=== PATIENT | female | born 1945 | race Caucasian/White ===

== ENCOUNTER 2017-07-18 20:09 | Emergency (ER) | payer MEDICARE, OTHER ==
[2017-07-18] MEDS ORDERED: fentaNYL PF VIAL 100 MCG/2 ML VIAL IV (21:00)
[2017-07-18 21:04] LABS: BASO # 0.2 x10^3/uL (0.0-0.2); BASO % 1 % (0-3); EOS # 0.1 x10^3/uL (0.0-0.7); EOS % 1 % (0-3); HEMATOCRIT 32.9 % (36.0-47.0); HEMOGLOBIN 11.7 g/dL (12.0-15.5); LYMPH # 2.2 x10^3/uL (1.0-4.8); LYMPH % 9 % (24-48); MEAN CORPUSCULAR HEMOGLOBIN 33 pg (25-35); MEAN CORPUSCULAR HGB CONC 36 g/dL (31-37); MEAN CORPUSCULAR VOLUME 94 fL (79-100); MONO # 1.6 x10^3/uL (0.0-1.1); MONO % 6 % (0-9); NEUT # 20.9 x10^3uL (1.8-7.7); NEUT % 84 % (31-73); PLATELET COUNT 205 x10^3/uL (140-400); RED CELL DISTRIBUTION WIDTH 12.8 % (11.5-14.5)
[2017-07-18 21:05] LABS: ADD MAN DIFF? YES
[2017-07-18] MEDS: ONDANSETRON PF 4 MG/2 ML VIAL. IV (21:05)
[2017-07-18 21:14] LABS: PARTIAL THROMBOPLASTIN TIME 23 SEC (24-38); PROTHROMBIN TIME PATIENT 12.4 SEC (11.7-14.0)
[2017-07-18 21:24] LABS: ANION GAP 10 (6-14); BLOOD UREA NITROGEN 26 mg/dL (7-20); CALCIUM 8.3 mg/dL (8.5-10.1); CARBON DIOXIDE 29 mmol/L (21-32); CHLORIDE 98 mmol/L (98-107); CREATININE 1.9 mg/dL (0.6-1.0); GLUCOSE 173 mg/dL (70-99); POTASSIUM 3.1 mmol/L (3.5-5.1); SODIUM 137 mmol/L (136-145)
[2017-07-18] MEDS: IV NORMAL SALINE 500ML BAG 500 ML IV ×2 (21:30→22:35)
[2017-07-18 21:33] LABS: LACTIC ACID 2.1 mmol/L (0.4-2.0); TROPONINI < 0.017 ng/mL (0.000-0.055)
[2017-07-18 21:33] LABS: ALBUMIN 2.7 g/dL (3.4-5.0); ALK PHOS 44 U/L (46-116); ALT (SGPT) 35 U/L (14-59); AST (SGOT) 32 U/L (15-37); CREATINE KINASE 324 U/L (26-192); DIRECT BILIRUBIN 0.1 mg/dL (0.0-0.2); LIPASE 283 U/L (73-393); TOTAL BILIRUBIN 0.1 mg/dL (0.2-1.0)
[2017-07-18 21:37] LABS: % BANDS 1 % (0-9); % LYMPHS 7 % (24-48); % MONOS 5 % (0-10); % SEGS 87 % (35-66)
[2017-07-18 21:38] LABS: PLT ESTIMATE ADEQUATE (ADEQUATE)
[2017-07-18 21:58] LABS: BILIRUBIN,URINE SMALL (NEG); CLARITY,URINE CLEAR; COLOR,URINE YELLOW; GLUCOSE,URINE NEGATIVE (NEG); NITRITE,URINE NEGATIVE (NEG); PROTEIN,URINE >=300 mg/dL (NEG-TRACE)
[2017-07-18 22:04] LABS: AMORPHOUS SEDIMENT,UR PRESENT /HPF; BACTERIA,URINE 0 /HPF (0-FEW); HYALINE CASTS, URINE MANY /HPF; SQUAMOUS EPITHELIAL CELL,UR FEW /LPF
== END 2017-07-18 23:25 | disposition short-term general hospital (02) ==
LOC: ER 23:25
DX: S42.352A Displaced comminuted fracture of shaft of humerus, left arm, initial encounter for closed fracture (principal); S42.402A Unspecified fracture of lower end of left humerus, initial encounter for closed fracture; S22.32XA Fracture of one rib, left side, initial encounter for closed fracture; Z86.73 Personal history of transient ischemic attack (TIA), and cerebral infarction without residual deficits; Z95.1 Presence of aortocoronary bypass graft; Z79.02 Long term (current) use of antithrombotics/antiplatelets; Z79.82 Long term (current) use of aspirin; Z88.5 Allergy status to narcotic agent; W17.89XA Other fall from one level to another, initial encounter; Y93.89 Activity, other specified; Y99.8 Other external cause status; Y92.89 Other specified places as the place of occurrence of the external cause
CPT/HCPCS: 36415; 70450; 71045; 72125; 73030; 73080; 73110; 73521; 80048; 80076; 81001; 82550; 83605; 83690; 84484; 85007; 85025; 85610; 85730; 96361; 96374; 99285-25; J2405; J7040; P9612

== ENCOUNTER → 2017-09-06 | Outpatient (CLI) | payer MEDICARE | END | disposition home or self-care (01) | LOC: PMGWOUND 10:09 | DX: T81.31XA Disruption of external operation (surgical) wound, not elsewhere classified, initial encounter (principal); E03.9 Hypothyroidism, unspecified; E78.5 Hyperlipidemia, unspecified; I10 Essential (primary) hypertension; Z86.73 Personal history of transient ischemic attack (TIA), and cerebral infarction without residual deficits; Z95.1 Presence of aortocoronary bypass graft; Z90.710 Acquired absence of both cervix and uterus; Z87.891 Personal history of nicotine dependence; Y83.8 Other surgical procedures as the cause of abnormal reaction of the patient, or of later complication, without mention of misadventure at the time of the procedure; Y82.8 Other medical devices associated with adverse incidents; Y92.89 Other specified places as the place of occurrence of the external cause | CPT/HCPCS: 99215 ==

== ENCOUNTER → 2017-09-22 | Outpatient (CLI) | payer MEDICARE | END | disposition home or self-care (01) | LOC: PMGWOUND 12:35 | DX: T81.31XD Disruption of external operation (surgical) wound, not elsewhere classified, subsequent encounter (principal); E03.9 Hypothyroidism, unspecified; E78.5 Hyperlipidemia, unspecified; I10 Essential (primary) hypertension; Z86.73 Personal history of transient ischemic attack (TIA), and cerebral infarction without residual deficits; Z95.1 Presence of aortocoronary bypass graft; Z90.710 Acquired absence of both cervix and uterus; Z87.891 Personal history of nicotine dependence; Y83.8 Other surgical procedures as the cause of abnormal reaction of the patient, or of later complication, without mention of misadventure at the time of the procedure | CPT/HCPCS: 97597 ==

== ENCOUNTER → 2017-10-06 | Outpatient (CLI) | payer MEDICARE | END | disposition home or self-care (01) | LOC: PMGWOUND 12:45 | DX: T81.31XD Disruption of external operation (surgical) wound, not elsewhere classified, subsequent encounter (principal); E03.9 Hypothyroidism, unspecified; E78.5 Hyperlipidemia, unspecified; I10 Essential (primary) hypertension; Z86.73 Personal history of transient ischemic attack (TIA), and cerebral infarction without residual deficits; Z95.1 Presence of aortocoronary bypass graft; Z90.710 Acquired absence of both cervix and uterus; Z87.891 Personal history of nicotine dependence; Y83.8 Other surgical procedures as the cause of abnormal reaction of the patient, or of later complication, without mention of misadventure at the time of the procedure | CPT/HCPCS: 97597 ==

== ENCOUNTER → 2017-10-20 | Outpatient (CLI) | payer MEDICARE | END | disposition home or self-care (01) | LOC: PMGWOUND 12:15 | DX: T81.31XD Disruption of external operation (surgical) wound, not elsewhere classified, subsequent encounter (principal); E03.9 Hypothyroidism, unspecified; E78.5 Hyperlipidemia, unspecified; I10 Essential (primary) hypertension; Z86.73 Personal history of transient ischemic attack (TIA), and cerebral infarction without residual deficits; Z95.1 Presence of aortocoronary bypass graft; Z90.710 Acquired absence of both cervix and uterus; Z87.891 Personal history of nicotine dependence; Y83.8 Other surgical procedures as the cause of abnormal reaction of the patient, or of later complication, without mention of misadventure at the time of the procedure | CPT/HCPCS: 99214 ==

== ENCOUNTER 2017-11-24 20:32 | Inpatient (IN) | payer MEDICARE ==
[2017-11-24 20:56] LABS: ADD MAN DIFF? NO
[2017-11-24 20:59] LABS: BASO % 0 % (0-3); EOS % 0 % (0-3); HEMATOCRIT 28.9 % (36.0-47.0); HEMOGLOBIN 10.1 g/dL (12.0-15.5); LYMPH # 0.9 x10^3/uL (1.0-4.8); LYMPH % 14 % (24-48); MEAN CORPUSCULAR HEMOGLOBIN 32 pg (25-35); MEAN CORPUSCULAR HGB CONC 35 g/dL (31-37); MEAN CORPUSCULAR VOLUME 91 fL (79-100); MONO # 0.4 x10^3/uL (0.0-1.1); MONO % 7 % (0-9); NEUT # 5.1 x10^3uL (1.8-7.7); NEUT % 79 % (31-73); PLATELET COUNT 329 x10^3/uL (140-400); RED BLOOD COUNT 3.17 x10^6/uL (3.50-5.40); RED CELL DISTRIBUTION WIDTH 14.6 % (11.5-14.5); WHITE BLOOD COUNT 6.4 x10^3/uL (4.0-11.0)
[2017-11-24 21:09] LABS: PARTIAL THROMBOPLASTIN TIME 26 SEC (24-38); PROTHROMBIN TIME PATIENT 13.1 SEC (11.7-14.0)
[2017-11-24 21:10] LABS: ANION GAP 10 (6-14); BLOOD UREA NITROGEN 44 mg/dL (7-20); CALCIUM 8.3 mg/dL (8.5-10.1); CARBON DIOXIDE 23 mmol/L (21-32); CHLORIDE 95 mmol/L (98-107); CREATININE 2.1 mg/dL (0.6-1.0); GFR 23.1; GLUCOSE 138 mg/dL (70-99); POTASSIUM 3.9 mmol/L (3.5-5.1); SODIUM 128 mmol/L (136-145)
[2017-11-24 21:24] LABS: MAGNESIUM 1.3 mg/dL (1.8-2.4); NT-PRO BNP 17519 pg/mL (0-124)
[2017-11-24] MEDS ORDERED: IV NORMAL SALINE 500ML BAG 500 ML IV (21:30)
[2017-11-24] MEDS ORDERED: ONDANSETRON PF 4 MG/2 ML VIAL. IV (22:15)
[2017-11-24] MEDS ORDERED: ACETAMINOPHEN 325 MG TABLET. PO (22:15)
[2017-11-25 01:27] LABS: TROPONINI 0.034 ng/mL (0.000-0.055)
[2017-11-25 05:41] LABS: ADD MAN DIFF? NO
[2017-11-25 05:45] LABS: BASO % 1 % (0-3); EOS % 0 % (0-3); HEMATOCRIT 26.4 % (36.0-47.0); LYMPH # 0.9 x10^3/uL (1.0-4.8); LYMPH % 14 % (24-48); MEAN CORPUSCULAR HEMOGLOBIN 31 pg (25-35); MEAN CORPUSCULAR HGB CONC 34 g/dL (31-37); MEAN CORPUSCULAR VOLUME 91 fL (79-100); MONO # 0.4 x10^3/uL (0.0-1.1); MONO % 7 % (0-9); NEUT # 4.8 x10^3uL (1.8-7.7); NEUT % 78 % (31-73); PLATELET COUNT 303 x10^3/uL (140-400); RED CELL DISTRIBUTION WIDTH 14.6 % (11.5-14.5); WHITE BLOOD COUNT 6.1 x10^3/uL (4.0-11.0)
[2017-11-25 06:08] LABS: ANION GAP 9 (6-14); BLOOD UREA NITROGEN 48 mg/dL (7-20); CALCIUM 8.3 mg/dL (8.5-10.1); CARBON DIOXIDE 24 mmol/L (21-32); CHLORIDE 95 mmol/L (98-107); CREATININE 2.4 mg/dL (0.6-1.0); GFR 19.8; GLUCOSE 108 mg/dL (70-99); POTASSIUM 4.2 mmol/L (3.5-5.1); SODIUM 128 mmol/L (136-145)
[2017-11-25 06:21] LABS: TROPONINI 0.037 ng/mL (0.000-0.055)
[2017-11-25 08:41] LABS: MAGNESIUM 1.4 mg/dL (1.8-2.4)
[2017-11-25] MEDS: MAGNESIUM SULFATE 4GM 100 ML IV (11:10)
[2017-11-25 11:48] LABS: THYROID STIM HORMONE (TSH) 1.024 uIU/mL (0.358-3.74)
[2017-11-25 12:25] LABS: VITAMIN-B12 1396 pg/mL (247-911)
[2017-11-25] MEDS: METOPROLOL TART IMMED RELEASE 25 MG TABLET. PO ×2 (12:55→20:42)
[2017-11-25] MEDS: APIXABAN 2.5 MG TABLET. PO ×2 (12:55→20:42)
[2017-11-25] MEDS: LEVOTHYROXINE 175 MCG TABLET PO (12:55)
[2017-11-25] MEDS: POTASSIUM CHLORIDE 20 MEQ TABLET.ER. PO ×2 (12:56→16:20)
[2017-11-25] MEDS: AMIODARONE HCL 200 MG TABLET. PO (12:56)
[2017-11-25] MEDS: levETIRAcetam 500 MG TABLET PO ×2 (12:56→20:42)
[2017-11-25] MEDS: ASPIRIN CHEWABLE 81 MG TABLET. PO (12:56)
[2017-11-25] MEDS: PANTOPRAZOLE 40 MG TABLET.DR. PO (12:56)
[2017-11-25] MEDS: amLODIPine BESYLATE 10 MG TABLET PO (13:02)
[2017-11-25] MEDS: SERTRALINE 50 MG TABLET. PO (16:19)
[2017-11-25] MEDS: DOXAZOSIN MESYLATE 4 MG TABLET. PO (20:42)
[2017-11-25] MEDS: ATORVASTATIN CALCIUM 40 MG TABLET. PO (20:42)
[2017-11-26 05:41] LABS: HEMATOCRIT 23.7 % (36.0-47.0); HEMOGLOBIN 8.2 g/dL (12.0-15.5); MEAN CORPUSCULAR HEMOGLOBIN 31 pg (25-35); MEAN CORPUSCULAR HGB CONC 35 g/dL (31-37); MEAN CORPUSCULAR VOLUME 90 fL (79-100); PLATELET COUNT 292 x10^3/uL (140-400); RED BLOOD COUNT 2.63 x10^6/uL (3.50-5.40); RED CELL DISTRIBUTION WIDTH 14.6 % (11.5-14.5); WHITE BLOOD COUNT 4.8 x10^3/uL (4.0-11.0)
[2017-11-26 05:59] LABS: ALBUMIN 1.4 g/dL (3.4-5.0); ALBUMIN/GLOBULIN RATIO 0.4 (1.0-1.7); ALK PHOS 63 U/L (46-116); ALT (SGPT) 37 U/L (14-59); ANION GAP 10 (6-14); AST (SGOT) 35 U/L (15-37); BLOOD UREA NITROGEN 53 mg/dL (7-20); BUN/CREATININE RATIO 24 (6-20); CALCIUM 7.4 mg/dL (8.5-10.1); CARBON DIOXIDE 23 mmol/L (21-32); CHLORIDE 94 mmol/L (98-107); CREATININE 2.2 mg/dL (0.6-1.0); GFR 21.9; GLUCOSE 94 mg/dL (70-99); POTASSIUM 3.2 mmol/L (3.5-5.1); SODIUM 127 mmol/L (136-145); TOTAL BILIRUBIN 0.2 mg/dL (0.2-1.0); TOTAL PROTEIN 4.9 g/dL (6.4-8.2)
[2017-11-26] MEDS: PANTOPRAZOLE 40 MG TABLET.DR. PO (07:48)
[2017-11-26] MEDS: LEVOTHYROXINE 175 MCG TABLET PO (07:48)
[2017-11-26] MEDS: ASPIRIN CHEWABLE 81 MG TABLET. PO (07:48)
[2017-11-26] MEDS: POTASSIUM CHLORIDE 20 MEQ TABLET.ER. PO ×4 (07:48→17:17)
[2017-11-26] MEDS: ANTI-COAG MONITOR BY PHARMACY. MC (08:50)
[2017-11-26] MEDS: METOPROLOL TART IMMED RELEASE 25 MG TABLET. PO ×2 (09:12→21:56)
[2017-11-26] MEDS: MULTIVITAMIN with MINERAL TABLET. PO (09:12)
[2017-11-26] MEDS: SERTRALINE 50 MG TABLET. PO (09:12)
[2017-11-26] MEDS: amLODIPine BESYLATE 10 MG TABLET PO (09:12)
[2017-11-26] MEDS: AMIODARONE HCL 200 MG TABLET. PO (09:13)
[2017-11-26] MEDS: APIXABAN 2.5 MG TABLET. PO ×2 (09:13→21:51)
[2017-11-26] MEDS: levETIRAcetam 500 MG TABLET PO ×2 (09:13→21:51)
[2017-11-26 11:52] LABS: BILIRUBIN,URINE NEGATIVE (NEG); CLARITY,URINE CLEAR; COLOR,URINE YELLOW; GLUCOSE,URINE NEGATIVE (NEG); NITRITE,URINE NEGATIVE (NEG); PROTEIN,URINE >=300 mg/dL (NEG-TRACE); UROBILINOGEN,URINE 0.2 mg/dL (0.2 mg/dL)
[2017-11-26 12:23] LABS: BACTERIA,URINE 0 /HPF (0-FEW); HYALINE CASTS, URINE FEW /HPF; SQUAMOUS EPITHELIAL CELL,UR MOD /LPF; WAXY CASTS,URINE OCCASIONAL /HPF; WBC,URINE 0 /HPF (0-4); YEAST,URINE PRESENT /HPF
[2017-11-26] MEDS: SPIRONOLACTONE 25 MG TABLET PO (12:54)
[2017-11-26] MEDS: OMEGA-3 FATTY ACIDS/FISH OIL 1,000 MG CAPSULE. PO (12:54)
[2017-11-26] MEDS: CHOLECALCIFEROL (VITAMIN D3) 1,000 UNIT TABLET PO (12:55)
[2017-11-26] MEDS: FLUDROCORTISONE 0.1 MG TABLET PO (12:55)
[2017-11-26] MEDS: ATORVASTATIN CALCIUM 40 MG TABLET. PO (21:51)
[2017-11-26] MEDS: DOXAZOSIN MESYLATE 4 MG TABLET. PO (21:53)
[2017-11-27 04:38] LABS: HEMATOCRIT 26.3 % (36.0-47.0); HEMOGLOBIN 9.2 g/dL (12.0-15.5); MEAN CORPUSCULAR HEMOGLOBIN 32 pg (25-35); MEAN CORPUSCULAR HGB CONC 35 g/dL (31-37); MEAN CORPUSCULAR VOLUME 91 fL (79-100); PLATELET COUNT 295 x10^3/uL (140-400); RED BLOOD COUNT 2.91 x10^6/uL (3.50-5.40); RED CELL DISTRIBUTION WIDTH 14.5 % (11.5-14.5); WHITE BLOOD COUNT 4.8 x10^3/uL (4.0-11.0)
[2017-11-27 05:16] LABS: ALBUMIN 1.5 g/dL (3.4-5.0); ALBUMIN/GLOBULIN RATIO 0.5 (1.0-1.7); ALK PHOS 69 U/L (46-116); ALT (SGPT) 42 U/L (14-59); ANION GAP 9 (6-14); AST (SGOT) 42 U/L (15-37); BLOOD UREA NITROGEN 46 mg/dL (7-20); BUN/CREATININE RATIO 24 (6-20); CALCIUM 7.1 mg/dL (8.5-10.1); CARBON DIOXIDE 23 mmol/L (21-32); CHLORIDE 97 mmol/L (98-107); CREATININE 1.9 mg/dL (0.6-1.0); GFR 25.9; GLUCOSE 90 mg/dL (70-99); POTASSIUM 3.9 mmol/L (3.5-5.1); SODIUM 129 mmol/L (136-145); TOTAL BILIRUBIN 0.2 mg/dL (0.2-1.0); TOTAL PROTEIN 4.6 g/dL (6.4-8.2)
[2017-11-27 06:42] LABS: SEDIMENTATION RATE 45 (0-25)
[2017-11-27] MEDS: LEVOTHYROXINE 175 MCG TABLET PO (06:44)
[2017-11-27] MEDS: ASPIRIN CHEWABLE 81 MG TABLET. PO (08:00)
[2017-11-27] MEDS: OMEGA-3 FATTY ACIDS/FISH OIL 1,000 MG CAPSULE. PO (08:25)
[2017-11-27] MEDS: FLUDROCORTISONE 0.1 MG TABLET PO (08:25)
[2017-11-27] MEDS: CHOLECALCIFEROL (VITAMIN D3) 1,000 UNIT TABLET PO (08:25)
[2017-11-27] MEDS: levETIRAcetam 500 MG TABLET PO ×2 (08:25→20:45)
[2017-11-27] MEDS: METOPROLOL TART IMMED RELEASE 25 MG TABLET. PO ×2 (08:26→20:46)
[2017-11-27] MEDS: AMIODARONE HCL 200 MG TABLET. PO (08:26)
[2017-11-27] MEDS: PANTOPRAZOLE 40 MG TABLET.DR. PO (08:27)
[2017-11-27] MEDS: MULTIVITAMIN with MINERAL TABLET. PO (08:27)
[2017-11-27] MEDS: APIXABAN 2.5 MG TABLET. PO ×2 (08:27→20:46)
[2017-11-27] MEDS: SPIRONOLACTONE 25 MG TABLET PO (08:27)
[2017-11-27] MEDS: POTASSIUM CHLORIDE 20 MEQ TABLET.ER. PO ×3 (08:27→17:12)
[2017-11-27] MEDS: amLODIPine BESYLATE 10 MG TABLET PO (08:28)
[2017-11-27] MEDS: SERTRALINE 50 MG TABLET. PO (08:28)
[2017-11-27] MEDS: ANTI-COAG MONITOR BY PHARMACY. MC (11:29)
[2017-11-27] MEDS: ATORVASTATIN CALCIUM 40 MG TABLET. PO (20:45)
[2017-11-27] MEDS: DOXAZOSIN MESYLATE 4 MG TABLET. PO (20:47)
[2017-11-28] MEDS: LEVOTHYROXINE 175 MCG TABLET PO (06:09)
[2017-11-28 08:14] LABS: HEMATOCRIT 28.3 % (36.0-47.0); HEMOGLOBIN 9.8 g/dL (12.0-15.5); MEAN CORPUSCULAR HEMOGLOBIN 31 pg (25-35); MEAN CORPUSCULAR HGB CONC 35 g/dL (31-37); MEAN CORPUSCULAR VOLUME 91 fL (79-100); PLATELET COUNT 308 x10^3/uL (140-400); RED BLOOD COUNT 3.12 x10^6/uL (3.50-5.40); WHITE BLOOD COUNT 5.2 x10^3/uL (4.0-11.0)
[2017-11-28] MEDS: SPIRONOLACTONE 25 MG TABLET PO (08:33)
[2017-11-28] MEDS: OMEGA-3 FATTY ACIDS/FISH OIL 1,000 MG CAPSULE. PO (08:33)
[2017-11-28] MEDS: CHOLECALCIFEROL (VITAMIN D3) 1,000 UNIT TABLET PO (08:33)
[2017-11-28] MEDS: SERTRALINE 50 MG TABLET. PO (08:34)
[2017-11-28] MEDS: amLODIPine BESYLATE 10 MG TABLET PO (08:34)
[2017-11-28] MEDS: APIXABAN 2.5 MG TABLET. PO (08:34)
[2017-11-28] MEDS: PANTOPRAZOLE 40 MG TABLET.DR. PO (08:34)
[2017-11-28] MEDS: MULTIVITAMIN with MINERAL TABLET. PO (08:34)
[2017-11-28] MEDS: FLUDROCORTISONE 0.1 MG TABLET PO (08:34)
[2017-11-28] MEDS: AMIODARONE HCL 200 MG TABLET. PO (08:34)
[2017-11-28 08:35] LABS: ANION GAP 7 (6-14); BLOOD UREA NITROGEN 30 mg/dL (7-20); CALCIUM 7.7 mg/dL (8.5-10.1); CARBON DIOXIDE 25 mmol/L (21-32); CHLORIDE 98 mmol/L (98-107); CREATININE 1.6 mg/dL (0.6-1.0); GFR 31.6; GLUCOSE 91 mg/dL (70-99); POTASSIUM 3.2 mmol/L (3.5-5.1); SODIUM 130 mmol/L (136-145)
[2017-11-28] MEDS: POTASSIUM CHLORIDE 20 MEQ TABLET.ER. PO ×3 (08:35→12:15)
[2017-11-28] MEDS: METOPROLOL TART IMMED RELEASE 25 MG TABLET. PO (08:35)
[2017-11-28] MEDS: levETIRAcetam 500 MG TABLET PO (08:35)
[2017-11-28] MEDS: ASPIRIN CHEWABLE 81 MG TABLET. PO (08:35)
[2017-11-28 11:24] LABS: URINE OSMOLALITY 387 mOsmol/kg (.)
== END 2017-11-28 14:25 | disposition home health service (06) | DRG 682 ==
LOC: ER 20:32 → 2 NORTH 22:30
PROC: 4B02XSZ Measurement of Cardiac Pacemaker, External Approach (ICD-10-PCS; principal; 2017-11-24)
DX: N17.9 Acute kidney failure, unspecified (principal); E43 Unspecified severe protein-calorie malnutrition; E87.1 Hypo-osmolality and hyponatremia; I50.32 Chronic diastolic (congestive) heart failure; I13.0 Hypertensive heart and chronic kidney disease with heart failure and stage 1 through stage 4 chronic kidney disease, or unspecified chronic kidney disease; I69.354 Hemiplegia and hemiparesis following cerebral infarction affecting left non-dominant side; R56.9 Unspecified convulsions; I25.10 Atherosclerotic heart disease of native coronary artery without angina pectoris; D64.9 Anemia, unspecified; F17.210 Nicotine dependence, cigarettes, uncomplicated; E78.5 Hyperlipidemia, unspecified; F41.9 Anxiety disorder, unspecified; G93.89 Other specified disorders of brain; E03.9 Hypothyroidism, unspecified; F32.9 Major depressive disorder, single episode, unspecified; N26.1 Atrophy of kidney (terminal); N28.1 Cyst of kidney, acquired; I48.0 Paroxysmal atrial fibrillation; I49.5 Sick sinus syndrome; E83.42 Hypomagnesemia; E83.51 Hypocalcemia; I65.22 Occlusion and stenosis of left carotid artery; I95.1 Orthostatic hypotension; K21.9 Gastro-esophageal reflux disease without esophagitis; M85.80 Other specified disorders of bone density and structure, unspecified site; N18.4 Chronic kidney disease, stage 4 (severe); Z95.1 Presence of aortocoronary bypass graft; Z95.0 Presence of cardiac pacemaker; Z82.49 Family history of ischemic heart disease and other diseases of the circulatory system; Z79.899 Other long term (current) drug therapy; I69.320 Aphasia following cerebral infarction; Z87.01 Personal history of pneumonia (recurrent); Z68.21 Body mass index [BMI] 21.0-21.9, adult
CPT/HCPCS: 36415; 70450; 71045; 76770; 80048; 80053; 81001; 82306; 82310; 82533; 82607; 83735; 83880; 83930; 83935; 84443; 84484; 85025; 85027; 85610; 85651; 85730; 92610-GN; 93005; 95816; 97110-GP; 97163-GP; 97530-GP; 99285; 99285-25; J3475

== ENCOUNTER → 2017-12-15 | Outpatient (CLI) | payer MEDICARE ==
[2017-11-28 11:50] VITALS: BP 117/45
[~2017-12-15] MED LIST: AMIO200T4 PO; AMLO10TA2 PO; APIX2.5T PO; ASPI-630 PO; ATORVASTATIN CA80 MG PO; CHOL10003 PO; DOXA8TAB2 PO; DOXY100C2 PO; FLUD0.1T PO; LEVE500T56 PO; LEVO175T5 PO; LOSA25TA4 PO; METO25TA4 PO; MULT1TAB52 PO; OMEG1CAP38 PO; OMEP40CA5 PO; PARO20TA3 PO; PHEN100C PO; POTA20TA4 PO; POTA20TA82 PO; SERT50TA8 PO; SPIR50TA4 PO
== END | disposition home or self-care (01) ==
LOC: PMGWOUND 12:10
PROVIDERS: ATTEND Emergency Medicine Undersea and Hyperbaric Medicine
DX: T81.31XD Disruption of external operation (surgical) wound, not elsewhere classified, subsequent encounter (principal); F41.9 Anxiety disorder, unspecified; I25.10 Atherosclerotic heart disease of native coronary artery without angina pectoris; K21.9 Gastro-esophageal reflux disease without esophagitis; E11.22 Type 2 diabetes mellitus with diabetic chronic kidney disease; I13.0 Hypertensive heart and chronic kidney disease with heart failure and stage 1 through stage 4 chronic kidney disease, or unspecified chronic kidney disease; N18.4 Chronic kidney disease, stage 4 (severe); I50.32 Chronic diastolic (congestive) heart failure; E03.9 Hypothyroidism, unspecified; F32.9 Major depressive disorder, single episode, unspecified; I48.0 Paroxysmal atrial fibrillation; E78.5 Hyperlipidemia, unspecified; F17.210 Nicotine dependence, cigarettes, uncomplicated; Z95.1 Presence of aortocoronary bypass graft; Z79.899 Other long term (current) drug therapy; Z79.4 Long term (current) use of insulin; Z99.2 Dependence on renal dialysis; Y83.8 Other surgical procedures as the cause of abnormal reaction of the patient, or of later complication, without mention of misadventure at the time of the procedure
CPT/HCPCS: 99213

== ENCOUNTER 2018-07-16 09:56 | Inpatient (IN) | payer MEDICARE ==
[~2018-07-16] VITALS: Ht 152.4 cm; Wt 36.9 kg
[~2018-07-16 09:56] MED LIST changes: +ACET500T68 PO; -AMLO10TA2 PO; +AMLO10TA8 PO; +CLOP75TA PO; +FURO20TA3 PO; +LEVE500T6 PO; -LOSA25TA4 PO; +LOSA25TA54 PO; +METO-239 PO; +SERT50TA PO
[2018-07-16] MEDS ORDERED: IPRATRPIUM/ALBUTEROL 0.5/2.5MG 3 ML NEBU. NEB ONE (10:15)
--- NOTE | 2018-07-16 10:17 | PHYS DOC ---
Past Medical History Past Medical History: COPD, CVA, Heart Disease, Hypertension, Renal Failure Additional Past Medical Histor: Left carotid artery completely occluded Past Surgical History: Coronary Bypass Surgery, Hysterectomy, Pacemaker Additional Past Surgical Histo: PARATHYROID GLAND REMOVED, Stent in kidney, shoulder surgery, carotids Alcohol Use: None Drug Use: None Adult General Chief Complaint Chief Complaint: SHORTNESS OF BREATH HPI HPI Patient is a 72 year old female who presents with shortness of breath. History is limited from the patient due to her prior stroke. History was obtained mostly from her . Patient was admitted to the hospital approximately 2 weeks ago due to shortness of breath and found to be in congestive heart failure. She was receiving dialysis treatments due to acute renal failure. Her last dialysis was a week ago, and she was told that she no longer needed dialysis. Since that time she has been having increasing shortness of breath. They put her home oxygen machine on 5 L which did not significantly improve her shortness of breath. denies any fever. Denies any cough.[] Review of Systems Review of Systems Constitutional: Denies fever or chills [] Eyes: Denies change in visual acuity, redness, or eye pain [] HENT: Denies nasal congestion or sore throat [] Respiratory: See history of present illness[] Cardiovascular: No chest pain or palpitations[] GI: Denies abdominal pain, nausea, vomiting, bloody stools or diarrhea [] : Denies dysuria or hematuria [] Musculoskeletal: Denies back pain or joint pain [] Integument: Denies rash or skin lesions [] Neurologic: Denies headache, focal weakness or sensory changes [] Endocrine: Denies polyuria or polydipsia [] All other systems were reviewed and found to be within normal limits, except as documented in this note. Current Medications Current Medications Current Medications Medications (Trade) Dose Ordered Sig/Dez Start Time Stop Time Status Last Admin Dose Admin Albuterol/ Ipratropium (Duoneb) 3 ml 1X ONCE 07/16/18 10:15 07/16/18 10:16 DC 07/16/18 10:15 3 ML Furosemide (Lasix) 40 mg 1X ONCE 07/16/18 10:30 07/16/18 10:31 DC 07/16/18 11:02 40 MG Allergies Allergies Allergies Coded Allergies Type Severity Reaction Last Updated Verified codeine Allergy Intermediate 11/24/17 Yes Physical Exam Physical Exam Constitutional: Well developed, well nourished, no acute distress, non-toxic appearance. [] HENT: Normocephalic, atraumatic, bilateral external ears normal, oropharynx moist, no oral exudates, nose normal. [] Eyes: PERRLA, EOMI, conjunctiva normal, no discharge. [] Neck: Normal range of motion, no tenderness, supple, no stridor. [] Cardiovascular:Heart rate regular rhythm, no murmur [] Lungs & Thorax: Bilateral breath sounds clear to auscultation [] Abdomen: Bowel sounds normal, soft, no tenderness, no masses, no pulsatile masses. [] Skin: Warm, dry, no erythema, no rash. [] Back: No tenderness, no CVA tenderness. [] Extremities: No tenderness, no cyanosis, no clubbing, ROM intact, no edema. [] Neurologic: Alert and oriented, patient is able to move all 4 extremities but appears grossly week in all 4 extremities. [] Psychologic: Unable to assess. [] Current Patient Data Vital Signs Vital Signs Date Time Temp Pulse Resp B/P (MAP) Pulse Ox O2 Delivery O2 Flow Rate FiO2 07/16/18 10:17 98 Nasal Cannula 5.0 07/16/18 10:02 97.8 76 24 200/80 (120) 97.8 Lab Values Laboratory Tests Test 07/16/18 10:05 07/16/18 10:30 White Blood Count 7.1 x10^3/uL (4.0-11.0) Red Blood Count 3.16 x10^6/uL (3.50-5.40) L Hemoglobin 9.4 g/dL (12.0-15.5) L Hematocrit 28.4 % (36.0-47.0) L Mean Corpuscular Volume 90 fL (79-100) Mean Corpuscular Hemoglobin 30 pg (25-35) Mean Corpuscular Hemoglobin Concent 33 g/dL (31-37) Red Cell Distribution Width 18.8 % (11.5-14.5) H Platelet Count 173 x10^3/uL (140-400) Neutrophils (%) (Auto) 87 % (31-73) H Lymphocytes (%) (Auto) 6 % (24-48) L Monocytes (%) (Auto) 7 % (0-9) Eosinophils (%) (Auto) 0 % (0-3) Basophils (%) (Auto) 1 % (0-3) Neutrophils # (Auto) 6.2 x10^3uL (1.8-7.7) Lymphocytes # (Auto) 0.4 x10^3/uL (1.0-4.8) L Monocytes # (Auto) 0.5 x10^3/uL (0.0-1.1) Eosinophils # (Auto) 0.0 x10^3/uL (0.0-0.7) Basophils # (Auto) 0.0 x10^3/uL (0.0-0.2) Platelet Estimate Pending Sodium Level 143 mmol/L (136-145) Potassium Level 3.4 mmol/L (3.5-5.1) L Chloride Level 101 mmol/L (98-107) Carbon Dioxide Level 27 mmol/L (21-32) Anion Gap 15 (6-14) H Blood Urea Nitrogen 24 mg/dL (7-20) H Creatinine 2.9 mg/dL (0.6-1.0) H Estimated GFR (Cockcroft-Gault) 15.9 BUN/Creatinine Ratio 8 (6-20) Glucose Level 109 mg/dL (70-99) H Calcium Level 9.1 mg/dL (8.5-10.1) Total Bilirubin 0.9 mg/dL (0.2-1.0) Aspartate Amino Transferase (AST) 42 U/L (15-37) H Alanine Aminotransferase (ALT) 48 U/L (14-59) Alkaline Phosphatase 73 U/L (46-116) Troponin I Quantitative < 0.017 ng/mL (0.000-0.055) EW-Qdb-U-Type Natriuretic Peptide > 56055 pg/mL (0-124) H Total Protein 7.2 g/dL (6.4-8.2) Albumin 3.1 g/dL (3.4-5.0) L Albumin/Globulin Ratio 0.8 (1.0-1.7) L O2 Saturation 91 % (92-99) L Arterial Blood pH 7.48 (7.35-7.45) H Arterial Blood pCO2 at Patient Temp 34 mmHg (35-46) L Arterial Blood pO2 at Patient Temp 63 mmHg (65-108) L Arterial Blood HCO3 25 mmol/L (21-28) Arterial Blood Base Excess 1 mmol/L (-3-3) Oxyhemoglobin 89.9 % Methemoglobin 0.4 % (0.0-1.9) Carbon Monoxide, Quantitative 0.3 % (0.0-1.9) FiO2 5 lpm nc Laboratory Tests 07/16/18 10:05 Laboratory Tests 07/16/18 10:05 EKG EKG EKG shows a sinus rhythm at 75 bpm, normal axis, QTC of 445 ms, no ST elevations. Interpreted by me at 1010[] Radiology/Procedures Radiology/Procedures AP chest. HISTORY: Short of air AP view was taken of the chest. The heart is enlarged. Left pacemaker is unchanged. There are bilateral pleural effusions. There is a dialysis catheter on the right extending to the right atrium. There is pulmonary vascular congestion. There is pulmonary edema consistent with heart failure. IMPRESSION: 1. Congestive heart failure with pulmonary edema.[] Course & Med Decision Making Course & Med Decision Making Pertinent Labs and Imaging studies reviewed. (See chart for details) ED course: Patient arrived, was placed in bed, tolerated exam well. She was maintained on supplemental oxygen via nasal cannula which maintained her oxygen saturation. She was given IV Lasix in accordance with her usual daily dose. After the return of laboratory and imaging findings, consultation was made with hospitalist service for admission. Findings were also discussed with the patient and family who voiced understanding. All questions were answered. Patient was admitted in improved condition. Medical decision making: Patient appears to be in congestive heart failure. First set of cardiac enzymes are negative. Patient is being admitted for further evaluation and treatment.[] Dragon Disclaimer Dragon Disclaimer This electronic medical record was generated, in whole or in part, using a voice recognition dictation system. Departure Departure Impression: Primary Impression: Congestive heart failure Additional Impression: Chronic renal failure Disposition: ADMITTED INPATIENT Admitting Physician: Jeff Lua Condition: IMPROVED Referrals: HUI DOZIER MD (PCP) Problem Qualifiers Primary Impression: Congestive heart failure Heart failure type: unspecified VERONICA FERRARI DO Jul 16, 2018 10:17
[2018-07-16 10:27] LABS: BASO % 1 % (0-3); EOS % 0 % (0-3); HEMATOCRIT 28.4 % (36.0-47.0); HEMOGLOBIN 9.4 g/dL (12.0-15.5); LYMPH # 0.4 x10^3/uL (1.0-4.8); LYMPH % 6 % (24-48); MEAN CORPUSCULAR HEMOGLOBIN 30 pg (25-35); MEAN CORPUSCULAR HGB CONC 33 g/dL (31-37); MEAN CORPUSCULAR VOLUME 90 fL (79-100); MONO # 0.5 x10^3/uL (0.0-1.1); MONO % 7 % (0-9); NEUT # 6.2 x10^3uL (1.8-7.7); NEUT % 87 % (31-73); PLATELET COUNT 173 x10^3/uL (140-400); RED BLOOD COUNT 3.16 x10^6/uL (3.50-5.40); RED CELL DISTRIBUTION WIDTH 18.8 % (11.5-14.5); WHITE BLOOD COUNT 7.1 x10^3/uL (4.0-11.0)
[2018-07-16] MEDS ORDERED: FUROSEMIDE 40 MG/4 ML VIAL. IVP ONE (10:30)
[2018-07-16 10:33] LABS: BASE EXCESS COOX 1 mmol/L (-3-3); HCO3 COOX 25 mmol/L (21-28); METHEMOGLOBIN 0.4 % (0.0-1.9); OXYHEMOGLOBIN 89.9 %; PCO2 COOX 34 mmHg (35-46); PO2 COOX 63 mmHg (65-108); SAT O2 COOX 91 % (92-99)
[2018-07-16 10:34] LABS: CALCIUM 9.1 mg/dL (8.5-10.1); CREATININE 2.9 mg/dL (0.6-1.0); GFR 15.9; POTASSIUM 3.4 mmol/L (3.5-5.1)
--- NOTE | 2018-07-16 10:37 | RAD ---
AP chest. HISTORY: Short of air AP view was taken of the chest. The heart is enlarged. Left pacemaker is unchanged. There are bilateral pleural effusions. There is a dialysis catheter on the right extending to the right atrium. There is pulmonary vascular congestion. There is pulmonary edema consistent with heart failure. IMPRESSION: 1. Congestive heart failure with pulmonary edema. Electronically signed by: Lenard Dawson MD (07/16/2018 10:34 AM) [facility]
[2018-07-16 10:39] LABS: ALBUMIN 3.1 g/dL (3.4-5.0); ALBUMIN/GLOBULIN RATIO 0.8 (1.0-1.7); TOTAL BILIRUBIN 0.9 mg/dL (0.2-1.0); TOTAL PROTEIN 7.2 g/dL (6.4-8.2)
[2018-07-16] MEDS ORDERED: ONDANSETRON PF 4 MG/2 ML VIAL. IV PRN (11:30)
[2018-07-16] MEDS ORDERED: ACETAMINOPHEN 325 MG TABLET. PO PRN (11:30)
[2018-07-16] MEDS ORDERED: NITROGLYCERIN SUBLINGUAL 0.4 MG BOTTLE OF 25. SL PRN (11:30)
--- NOTE | 2018-07-16 11:59 | PDOC2 ---
CARDIOLOGY CONSULT NOTE CHEIF COMPLAINT: Worsening exertional shortness of breath HPI: Pleasant 72-year-old woman who was recently discharged from the hospital after a prolonged course with multiple cardiac comorbidities as noted below presenting to the hospital with worsening exertional dyspnea over the course of last one week. She was previously on dialysis but this was discontinued by her dialysis center due to a normalizing creatinine. Since she has not had dialysis over the last one week she is progressively gotten worse with exertional dyspnea and elevated blood pressures to the 190s systolic. Her gives most of the history reports that while she was on dialysis she was tolerating it well with excellent blood pressure control and no significant exertional dyspnea. Since admission to the hospital she's been noted to be hypertensive but otherwise resting in bed. No other complaints to note. PMHX: 1. Coronary artery disease with a history of three-vessel bypass (PICKARD to LAD, SVG to RCA and SVG to OM1) with PCI earlier this year to the ostium of the saphenous vein graft to the obtuse marginal due to a non-ST elevation myocardial infarction 2. End-stage renal disease 3. Paroxysmal atrial fibrillation 4. Hypertension 5. Dyslipidemia 6. Diastolic dysfunction and moderate mitral regurgitation based on echocardiogram in June 2018 7. CVA 8. SSS s/p [facility] dual chamber pacer 9. PAF - on amiodarone and not on anticoagulation due to DAPT currently on board and prior bleeding issues/anemia. SOCHX: She lives with her . No alcohol, tobacco or illicit drug use. FAMHX: Noncontributory CURRENT MEDS: Home meds include amiodarone, aspirin, metoprolol, atorvastatin and amlodipine. ALLERGIES: Allergies Coded Allergies Type Severity Reaction Last Updated Verified codeine Allergy Intermediate 11/24/17 Yes ROS: Negative for 10 out of 14 systems reviewed unless otherwise mentioned above in history of present illness PHYSICAL EXAM: Vital Signs: Vital Signs Date Time Temp Pulse Resp B/P (MAP) Pulse Ox O2 Delivery O2 Flow Rate FiO2 07/16/18 11:02 78 186/85 (118) 88 Nasal Cannula 5.0 07/16/18 10:32 16 07/16/18 10:02 97.8 97.8 Physical Exam: On exam she is a frail and thin woman in mild distress from tachypnea lying in bed Neck veins are elevated. Heart sounds are distant but regular Decreased breath sounds at the bilateral lung bases. No significant edema. Soft abdomen. DIAGNOSTIC TESTING: Echocardiogram as noted above. Cardiac catheterization as noted above. BNP greater than 35,000 Hemoglobin stable. Creatinine elevated but at baseline compared to her previous admission. ASSESSMENT: 1. Acute on chronic diastolic heart failure secondary to volume overload due to lack of hemodialysis. 2. Other comorbidities as listed above. PLAN: 1. Aggressive BP control. 2. Reinstated home medications including aspirin and Plavix. Restart metoprolol and statin therapy. Continue amlodipine. 3. Use IV hydralazine as needed for blood pressure control in the interim while her dialysis is reinstated. No further CV testing needed. Discussed with patient, and nursing staff and Dr. Roth. KESHIA ANDREWS MD Jul 16, 2018 11:59
[2018-07-16 12:00] VITALS: BP 201/84
[2018-07-16] MEDS: IPRATRPIUM/ALBUTEROL 0.5/2.5MG 3 ML NEBU. NEB SCH ×3 (12:08→19:59)
[2018-07-16] MEDS: hydrALAZINE 20 MG/ML VIAL. IVP PRN ×2 (12:21→12:57)
[2018-07-16 12:35] LABS: % BANDS 1 % (0-9); % LYMPHS 6 % (24-48); % MONOS 1 % (0-10); % SEGS 92 % (35-66); PLT ESTIMATE ADEQUATE (ADEQUATE)
--- NOTE | 2018-07-16 12:58 | NUR ---
Spoke to Dr. Masters about patients BP after first dose of IV hydralazine. Dr. Masters ordered to give another 10mg of IV hydralazine.
--- NOTE | 2018-07-16 13:13 | PDOC2 ---
CONSULT Date of Consult Date of Consult DATE: 07/16/18 TIME: 13:02 Reason for Consult Reason for Consult: Fluid Overload Identification/Chief Complaint Chief Complaint Short of breath Source Source: Chart review, Patient History of Present Illness Reason for Visit: Patient is a 72 year old CF who presents with shortness of breath. History was obtained mostly from her . Patient was admitted to the hospital approximately 2 weeks ago due to shortness of breath and found to be in congestive heart failure. She was receiving dialysis treatments due to acute renal failure. She was getting HD as OP at [facility] . Her Creatinine was much better and she was advised to hold off HD and her last dialysis was a week ago, Since that time she has been having increasing shortness of breath. denies any fever. Denies any cough. Denies any urinary complaints. Past Medical History Cardiovascular: AFIB, CAD, CHF, HTN, DE, Syncope, Hyperlipidemia, Other Pulmonary: Pneumonia CENTRAL NERVOUS SYSTEM: CVA, Seizure, TIA GI: GERD, Gastritis Heme/Onc: Anemia NOS Hepatobiliary: No pertinent hx Psych: Depression Rheumatologic: No pertinent hx Infectious disease: No pertinent hx Renal/: Chronic renal insuff, Urinary Incontinence, Other Endocrine: Hypothyroidism, Hyperparathyroidism, Osteopenia Past Surgical History Past Surgical History: Pacemaker, CABG Family History Family History: Hypertension Social History ALCOHOL: none Drugs: None Lives: with Family Current Problem List Problem List Problems Medical Problems: (1) Congestive heart failure Status: Acute Current Medications Current Medications Current Medications Albuterol/ Ipratropium (Duoneb) 3 ml 1X ONCE NEB Last administered on at 10:15; Start 07/16/18 at 10:15; Stop 07/16/18 at 10:16; Status DC Furosemide (Lasix) 40 mg 1X ONCE IVP Last administered on 07/16/18at 11:02; Start 07/16/18 at 10:30; Stop 07/16/18 at 10:31; Status DC Ondansetron HCl (Zofran) 4 mg PRN Q8HRS PRN IV NAUSEA/VOMITING; Start 07/16/18 at 11:30; Stop 07/17/18 at 11:29 Acetaminophen (Tylenol) 650 mg PRN Q4HRS PRN PO FEVER; Start 07/16/18 at 11:30 ; Stop 07/17/18 at 11:29 Nitroglycerin (Nitrostat) 0.4 mg PRN Q5MIN PRN SL CHEST PAIN; Start 07/16/18 at 11:30; Stop 07/17/18 at 11:29 Albuterol/ Ipratropium (Duoneb) 3 ml RTQID NEB Last administered on 07/16/18at 12:08; Start 07/16/18 at 12:00; Stop 07/17/18 at 11:59 Hydralazine HCl (Apresoline Inj) 10 mg PRN Q4HRS PRN IVP ELEVATED BP, SEE COMMENTS Last administered on 07/16/18at 12:57; Start 07/16/18 at 12:00 Active Scripts Active Metoprolol Succinate ( Xl ) (Metoprolol Succinate) 25 Mg Tab.er.24h 25 Mg PO DAILY 30 Days Clopidogrel (Clopidogrel Bisulfate) 75 Mg Tablet 75 Mg PO [id number] 30 Days Reported Acetaminophen 500 Mg Tablet 1 Tab PO PRN Q6HRS PRN Zoloft (Sertraline Hcl) 50 Mg Tablet 1 Tab PO HS Levetiracetam 500 Mg Tablet 1 Tab PO HS Levetiracetam 500 Mg Tablet 250 Mg PO DAILY Omeprazole 40 Mg Capsule.dr 1 Cap PO BID Levothyroxine Sodium 175 Mcg Tablet 1 Tab PO DAILY Fludrocortisone Acetate 0.1 Mg Tablet 1 Tab PO DAILY12 Vitamin D3 (Cholecalciferol (Vitamin D3)) 1,000 Unit Tablet 1 Tab PO QFR Atorvastatin Calcium 80 Mg Tablet 1 Tab PO HS Aspirin 81 Mg Tab.chew 1 Tab PO DAILY Amlodipine Besylate 10 Mg Tablet 10 Mg PO HS Amiodarone Hcl 200 Mg Tablet 1 Tab PO DAILY Allergies Allergies: Coded Allergies: codeine (Verified Allergy, Intermediate, 11/24/17) ROS Review of System As per HPI Physical Exam Physical Exam General: mild distress HEENT: Mucous membr. moist/pink, O2 by NC neck Supple Lungs: Other (bibasilar crackles) Heart: Regular rate, Normal S1, Normal S2, Other (2/6 systolic murmur ) Abdomen: Soft Extremities: Trace bilat LE edema Neuro: expressive aphasia ) - No Klein Skin No Rash Vital Signs Vital Signs Date Time Temp Pulse Resp B/P (MAP) Pulse Ox O2 Delivery O2 Flow Rate FiO2 07/16/18 12:57 78 187/81 07/16/18 12:00 97.6 24 95 Nasal Cannula 97.6 07/16/18 11:02 5.0 Assessment & Plan New Onset ESRD - Initiated on HD in Jun 2018 Has been going for HD at the OP unit Noted to have improved renal function and possible recovery Was advised to hold off HD and plan to get 24 Ur for Crcl Last Hd was on Tuesday , Will do HD with UF today, 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 presently maintaining SR HTN: BP high , cardiology managing Renal doppler 11/23- The left kidney appears smaller in size could be mild atrophic changes. No evidence of right renal artery stenosis. SSS s/p PPM; ([facility]). normal device per interrogation Discussed with Pt, and RN Labs Labs Laboratory Tests Test 07/16/18 10:05 07/16/18 10:30 07/16/18 12:20 White Blood Count 7.1 x10^3/uL (4.0-11.0) Red Blood Count 3.16 x10^6/uL (3.50-5.40) Hemoglobin 9.4 g/dL (12.0-15.5) Hematocrit 28.4 % (36.0-47.0) Mean Corpuscular Volume 90 fL (79-100) Mean Corpuscular Hemoglobin 30 pg (25-35) Mean Corpuscular Hemoglobin Concent 33 g/dL (31-37) Red Cell Distribution Width 18.8 % (11.5-14.5) Platelet Count 173 x10^3/uL (140-400) Neutrophils (%) (Auto) 87 % (31-73) Lymphocytes (%) (Auto) 6 % (24-48) Monocytes (%) (Auto) 7 % (0-9) Eosinophils (%) (Auto) 0 % (0-3) Basophils (%) (Auto) 1 % (0-3) Neutrophils # (Auto) 6.2 x10^3uL (1.8-7.7) Lymphocytes # (Auto) 0.4 x10^3/uL (1.0-4.8) Monocytes # (Auto) 0.5 x10^3/uL (0.0-1.1) Eosinophils # (Auto) 0.0 x10^3/uL (0.0-0.7) Basophils # (Auto) 0.0 x10^3/uL (0.0-0.2) Segmented Neutrophils % 92 % (35-66) Band Neutrophils % 1 % (0-9) Lymphocytes % 6 % (24-48) Monocytes % 1 % (0-10) Platelet Estimate Adequate (ADEQUATE) Sodium Level 143 mmol/L (136-145) Potassium Level 3.4 mmol/L (3.5-5.1) Chloride Level 101 mmol/L (98-107) Carbon Dioxide Level 27 mmol/L (21-32) Anion Gap 15 (6-14) Blood Urea Nitrogen 24 mg/dL (7-20) Creatinine 2.9 mg/dL (0.6-1.0) Estimated GFR (Cockcroft-Gault) 15.9 BUN/Creatinine Ratio 8 (6-20) Glucose Level 109 mg/dL (70-99) Calcium Level 9.1 mg/dL (8.5-10.1) Total Bilirubin 0.9 mg/dL (0.2-1.0) Aspartate Amino Transf (AST/SGOT) 42 U/L (15-37) Alanine Aminotransferase (ALT/SGPT) 48 U/L (14-59) Alkaline Phosphatase 73 U/L (46-116) Troponin I Quantitative < 0.017 ng/mL (0.000-0.055) 0.020 ng/mL (0.000-0.055) QV-Qfs-L-Type Natriuretic Peptide > 23506 pg/mL (0-124) Total Protein 7.2 g/dL (6.4-8.2) Albumin 3.1 g/dL (3.4-5.0) Albumin/Globulin Ratio 0.8 (1.0-1.7) O2 Saturation 91 % (92-99) Arterial Blood pH 7.48 (7.35-7.45) Arterial Blood pCO2 at Patient Temp 34 mmHg (35-46) Arterial Blood pO2 at Patient Temp 63 mmHg (65-108) Arterial Blood HCO3 25 mmol/L (21-28) Arterial Blood Base Excess 1 mmol/L (-3-3) Oxyhemoglobin 89.9 % Methemoglobin 0.4 % (0.0-1.9) Carbon Monoxide, Quantitative 0.3 % (0.0-1.9) FiO2 5 lpm nc Laboratory Tests Test 07/16/18 10:05 07/16/18 10:30 07/16/18 12:20 White Blood Count 7.1 x10^3/uL (4.0-11.0) Red Blood Count 3.16 x10^6/uL (3.50-5.40) Hemoglobin 9.4 g/dL (12.0-15.5) Hematocrit 28.4 % (36.0-47.0) Mean Corpuscular Volume 90 fL (79-100) Mean Corpuscular Hemoglobin 30 pg (25-35) Mean Corpuscular Hemoglobin Concent 33 g/dL (31-37) Red Cell Distribution Width 18.8 % (11.5-14.5) Platelet Count 173 x10^3/uL (140-400) Neutrophils (%) (Auto) 87 % (31-73) Lymphocytes (%) (Auto) 6 % (24-48) Monocytes (%) (Auto) 7 % (0-9) Eosinophils (%) (Auto) 0 % (0-3) Basophils (%) (Auto) 1 % (0-3) Neutrophils # (Auto) 6.2 x10^3uL (1.8-7.7) Lymphocytes # (Auto) 0.4 x10^3/uL (1.0-4.8) Monocytes # (Auto) 0.5 x10^3/uL (0.0-1.1) Eosinophils # (Auto) 0.0 x10^3/uL (0.0-0.7) Basophils # (Auto) 0.0 x10^3/uL (0.0-0.2) Segmented Neutrophils % 92 % (35-66) Band Neutrophils % 1 % (0-9) Lymphocytes % 6 % (24-48) Monocytes % 1 % (0-10) Platelet Estimate Adequate (ADEQUATE) Sodium Level 143 mmol/L (136-145) Potassium Level 3.4 mmol/L (3.5-5.1) Chloride Level 101 mmol/L (98-107) Carbon Dioxide Level 27 mmol/L (21-32) Anion Gap 15 (6-14) Blood Urea Nitrogen 24 mg/dL (7-20) Creatinine 2.9 mg/dL (0.6-1.0) Estimated GFR (Cockcroft-Gault) 15.9 BUN/Creatinine Ratio 8 (6-20) Glucose Level 109 mg/dL (70-99) Calcium Level 9.1 mg/dL (8.5-10.1) Total Bilirubin 0.9 mg/dL (0.2-1.0) Aspartate Amino Transf (AST/SGOT) 42 U/L (15-37) Alanine Aminotransferase (ALT/SGPT) 48 U/L (14-59) Alkaline Phosphatase 73 U/L (46-116) Troponin I Quantitative < 0.017 ng/mL (0.000-0.055) 0.020 ng/mL (0.000-0.055) QL-Fyf-Y-Type Natriuretic Peptide > 23624 pg/mL (0-124) Total Protein 7.2 g/dL (6.4-8.2) Albumin 3.1 g/dL (3.4-5.0) Albumin/Globulin Ratio 0.8 (1.0-1.7) O2 Saturation 91 % (92-99) Arterial Blood pH 7.48 (7.35-7.45) Arterial Blood pCO2 at Patient Temp 34 mmHg (35-46) Arterial Blood pO2 at Patient Temp 63 mmHg (65-108) Arterial Blood HCO3 25 mmol/L (21-28) Arterial Blood Base Excess 1 mmol/L (-3-3) Oxyhemoglobin 89.9 % Methemoglobin 0.4 % (0.0-1.9) Carbon Monoxide, Quantitative 0.3 % (0.0-1.9) FiO2 5 lpm nc Review All relevant outside records, renal labs, imaging studies, telemetry/EKG's were reviewed. JAZLYN CUNHA MD Jul 16, 2018 13:13
--- NOTE | 2018-07-16 13:17 | HP ---
ADMIT DATE: 07/16/2018 CHIEF COMPLAINT: Shortness of breath. HISTORY OF PRESENT ILLNESS: The patient is a pleasant elderly female, well known to my service. We have recently had put her on dialysis. She still has a catheter, but she states they have clipped that. Her BUN and creatinine are 24 and 2.9 when she came to the ER today. She is very short of breath. We did a chest x-ray, is highly abnormal with a large right pleural effusion and vascular congestion. She rates her symptoms at 10/10. She has associated weakness, worse with moving, better with sitting still. Home meds did not seem to help. I discussed the case with ER physician. We are going to admit the patient and consult Nephrology, Cardiology and Pulmonary. The patient is critically ill. PAST MEDICAL HISTORY: COPD, stroke. Coronary artery disease, bypass surgery, renal failure, left carotid endarterectomy, coronary bypass, hysterectomy, pacemaker, parathyroid disease, renal stents, shoulder surgery. Carotids surgery. ALLERGIES: CODEINE. FAMILY HISTORY: Coronary artery disease. SOCIAL HISTORY: She does not drink, smoke or take drugs. She is . MEDICATIONS: Reviewed. She is on 14 including Plavix, amiodarone, atorvastatin, metoprolol, amlodipine, aspirin, Tylenol, Keppra, Zoloft, omeprazole, Synthroid, vitamin D and fludrocortisone. REVIEW OF SYSTEMS: GENERAL: No history of weight change, weakness or fevers. SKIN: No bruising, hair changes or rashes. EYES: No blurred, double or loss of vision. NOSE AND THROAT: No history of nosebleeds, hoarseness or sore throat. HEART: No history of palpitations, chest pain or shortness of breath on exertion. LUNGS: She complains of shortness of breath. GASTROINTESTINAL: Denies changes in appetite, nausea, vomiting, diarrhea or constipation. GENITOURINARY: No history of frequency, urgency, hesitancy or nocturia. NEUROLOGIC: Denies history of numbness, tingling, tremor or weakness. PSYCHIATRIC: No history of panic, anxiety or depression. ENDOCRINE: No history of heat or cold intolerance, polyuria or polydipsia. EXTREMITIES: Denies muscle weakness, joint pain, pain on walking or stiffness. PHYSICAL EXAMINATION: VITAL SIGNS: Temperature afebrile, pulse 70, respirations 18, blood pressure 200/80, O2 sat 95% on 5 liters. GENERAL: She is awake, alert, very weak, appears critically ill. Her is present. He is good support for her. HEART: Tachycardic S1, S2. LUNGS: Coarse with crackles, decreased on the right. ABDOMEN: Soft. Decreased bowel sounds. EXTREMITIES: Trace edema. SKIN: No rash. ENDOCRINE: No thyromegaly. LYMPHATICS: No cervical nodes. HEMATOPOIETIC: No bruising. LABORATORY DATA: White count 7, hemoglobin 9.4, platelets 173. Electrolytes: Sodium 143, potassium 3.4, chloride 101, bicarbonate 27, BUN 24, creatinine 2.9, glucose 109. Chest x-ray reviewed by me with and the ER physician shows a large right pleural effusion, permanent pacemaker, dialysis catheter was in place, the left arm has hardware from previous fractures. She has got vascular congestion. Overall, it is a highly abnormal chest x-ray. Her BNP level is greater than 35,000. ASSESSMENT AND PLAN: Large right pleural effusion, heart failure, azotemia, anemia. The patient has been admitted. We will consult Nephrology, Cardiology and Pulmonary. Frequent labs. Deep venous thrombosis prophylaxis, home meds, cardiac monitoring. We will try some IV Lasix to see if she will respond to it. P.r.n. nitro. O2 per nasal cannula. PROGNOSIS: Guarded. SAMUEL QUINTANILLA DO DR: CHRISTINE/gatito JOB#: [id number] / [id number]
[2018-07-16 14:55] VITALS: BP 168/89
[2018-07-16] MEDS ORDERED: METO25TA4 PO (15:01)
[2018-07-16] MEDS ORDERED: FURO20TA3 PO (15:01)
[2018-07-16] MEDS ORDERED: POTA20TA82 PO (15:01)
[2018-07-16] MEDS ORDERED: IV NORMAL SALINE 1000ML BAG 1,000 ML IV PRN ×2 (16:30)
--- NOTE | 2018-07-16 18:22 | EKG ---
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
[2018-07-16 19:55] VITALS: BP 142/64
[2018-07-16] MEDS ORDERED: DIALYSIS PATIENT. MC PRN ×2 (20:00)
[2018-07-16] MEDS ORDERED: amLODIPine BESYLATE 10 MG TABLET PO SCH (21:00)
[2018-07-16] MEDS: levETIRAcetam 500 MG TABLET PO SCH (21:15)
[2018-07-16] MEDS: ATORVASTATIN CALCIUM 40 MG TABLET. PO SCH (21:15)
[2018-07-16] MEDS: SERTRALINE 50 MG TABLET. PO SCH (21:15)
[2018-07-16] MEDS: LORazepam 0.5 MG TABLET PO PRN (21:23)
[2018-07-16 23:15] VITALS: BP 146/67
--- NOTE | 2018-07-17 00:08 | EKG ---
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
[2018-07-17 00:36] LABS: BASO % 0 % (0-3); EOS % 0 % (0-3); HEMATOCRIT 27.3 % (36.0-47.0); LYMPH # 0.2 x10^3/uL (1.0-4.8); LYMPH % 2 % (24-48); MEAN CORPUSCULAR HEMOGLOBIN 30 pg (25-35); MEAN CORPUSCULAR HGB CONC 33 g/dL (31-37); MEAN CORPUSCULAR VOLUME 90 fL (79-100); MONO # 0.8 x10^3/uL (0.0-1.1); MONO % 8 % (0-9); NEUT # 9.3 x10^3uL (1.8-7.7); NEUT % 90 % (31-73); PLATELET COUNT 164 x10^3/uL (140-400); RED BLOOD COUNT 3.05 x10^6/uL (3.50-5.40); RED CELL DISTRIBUTION WIDTH 19.1 % (11.5-14.5); WHITE BLOOD COUNT 10.4 x10^3/uL (4.0-11.0)
[2018-07-17 01:03] LABS: CALCIUM 8.8 mg/dL (8.5-10.1); CREATININE 1.9 mg/dL (0.6-1.0); GFR 25.9
[2018-07-17 01:10] LABS: CHOLESTEROL/HDL RATIO 1.8
[2018-07-17 03:35] VITALS: BP 145/64
[2018-07-17] MEDS: LEVOTHYROXINE 175 MCG TABLET PO SCH (05:49)
[2018-07-17 07:00] VITALS: BP 162/72
--- NOTE | 2018-07-17 07:05 | EKG ---
[facility] [address] [place] [address] Test Date: 2018-07-16 Test Time: 10:09:54 Pat Name: LURDES LEMOS Department: Room: 262 1 Gender: F Grey Roll Man: : 1945 Requested By: VERONICA FERRARI Order Number: [id number] Reading MD: Braden Masters MD Measurements Intervals [place] Rate: 75 P: -107 SD: 144 QRS: 41 QRSD: 100 T: -156 QT: 396 QTc: 445 Interpretive Statements SINUS RHYTHM LVH REPOL ABNORMALITIES Electronically Signed On 07-25-2018 22:19:40 CDT by Braden Masters MD
[2018-07-17] MEDS ORDERED: IV NORMAL SALINE 1000ML BAG 1,000 ML IV PRN ×2 (08:05)
[2018-07-17] MEDS ORDERED: DIALYSIS PATIENT. MC PRN ×2 (08:15)
[2018-07-17] MEDS ORDERED: 0.9 % SODIUM CHLORIDE 10 ML DISP.SYRIN. IV PRN ×2 (08:15)
[2018-07-17] MEDS: IPRATRPIUM/ALBUTEROL 0.5/2.5MG 3 ML NEBU. NEB SCH ×5 (08:17→22:30)
[2018-07-17] MEDS: AMIODARONE HCL 200 MG TABLET. PO SCH (09:11)
[2018-07-17] MEDS: ASPIRIN CHEWABLE 81 MG TABLET. PO SCH (09:11)
[2018-07-17] MEDS: POTASSIUM CHLORIDE 20 MEQ TABLET.ER. PO SCH ×2 (09:11→17:49)
[2018-07-17] MEDS: CLOPIDOGREL BISULFATE 75 MG TABLET PO SCH (09:12)
[2018-07-17] MEDS: levETIRAcetam 500 MG TABLET PO SCH ×2 (09:13→22:01)
[2018-07-17] MEDS: FUROSEMIDE 20 MG TABLET PO SCH ×2 (09:13→15:45)
[2018-07-17] MEDS: METOPROLOL SUCC 24HR ER 25 MG TAB.ER.24H. PO SCH (09:14)
[2018-07-17] MEDS ORDERED: ACETAMINOPHEN 500 MG TABLET PO PRN (09:15)
[2018-07-17] MEDS ORDERED: cloNIDine HCL 0.1 MG TABLET PO PRN (09:15)
[2018-07-17] MEDS: ONDANSETRON PF 4 MG/2 ML VIAL. IV PRN ×2 (09:19→15:43)
--- NOTE | 2018-07-17 10:39 | PDOC ---
PROGRESS NOTES Chief Complaint Chief Complaint Hypoxic respiratory failure-O2 dependent 1. Coronary artery disease with a history of three-vessel bypass (PICKARD to LAD, SVG to RCA and SVG to OM1) with PCI earlier this year to the ostium of the saphenous vein graft to the obtuse marginal due to a non-ST elevation myocardial infarction 2. End-stage renal disease 3. Paroxysmal atrial fibrillation 4. Hypertension 5. Dyslipidemia 6. Diastolic dysfunction and moderate mitral regurgitation based on echocardiogram in June 2018 7. CVA 8. SSS s/p st[place] dual chamber pacer 9. PAF - on amiodarone and not on anticoagulation due to DAPT currently on board and prior bleeding issues/anemia. History of Present Illness History of Present Illness She has had 6 admissions for this year alone She is not ready for hospice when I introduced the concept Still very weak and SOA short phrases with me today Lives at home with who is well in terms of health Plan for dialysis today, has indwelling right dialysis catheter Did get dialyzed yesterday She gets dialysis when necessary but is not scheduled as outpatient yet Creatinine 1.9 from 2.9 Potassium 3.0 on KCl supplements 20 twice a day Plan: dialysis per renal Appreciate cardiopulmonary and renal Add PT OT Full code Continue other supportive meds Very poor by mouth intake Consult automatic spinning lathe setter Minimal subcutaneous tissues tissue-, vey frail OVer all prog poor, not ready for hospice Full code Vitals Vitals Vital Signs Date Time Temp Pulse Resp B/P (MAP) Pulse Ox O2 Delivery O2 Flow Rate FiO2 07/17/18 09:14 86 162/72 07/17/18 08:17 96 Nasal Cannula 5.0 07/17/18 07:00 97.6 20 97.6 Physical Exam General: Alert, Oriented X3, Cooperative, moderate distress Heart: Regular rate, No murmurs, Other (sinus tachycardia 80s to 90s) Lungs: Wheezing, Other (diminished at the basis) Abdomen: Normal bowel sounds, Soft Extremities: No clubbing, No cyanosis, No tenderness/swelling, Other (minimal subcutaneous tissue) Skin: No rashes, No breakdown Labs LABS Laboratory Tests Test 07/16/18 12:20 07/16/18 18:10 07/17/18 00:03 07/17/18 03:00 Troponin I Quantitative 0.020 ng/mL (0.000-0.055) 0.026 ng/mL (0.000-0.055) 0.087 ng/mL (0.000-0.055) White Blood Count 10.4 x10^3/uL (4.0-11.0) Red Blood Count 3.05 x10^6/uL (3.50-5.40) Hemoglobin 9.0 g/dL (12.0-15.5) Hematocrit 27.3 % (36.0-47.0) Mean Corpuscular Volume 90 fL (79-100) Mean Corpuscular Hemoglobin 30 pg (25-35) Mean Corpuscular Hemoglobin Concent 33 g/dL (31-37) Red Cell Distribution Width 19.1 % (11.5-14.5) Platelet Count 164 x10^3/uL (140-400) Neutrophils (%) (Auto) 90 % (31-73) Lymphocytes (%) (Auto) 2 % (24-48) Monocytes (%) (Auto) 8 % (0-9) Eosinophils (%) (Auto) 0 % (0-3) Basophils (%) (Auto) 0 % (0-3) Neutrophils # (Auto) 9.3 x10^3uL (1.8-7.7) Lymphocytes # (Auto) 0.2 x10^3/uL (1.0-4.8) Monocytes # (Auto) 0.8 x10^3/uL (0.0-1.1) Eosinophils # (Auto) 0.0 x10^3/uL (0.0-0.7) Basophils # (Auto) 0.0 x10^3/uL (0.0-0.2) Sodium Level 140 mmol/L (136-145) Potassium Level 3.0 mmol/L (3.5-5.1) Chloride Level 99 mmol/L (98-107) Carbon Dioxide Level 29 mmol/L (21-32) Anion Gap 12 (6-14) Blood Urea Nitrogen 12 mg/dL (7-20) Creatinine 1.9 mg/dL (0.6-1.0) Estimated GFR (Cockcroft-Gault) 25.9 Glucose Level 118 mg/dL (70-99) Calcium Level 8.8 mg/dL (8.5-10.1) Triglycerides Level 82 mg/dL (0-150) Cholesterol Level 149 mg/dL (0-200) LDL Cholesterol, Calculated 51 mg/dL (0-100) VLDL Cholesterol, Calculated 16 mg/dL (0-40) Non-HDL Cholesterol Calculated 67 mg/dL (0-129) HDL Cholesterol 82 mg/dL (40-60) Cholesterol/HDL Ratio 1.8 Review of Systems Review of Systems Weak, SOA, cough, no chest pain, no abdominal symptoms, shaky on ambulation Assessment and Plan Assessmemt and Plan Problems Medical Problems: (1) Congestive heart failure Status: Acute Comment Review of Relevant I have reviewed the following items jose (where applicable) has been applied. Labs Laboratory Tests Test 07/16/18 10:05 07/16/18 10:30 07/16/18 12:20 07/16/18 18:10 White Blood Count 7.1 x10^3/uL (4.0-11.0) Red Blood Count 3.16 x10^6/uL (3.50-5.40) Hemoglobin 9.4 g/dL (12.0-15.5) Hematocrit 28.4 % (36.0-47.0) Mean Corpuscular Volume 90 fL (79-100) Mean Corpuscular Hemoglobin 30 pg (25-35) Mean Corpuscular Hemoglobin Concent 33 g/dL (31-37) Red Cell Distribution Width 18.8 % (11.5-14.5) Platelet Count 173 x10^3/uL (140-400) Neutrophils (%) (Auto) 87 % (31-73) Lymphocytes (%) (Auto) 6 % (24-48) Monocytes (%) (Auto) 7 % (0-9) Eosinophils (%) (Auto) 0 % (0-3) Basophils (%) (Auto) 1 % (0-3) Neutrophils # (Auto) 6.2 x10^3uL (1.8-7.7) Lymphocytes # (Auto) 0.4 x10^3/uL (1.0-4.8) Monocytes # (Auto) 0.5 x10^3/uL (0.0-1.1) Eosinophils # (Auto) 0.0 x10^3/uL (0.0-0.7) Basophils # (Auto) 0.0 x10^3/uL (0.0-0.2) Segmented Neutrophils % 92 % (35-66) Band Neutrophils % 1 % (0-9) Lymphocytes % 6 % (24-48) Monocytes % 1 % (0-10) Platelet Estimate Adequate (ADEQUATE) Sodium Level 143 mmol/L (136-145) Potassium Level 3.4 mmol/L (3.5-5.1) Chloride Level 101 mmol/L (98-107) Carbon Dioxide Level 27 mmol/L (21-32) Anion Gap 15 (6-14) Blood Urea Nitrogen 24 mg/dL (7-20) Creatinine 2.9 mg/dL (0.6-1.0) Estimated GFR (Cockcroft-Gault) 15.9 BUN/Creatinine Ratio 8 (6-20) Glucose Level 109 mg/dL (70-99) Calcium Level 9.1 mg/dL (8.5-10.1) Total Bilirubin 0.9 mg/dL (0.2-1.0) Aspartate Amino Transf (AST/SGOT) 42 U/L (15-37) Alanine Aminotransferase (ALT/SGPT) 48 U/L (14-59) Alkaline Phosphatase 73 U/L (46-116) Troponin I Quantitative < 0.017 ng/mL (0.000-0.055) 0.020 ng/mL (0.000-0.055) 0.026 ng/mL (0.000-0.055) SM-Kms-P-Type Natriuretic Peptide > 95436 pg/mL (0-124) Total Protein 7.2 g/dL (6.4-8.2) Albumin 3.1 g/dL (3.4-5.0) Albumin/Globulin Ratio 0.8 (1.0-1.7) O2 Saturation 91 % (92-99) Arterial Blood pH 7.48 (7.35-7.45) Arterial Blood pCO2 at Patient Temp 34 mmHg (35-46) Arterial Blood pO2 at Patient Temp 63 mmHg (65-108) Arterial Blood HCO3 25 mmol/L (21-28) Arterial Blood Base Excess 1 mmol/L (-3-3) Oxyhemoglobin 89.9 % Methemoglobin 0.4 % (0.0-1.9) Carbon Monoxide, Quantitative 0.3 % (0.0-1.9) FiO2 5 lpm nc Test 07/17/18 00:03 07/17/18 03:00 Troponin I Quantitative 0.087 ng/mL (0.000-0.055) White Blood Count 10.4 x10^3/uL (4.0-11.0) Red Blood Count 3.05 x10^6/uL (3.50-5.40) Hemoglobin 9.0 g/dL (12.0-15.5) Hematocrit 27.3 % (36.0-47.0) Mean Corpuscular Volume 90 fL (79-100) Mean Corpuscular Hemoglobin 30 pg (25-35) Mean Corpuscular Hemoglobin Concent 33 g/dL (31-37) Red Cell Distribution Width 19.1 % (11.5-14.5) Platelet Count 164 x10^3/uL (140-400) Neutrophils (%) (Auto) 90 % (31-73) Lymphocytes (%) (Auto) 2 % (24-48) Monocytes (%) (Auto) 8 % (0-9) Eosinophils (%) (Auto) 0 % (0-3) Basophils (%) (Auto) 0 % (0-3) Neutrophils # (Auto) 9.3 x10^3uL (1.8-7.7) Lymphocytes # (Auto) 0.2 x10^3/uL (1.0-4.8) Monocytes # (Auto) 0.8 x10^3/uL (0.0-1.1) Eosinophils # (Auto) 0.0 x10^3/uL (0.0-0.7) Basophils # (Auto) 0.0 x10^3/uL (0.0-0.2) Sodium Level 140 mmol/L (136-145) Potassium Level 3.0 mmol/L (3.5-5.1) Chloride Level 99 mmol/L (98-107) Carbon Dioxide Level 29 mmol/L (21-32) Anion Gap 12 (6-14) Blood Urea Nitrogen 12 mg/dL (7-20) Creatinine 1.9 mg/dL (0.6-1.0) Estimated GFR (Cockcroft-Gault) 25.9 Glucose Level 118 mg/dL (70-99) Calcium Level 8.8 mg/dL (8.5-10.1) Triglycerides Level 82 mg/dL (0-150) Cholesterol Level 149 mg/dL (0-200) LDL Cholesterol, Calculated 51 mg/dL (0-100) VLDL Cholesterol, Calculated 16 mg/dL (0-40) Non-HDL Cholesterol Calculated 67 mg/dL (0-129) HDL Cholesterol 82 mg/dL (40-60) Cholesterol/HDL Ratio 1.8 Laboratory Tests Test 07/16/18 12:20 07/16/18 18:10 07/17/18 00:03 07/17/18 03:00 Troponin I Quantitative 0.020 ng/mL (0.000-0.055) 0.026 ng/mL (0.000-0.055) 0.087 ng/mL (0.000-0.055) White Blood Count 10.4 x10^3/uL (4.0-11.0) Red Blood Count 3.05 x10^6/uL (3.50-5.40) Hemoglobin 9.0 g/dL (12.0-15.5) Hematocrit 27.3 % (36.0-47.0) Mean Corpuscular Volume 90 fL (79-100) Mean Corpuscular Hemoglobin 30 pg (25-35) Mean Corpuscular Hemoglobin Concent 33 g/dL (31-37) Red Cell Distribution Width 19.1 % (11.5-14.5) Platelet Count 164 x10^3/uL (140-400) Neutrophils (%) (Auto) 90 % (31-73) Lymphocytes (%) (Auto) 2 % (24-48) Monocytes (%) (Auto) 8 % (0-9) Eosinophils (%) (Auto) 0 % (0-3) Basophils (%) (Auto) 0 % (0-3) Neutrophils # (Auto) 9.3 x10^3uL (1.8-7.7) Lymphocytes # (Auto) 0.2 x10^3/uL (1.0-4.8) Monocytes # (Auto) 0.8 x10^3/uL (0.0-1.1) Eosinophils # (Auto) 0.0 x10^3/uL (0.0-0.7) Basophils # (Auto) 0.0 x10^3/uL (0.0-0.2) Sodium Level 140 mmol/L (136-145) Potassium Level 3.0 mmol/L (3.5-5.1) Chloride Level 99 mmol/L (98-107) Carbon Dioxide Level 29 mmol/L (21-32) Anion Gap 12 (6-14) Blood Urea Nitrogen 12 mg/dL (7-20) Creatinine 1.9 mg/dL (0.6-1.0) Estimated GFR (Cockcroft-Gault) 25.9 Glucose Level 118 mg/dL (70-99) Calcium Level 8.8 mg/dL (8.5-10.1) Triglycerides Level 82 mg/dL (0-150) Cholesterol Level 149 mg/dL (0-200) LDL Cholesterol, Calculated 51 mg/dL (0-100) VLDL Cholesterol, Calculated 16 mg/dL (0-40) Non-HDL Cholesterol Calculated 67 mg/dL (0-129) HDL Cholesterol 82 mg/dL (40-60) Cholesterol/HDL Ratio 1.8 Medications Current Medications Albuterol/ Ipratropium (Duoneb) 3 ml 1X ONCE NEB Last administered on at 10:15; Start 07/16/18 at 10:15; Stop 07/16/18 at 10:16; Status DC Furosemide (Lasix) 40 mg 1X ONCE IVP Last administered on 07/16/18at 11:02; Start 07/16/18 at 10:30; Stop 07/16/18 at 10:31; Status DC Ondansetron HCl (Zofran) 4 mg PRN Q8HRS PRN IV NAUSEA/VOMITING; Start 07/16/18 at 11:30; Stop 07/17/18 at 09:12; Status DC Acetaminophen (Tylenol) 650 mg PRN Q4HRS PRN PO FEVER; Start 07/16/18 at 11:30 ; Stop 07/17/18 at 11:29 Nitroglycerin (Nitrostat) 0.4 mg PRN Q5MIN PRN SL CHEST PAIN; Start 07/16/18 at 11:30; Stop 07/17/18 at 11:29 Albuterol/ Ipratropium (Duoneb) 3 ml RTQID NEB Last administered on 07/17/18at 08:17; Start 07/16/18 at 12:00; Stop 07/17/18 at 11:59 Hydralazine HCl (Apresoline Inj) 10 mg PRN Q4HRS PRN IVP ELEVATED BP, SEE COMMENTS Last administered on 07/16/18 12:57; Start 07/16/18 at 12:00 Amiodarone HCl (Cordarone) 200 mg DAILY PO Last administered on 07/17/18 09:11 ; Start 07/17/18 at 09:00 Amlodipine Besylate (Norvasc) 5 mg HS PO Last administered on 07/16/18 21:16; Start 07/16/18 at 21:00 Aspirin (Children'S Aspirin) 81 mg DAILY PO Last administered on 07/17/18 09: 11; Start 07/17/18 at 09:00 Vitamin D (Vitamin D3) 1,000 unit QFR PO ; Start 07/21/18 at 16:00 Clopidogrel Bisulfate (Plavix) 75 mg DAILYWBKFT PO Last administered on 09:12; Start 07/17/18 at 08:00 Fludrocortisone Acetate (Florinef) 0.1 mg DAILYWLUN PO ; Start 07/17/18 at 12:00 Furosemide (Lasix) 20 mg BID92 PO Last administered on 07/17/18 09:13; Start 07/17/18 at 09:00 Levetiracetam (Keppra) 500 mg HS PO Last administered on 07/16/18 21:15; Start 07/16/18 at 21:00 Levetiracetam (Keppra) 250 mg DAILY PO Last administered on 07/17/18 09:13; Start 07/17/18 at 09:00 Levothyroxine Sodium (Synthroid) 175 mcg DAILY06 PO Last administered on 05:49; Start 07/17/18 at 06:00 Metoprolol Succinate (Toprol Xl) 25 mg DAILY PO Last administered on 07/17/18 09:14; Start 07/17/18 at 09:00 Sertraline HCl (Zoloft) 50 mg HS PO Last administered on 07/16/18 21:15; Start 07/16/18 at 21:00 Acetaminophen (Tylenol) 500 mg PRN Q6HRS PRN PO MILD PAIN; Start 07/16/18 at 17 :00 Atorvastatin Calcium (Lipitor) 80 mg QHS PO Last administered on 3/10/19at 21: 15; Start 07/16/18 at 21:00 Potassium Chloride (Klor-Con) 20 meq BIDWMEALS PO Last administered on at 09:11; Start 07/17/18 at 08:00 Sodium Chloride 1,000 ml @ 1,000 mls/hr Q1H PRN IV hypotension; Start 07/16/18 at 16:30; Stop 07/16/18 at 23:59; Status DC Sodium Chloride 1,000 ml @ 400 mls/hr Q2H30M PRN IV PATENCY; Start 07/16/18 at 16:30; Stop 07/16/18 at 23:59; Status DC Info (PHARMACY MONITORING -- do not chart) 1 each PRN DAILY PRN MC SEE COMMENTS ; Start 07/16/18 at 20:00; Status UNV Info (PHARMACY MONITORING -- do not chart) 1 each PRN DAILY PRN MC SEE COMMENTS ; Start 07/16/18 at 20:00 Lorazepam (Ativan) 0.5 mg PRN Q12HR PRN PO ANXIETY / AGITATION Last administered on 07/16/18at 21:23; Start 07/16/18 at 20:15 Sodium Chloride 1,000 ml @ 1,000 mls/hr Q1H PRN IV hypotension; Start 07/17/18 at 08:05; Stop 07/17/18 at 14:04 Sodium Chloride (Normal Saline Flush) 10 ml 1X PRN PRN IV AP catheter pack; Start 07/17/18 at 08:15; Stop 07/18/18 at 08:14 Sodium Chloride (Normal Saline Flush) 10 ml 1X PRN PRN IV PRODUCT CONTROL AND LOGISTICS ANALYST catheter pack; Start 07/17/18 at 08:15; Stop 07/18/18 at 08:14 Sodium Chloride 1,000 ml @ 400 mls/hr Q2H30M PRN IV PATENCY; Start 07/17/18 at 08:05; Stop 07/17/18 at 20:04 Info (PHARMACY MONITORING -- do not chart) 1 each PRN DAILY PRN MC SEE COMMENTS ; Start 07/17/18 at 08:15; Status UNV Info (PHARMACY MONITORING -- do not chart) 1 each PRN DAILY PRN MC SEE COMMENTS ; Start 07/17/18 at 08:15; Status UNV Ondansetron HCl (Zofran) 4 mg PRN Q6HRS PRN IV NAUSEA/VOMITING Last administered on 07/17/18at 09:19; Start 07/17/18 at 09:15 Clonidine HCl (Catapres) 0.1 mg PRN Q1HR PRN PO HYPERTENSION, SEE COMMENTS; Start 07/17/18 at 09:15 Acetaminophen (Tylenol) 500 mg PRN Q6HRS PRN PO MILD PAIN / TEMP; Start at 09:15; Status UNV Active Scripts Active Metoprolol Succinate ( Xl ) (Metoprolol Succinate) 25 Mg Tab.er.24h 25 Mg PO DAILY 30 Days Clopidogrel (Clopidogrel Bisulfate) 75 Mg Tablet 75 Mg PO DAILYWBKFT 30 Days Reported Furosemide 20 Mg Tablet 20 Mg PO BID92 Potassium Chloride 20 Meq Tablet.er 20 Meq PO BID Acetaminophen 500 Mg Tablet 1 Tab PO PRN Q6HRS PRN Zoloft (Sertraline Hcl) 50 Mg Tablet 1 Tab PO HS Levetiracetam 500 Mg Tablet 1 Tab PO HS Levetiracetam 500 Mg Tablet 250 Mg PO DAILY Levothyroxine Sodium 175 Mcg Tablet 1 Tab PO DAILY Fludrocortisone Acetate 0.1 Mg Tablet 1 Tab PO DAILY12 Vitamin D3 (Cholecalciferol (Vitamin D3)) 1,000 Unit Tablet 1 Tab PO QFR Atorvastatin Calcium 80 Mg Tablet 1 Tab PO HS Aspirin 81 Mg Tab.chew 1 Tab PO DAILY Amlodipine Besylate 10 Mg Tablet 5 Mg PO HS Amiodarone Hcl 200 Mg Tablet 1 Tab PO DAILY Vitals/I & O Vital Sign - Last 24 Hours 07/16/18 07/16/18 07/16/18 07/16/18 11:02 11:45 12:00 12:21 Temp 97.6 97.6 Pulse 78 78 Resp 24 B/P (MAP) 186/85 (118) 201/84 (123) 201/84 Pulse Ox 88 95 O2 Delivery Nasal Cannula Nasal Cannula Nasal Cannula O2 Flow Rate 5.0 5.0 07/16/18 07/16/18 07/16/18 07/16/18 12:45 12:57 14:55 19:55 Temp 97.8 97.6 97.8 97.6 Pulse 78 86 86 Resp 22 20 B/P (MAP) 187/81 168/89 (115) 142/64 (90) Pulse Ox 98 96 93 O2 Delivery Nasal Cannula Nasal Cannula Nasal Cannula O2 Flow Rate 5.0 3.0 07/16/18 07/16/18 07/16/18 07/16/18 20:00 20:30 21:16 23:15 Temp 97.7 97.7 Pulse 86 91 Resp 22 B/P (MAP) 142/64 146/67 (93) Pulse Ox 93 86 O2 Delivery Nasal Cannula Nasal Cannula Nasal Cannula O2 Flow Rate 2.0 3.0 1.0 07/16/18 07/17/18 07/17/18 07/17/18 23:20 03:35 07:00 08:17 Temp 97.7 97.6 97.7 97.6 Pulse 90 86 Resp 22 22 20 B/P (MAP) 145/64 (91) 162/72 (102) Pulse Ox 93 91 94 96 O2 Delivery Nasal Cannula Nasal Cannula Nasal Cannula Nasal Cannula O2 Flow Rate 3.0 3.0 3.0 5.0 07/17/18 07/17/18 09:11 09:14 Pulse 86 86 B/P (MAP) 162/72 162/72 Intake and Output 07/16/18 07/16/18 07/17/18 14:59 22:59 06:59 Intake Total 360 ml 100 ml Output Total 450 ml 50 ml Balance -90 ml 50 ml AV BASSETT MD Jul 17, 2018 10:39
--- NOTE | 2018-07-17 12:35 | PDOC ---
Renal-Progress Notes Subjective Notes Notes DOING BETTER History of Present Illness Hx of present illness LAST HD WAS ONE WEEK AGO AND IT WAS STOPPED IT WAS THOUGHT THAT SHE WAS RECOVERING BUT NOW IN WITH CHF AND PULMONARY EDEMA AND POSSIBLE PLEURAL EFFUSION Vitals Vitals Vital Signs Date Time Temp Pulse Resp B/P (MAP) Pulse Ox O2 Delivery O2 Flow Rate FiO2 07/17/18 10:57 Room Air 07/17/18 09:14 86 162/72 07/17/18 08:17 96 5.0 07/17/18 07:00 97.6 20 97.6 Weight Weight [ ] I.O. Intake and Output Intake and Output 07/17/18 07:00 Intake Total 460 ml Output Total 500 ml Balance -40 ml Intake Oral 460 ml Output Urine Total 500 ml Labs Labs Laboratory Tests Test 07/16/18 18:10 07/17/18 00:03 07/17/18 03:00 Troponin I Quantitative 0.026 ng/mL (0.000-0.055) 0.087 ng/mL (0.000-0.055) White Blood Count 10.4 x10^3/uL (4.0-11.0) Red Blood Count 3.05 x10^6/uL (3.50-5.40) Hemoglobin 9.0 g/dL (12.0-15.5) Hematocrit 27.3 % (36.0-47.0) Mean Corpuscular Volume 90 fL (79-100) Mean Corpuscular Hemoglobin 30 pg (25-35) Mean Corpuscular Hemoglobin Concent 33 g/dL (31-37) Red Cell Distribution Width 19.1 % (11.5-14.5) Platelet Count 164 x10^3/uL (140-400) Neutrophils (%) (Auto) 90 % (31-73) Lymphocytes (%) (Auto) 2 % (24-48) Monocytes (%) (Auto) 8 % (0-9) Eosinophils (%) (Auto) 0 % (0-3) Basophils (%) (Auto) 0 % (0-3) Neutrophils # (Auto) 9.3 x10^3uL (1.8-7.7) Lymphocytes # (Auto) 0.2 x10^3/uL (1.0-4.8) Monocytes # (Auto) 0.8 x10^3/uL (0.0-1.1) Eosinophils # (Auto) 0.0 x10^3/uL (0.0-0.7) Basophils # (Auto) 0.0 x10^3/uL (0.0-0.2) Sodium Level 140 mmol/L (136-145) Potassium Level 3.0 mmol/L (3.5-5.1) Chloride Level 99 mmol/L (98-107) Carbon Dioxide Level 29 mmol/L (21-32) Anion Gap 12 (6-14) Blood Urea Nitrogen 12 mg/dL (7-20) Creatinine 1.9 mg/dL (0.6-1.0) Estimated GFR (Cockcroft-Gault) 25.9 Glucose Level 118 mg/dL (70-99) Calcium Level 8.8 mg/dL (8.5-10.1) Triglycerides Level 82 mg/dL (0-150) Cholesterol Level 149 mg/dL (0-200) LDL Cholesterol, Calculated 51 mg/dL (0-100) VLDL Cholesterol, Calculated 16 mg/dL (0-40) Non-HDL Cholesterol Calculated 67 mg/dL (0-129) HDL Cholesterol 82 mg/dL (40-60) Cholesterol/HDL Ratio 1.8 Review of Systems Constitutional: yes: weakness, alert, oriented Ears/Nose/Throat: Yes: no symptom reported Pulmonary: Yes dyspnea Cardiovascular: Yes no symptom reported Gastrointestional: Yes: no symptom reported Genitourinary: Yes: no symptom reported Skin: Yes no symptom reported Psychiatric/Neurological: Yes: no symptom reported Endocrine: Yes: no symptom reported Physical Exam General Appearance: no apparent distress Skin: warm Respiratory: decreased breath sounds Heart: S1S2, RRR Abdomen: soft, bowel sounds present Genitourinary: bladder flat Extremities: pulses present, no edema Neurology: alert, oriented Assessment Assessment IMP ESRD ANEMIA PLEURAL EFFUSION CHF-PROB ACUTE ON CHRONIC DIASTOLIC AND SYSTOLIC HX OF ATROPHIED LEFT KIDNEY HX OF RIGHT ANNAMARIA AND S/P STENTING PLAN APPEARS TO HAVE NO CLEARANCE SINCE SHE STOPPED HER HD LAST TUESDAY HD AGAIN TODAY UF TO DW WILL USE HIGH K DIALYSATE HAVE NOTIFIED CHRONIC UNIT THAT PT WILL BE RETURNING FOR REGULAR HD RESUME NISHI CANADA MD Jul 17, 2018 12:35
--- NOTE | 2018-07-17 13:14 | PDOC ---
CARDIO Progress Notes Date and Time Date of Service 07/17/18 Time of Evaluation 1210 Subjective Subjective: No Chest Pain, Other (breathing improved ) Vitals Vitals Vital Signs Date Time Temp Pulse Resp B/P (MAP) Pulse Ox O2 Delivery O2 Flow Rate FiO2 07/17/18 10:57 Room Air 07/17/18 09:14 86 162/72 07/17/18 08:17 96 5.0 07/17/18 07:00 97.6 20 97.6 Weight Weight [ ] Input and Output Intake and Output Intake and Output 07/17/18 07:00 Intake Total 460 ml Output Total 500 ml Balance -40 ml Intake Oral 460 ml Output Urine Total 500 ml Laboratory Labs Laboratory Tests Test 07/16/18 18:10 07/17/18 00:03 07/17/18 03:00 Troponin I Quantitative 0.026 ng/mL (0.000-0.055) 0.087 ng/mL (0.000-0.055) White Blood Count 10.4 x10^3/uL (4.0-11.0) Red Blood Count 3.05 x10^6/uL (3.50-5.40) Hemoglobin 9.0 g/dL (12.0-15.5) Hematocrit 27.3 % (36.0-47.0) Mean Corpuscular Volume 90 fL (79-100) Mean Corpuscular Hemoglobin 30 pg (25-35) Mean Corpuscular Hemoglobin Concent 33 g/dL (31-37) Red Cell Distribution Width 19.1 % (11.5-14.5) Platelet Count 164 x10^3/uL (140-400) Neutrophils (%) (Auto) 90 % (31-73) Lymphocytes (%) (Auto) 2 % (24-48) Monocytes (%) (Auto) 8 % (0-9) Eosinophils (%) (Auto) 0 % (0-3) Basophils (%) (Auto) 0 % (0-3) Neutrophils # (Auto) 9.3 x10^3uL (1.8-7.7) Lymphocytes # (Auto) 0.2 x10^3/uL (1.0-4.8) Monocytes # (Auto) 0.8 x10^3/uL (0.0-1.1) Eosinophils # (Auto) 0.0 x10^3/uL (0.0-0.7) Basophils # (Auto) 0.0 x10^3/uL (0.0-0.2) Sodium Level 140 mmol/L (136-145) Potassium Level 3.0 mmol/L (3.5-5.1) Chloride Level 99 mmol/L (98-107) Carbon Dioxide Level 29 mmol/L (21-32) Anion Gap 12 (6-14) Blood Urea Nitrogen 12 mg/dL (7-20) Creatinine 1.9 mg/dL (0.6-1.0) Estimated GFR (Cockcroft-Gault) 25.9 Glucose Level 118 mg/dL (70-99) Calcium Level 8.8 mg/dL (8.5-10.1) Triglycerides Level 82 mg/dL (0-150) Cholesterol Level 149 mg/dL (0-200) LDL Cholesterol, Calculated 51 mg/dL (0-100) VLDL Cholesterol, Calculated 16 mg/dL (0-40) Non-HDL Cholesterol Calculated 67 mg/dL (0-129) HDL Cholesterol 82 mg/dL (40-60) Cholesterol/HDL Ratio 1.8 Review of Systems Constitutional: yes: weakness, alert, oriented Ears/Nose/Throat: Yes: no symptom reported Pulmonary: Yes dyspnea Cardiovascular: Yes no symptom reported Gastrointestional: Yes: no symptom reported Genitourinary: Yes: no symptom reported Skin: Yes no symptom reported Psychiatric/Neurological: Yes: no symptom reported Endocrine: Yes: no symptom reported Physical Exam HEENT: Neck Supple W Full Motion Chest: Symmetric LUNGS: Clear to Auscultation Heart: S1S2, RRR Abdomen: Soft N/T Extremities: No Calf Tenderness Neurology: alert, oriented, follow commands Assessment Assessment 1. Acute respiratory failure secondary to a/c diastolic HF. better compensated 2. Acute on chronic diastolic HF; LVEF 50-55% 3. CKD, now ESRD on HD 5. CAD with remote history of CABG. Cardiac cath earlier this year with revealed severe 3VD with 2/3 grafts patent. S/p PCI/TANO to the SVG to OM1. 6. PAFIB; on Amiodarone not on anticoagulation due to prior bleeding issues/ anemia. 7. Hypertension; mildly elevated 8. Hyperlipidemia 9. SSS s/p PPM; ([facility]) device interrogation last month with normal function 9. Hypokalemia; replaced Recommendations Increase Norvasc for better BP control Check Mg- replace as warranted Secondary prevention including DAPT with ASA and Plavix Fluid off-loading via HD as per renal Supportive care MEHRDAD JOHNSON APRN Jul 17, 2018 13:14
--- NOTE | 2018-07-17 13:53 | NUR ---
SS following for discharge planning. SS reviewed pt chart. Pt is from home with spouse and is currently requiring oxygen. Pt has dialysis chair at [facility] in [place], [address] [place] [address], , Tuesday, Tuesday, and Tuesday at 1445. Pt is previously on services with [facility], ; fax [phone]. SS will continue to follow for discharge planning.
--- NOTE | 2018-07-17 13:53 | CONS ---
DATE OF CONSULTATION: ATTENDING PHYSICIAN: Dr. Lua. REASON FOR CONSULTATION: Dyspnea. HISTORY OF PRESENT ILLNESS: The patient is a 72-year-old female who has a long history of tobacco use. She also has history of end-stage renal disease, on hemodialysis. She has been having shortness of breath for about 3-4 weeks with recent worsening. The patient has been on dialysis. However, approximately 2 weeks ago, she was making urine, and her renal functions are better. As a result, she was advised to hold off on hemodialysis. As a result, the patient became progressively dyspneic. She has no cough, no fever, no chills. No chest pain, no headaches, no nausea, vomiting, no diarrhea. Her imaging studies were done, and she had a chest x-ray done on admission and was consistent with congestive heart failure. She is currently undergoing dialysis. PAST MEDICAL HISTORY: Significant for AFib, CAD, CHF, hypertension, NH, syncope, hyperlipidemia. Seizure, TIA, GERD, gastritis. PAST SURGICAL HISTORY: Pacemaker and CABG. FAMILY HISTORY: Hypertension. SOCIAL HISTORY: Smoker since last 50 years. She is down to 2-3 cigarettes a day. REVIEW OF SYSTEMS: Twelve-point systems obtained. Pertinent positives discussed in my history of present illness, otherwise noncontributory. All systems that were negative were reviewed as well. ALLERGIES: CODEINE. CURRENT MEDICATIONS: Reviewed as listed in the MRAD. PHYSICAL EXAMINATION: VITAL SIGNS: Stable. Blood pressure 162/72, afebrile, pulse ox 96% on 5 liters. The patient states she is on home oxygen at 2 liters. HEENT: Sclerae nonicteric. NECK: Supple. LUNGS: With faint bilateral expiratory wheezes. CARDIOVASCULAR: Regular rate. ABDOMEN: Soft, nontender. EXTREMITIES: With no pitting edema. LABORATORY DATA: Reviewed. White cell count 10.4, hemoglobin 9.0, platelets of 164. BUN 12, creatinine 1.9. ABGs with a pH of 7.48, pCO2 of 34 and a pO2 of 63 on 5 liters. IMPRESSION: 1. Acute on chronic hypoxic respiratory failure secondary to multifactorial etiologies and include a combination of congestive heart failure and acute exacerbation of chronic obstructive pulmonary disease. 2. Bronchospasm, likely related to combination of chronic obstructive pulmonary disease exacerbation and congestive heart failure. 3. Abnormal chest x-ray consistent with congestive heart failure. 4. 50 years of tobaccoism, on home oxygen at 2 liters, continues to smoke 3 cigarettes a day. 5. History of atrial fibrillation. 6. Chronic kidney disease, on hemodialysis. RECOMMENDATIONS: 1. Continue with hemodialysis with ultrafiltration. 2. Monitor chest x-rays after a few dialysis sessions. 3. Optimize pulmonary status with adding IV steroids and DuoNebs. Add Pulmicort as well. 4. If bronchospasm does not improve, then consider holding off metoprolol. 5. Wean oxygen slowly. 6. Follow up chest x-ray in few days. 7. Discussed with the patient and her . BARBER HASTINGS MD DR: DESTINEE/gatito JOB#: [id number] / [id number]
[2018-07-17 15:00] VITALS: BP 148/72
[2018-07-17] MEDS: FLUDROCORTISONE 0.1 MG TABLET PO SCH (15:43)
[2018-07-17] MEDS: methylPREDNISolone SOD SUCC PF 125 MG/2 ML VIAL. IV SCH ×2 (15:44→22:02)
[2018-07-17] MEDS ORDERED: amLODIPine BESYLATE 5 MG TABLET PO ONE (16:30)
[2018-07-17] MEDS: FUROSEMIDE 40 MG/4 ML VIAL. IVP SCH (18:21)
[2018-07-17 19:52] VITALS: BP 152/70
[2018-07-17] MEDS: BUDESONIDE 0.5 MG/2 ML NEBU. NEB SCH (20:13)
[2018-07-17] MEDS ORDERED: DARBEPOETIN ALFA 60 MCG/0.3 ML DISP.SYRIN. SQ SCH (21:00)
[2018-07-17] MEDS: ATORVASTATIN CALCIUM 40 MG TABLET. PO SCH (21:00)
[2018-07-17] MEDS: LORazepam 0.5 MG TABLET PO PRN (22:01)
[2018-07-17] MEDS: SERTRALINE 50 MG TABLET. PO SCH (22:01)
[2018-07-17 22:47] VITALS: BP 152/68
[2018-07-17 23:05] LABS: BASE EXCESS ABG 2 mmol/L (-3-3); HCO3 ABG 26 mmol/L (21-28); PCO2 ABG 36 mmHg (35-46); PO2 ABG 75 mmHg (65-108); SAT O2 ABG 93 % (92-99)
[2018-07-17 23:46] LABS: FIO2 ABG 100
[2018-07-18] VITALS (7 sets, daily range): BP systolic 92–156; BP diastolic 54–68
[2018-07-18] MEDS: IPRATRPIUM/ALBUTEROL 0.5/2.5MG 3 ML NEBU. NEB SCH ×6 (02:49→23:40)
[2018-07-18] MEDS: LEVOTHYROXINE 175 MCG TABLET PO SCH ×2 (07:14→08:55)
[2018-07-18] MEDS: methylPREDNISolone SOD SUCC PF 125 MG/2 ML VIAL. IV SCH ×3 (07:15→21:18)
[2018-07-18] MEDS: BUDESONIDE 0.5 MG/2 ML NEBU. NEB SCH ×2 (07:50→19:44)
[2018-07-18 08:20] LABS: BASO % 0 % (0-3); EOS % 0 % (0-3); HEMATOCRIT 25.9 % (36.0-47.0); HEMOGLOBIN 8.5 g/dL (12.0-15.5); LYMPH # 0.1 x10^3/uL (1.0-4.8); LYMPH % 2 % (24-48); MEAN CORPUSCULAR HEMOGLOBIN 30 pg (25-35); MEAN CORPUSCULAR HGB CONC 33 g/dL (31-37); MEAN CORPUSCULAR VOLUME 91 fL (79-100); MONO # 0.5 x10^3/uL (0.0-1.1); MONO % 5 % (0-9); NEUT # 9.2 x10^3uL (1.8-7.7); NEUT % 93 % (31-73); PLATELET COUNT 140 x10^3/uL (140-400); RED BLOOD COUNT 2.86 x10^6/uL (3.50-5.40); RED CELL DISTRIBUTION WIDTH 18.5 % (11.5-14.5); WHITE BLOOD COUNT 9.9 x10^3/uL (4.0-11.0)
[2018-07-18 08:36] LABS: ALBUMIN 2.7 g/dL (3.4-5.0); ALBUMIN/GLOBULIN RATIO 0.7 (1.0-1.7); CREATININE 2.1 mg/dL (0.6-1.0); GFR 23.1; POTASSIUM 4.6 mmol/L (3.5-5.1); TOTAL BILIRUBIN 0.6 mg/dL (0.2-1.0); TOTAL PROTEIN 6.6 g/dL (6.4-8.2)
[2018-07-18] MEDS: ASPIRIN CHEWABLE 81 MG TABLET. PO SCH (08:52)
[2018-07-18] MEDS: POTASSIUM CHLORIDE 20 MEQ TABLET.ER. PO SCH ×2 (08:53→18:06)
[2018-07-18] MEDS: CLOPIDOGREL BISULFATE 75 MG TABLET PO SCH (08:53)
[2018-07-18] MEDS: AMIODARONE HCL 200 MG TABLET. PO SCH (08:53)
[2018-07-18] MEDS: amLODIPine BESYLATE 5 MG TABLET PO SCH ×2 (08:54→21:18)
[2018-07-18] MEDS: METOPROLOL SUCC 24HR ER 25 MG TAB.ER.24H. PO SCH (08:55)
[2018-07-18] MEDS: levETIRAcetam 500 MG TABLET PO SCH ×2 (08:55→21:19)
[2018-07-18] MEDS: FUROSEMIDE 40 MG/4 ML VIAL. IVP SCH (08:56)
--- NOTE | 2018-07-18 10:12 | PDOC ---
PULMONARY PROGRESS NOTES Subjective became hypoxic since yesterday, now on 100%FIO2 Vitals Vital Signs Date Time Temp Pulse Resp B/P (MAP) Pulse Ox O2 Delivery O2 Flow Rate FiO2 07/18/18 08:55 84 156/68 07/18/18 07:51 96 NonRebreather Mask 15.0 07/18/18 07:00 97.8 22 97.8 General: Alert, No acute distress, Lethargic HEENT: Other Lungs: Other (diminished at the basis) Cardiovascular: S1, S2 Abdomen: Soft, Non-tender Extremities: No Edema Labs Laboratory Tests Test 07/16/18 10:30 07/16/18 12:20 07/16/18 18:10 07/17/18 00:03 O2 Saturation 91 % (92-99) Arterial Blood pH 7.48 (7.35-7.45) Arterial Blood pCO2 at Patient Temp 34 mmHg (35-46) Arterial Blood pO2 at Patient Temp 63 mmHg (65-108) Arterial Blood HCO3 25 mmol/L (21-28) Arterial Blood Base Excess 1 mmol/L (-3-3) Oxyhemoglobin 89.9 % Methemoglobin 0.4 % (0.0-1.9) Carbon Monoxide, Quantitative 0.3 % (0.0-1.9) FiO2 5 lpm nc Troponin I Quantitative 0.020 ng/mL (0.000-0.055) 0.026 ng/mL (0.000-0.055) 0.087 ng/mL (0.000-0.055) Test 07/17/18 03:00 07/17/18 23:02 07/18/18 08:10 White Blood Count 10.4 x10^3/uL (4.0-11.0) 9.9 x10^3/uL (4.0-11.0) Red Blood Count 3.05 x10^6/uL (3.50-5.40) 2.86 x10^6/uL (3.50-5.40) Hemoglobin 9.0 g/dL (12.0-15.5) 8.5 g/dL (12.0-15.5) Hematocrit 27.3 % (36.0-47.0) 25.9 % (36.0-47.0) Mean Corpuscular Volume 90 fL (79-100) 91 fL (79-100) Mean Corpuscular Hemoglobin 30 pg (25-35) 30 pg (25-35) Mean Corpuscular Hemoglobin Concent 33 g/dL (31-37) 33 g/dL (31-37) Red Cell Distribution Width 19.1 % (11.5-14.5) 18.5 % (11.5-14.5) Platelet Count 164 x10^3/uL (140-400) 140 x10^3/uL (140-400) Neutrophils (%) (Auto) 90 % (31-73) 93 % (31-73) Lymphocytes (%) (Auto) 2 % (24-48) 2 % (24-48) Monocytes (%) (Auto) 8 % (0-9) 5 % (0-9) Eosinophils (%) (Auto) 0 % (0-3) 0 % (0-3) Basophils (%) (Auto) 0 % (0-3) 0 % (0-3) Neutrophils # (Auto) 9.3 x10^3uL (1.8-7.7) 9.2 x10^3uL (1.8-7.7) Lymphocytes # (Auto) 0.2 x10^3/uL (1.0-4.8) 0.1 x10^3/uL (1.0-4.8) Monocytes # (Auto) 0.8 x10^3/uL (0.0-1.1) 0.5 x10^3/uL (0.0-1.1) Eosinophils # (Auto) 0.0 x10^3/uL (0.0-0.7) 0.0 x10^3/uL (0.0-0.7) Basophils # (Auto) 0.0 x10^3/uL (0.0-0.2) 0.0 x10^3/uL (0.0-0.2) Sodium Level 140 mmol/L (136-145) 139 mmol/L (136-145) Potassium Level 3.0 mmol/L (3.5-5.1) 4.6 mmol/L (3.5-5.1) Chloride Level 99 mmol/L (98-107) 101 mmol/L (98-107) Carbon Dioxide Level 29 mmol/L (21-32) 28 mmol/L (21-32) Anion Gap 12 (6-14) 10 (6-14) Blood Urea Nitrogen 12 mg/dL (7-20) 19 mg/dL (7-20) Creatinine 1.9 mg/dL (0.6-1.0) 2.1 mg/dL (0.6-1.0) Estimated GFR (Cockcroft-Gault) 25.9 23.1 Glucose Level 118 mg/dL (70-99) 132 mg/dL (70-99) Calcium Level 8.8 mg/dL (8.5-10.1) 9.0 mg/dL (8.5-10.1) Magnesium Level 1.8 mg/dL (1.8-2.4) Triglycerides Level 82 mg/dL (0-150) Cholesterol Level 149 mg/dL (0-200) LDL Cholesterol, Calculated 51 mg/dL (0-100) VLDL Cholesterol, Calculated 16 mg/dL (0-40) Non-HDL Cholesterol Calculated 67 mg/dL (0-129) HDL Cholesterol 82 mg/dL (40-60) Cholesterol/HDL Ratio 1.8 O2 Saturation 93 % (92-99) Arterial Blood pH 7.46 (7.35-7.45) Arterial Blood pCO2 at Patient Temp 36 mmHg (35-46) Arterial Blood pO2 at Patient Temp 75 mmHg (65-108) Arterial Blood HCO3 26 mmol/L (21-28) Arterial Blood Base Excess 2 mmol/L (-3-3) FiO2 100 BUN/Creatinine Ratio 9 (6-20) Total Bilirubin 0.6 mg/dL (0.2-1.0) Aspartate Amino Transf (AST/SGOT) 153 U/L (15-37) Alanine Aminotransferase (ALT/SGPT) 112 U/L (14-59) Alkaline Phosphatase 61 U/L (46-116) Total Protein 6.6 g/dL (6.4-8.2) Albumin 2.7 g/dL (3.4-5.0) Albumin/Globulin Ratio 0.7 (1.0-1.7) Laboratory Tests Test 07/17/18 23:02 07/18/18 08:10 O2 Saturation 93 % (92-99) Arterial Blood pH 7.46 (7.35-7.45) Arterial Blood pCO2 at Patient Temp 36 mmHg (35-46) Arterial Blood pO2 at Patient Temp 75 mmHg (65-108) Arterial Blood HCO3 26 mmol/L (21-28) Arterial Blood Base Excess 2 mmol/L (-3-3) FiO2 100 White Blood Count 9.9 x10^3/uL (4.0-11.0) Red Blood Count 2.86 x10^6/uL (3.50-5.40) Hemoglobin 8.5 g/dL (12.0-15.5) Hematocrit 25.9 % (36.0-47.0) Mean Corpuscular Volume 91 fL (79-100) Mean Corpuscular Hemoglobin 30 pg (25-35) Mean Corpuscular Hemoglobin Concent 33 g/dL (31-37) Red Cell Distribution Width 18.5 % (11.5-14.5) Platelet Count 140 x10^3/uL (140-400) Neutrophils (%) (Auto) 93 % (31-73) Lymphocytes (%) (Auto) 2 % (24-48) Monocytes (%) (Auto) 5 % (0-9) Eosinophils (%) (Auto) 0 % (0-3) Basophils (%) (Auto) 0 % (0-3) Neutrophils # (Auto) 9.2 x10^3uL (1.8-7.7) Lymphocytes # (Auto) 0.1 x10^3/uL (1.0-4.8) Monocytes # (Auto) 0.5 x10^3/uL (0.0-1.1) Eosinophils # (Auto) 0.0 x10^3/uL (0.0-0.7) Basophils # (Auto) 0.0 x10^3/uL (0.0-0.2) Sodium Level 139 mmol/L (136-145) Potassium Level 4.6 mmol/L (3.5-5.1) Chloride Level 101 mmol/L (98-107) Carbon Dioxide Level 28 mmol/L (21-32) Anion Gap 10 (6-14) Blood Urea Nitrogen 19 mg/dL (7-20) Creatinine 2.1 mg/dL (0.6-1.0) Estimated GFR (Cockcroft-Gault) 23.1 BUN/Creatinine Ratio 9 (6-20) Glucose Level 132 mg/dL (70-99) Calcium Level 9.0 mg/dL (8.5-10.1) Total Bilirubin 0.6 mg/dL (0.2-1.0) Aspartate Amino Transf (AST/SGOT) 153 U/L (15-37) Alanine Aminotransferase (ALT/SGPT) 112 U/L (14-59) Alkaline Phosphatase 61 U/L (46-116) Total Protein 6.6 g/dL (6.4-8.2) Albumin 2.7 g/dL (3.4-5.0) Albumin/Globulin Ratio 0.7 (1.0-1.7) Medications Active Scripts Medications Dose Route/Sig Max Daily Dose Days Date Category Furosemide 20 Mg Tablet 20 Mg PO [id number] 07/16/18 Reported Potassium Chloride 20 Meq Tablet.er 20 Meq PO BID 07/16/18 Reported Metoprolol Succinate ( Xl ) (Metoprolol Succinate) 25 Mg Tab.er.24h 25 Mg PO DAILY 30 06/28/18 Rx Clopidogrel (Clopidogrel Bisulfate) 75 Mg Tablet 75 Mg PO [id number] 30 06/28/18 Rx Acetaminophen 500 Mg Tablet 1 Tab PO PRN Q6HRS PRN 06/19/18 Reported Zoloft (Sertraline Hcl) 50 Mg Tablet 1 Tab PO HS 06/19/18 Reported Levetiracetam 500 Mg Tablet 1 Tab PO HS 06/19/18 Reported Levetiracetam 500 Mg Tablet 250 Mg PO DAILY 06/19/18 Reported Levothyroxine Sodium 175 Mcg Tablet 1 Tab PO DAILY 11/25/17 Reported Fludrocortisone Acetate 0.1 Mg Tablet 1 Tab PO DAILY12 11/25/17 Reported Vitamin D3 (Cholecalciferol (Vitamin D3)) 1,000 Unit Tablet 1 Tab PO QFR 11/25/17 Reported Atorvastatin Calcium 80 Mg Tablet 1 Tab PO HS 11/25/17 Reported Aspirin 81 Mg Tab.chew 1 Tab PO DAILY 11/24/17 Reported Amlodipine Besylate 10 Mg Tablet 5 Mg PO HS 11/24/17 Reported Amiodarone Hcl 200 Mg Tablet 1 Tab PO DAILY 11/24/[address] CHEST 07/18 REVIEWED BY ME Diffuse interstitial edema/ moderate effusions Impression . 1. Acute on chronic hypoxic respiratory failure secondary to multifactorial etiologies and include a combination of congestive heart failure and acute exacerbation of chronic obstructive pulmonary disease. CHF now worse contributing to worsening hypoxia. 2. Bronchospasm, likely related to combination of chronic obstructive pulmonary disease exacerbation and congestive heart failure. improved 3. Abnormal chest x-ray / ct chest consistent with congestive heart failure. 4. 50 years of tobaccoism, on home oxygen at 2 liters, continues to smoke 3 cigarettes a day. 5. History of atrial fibrillation. 6. Chronic kidney disease, on hemodialysis. 7. Moderate effusions, Rt> left, would need tap 8. Left heart cath 06/27 with elevated left sided pressures Plan . D/W / RN and DR Frances 1. hemodialysis with ultrafiltration today. 2. CT guided right thoracentesis today. agrees 3. IV steroids and DuoNebs. Pulmicort as well. 4. f/u cxr post tap and HD 5. Wean oxygen slowly. 6. PRN BIPAP BARBER HASTINGS MD Jul 18, 2018 10:12
--- NOTE | 2018-07-18 10:40 | PDOC ---
PROGRESS NOTES Chief Complaint Chief Complaint Hypoxic respiratory failure-O2 dependent 1. Coronary artery disease with a history of three-vessel bypass (PICKARD to LAD, SVG to RCA and SVG to OM1) with PCI earlier this year to the ostium of the saphenous vein graft to the obtuse marginal due to a non-ST elevation myocardial infarction 2. End-stage renal disease 3. Paroxysmal atrial fibrillation 4. Hypertension 5. Dyslipidemia 6. Diastolic dysfunction and moderate mitral regurgitation based on echocardiogram in June 2018 7. CVA 8. SSS s/p st. flor dual chamber pacer 9. PAF - on amiodarone and not on anticoagulation due to DAPT currently on board and prior bleeding issues/anemia. History of Present Illness History of Present Illness On venturoi mask today SOA LTAC candidate but will just take her home with [facility] She has been sick since 1995. is familiar with rehabilitation places and he adamantly just wants to take her home I did bring up hospice knows about hospice - based on his demeanor they're not ready for it and they will know when to call hospice when they think she is going that direction Overall prognosis poor, very frail, poor by mouth intake, multiple co morbids Plan for chest tube today, SOA, nonrebreather, and hypoxia/in distress with signif pleural eff Plan: chest tibe today,. Pulmonary Not ready for hospice [facility] on discharge Cancel LTAC screening-family will not go for it Discussed with multiple specialists Vitals Vitals Vital Signs Date Time Temp Pulse Resp B/P (MAP) Pulse Ox O2 Delivery O2 Flow Rate FiO2 07/18/18 08:55 84 156/68 07/18/18 08:00 Venturi Mask 15.0 07/18/18 07:51 96 07/18/18 07:00 97.8 22 97.8 Physical Exam General: Alert, Oriented X3, Cooperative, moderate distress Heart: Regular rate, No murmurs, Other (sinus tachycardia 80s to 90s) Lungs: Other (diminished at the basis) Abdomen: Normal bowel sounds, Soft Extremities: No clubbing, No cyanosis, No tenderness/swelling, Other (minimal subcutaneous tissue) Skin: No rashes, No breakdown Labs LABS Laboratory Tests Test 07/17/18 23:02 07/18/18 08:10 O2 Saturation 93 % (92-99) Arterial Blood pH 7.46 (7.35-7.45) Arterial Blood pCO2 at Patient Temp 36 mmHg (35-46) Arterial Blood pO2 at Patient Temp 75 mmHg (65-108) Arterial Blood HCO3 26 mmol/L (21-28) Arterial Blood Base Excess 2 mmol/L (-3-3) FiO2 100 White Blood Count 9.9 x10^3/uL (4.0-11.0) Red Blood Count 2.86 x10^6/uL (3.50-5.40) Hemoglobin 8.5 g/dL (12.0-15.5) Hematocrit 25.9 % (36.0-47.0) Mean Corpuscular Volume 91 fL (79-100) Mean Corpuscular Hemoglobin 30 pg (25-35) Mean Corpuscular Hemoglobin Concent 33 g/dL (31-37) Red Cell Distribution Width 18.5 % (11.5-14.5) Platelet Count 140 x10^3/uL (140-400) Neutrophils (%) (Auto) 93 % (31-73) Lymphocytes (%) (Auto) 2 % (24-48) Monocytes (%) (Auto) 5 % (0-9) Eosinophils (%) (Auto) 0 % (0-3) Basophils (%) (Auto) 0 % (0-3) Neutrophils # (Auto) 9.2 x10^3uL (1.8-7.7) Lymphocytes # (Auto) 0.1 x10^3/uL (1.0-4.8) Monocytes # (Auto) 0.5 x10^3/uL (0.0-1.1) Eosinophils # (Auto) 0.0 x10^3/uL (0.0-0.7) Basophils # (Auto) 0.0 x10^3/uL (0.0-0.2) Sodium Level 139 mmol/L (136-145) Potassium Level 4.6 mmol/L (3.5-5.1) Chloride Level 101 mmol/L (98-107) Carbon Dioxide Level 28 mmol/L (21-32) Anion Gap 10 (6-14) Blood Urea Nitrogen 19 mg/dL (7-20) Creatinine 2.1 mg/dL (0.6-1.0) Estimated GFR (Cockcroft-Gault) 23.1 BUN/Creatinine Ratio 9 (6-20) Glucose Level 132 mg/dL (70-99) Calcium Level 9.0 mg/dL (8.5-10.1) Total Bilirubin 0.6 mg/dL (0.2-1.0) Aspartate Amino Transf (AST/SGOT) 153 U/L (15-37) Alanine Aminotransferase (ALT/SGPT) 112 U/L (14-59) Alkaline Phosphatase 61 U/L (46-116) Total Protein 6.6 g/dL (6.4-8.2) Albumin 2.7 g/dL (3.4-5.0) Albumin/Globulin Ratio 0.7 (1.0-1.7) Review of Systems Review of Systems SOA, in respiratory distress, cannot participate in review of systems Assessment and Plan Assessmemt and Plan Problems Medical Problems: (1) Congestive heart failure Status: Acute Comment Review of Relevant I have reviewed the following items jose (where applicable) has been applied. Labs Laboratory Tests Test 07/16/18 12:20 07/16/18 18:10 07/17/18 00:03 07/17/18 03:00 Troponin I Quantitative 0.020 ng/mL (0.000-0.055) 0.026 ng/mL (0.000-0.055) 0.087 ng/mL (0.000-0.055) White Blood Count 10.4 x10^3/uL (4.0-11.0) Red Blood Count 3.05 x10^6/uL (3.50-5.40) Hemoglobin 9.0 g/dL (12.0-15.5) Hematocrit 27.3 % (36.0-47.0) Mean Corpuscular Volume 90 fL (79-100) Mean Corpuscular Hemoglobin 30 pg (25-35) Mean Corpuscular Hemoglobin Concent 33 g/dL (31-37) Red Cell Distribution Width 19.1 % (11.5-14.5) Platelet Count 164 x10^3/uL (140-400) Neutrophils (%) (Auto) 90 % (31-73) Lymphocytes (%) (Auto) 2 % (24-48) Monocytes (%) (Auto) 8 % (0-9) Eosinophils (%) (Auto) 0 % (0-3) Basophils (%) (Auto) 0 % (0-3) Neutrophils # (Auto) 9.3 x10^3uL (1.8-7.7) Lymphocytes # (Auto) 0.2 x10^3/uL (1.0-4.8) Monocytes # (Auto) 0.8 x10^3/uL (0.0-1.1) Eosinophils # (Auto) 0.0 x10^3/uL (0.0-0.7) Basophils # (Auto) 0.0 x10^3/uL (0.0-0.2) Sodium Level 140 mmol/L (136-145) Potassium Level 3.0 mmol/L (3.5-5.1) Chloride Level 99 mmol/L (98-107) Carbon Dioxide Level 29 mmol/L (21-32) Anion Gap 12 (6-14) Blood Urea Nitrogen 12 mg/dL (7-20) Creatinine 1.9 mg/dL (0.6-1.0) Estimated GFR (Cockcroft-Gault) 25.9 Glucose Level 118 mg/dL (70-99) Calcium Level 8.8 mg/dL (8.5-10.1) Magnesium Level 1.8 mg/dL (1.8-2.4) Triglycerides Level 82 mg/dL (0-150) Cholesterol Level 149 mg/dL (0-200) LDL Cholesterol, Calculated 51 mg/dL (0-100) VLDL Cholesterol, Calculated 16 mg/dL (0-40) Non-HDL Cholesterol Calculated 67 mg/dL (0-129) HDL Cholesterol 82 mg/dL (40-60) Cholesterol/HDL Ratio 1.8 Test 07/17/18 23:02 07/18/18 08:10 O2 Saturation 93 % (92-99) Arterial Blood pH 7.46 (7.35-7.45) Arterial Blood pCO2 at Patient Temp 36 mmHg (35-46) Arterial Blood pO2 at Patient Temp 75 mmHg (65-108) Arterial Blood HCO3 26 mmol/L (21-28) Arterial Blood Base Excess 2 mmol/L (-3-3) FiO2 100 White Blood Count 9.9 x10^3/uL (4.0-11.0) Red Blood Count 2.86 x10^6/uL (3.50-5.40) Hemoglobin 8.5 g/dL (12.0-15.5) Hematocrit 25.9 % (36.0-47.0) Mean Corpuscular Volume 91 fL (79-100) Mean Corpuscular Hemoglobin 30 pg (25-35) Mean Corpuscular Hemoglobin Concent 33 g/dL (31-37) Red Cell Distribution Width 18.5 % (11.5-14.5) Platelet Count 140 x10^3/uL (140-400) Neutrophils (%) (Auto) 93 % (31-73) Lymphocytes (%) (Auto) 2 % (24-48) Monocytes (%) (Auto) 5 % (0-9) Eosinophils (%) (Auto) 0 % (0-3) Basophils (%) (Auto) 0 % (0-3) Neutrophils # (Auto) 9.2 x10^3uL (1.8-7.7) Lymphocytes # (Auto) 0.1 x10^3/uL (1.0-4.8) Monocytes # (Auto) 0.5 x10^3/uL (0.0-1.1) Eosinophils # (Auto) 0.0 x10^3/uL (0.0-0.7) Basophils # (Auto) 0.0 x10^3/uL (0.0-0.2) Sodium Level 139 mmol/L (136-145) Potassium Level 4.6 mmol/L (3.5-5.1) Chloride Level 101 mmol/L (98-107) Carbon Dioxide Level 28 mmol/L (21-32) Anion Gap 10 (6-14) Blood Urea Nitrogen 19 mg/dL (7-20) Creatinine 2.1 mg/dL (0.6-1.0) Estimated GFR (Cockcroft-Gault) 23.1 BUN/Creatinine Ratio 9 (6-20) Glucose Level 132 mg/dL (70-99) Calcium Level 9.0 mg/dL (8.5-10.1) Total Bilirubin 0.6 mg/dL (0.2-1.0) Aspartate Amino Transf (AST/SGOT) 153 U/L (15-37) Alanine Aminotransferase (ALT/SGPT) 112 U/L (14-59) Alkaline Phosphatase 61 U/L (46-116) Total Protein 6.6 g/dL (6.4-8.2) Albumin 2.7 g/dL (3.4-5.0) Albumin/Globulin Ratio 0.7 (1.0-1.7) Laboratory Tests Test 07/17/18 23:02 07/18/18 08:10 O2 Saturation 93 % (92-99) Arterial Blood pH 7.46 (7.35-7.45) Arterial Blood pCO2 at Patient Temp 36 mmHg (35-46) Arterial Blood pO2 at Patient Temp 75 mmHg (65-108) Arterial Blood HCO3 26 mmol/L (21-28) Arterial Blood Base Excess 2 mmol/L (-3-3) FiO2 100 White Blood Count 9.9 x10^3/uL (4.0-11.0) Red Blood Count 2.86 x10^6/uL (3.50-5.40) Hemoglobin 8.5 g/dL (12.0-15.5) Hematocrit 25.9 % (36.0-47.0) Mean Corpuscular Volume 91 fL (79-100) Mean Corpuscular Hemoglobin 30 pg (25-35) Mean Corpuscular Hemoglobin Concent 33 g/dL (31-37) Red Cell Distribution Width 18.5 % (11.5-14.5) Platelet Count 140 x10^3/uL (140-400) Neutrophils (%) (Auto) 93 % (31-73) Lymphocytes (%) (Auto) 2 % (24-48) Monocytes (%) (Auto) 5 % (0-9) Eosinophils (%) (Auto) 0 % (0-3) Basophils (%) (Auto) 0 % (0-3) Neutrophils # (Auto) 9.2 x10^3uL (1.8-7.7) Lymphocytes # (Auto) 0.1 x10^3/uL (1.0-4.8) Monocytes # (Auto) 0.5 x10^3/uL (0.0-1.1) Eosinophils # (Auto) 0.0 x10^3/uL (0.0-0.7) Basophils # (Auto) 0.0 x10^3/uL (0.0-0.2) Sodium Level 139 mmol/L (136-145) Potassium Level 4.6 mmol/L (3.5-5.1) Chloride Level 101 mmol/L (98-107) Carbon Dioxide Level 28 mmol/L (21-32) Anion Gap 10 (6-14) Blood Urea Nitrogen 19 mg/dL (7-20) Creatinine 2.1 mg/dL (0.6-1.0) Estimated GFR (Cockcroft-Gault) 23.1 BUN/Creatinine Ratio 9 (6-20) Glucose Level 132 mg/dL (70-99) Calcium Level 9.0 mg/dL (8.5-10.1) Total Bilirubin 0.6 mg/dL (0.2-1.0) Aspartate Amino Transf (AST/SGOT) 153 U/L (15-37) Alanine Aminotransferase (ALT/SGPT) 112 U/L (14-59) Alkaline Phosphatase 61 U/L (46-116) Total Protein 6.6 g/dL (6.4-8.2) Albumin 2.7 g/dL (3.4-5.0) Albumin/Globulin Ratio 0.7 (1.0-1.7) Medications Current Medications Albuterol/ Ipratropium (Duoneb) 3 ml 1X ONCE NEB Last administered on at 10:15; Start 07/16/18 at 10:15; Stop 07/16/18 at 10:16; Status DC Furosemide (Lasix) 40 mg 1X ONCE IVP Last administered on 07/16/18at 11:02; Start 07/16/18 at 10:30; Stop 07/16/18 at 10:31; Status DC Ondansetron HCl (Zofran) 4 mg PRN Q8HRS PRN IV NAUSEA/VOMITING; Start 07/16/18 at 11:30; Stop 07/17/18 at 09:12; Status DC Acetaminophen (Tylenol) 650 mg PRN Q4HRS PRN PO FEVER; Start 07/16/18 at 11:30 ; Stop 07/17/18 at 11:29; Status DC Nitroglycerin (Nitrostat) 0.4 mg PRN Q5MIN PRN SL CHEST PAIN; Start 07/16/18 at 11:30; Stop 07/17/18 at 11:29; Status DC Albuterol/ Ipratropium (Duoneb) 3 ml RTQID NEB Last administered on 07/17/18at 08:17; Start 07/16/18 at 12:00; Stop 07/17/18 at 11:59; Status DC Hydralazine HCl (Apresoline Inj) 10 mg PRN Q4HRS PRN IVP ELEVATED BP, SEE COMMENTS Last administered on 07/16/18 12:57; Start 07/16/18 at 12:00 Amiodarone HCl (Cordarone) 200 mg DAILY PO Last administered on 07/18/18 08:53 ; Start 07/17/18 at 09:00 Amlodipine Besylate (Norvasc) 5 mg HS PO Last administered on 07/16/18 21:16; Start 07/16/18 at 21:00; Stop 07/17/18 at 16:07; Status DC Aspirin (Children'S Aspirin) 81 mg DAILY PO Last administered on 07/18/18 08: 52; Start 07/17/18 at 09:00 Vitamin D (Vitamin D3) 1,000 unit QFR PO ; Start 07/21/18 at 16:00 Clopidogrel Bisulfate (Plavix) 75 mg DAILYWBKFT PO Last administered on 08:53; Start 07/17/18 at 08:00 Fludrocortisone Acetate (Florinef) 0.1 mg DAILYWLUN PO Last administered on 15:43; Start 07/17/18 at 12:00 Furosemide (Lasix) 20 mg BID92 PO Last administered on 07/17/18 15:45; Start 07/17/18 at 09:00; Stop 07/17/18 at 18:16; Status DC Levetiracetam (Keppra) 500 mg HS PO Last administered on 07/17/18 22:01; Start 07/16/18 at 21:00 Levetiracetam (Keppra) 250 mg DAILY PO Last administered on 07/18/18 08:55; Start 07/17/18 at 09:00 Levothyroxine Sodium (Synthroid) 175 mcg DAILY06 PO Last administered on 08:55; Start 07/17/18 at 06:00 Metoprolol Succinate (Toprol Xl) 25 mg DAILY PO Last administered on 07/18/18 08:55; Start 07/17/18 at 09:00 Sertraline HCl (Zoloft) 50 mg HS PO Last administered on 3/11/19at 22:01; Start 07/16/18 at 21:00 Acetaminophen (Tylenol) 500 mg PRN Q6HRS PRN PO MILD PAIN; Start 07/16/18 at 17 :00 Atorvastatin Calcium (Lipitor) 80 mg QHS PO Last administered on 07/16/18at 21: 15; Start 07/16/18 at 21:00 Potassium Chloride (Klor-Con) 20 meq BIDWMEALS PO Last administered on at 08:53; Start 07/17/18 at 08:00 Sodium Chloride 1,000 ml @ 1,000 mls/hr Q1H PRN IV hypotension; Start 07/16/18 at 16:30; Stop 07/16/18 at 23:59; Status DC Sodium Chloride 1,000 ml @ 400 mls/hr Q2H30M PRN IV PATENCY; Start 07/16/18 at 16:30; Stop 07/16/18 at 23:59; Status DC Info (PHARMACY MONITORING -- do not chart) 1 each PRN DAILY PRN MC SEE COMMENTS ; Start 07/16/18 at 20:00; Status UNV Info (PHARMACY MONITORING -- do not chart) 1 each PRN DAILY PRN MC SEE COMMENTS ; Start 07/16/18 at 20:00 Lorazepam (Ativan) 0.5 mg PRN Q12HR PRN PO ANXIETY / AGITATION Last administered on 07/17/18at 22:01; Start 07/16/18 at 20:15 Sodium Chloride 1,000 ml @ 1,000 mls/hr Q1H PRN IV hypotension; Start 07/17/18 at 08:05; Stop 07/17/18 at 14:04; Status DC Sodium Chloride (Normal Saline Flush) 10 ml 1X PRN PRN IV AP catheter pack; Start 07/17/18 at 08:15; Stop 07/18/18 at 08:14; Status DC Sodium Chloride (Normal Saline Flush) 10 ml 1X PRN PRN IV [employer]RO[employer]ELOPER catheter pack; Start 07/17/18 at 08:15; Stop 07/18/18 at 08:14; Status DC Sodium Chloride 1,000 ml @ 400 mls/hr Q2H30M PRN IV PATENCY; Start 07/17/18 at 08:05; Stop 07/17/18 at 20:04; Status DC Info (PHARMACY MONITORING -- do not chart) 1 each PRN DAILY PRN MC SEE COMMENTS ; Start 07/17/18 at 08:15; Status UNV Info (PHARMACY MONITORING -- do not chart) 1 each PRN DAILY PRN MC SEE COMMENTS ; Start 07/17/18 at 08:15; Status UNV Ondansetron HCl (Zofran) 4 mg PRN Q6HRS PRN IV NAUSEA/VOMITING Last administered on 07/17/18at 15:43; Start 07/17/18 at 09:15 Clonidine HCl (Catapres) 0.1 mg PRN Q1HR PRN PO HYPERTENSION, SEE COMMENTS; Start 07/17/18 at 09:15 Acetaminophen (Tylenol) 500 mg PRN Q6HRS PRN PO MILD PAIN / TEMP; Start at 09:15; Status UNV Darbepoetin Olaf (Aranesp) 60 mcg WEEKLYHS SQ Last administered on 07/17/18at 22 :02; Start 07/17/18 at 21:00 Albuterol/ Ipratropium (Duoneb) 3 ml Q4HRS NEB Last administered on 07/18/18 07:50; Start 07/17/18 at 13:30 Budesonide (Pulmicort) 0.5 mg RTBID NEB Last administered on 07/18/18 07:50; Start 07/17/18 at 13:30 Methylprednisolone Sodium Succinate (SOLU-Medrol 125MG VIAL) 60 mg Q8HRS IV Last administered on 07/18/18 07:15; Start 07/17/18 at 13:30 Amlodipine Besylate (Norvasc) 5 mg BID PO Last administered on 07/18/18 08:54 ; Start 07/18/18 at 09:00 Amlodipine Besylate (Norvasc) 5 mg 1X ONCE PO Last administered on 07/17/18 17:49; Start 07/17/18 at 16:30; Stop 07/17/18 at 16:31; Status DC Furosemide (Lasix) 40 mg DAILY IVP Last administered on 07/18/18 08:56; Start 07/17/18 at 18:15 Active Scripts Active Metoprolol Succinate ( Xl ) (Metoprolol Succinate) 25 Mg Tab.er.24h 25 Mg PO DAILY 30 Days Clopidogrel (Clopidogrel Bisulfate) 75 Mg Tablet 75 Mg PO DAILYWBKFT 30 Days Reported Furosemide 20 Mg Tablet 20 Mg PO BID92 Potassium Chloride 20 Meq Tablet.er 20 Meq PO BID Acetaminophen 500 Mg Tablet 1 Tab PO PRN Q6HRS PRN Zoloft (Sertraline Hcl) 50 Mg Tablet 1 Tab PO HS Levetiracetam 500 Mg Tablet 1 Tab PO HS Levetiracetam 500 Mg Tablet 250 Mg PO DAILY Levothyroxine Sodium 175 Mcg Tablet 1 Tab PO DAILY Fludrocortisone Acetate 0.1 Mg Tablet 1 Tab PO DAILY12 Vitamin D3 (Cholecalciferol (Vitamin D3)) 1,000 Unit Tablet 1 Tab PO QFR Atorvastatin Calcium 80 Mg Tablet 1 Tab PO HS Aspirin 81 Mg Tab.chew 1 Tab PO DAILY Amlodipine Besylate 10 Mg Tablet 5 Mg PO HS Amiodarone Hcl 200 Mg Tablet 1 Tab PO DAILY Vitals/I & O Vital Sign - Last 24 Hours 07/17/18 07/17/18 07/17/18 07/17/18 10:57 15:00 15:53 17:49 Temp 97.9 97.9 Pulse 94 94 Resp 22 B/P (MAP) 148/72 (97) 148/72 Pulse Ox 83 93 O2 Delivery Room Air Nasal Cannula Nasal Cannula O2 Flow Rate 6.0 07/17/18 07/17/18 07/17/18 07/17/18 19:52 20:00 20:14 20:15 Temp 97.8 97.8 Pulse 90 Resp 24 B/P (MAP) 152/70 (97) Pulse Ox 88 91 91 O2 Delivery Venturi Mask Venturi Mask Venturi Mask Venturi Mask O2 Flow Rate 15.0 15.0 15.0 15.0 07/17/18 07/17/18 07/18/18 07/18/18 22:30 22:47 02:49 03:38 Temp 97.6 97.7 97.6 97.7 Pulse 96 82 Resp 24 20 B/P (MAP) 152/68 (96) 140/67 (91) Pulse Ox 81 92 96 100 O2 Delivery Venturi Mask NonRebreather Mask NonRebreather Mask NonRebreather Mask O2 Flow Rate 15.0 15.0 07/18/18 07/18/18 07/18/18 07/18/18 07:00 07:51 08:00 08:53 Temp 97.8 97.8 Pulse 84 84 Resp 22 B/P (MAP) 156/68 (97) 156/68 Pulse Ox 94 96 O2 Delivery Venturi Mask NonRebreather Mask Venturi Mask O2 Flow Rate 15.0 15.0 07/18/18 07/18/18 08:54 08:55 Pulse 84 84 B/P (MAP) 156/68 156/68 Intake and Output 07/17/18 07/17/18 07/18/18 15:00 23:00 07:00 Intake Total 360 ml 360 ml Output Total 225 ml 50 ml Balance 135 ml 310 ml Nutrition Consultation Dietary Evaluation: Recommendations by RD: Increase Calorie Intake Comments: Will liberalize diet to regular to promote PO intake; honor food preferences and provide snacks as requested Expected Outcomes/Goals: PO intake to meet >75% est needs Interpretation of weight loss: >10% in 6 months Malnutrition Findings: Food and Nutrition Intake (Sev: <50% est energy req 5days Weight Status: Underweight AV BASSETT MD Jul 18, 2018 10:40
--- NOTE | 2018-07-18 10:42 | RAD ---
CT of the chest without contrast, 07/18/2018: HISTORY: Worsening hypoxia Noncontrast scans were obtained. There is extensive calcific plaquing of the thoracic aorta and its branches. Extensive coronary artery calcifications are present. The heart is generally enlarged. A left-sided transvenous pacing device and a right jugular dialysis type catheter are in place. There is a large right pleural effusion with nearly complete atelectasis of the right lower lobe. There is a moderate size left pleural effusion with mild left basilar atelectasis. The remaining portions of both lungs demonstrate moderate patchy pulmonary infiltrates. These demonstrate a combination of groundglass and interlobular septal thickening producing a "crazy paving" appearance. A well-defined low-density lesion in the left lobe of the liver is compatible with a cyst. There are moderate scattered degenerative changes in the spine. There has been a previous median sternotomy. Surgical screws are present at the left shoulder. IMPRESSION: 1. Large right pleural effusion with underlying right lower lobe atelectasis. 2. Moderate sized left pleural effusion with mild left basilar atelectasis. 3. Moderate patchy groundglass and interstitial pulmonary opacities with diagnostic considerations including pulmonary edema, ARDS, pneumonia or rarely, alveolar proteinosis. 4. Extensive calcific plaquing of the aorta and coronary arteries. PQRS Compliance Statement: One or more of the following individualized dose reduction techniques were utilized for this examination: 1. Automated exposure control 2. Adjustment of the mA and/or kV according to patient size 3. Use of iterative reconstruction technique Electronically signed by: Adrien Arreola MD (07/18/2018 10:39 AM) [facility]
[2018-07-18] MEDS ORDERED: IV NORMAL SALINE 1000ML BAG 1,000 ML IV PRN ×2 (10:46)
[2018-07-18 10:48] LABS: PROTHROMBIN TIME PATIENT 13.5 SEC (11.7-14.0)
--- NOTE | 2018-07-18 10:59 | PDOC ---
Renal-Progress Notes Subjective Notes Notes SOB History of Present Illness Hx of present illness NOW NEEDING SUPPLEMENTAL O2 VIA FM Vitals Vitals Vital Signs Date Time Temp Pulse Resp B/P (MAP) Pulse Ox O2 Delivery O2 Flow Rate FiO2 07/18/18 08:55 84 156/68 07/18/18 08:00 Venturi Mask 15.0 07/18/18 07:51 96 07/18/18 07:00 97.8 22 97.8 Weight Weight [ ] I.O. Intake and Output Intake and Output 07/18/18 06:59 Intake Total 720 ml Output Total 275 ml Balance 445 ml Intake Oral 720 ml Output Urine Total 275 ml Labs Labs Laboratory Tests Test 07/17/18 23:02 07/18/18 08:10 O2 Saturation 93 % (92-99) Arterial Blood pH 7.46 (7.35-7.45) Arterial Blood pCO2 at Patient Temp 36 mmHg (35-46) Arterial Blood pO2 at Patient Temp 75 mmHg (65-108) Arterial Blood HCO3 26 mmol/L (21-28) Arterial Blood Base Excess 2 mmol/L (-3-3) FiO2 100 White Blood Count 9.9 x10^3/uL (4.0-11.0) Red Blood Count 2.86 x10^6/uL (3.50-5.40) Hemoglobin 8.5 g/dL (12.0-15.5) Hematocrit 25.9 % (36.0-47.0) Mean Corpuscular Volume 91 fL (79-100) Mean Corpuscular Hemoglobin 30 pg (25-35) Mean Corpuscular Hemoglobin Concent 33 g/dL (31-37) Red Cell Distribution Width 18.5 % (11.5-14.5) Platelet Count 140 x10^3/uL (140-400) Neutrophils (%) (Auto) 93 % (31-73) Lymphocytes (%) (Auto) 2 % (24-48) Monocytes (%) (Auto) 5 % (0-9) Eosinophils (%) (Auto) 0 % (0-3) Basophils (%) (Auto) 0 % (0-3) Neutrophils # (Auto) 9.2 x10^3uL (1.8-7.7) Lymphocytes # (Auto) 0.1 x10^3/uL (1.0-4.8) Monocytes # (Auto) 0.5 x10^3/uL (0.0-1.1) Eosinophils # (Auto) 0.0 x10^3/uL (0.0-0.7) Basophils # (Auto) 0.0 x10^3/uL (0.0-0.2) Prothrombin Time 13.5 SEC (11.7-14.0) Prothromb Time International Ratio 1.1 (0.8-1.1) Activated Partial Thromboplast Time 36 SEC (24-38) Sodium Level 139 mmol/L (136-145) Potassium Level 4.6 mmol/L (3.5-5.1) Chloride Level 101 mmol/L (98-107) Carbon Dioxide Level 28 mmol/L (21-32) Anion Gap 10 (6-14) Blood Urea Nitrogen 19 mg/dL (7-20) Creatinine 2.1 mg/dL (0.6-1.0) Estimated GFR (Cockcroft-Gault) 23.1 BUN/Creatinine Ratio 9 (6-20) Glucose Level 132 mg/dL (70-99) Calcium Level 9.0 mg/dL (8.5-10.1) Total Bilirubin 0.6 mg/dL (0.2-1.0) Aspartate Amino Transf (AST/SGOT) 153 U/L (15-37) Alanine Aminotransferase (ALT/SGPT) 112 U/L (14-59) Alkaline Phosphatase 61 U/L (46-116) Total Protein 6.6 g/dL (6.4-8.2) Albumin 2.7 g/dL (3.4-5.0) Albumin/Globulin Ratio 0.7 (1.0-1.7) Review of Systems Constitutional: yes: weakness, alert, oriented Ears/Nose/Throat: Yes: no symptom reported Pulmonary: Yes dyspnea Cardiovascular: Yes no symptom reported Gastrointestional: Yes: no symptom reported Genitourinary: Yes: no symptom reported Skin: Yes no symptom reported Psychiatric/Neurological: Yes: no symptom reported Endocrine: Yes: no symptom reported Physical Exam General Appearance: no apparent distress Skin: warm Respiratory: decreased breath sounds Heart: S1S2, RRR Abdomen: soft, bowel sounds present Genitourinary: bladder flat Extremities: pulses present, no edema Neurology: alert, oriented, follow commands Assessment Assessment IMP ACUTE HYPOXIC RESP FAILURE ESRD-MWF ANEMIA PLEURAL EFFUSION CHF-PROB ACUTE ON CHRONIC DIASTOLIC AND SYSTOLIC HX OF ATROPHIED LEFT KIDNEY HX OF RIGHT ANNAMARIA AND S/P STENTING PLAN HD AGAIN TODAY UF ABOUT 3-4 LITERS TOLERATED WILL HAVE LOWER DW HAVE NOTIFIED CHRONIC UNIT THAT PT WILL BE RETURNING FOR REGULAR HD CONT JOSE R D/W DR HASTINGS UPDATED NISHI BENITEZ MD Jul 18, 2018 10:59
[2018-07-18] MEDS ORDERED: DIALYSIS PATIENT. MC PRN ×2 (11:00)
[2018-07-18] MEDS ORDERED: ALBUMIN HUMAN 25% 200 ML IV PRN (11:00)
[2018-07-18] MEDS ORDERED: 0.9 % SODIUM CHLORIDE 10 ML DISP.SYRIN. IV PRN ×2 (11:00)
[2018-07-18] MEDS: FLUDROCORTISONE 0.1 MG TABLET PO SCH (12:05)
--- NOTE | 2018-07-18 16:29 | RAD ---
AP chest, 07/18/2018: HISTORY: Postthoracentesis evaluation Comparison is made to a study from 07/16/2010. The left-sided transvenous pacemaker remains in place with 2 leads extending in the right heart. A right jugular dialysis type catheter remains in place extending into the superior aspect the right atrium. The heart is mildly enlarged. There is improved aeration of the right lung status post thoracentesis. No significant volume of residual right-sided pleural fluid is evident in the AP projection. Left basilar opacities have also improved. There are moderate residual diffuse pulmonary infiltrates with poor definition of the underlying pulmonary vascularity, most likely representing pulmonary edema. There is no evidence of pneumothorax. IMPRESSION: 1. Interval drainage of the majority of the right pleural fluid with improved aeration of the right lung. 2. Improving left basilar infiltrates and pleural fluid. 3. Moderate residual 5 lobe infiltrates compatible with pulmonary edema. Electronically signed by: Adrien Arreola MD (07/18/2018 4:25 PM) [facility]
--- NOTE | 2018-07-18 17:31 | PDOC ---
CARDIO Progress Notes Date and Time Date of Service 07/18/18 Time of Evaluation 1310 Subjective Subjective: No Chest Pain, Other (SOA improved following thoracentesis) Vitals Vitals Vital Signs Date Time Temp Pulse Resp B/P (MAP) Pulse Ox O2 Delivery O2 Flow Rate FiO2 07/18/18 17:18 94 Nasal Cannula 5.0 07/18/18 13:29 78 22 92/54 (67) 07/18/18 11:23 98.6 98.6 Weight Weight [ ] Input and Output Intake and Output Intake and Output 07/18/18 07:00 Intake Total 720 ml Output Total 275 ml Balance 445 ml Intake Oral 720 ml Output Urine Total 275 ml Laboratory Labs Laboratory Tests Test 07/17/18 23:02 07/18/18 08:10 O2 Saturation 93 % (92-99) Arterial Blood pH 7.46 (7.35-7.45) Arterial Blood pCO2 at Patient Temp 36 mmHg (35-46) Arterial Blood pO2 at Patient Temp 75 mmHg (65-108) Arterial Blood HCO3 26 mmol/L (21-28) Arterial Blood Base Excess 2 mmol/L (-3-3) FiO2 100 White Blood Count 9.9 x10^3/uL (4.0-11.0) Red Blood Count 2.86 x10^6/uL (3.50-5.40) Hemoglobin 8.5 g/dL (12.0-15.5) Hematocrit 25.9 % (36.0-47.0) Mean Corpuscular Volume 91 fL (79-100) Mean Corpuscular Hemoglobin 30 pg (25-35) Mean Corpuscular Hemoglobin Concent 33 g/dL (31-37) Red Cell Distribution Width 18.5 % (11.5-14.5) Platelet Count 140 x10^3/uL (140-400) Neutrophils (%) (Auto) 93 % (31-73) Lymphocytes (%) (Auto) 2 % (24-48) Monocytes (%) (Auto) 5 % (0-9) Eosinophils (%) (Auto) 0 % (0-3) Basophils (%) (Auto) 0 % (0-3) Neutrophils # (Auto) 9.2 x10^3uL (1.8-7.7) Lymphocytes # (Auto) 0.1 x10^3/uL (1.0-4.8) Monocytes # (Auto) 0.5 x10^3/uL (0.0-1.1) Eosinophils # (Auto) 0.0 x10^3/uL (0.0-0.7) Basophils # (Auto) 0.0 x10^3/uL (0.0-0.2) Prothrombin Time 13.5 SEC (11.7-14.0) Prothromb Time International Ratio 1.1 (0.8-1.1) Activated Partial Thromboplast Time 36 SEC (24-38) Sodium Level 139 mmol/L (136-145) Potassium Level 4.6 mmol/L (3.5-5.1) Chloride Level 101 mmol/L (98-107) Carbon Dioxide Level 28 mmol/L (21-32) Anion Gap 10 (6-14) Blood Urea Nitrogen 19 mg/dL (7-20) Creatinine 2.1 mg/dL (0.6-1.0) Estimated GFR (Cockcroft-Gault) 23.1 BUN/Creatinine Ratio 9 (6-20) Glucose Level 132 mg/dL (70-99) Calcium Level 9.0 mg/dL (8.5-10.1) Total Bilirubin 0.6 mg/dL (0.2-1.0) Aspartate Amino Transf (AST/SGOT) 153 U/L (15-37) Alanine Aminotransferase (ALT/SGPT) 112 U/L (14-59) Alkaline Phosphatase 61 U/L (46-116) Total Protein 6.6 g/dL (6.4-8.2) Albumin 2.7 g/dL (3.4-5.0) Albumin/Globulin Ratio 0.7 (1.0-1.7) Hepatitis B Surface Antigen Nonreactive (Nonreactive) Review of Systems Constitutional: yes: weakness, alert, oriented Ears/Nose/Throat: Yes: no symptom reported Pulmonary: Yes dyspnea Cardiovascular: Yes no symptom reported Gastrointestional: Yes: no symptom reported Genitourinary: Yes: no symptom reported Skin: Yes no symptom reported Psychiatric/Neurological: Yes: no symptom reported Endocrine: Yes: no symptom reported Physical Exam HEENT: Neck Supple W Full Motion Chest: Symmetric LUNGS: Other (bibasilar crackles) Heart: S1S2, RRR Abdomen: Soft N/T Extremities: No Calf Tenderness Neurology: alert, oriented, follow commands Assessment Assessment 1. Acute respiratory failure secondary to a/c diastolic HF. CT with large left pleural effusion. S/p thoracentesis. Repeat CXR with ongoing pulm edema. 2. Acute on chronic diastolic HF; LVEF 50-55% 3. CKD, now ESRD on HD 5. CAD with remote history of CABG. Cardiac cath earlier this year with revealed severe 3VD with 2/3 grafts patent. S/p PCI/TANO to the SVG to OM1. 6. PAFIB; on Amiodarone not on anticoagulation due to prior bleeding issues/ anemia. 7. Hypertension; better controlled 8. Hyperlipidemia 9. SSS s/p PPM; ([facility]) device interrogation last month with normal function 9. Hypokalemia; replaced Recommendations Fluid off-loading via HD as per renal Secondary prevention including DAPT with ASA and Plavix Supportive care MEHRDAD JOHNSON APRN Jul 18, 2018 17:31
[2018-07-18] MEDS: LORazepam 0.5 MG TABLET PO PRN (21:18)
[2018-07-18] MEDS: ATORVASTATIN CALCIUM 40 MG TABLET. PO SCH (21:18)
[2018-07-18] MEDS: SERTRALINE 50 MG TABLET. PO SCH (21:19)
[2018-07-19 03:45] VITALS: BP 138/65
[2018-07-19] MEDS: IPRATRPIUM/ALBUTEROL 0.5/2.5MG 3 ML NEBU. NEB SCH ×5 (03:54→22:17)
[2018-07-19 03:58] LABS: HEMATOCRIT 25.3 % (36.0-47.0); HEMOGLOBIN 8.2 g/dL (12.0-15.5); RED BLOOD COUNT 2.8 x10^6/uL (3.50-5.40); RED CELL DISTRIBUTION WIDTH 18.3 % (11.5-14.5); WHITE BLOOD COUNT 12.4 x10^3/uL (4.0-11.0)
[2018-07-19 04:23] LABS: CALCIUM 9.6 mg/dL (8.5-10.1); GFR 24.4; POTASSIUM 4.9 mmol/L (3.5-5.1)
[2018-07-19] MEDS: methylPREDNISolone SOD SUCC PF 125 MG/2 ML VIAL. IV SCH ×2 (05:58→14:41)
[2018-07-19 07:00] VITALS: BP 139/63
[2018-07-19] MEDS ORDERED: IV NORMAL SALINE 1000ML BAG 1,000 ML IV PRN ×2 (07:42)
[2018-07-19] MEDS ORDERED: 0.9 % SODIUM CHLORIDE 10 ML DISP.SYRIN. IV PRN ×2 (07:45)
[2018-07-19] MEDS ORDERED: DIALYSIS PATIENT. MC PRN ×2 (07:45)
[2018-07-19] MEDS: CLOPIDOGREL BISULFATE 75 MG TABLET PO SCH (08:00)
[2018-07-19] MEDS: POTASSIUM CHLORIDE 20 MEQ TABLET.ER. PO SCH ×2 (08:00→17:00)
[2018-07-19] MEDS: BUDESONIDE 0.5 MG/2 ML NEBU. NEB SCH ×2 (08:05→19:21)
[2018-07-19] MEDS: FUROSEMIDE 40 MG/4 ML VIAL. IVP SCH (08:38)
[2018-07-19] MEDS: ASPIRIN CHEWABLE 81 MG TABLET. PO SCH (08:39)
[2018-07-19] MEDS: AMIODARONE HCL 200 MG TABLET. PO SCH (08:39)
[2018-07-19] MEDS: amLODIPine BESYLATE 5 MG TABLET PO SCH ×2 (08:39→21:25)
[2018-07-19] MEDS: METOPROLOL SUCC 24HR ER 25 MG TAB.ER.24H. PO SCH (08:39)
--- NOTE | 2018-07-19 08:51 | RAD ---
Ultrasound Guided Thoracentesis, right side Indication: 72-year-old with right pleural effusion Sedation: Local anesthesia only Sterility: The procedure was performed in its entirety using appropriate elements of sterile technique. Technique and Findings: Following informed consent, the patient was prepped and draped in the usual sterile fashion. Ultrasound interrogation of the area of interest was performed revealing the presence of a pleural fluid collection. 1% Lidocaine was used to achieve local anesthesia over the area of interest. A small dermatotomy was made and a 5F [id number] catheter was advanced under ultrasound guidance into the pleural space [id number] cc's of thin yellow fluid was removed. The catheter was then removed and hemostasis was achieved with manual compression. Impression: US thoracentesis as described.
--- NOTE | 2018-07-19 11:30 | PDOC ---
Renal-Progress Notes Subjective Notes Notes BREATHING BETTER History of Present Illness Hx of present illness BETTER Vitals Vitals Vital Signs Date Time Temp Pulse Resp B/P (MAP) Pulse Ox O2 Delivery O2 Flow Rate FiO2 07/19/18 08:05 95 Nasal Cannula 5.0 07/19/18 07:00 97.5 71 24 139/63 (88) 97.5 Weight Weight [ ] I.O. Intake and Output Intake and Output 07/19/18 07:00 Intake Total 650 ml Output Total 975 ml Balance -325 ml Intake Oral 650 ml Output Urine Total 75 ml Drainage Total 900 ml # Bowel Movements 1 Labs Labs Laboratory Tests Test 07/18/18 13:15 07/19/18 03:05 Body Fluid Total Protein 1.7 g/dL (.) Body Fluid Lactate Dehydrogenase 122 IU/L (.) White Blood Count 12.4 x10^3/uL (4.0-11.0) Red Blood Count 2.80 x10^6/uL (3.50-5.40) Hemoglobin 8.2 g/dL (12.0-15.5) Hematocrit 25.3 % (36.0-47.0) Mean Corpuscular Volume 90 fL (79-100) Mean Corpuscular Hemoglobin 29 pg (25-35) Mean Corpuscular Hemoglobin Concent 32 g/dL (31-37) Red Cell Distribution Width 18.3 % (11.5-14.5) Platelet Count 140 x10^3/uL (140-400) Sodium Level 138 mmol/L (136-145) Potassium Level 4.9 mmol/L (3.5-5.1) Chloride Level 99 mmol/L (98-107) Carbon Dioxide Level 28 mmol/L (21-32) Anion Gap 11 (6-14) Blood Urea Nitrogen 22 mg/dL (7-20) Creatinine 2.0 mg/dL (0.6-1.0) Estimated GFR (Cockcroft-Gault) 24.4 Glucose Level 110 mg/dL (70-99) Calcium Level 9.6 mg/dL (8.5-10.1) Review of Systems Constitutional: yes: weakness, alert, oriented Ears/Nose/Throat: Yes: no symptom reported Pulmonary: Yes dyspnea Cardiovascular: Yes no symptom reported Gastrointestional: Yes: no symptom reported Genitourinary: Yes: no symptom reported Skin: Yes no symptom reported Psychiatric/Neurological: Yes: no symptom reported Endocrine: Yes: no symptom reported Physical Exam General Appearance: no apparent distress Skin: warm Respiratory: decreased breath sounds Heart: S1S2, RRR Abdomen: soft, bowel sounds present Genitourinary: bladder flat Extremities: pulses present, no edema Neurology: alert, oriented, follow commands Assessment Assessment IMP ACUTE HYPOXIC RESP FAILURE-MUCH IMPROVED ESRD-MWF ANEMIA PLEURAL EFFUSION CHF-PROB ACUTE ON CHRONIC DIASTOLIC AND SYSTOLIC HX OF ATROPHIED LEFT KIDNEY HX OF RIGHT ANNAMARIA AND S/P STENTING PLAN HD AGAIN TODAY UF ABOUT 1.5-2.0 LITERS TOLERATED WILL HAVE LOWER DW HAVE NOTIFIED CHRONIC UNIT THAT PT WILL BE RETURNING FOR REGULAR HD CONT JOSE R D/W DR HASTINGS UPDATED AGAIN TODAY NISHI BENITEZ MD Jul 19, 2018 11:30
--- NOTE | 2018-07-19 12:25 | PDOC ---
PROGRESS NOTES Chief Complaint Chief Complaint impression Hypoxic respiratory failure-O2 dependent 1. Coronary artery disease with a history of three-vessel bypass (PICKARD to LAD, SVG to RCA and SVG to OM1) with PCI earlier this year to the ostium of the saphenous vein graft to the obtuse marginal due to a non-ST elevation myocardial infarction 2. End-stage renal disease 3. Paroxysmal atrial fibrillation 4. Hypertension 5. Dyslipidemia 6. Diastolic dysfunction and moderate mitral regurgitation based on echocardiogram in June 2018 7. CVA 8. SSS s/p [facility] dual chamber pacer 9. PAF - on amiodarone and not on anticoagulation due to DAPT currently on board and prior bleeding issues/anemia. 10 Moderate effusions, Rt> left, LIKELY TRANSUDATE History of Present Illness History of Present Illness o2 support SOA not better LTAC candidate but will just take her home with [facility] discussed hospice wants DNR STATUS Overall prognosis poor, very frail, PERSISTENT poor by mouth intake, multiple co morbids chest tube today, SOA, nonrebreather, and hypoxia/in distress with signif pleural eff Plan: chest tibe today,. Pulmonary [facility] on discharge Discussed with RN Vitals Vitals Vital Signs Date Time Temp Pulse Resp B/P (MAP) Pulse Ox O2 Delivery O2 Flow Rate FiO2 07/19/18 08:05 95 Nasal Cannula 5.0 07/19/18 07:00 97.5 71 24 139/63 (88) 97.5 Physical Exam General: Alert, Oriented X3, Cooperative, moderate distress Heart: Regular rate, No murmurs, Other (sinus tachycardia 80s to 90s) Lungs: Other (diminished at the basis) Abdomen: Normal bowel sounds, Soft Extremities: No clubbing, No cyanosis, No tenderness/swelling, Other (minimal subcutaneous tissue) Skin: No rashes, No breakdown Labs LABS Laboratory Tests Test 07/18/18 13:15 07/19/18 03:05 Body Fluid Total Protein 1.7 g/dL (.) Body Fluid Lactate Dehydrogenase 122 IU/L (.) White Blood Count 12.4 x10^3/uL (4.0-11.0) Red Blood Count 2.80 x10^6/uL (3.50-5.40) Hemoglobin 8.2 g/dL (12.0-15.5) Hematocrit 25.3 % (36.0-47.0) Mean Corpuscular Volume 90 fL (79-100) Mean Corpuscular Hemoglobin 29 pg (25-35) Mean Corpuscular Hemoglobin Concent 32 g/dL (31-37) Red Cell Distribution Width 18.3 % (11.5-14.5) Platelet Count 140 x10^3/uL (140-400) Sodium Level 138 mmol/L (136-145) Potassium Level 4.9 mmol/L (3.5-5.1) Chloride Level 99 mmol/L (98-107) Carbon Dioxide Level 28 mmol/L (21-32) Anion Gap 11 (6-14) Blood Urea Nitrogen 22 mg/dL (7-20) Creatinine 2.0 mg/dL (0.6-1.0) Estimated GFR (Cockcroft-Gault) 24.4 Glucose Level 110 mg/dL (70-99) Calcium Level 9.6 mg/dL (8.5-10.1) Assessment and Plan Assessmemt and Plan Problems Medical Problems: (1) Congestive heart failure Status: Acute Comment Review of Relevant I have reviewed the following items jose (where applicable) has been applied. Labs Laboratory Tests Test 07/17/18 23:02 07/18/18 08:10 07/18/18 13:15 07/19/18 03:05 O2 Saturation 93 % (92-99) Arterial Blood pH 7.46 (7.35-7.45) Arterial Blood pCO2 at Patient Temp 36 mmHg (35-46) Arterial Blood pO2 at Patient Temp 75 mmHg (65-108) Arterial Blood HCO3 26 mmol/L (21-28) Arterial Blood Base Excess 2 mmol/L (-3-3) FiO2 100 White Blood Count 9.9 x10^3/uL (4.0-11.0) 12.4 x10^3/uL (4.0-11.0) Red Blood Count 2.86 x10^6/uL (3.50-5.40) 2.80 x10^6/uL (3.50-5.40) Hemoglobin 8.5 g/dL (12.0-15.5) 8.2 g/dL (12.0-15.5) Hematocrit 25.9 % (36.0-47.0) 25.3 % (36.0-47.0) Mean Corpuscular Volume 91 fL (79-100) 90 fL (79-100) Mean Corpuscular Hemoglobin 30 pg (25-35) 29 pg (25-35) Mean Corpuscular Hemoglobin Concent 33 g/dL (31-37) 32 g/dL (31-37) Red Cell Distribution Width 18.5 % (11.5-14.5) 18.3 % (11.5-14.5) Platelet Count 140 x10^3/uL (140-400) 140 x10^3/uL (140-400) Neutrophils (%) (Auto) 93 % (31-73) Lymphocytes (%) (Auto) 2 % (24-48) Monocytes (%) (Auto) 5 % (0-9) Eosinophils (%) (Auto) 0 % (0-3) Basophils (%) (Auto) 0 % (0-3) Neutrophils # (Auto) 9.2 x10^3uL (1.8-7.7) Lymphocytes # (Auto) 0.1 x10^3/uL (1.0-4.8) Monocytes # (Auto) 0.5 x10^3/uL (0.0-1.1) Eosinophils # (Auto) 0.0 x10^3/uL (0.0-0.7) Basophils # (Auto) 0.0 x10^3/uL (0.0-0.2) Prothrombin Time 13.5 SEC (11.7-14.0) Prothromb Time International Ratio 1.1 (0.8-1.1) Activated Partial Thromboplast Time 36 SEC (24-38) Sodium Level 139 mmol/L (136-145) 138 mmol/L (136-145) Potassium Level 4.6 mmol/L (3.5-5.1) 4.9 mmol/L (3.5-5.1) Chloride Level 101 mmol/L (98-107) 99 mmol/L (98-107) Carbon Dioxide Level 28 mmol/L (21-32) 28 mmol/L (21-32) Anion Gap 10 (6-14) 11 (6-14) Blood Urea Nitrogen 19 mg/dL (7-20) 22 mg/dL (7-20) Creatinine 2.1 mg/dL (0.6-1.0) 2.0 mg/dL (0.6-1.0) Estimated GFR (Cockcroft-Gault) 23.1 24.4 BUN/Creatinine Ratio 9 (6-20) Glucose Level 132 mg/dL (70-99) 110 mg/dL (70-99) Calcium Level 9.0 mg/dL (8.5-10.1) 9.6 mg/dL (8.5-10.1) Total Bilirubin 0.6 mg/dL (0.2-1.0) Aspartate Amino Transf (AST/SGOT) 153 U/L (15-37) Alanine Aminotransferase (ALT/SGPT) 112 U/L (14-59) Alkaline Phosphatase 61 U/L (46-116) Total Protein 6.6 g/dL (6.4-8.2) Albumin 2.7 g/dL (3.4-5.0) Albumin/Globulin Ratio 0.7 (1.0-1.7) Hepatitis B Surface Antigen Nonreactive (Nonreactive) Body Fluid Total Protein 1.7 g/dL (.) Body Fluid Lactate Dehydrogenase 122 IU/L (.) Laboratory Tests Test 07/18/18 13:15 07/19/18 03:05 Body Fluid Total Protein 1.7 g/dL (.) Body Fluid Lactate Dehydrogenase 122 IU/L (.) White Blood Count 12.4 x10^3/uL (4.0-11.0) Red Blood Count 2.80 x10^6/uL (3.50-5.40) Hemoglobin 8.2 g/dL (12.0-15.5) Hematocrit 25.3 % (36.0-47.0) Mean Corpuscular Volume 90 fL (79-100) Mean Corpuscular Hemoglobin 29 pg (25-35) Mean Corpuscular Hemoglobin Concent 32 g/dL (31-37) Red Cell Distribution Width 18.3 % (11.5-14.5) Platelet Count 140 x10^3/uL (140-400) Sodium Level 138 mmol/L (136-145) Potassium Level 4.9 mmol/L (3.5-5.1) Chloride Level 99 mmol/L (98-107) Carbon Dioxide Level 28 mmol/L (21-32) Anion Gap 11 (6-14) Blood Urea Nitrogen 22 mg/dL (7-20) Creatinine 2.0 mg/dL (0.6-1.0) Estimated GFR (Cockcroft-Gault) 24.4 Glucose Level 110 mg/dL (70-99) Calcium Level 9.6 mg/dL (8.5-10.1) Medications Current Medications Albuterol/ Ipratropium (Duoneb) 3 ml 1X ONCE NEB Last administered on at 10:15; Start 07/16/18 at 10:15; Stop 07/16/18 at 10:16; Status DC Furosemide (Lasix) 40 mg 1X ONCE IVP Last administered on 07/16/18at 11:02; Start 07/16/18 at 10:30; Stop 07/16/18 at 10:31; Status DC Ondansetron HCl (Zofran) 4 mg PRN Q8HRS PRN IV NAUSEA/VOMITING; Start 07/16/18 at 11:30; Stop 07/17/18 at 09:12; Status DC Acetaminophen (Tylenol) 650 mg PRN Q4HRS PRN PO FEVER; Start 07/16/18 at 11:30 ; Stop 07/17/18 at 11:29; Status DC Nitroglycerin (Nitrostat) 0.4 mg PRN Q5MIN PRN SL CHEST PAIN; Start 07/16/18 at 11:30; Stop 07/17/18 at 11:29; Status DC Albuterol/ Ipratropium (Duoneb) 3 ml RTQID NEB Last administered on 07/17/18at 08:17; Start 07/16/18 at 12:00; Stop 07/17/18 at 11:59; Status DC Hydralazine HCl (Apresoline Inj) 10 mg PRN Q4HRS PRN IVP ELEVATED BP, SEE COMMENTS Last administered on 07/16/18at 12:57; Start 07/16/18 at 12:00 Amiodarone HCl (Cordarone) 200 mg DAILY PO Last administered on 07/18/18at 08:53 ; Start 07/17/18 at 09:00 Amlodipine Besylate (Norvasc) 5 mg HS PO Last administered on 07/16/18at 21:16; Start 07/16/18 at 21:00; Stop 07/17/18 at 16:07; Status DC Aspirin (Children'S Aspirin) 81 mg DAILY PO Last administered on 07/18/18 08: 52; Start 07/17/18 at 09:00 Vitamin D (Vitamin D3) 1,000 unit QFR PO ; Start 07/21/18 at 16:00 Clopidogrel Bisulfate (Plavix) 75 mg DAILYWBKFT PO Last administered on 08:53; Start 07/17/18 at 08:00 Fludrocortisone Acetate (Florinef) 0.1 mg DAILYWLUN PO Last administered on 12:05; Start 07/17/18 at 12:00 Furosemide (Lasix) 20 mg BID92 PO Last administered on 07/17/18 15:45; Start 07/17/18 at 09:00; Stop 07/17/18 at 18:16; Status DC Levetiracetam (Keppra) 500 mg HS PO Last administered on 07/18/18 21:19; Start 07/16/18 at 21:00 Levetiracetam (Keppra) 250 mg DAILY PO Last administered on 07/18/18 08:55; Start 07/17/18 at 09:00 Levothyroxine Sodium (Synthroid) 175 mcg DAILY06 PO Last administered on 08:55; Start 07/17/18 at 06:00 Metoprolol Succinate (Toprol Xl) 25 mg DAILY PO Last administered on 07/18/18 08:55; Start 07/17/18 at 09:00 Sertraline HCl (Zoloft) 50 mg HS PO Last administered on 07/18/18 21:19; Start 07/16/18 at 21:00 Acetaminophen (Tylenol) 500 mg PRN Q6HRS PRN PO MILD PAIN; Start 07/16/18 at 17 :00 Atorvastatin Calcium (Lipitor) 80 mg QHS PO Last administered on 07/18/18 21: 18; Start 07/16/18 at 21:00 Potassium Chloride (Klor-Con) 20 meq BIDWMEALS PO Last administered on 18:06; Start 07/17/18 at 08:00 Sodium Chloride 1,000 ml @ 1,000 mls/hr Q1H PRN IV hypotension; Start 07/16/18 at 16:30; Stop 07/16/18 at 23:59; Status DC Sodium Chloride 1,000 ml @ 400 mls/hr Q2H30M PRN IV PATENCY; Start 07/16/18 at 16:30; Stop 07/16/18 at 23:59; Status DC Info (PHARMACY MONITORING -- do not chart) 1 each PRN DAILY PRN MC SEE COMMENTS ; Start 07/16/18 at 20:00; Status UNV Info (PHARMACY MONITORING -- do not chart) 1 each PRN DAILY PRN MC SEE COMMENTS ; Start 07/16/18 at 20:00; Status Cancel Lorazepam (Ativan) 0.5 mg PRN Q12HR PRN PO ANXIETY / AGITATION Last administered on 07/18/18at 21:18; Start 07/16/18 at 20:15 Sodium Chloride 1,000 ml @ 1,000 mls/hr Q1H PRN IV hypotension; Start 07/17/18 at 08:05; Stop 07/17/18 at 14:04; Status DC Sodium Chloride (Normal Saline Flush) 10 ml 1X PRN PRN IV AP catheter pack; Start 07/17/18 at 08:15; Stop 07/18/18 at 08:14; Status DC Sodium Chloride (Normal Saline Flush) 10 ml 1X PRN PRN IV MEDICAL REIMBURSEMENT SPECIALIST catheter pack; Start 07/17/18 at 08:15; Stop 07/18/18 at 08:14; Status DC Sodium Chloride 1,000 ml @ 400 mls/hr Q2H30M PRN IV PATENCY; Start 07/17/18 at 08:05; Stop 07/17/18 at 20:04; Status DC Info (PHARMACY MONITORING -- do not chart) 1 each PRN DAILY PRN MC SEE COMMENTS ; Start 07/17/18 at 08:15; Status UNV Info (PHARMACY MONITORING -- do not chart) 1 each PRN DAILY PRN MC SEE COMMENTS ; Start 07/17/18 at 08:15; Status UNV Ondansetron HCl (Zofran) 4 mg PRN Q6HRS PRN IV NAUSEA/VOMITING Last administered on 07/17/18at 15:43; Start 07/17/18 at 09:15 Clonidine HCl (Catapres) 0.1 mg PRN Q1HR PRN PO HYPERTENSION, SEE COMMENTS; Start 07/17/18 at 09:15 Acetaminophen (Tylenol) 500 mg PRN Q6HRS PRN PO MILD PAIN / TEMP; Start at 09:15; Status UNV Darbepoetin Olaf (Aranesp) 60 mcg WEEKLYHS SQ Last administered on 07/17/18at 22 :02; Start 07/17/18 at 21:00 Albuterol/ Ipratropium (Duoneb) 3 ml Q4HRS NEB Last administered on 07/19/18at 08:05; Start 07/17/18 at 13:30 Budesonide (Pulmicort) 0.5 mg RTBID NEB Last administered on 07/19/18at 08:05; Start 07/17/18 at 13:30 Methylprednisolone Sodium Succinate (SOLU-Medrol 125MG VIAL) 60 mg Q8HRS IV Last administered on 07/19/18at 05:58; Start 07/17/18 at 13:30 Amlodipine Besylate (Norvasc) 5 mg BID PO Last administered on 07/18/18at 21:18 ; Start 07/18/18 at 09:00 Amlodipine Besylate (Norvasc) 5 mg 1X ONCE PO Last administered on 07/17/18at 17:49; Start 07/17/18 at 16:30; Stop 07/17/18 at 16:31; Status DC Furosemide (Lasix) 40 mg DAILY IVP Last administered on 07/18/18at 08:56; Start 07/17/18 at 18:15 Sodium Chloride 1,000 ml @ 1,000 mls/hr Q1H PRN IV hypotension; Start 07/18/18 at 10:46; Stop 07/18/18 at 16:45; Status DC Albumin Human 200 ml @ 200 mls/hr 1X PRN PRN IV Hypotension; Start 07/18/18 at 11:00; Stop 07/18/18 at 16:59; Status DC Sodium Chloride (Normal Saline Flush) 10 ml 1X PRN PRN IV AP catheter pack; Start 07/18/18 at 11:00; Stop 07/19/18 at 10:59; Status Cancel Sodium Chloride (Normal Saline Flush) 10 ml 1X PRN PRN IV MEDICAL REIMBURSEMENT SPECIALIST catheter pack; Start 07/18/18 at 11:00; Stop 07/19/18 at 10:59; Status Cancel Sodium Chloride 1,000 ml @ 400 mls/hr Q2H30M PRN IV PATENCY; Start 07/18/18 at 10:46; Stop 07/18/18 at 22:45; Status DC Info (PHARMACY MONITORING -- do not chart) 1 each PRN DAILY PRN MC SEE COMMENTS ; Start 07/18/18 at 11:00; Status UNV Info (PHARMACY MONITORING -- do not chart) 1 each PRN DAILY PRN MC SEE COMMENTS ; Start 07/18/18 at 11:00; Status UNV Sodium Chloride 1,000 ml @ 1,000 mls/hr Q1H PRN IV hypotension; Start 07/19/18 at 07:42; Stop 07/19/18 at 13:41 Sodium Chloride (Normal Saline Flush) 10 ml 1X PRN PRN IV AP catheter pack; Start 07/19/18 at 07:45; Stop 07/20/18 at 07:44 Sodium Chloride (Normal Saline Flush) 10 ml 1X PRN PRN IV MEDICAL REIMBURSEMENT SPECIALIST catheter pack; Start 07/19/18 at 07:45; Stop 07/20/18 at 07:44 Sodium Chloride 1,000 ml @ 400 mls/hr Q2H30M PRN IV PATENCY; Start 07/19/18 at 07:42; Stop 07/19/18 at 19:41 Info (PHARMACY MONITORING -- do not chart) 1 each PRN DAILY PRN MC SEE COMMENTS ; Start 07/19/18 at 07:45; Status UNV Info (PHARMACY MONITORING -- do not chart) 1 each PRN DAILY PRN MC SEE COMMENTS ; Start 07/19/18 at 07:45 Active Scripts Active Metoprolol Succinate ( Xl ) (Metoprolol Succinate) 25 Mg Tab.er.24h 25 Mg PO DAILY 30 Days Clopidogrel (Clopidogrel Bisulfate) 75 Mg Tablet 75 Mg PO DAILYWBKFT 30 Days Reported Furosemide 20 Mg Tablet 20 Mg PO BID92 Potassium Chloride 20 Meq Tablet.er 20 Meq PO BID Acetaminophen 500 Mg Tablet 1 Tab PO PRN Q6HRS PRN Zoloft (Sertraline Hcl) 50 Mg Tablet 1 Tab PO HS Levetiracetam 500 Mg Tablet 1 Tab PO HS Levetiracetam 500 Mg Tablet 250 Mg PO DAILY Levothyroxine Sodium 175 Mcg Tablet 1 Tab PO DAILY Fludrocortisone Acetate 0.1 Mg Tablet 1 Tab PO DAILY12 Vitamin D3 (Cholecalciferol (Vitamin D3)) 1,000 Unit Tablet 1 Tab PO QFR Atorvastatin Calcium 80 Mg Tablet 1 Tab PO HS Aspirin 81 Mg Tab.chew 1 Tab PO DAILY Amlodipine Besylate 10 Mg Tablet 5 Mg PO HS Amiodarone Hcl 200 Mg Tablet 1 Tab PO DAILY Vitals/I & O Vital Sign - Last 24 Hours 07/18/18 07/18/18 07/18/18 07/18/18 13:16 13:29 17:18 19:05 Temp 97.5 97.5 Pulse 81 78 77 Resp 26 22 22 B/P (MAP) 130/61 (84) 92/54 (67) 119/58 (78) Pulse Ox 91 98 94 94 O2 Delivery NonRebreather Mask NonRebreather Mask Nasal Cannula Nasal Cannula O2 Flow Rate 10.0 5.0 5.0 07/18/18 07/18/18 07/18/18 07/18/18 19:44 20:00 21:18 23:20 Temp 98.3 98.3 Pulse 77 73 Resp 24 B/P (MAP) 119/58 129/58 (81) Pulse Ox 97 94 O2 Delivery Nasal Cannula Nasal Cannula Nasal Cannula O2 Flow Rate 5.0 5.0 5.0 07/18/18 07/19/18 07/19/18 07/19/18 23:40 03:45 03:54 07:00 Temp 97.4 97.5 97.4 97.5 Pulse 73 71 Resp 22 24 B/P (MAP) 138/65 (89) 139/63 (88) Pulse Ox 96 96 97 O2 Delivery Nasal Cannula Nasal Cannula Nasal Cannula Nasal Cannula O2 Flow Rate 5.0 5.0 5.0 5.0 07/19/18 07/19/18 08:00 08:05 Pulse Ox 95 O2 Delivery Nasal Cannula Nasal Cannula O2 Flow Rate 5.0 5.0 Intake and Output 07/18/18 07/18/18 07/19/18 14:59 22:59 06:59 Intake Total 75 ml 75 ml 500 ml Output Total 975 ml Balance -900 ml 75 ml 500 ml Nutrition Consultation Dietary Evaluation: Recommendations by RD: Increase Calorie Intake Comments: Will liberalize diet to regular to promote PO intake; honor food preferences and provide snacks as requested Expected Outcomes/Goals: PO intake to meet >75% est needs Interpretation of weight loss: >10% in 6 months Malnutrition Findings: Food and Nutrition Intake (Sev: <50% est energy req 5days Weight Status: Underweight CAROLE BECK MD Jul 19, 2018 12:25
[2018-07-19] MEDS: levETIRAcetam 500 MG TABLET PO SCH ×2 (12:29→21:25)
[2018-07-19] MEDS: FLUDROCORTISONE 0.1 MG TABLET PO SCH (12:30)
--- NOTE | 2018-07-19 12:35 | NUR ---
0900 JEAN-PAUL ADMINISTERED LATE R/T PT. GOING TO DIALYSIS THIS AM
[2018-07-19 14:46] VITALS: BP 138/65
--- NOTE | 2018-07-19 14:47 | PDOC2 ---
PALLIATIVE CARE Palliative Care Note Palliative Care Consult requested by Dr. Oviedo to address goals of care. Hypoxic respiratory failure-O2 dependent 1. Coronary artery disease with a history of three-vessel bypass (PICKARD to LAD, SVG to RCA and SVG to OM1) with PCI earlier this year to the ostium of the saphenous vein graft to the obtuse marginal due to a non-ST elevation myocardial infarction 2. End-stage renal disease 3. Paroxysmal atrial fibrillation 4. Hypertension 5. Dyslipidemia 6. Diastolic dysfunction and moderate mitral regurgitation based on echocardiogram in June 2018 7. CVA 8. SSS s/p st[place] dual chamber pacer 9. PAF - on amiodarone and not on anticoagulation due to DAPT currently on board and prior bleeding issues/anemia. Patient alert. Sitting up in bed. Adamant about participating in conversation. Reviewed above diagnosis Discussed Code Status; Patient wishes to be DNR/DNI . understands without this attempt she likely would . Outside the Hospital DNR/DNI to be signed. Both patient and her are not ready for hospice. They would like [facility] when discharged. Their goal is to get home and try to get stronger. They have good support from other family members. Plan: DNR/DNI requested by patient. HH when discharged. OLU MASON Jul 19, 2018 14:47
--- NOTE | 2018-07-19 15:05 | PDOC ---
PULMONARY PROGRESS NOTES Subjective feels much better post tap and UF with HD Vitals Vital Signs Date Time Temp Pulse Resp B/P (MAP) Pulse Ox O2 Delivery O2 Flow Rate FiO2 07/19/18 14:46 98.4 76 26 138/65 (89) 92 Venturi Mask 98.4 07/19/18 08:05 5.0 General: Alert, No acute distress HEENT: Other Lungs: Other (diminished at the basis) Cardiovascular: S1, S2 Abdomen: Soft, Non-tender Extremities: No Edema Labs Laboratory Tests Test 07/17/18 23:02 07/18/18 08:10 07/18/18 13:15 07/19/18 03:05 O2 Saturation 93 % (92-99) Arterial Blood pH 7.46 (7.35-7.45) Arterial Blood pCO2 at Patient Temp 36 mmHg (35-46) Arterial Blood pO2 at Patient Temp 75 mmHg (65-108) Arterial Blood HCO3 26 mmol/L (21-28) Arterial Blood Base Excess 2 mmol/L (-3-3) FiO2 100 White Blood Count 9.9 x10^3/uL (4.0-11.0) 12.4 x10^3/uL (4.0-11.0) Red Blood Count 2.86 x10^6/uL (3.50-5.40) 2.80 x10^6/uL (3.50-5.40) Hemoglobin 8.5 g/dL (12.0-15.5) 8.2 g/dL (12.0-15.5) Hematocrit 25.9 % (36.0-47.0) 25.3 % (36.0-47.0) Mean Corpuscular Volume 91 fL (79-100) 90 fL (79-100) Mean Corpuscular Hemoglobin 30 pg (25-35) 29 pg (25-35) Mean Corpuscular Hemoglobin Concent 33 g/dL (31-37) 32 g/dL (31-37) Red Cell Distribution Width 18.5 % (11.5-14.5) 18.3 % (11.5-14.5) Platelet Count 140 x10^3/uL (140-400) 140 x10^3/uL (140-400) Neutrophils (%) (Auto) 93 % (31-73) Lymphocytes (%) (Auto) 2 % (24-48) Monocytes (%) (Auto) 5 % (0-9) Eosinophils (%) (Auto) 0 % (0-3) Basophils (%) (Auto) 0 % (0-3) Neutrophils # (Auto) 9.2 x10^3uL (1.8-7.7) Lymphocytes # (Auto) 0.1 x10^3/uL (1.0-4.8) Monocytes # (Auto) 0.5 x10^3/uL (0.0-1.1) Eosinophils # (Auto) 0.0 x10^3/uL (0.0-0.7) Basophils # (Auto) 0.0 x10^3/uL (0.0-0.2) Prothrombin Time 13.5 SEC (11.7-14.0) Prothromb Time International Ratio 1.1 (0.8-1.1) Activated Partial Thromboplast Time 36 SEC (24-38) Sodium Level 139 mmol/L (136-145) 138 mmol/L (136-145) Potassium Level 4.6 mmol/L (3.5-5.1) 4.9 mmol/L (3.5-5.1) Chloride Level 101 mmol/L (98-107) 99 mmol/L (98-107) Carbon Dioxide Level 28 mmol/L (21-32) 28 mmol/L (21-32) Anion Gap 10 (6-14) 11 (6-14) Blood Urea Nitrogen 19 mg/dL (7-20) 22 mg/dL (7-20) Creatinine 2.1 mg/dL (0.6-1.0) 2.0 mg/dL (0.6-1.0) Estimated GFR (Cockcroft-Gault) 23.1 24.4 BUN/Creatinine Ratio 9 (6-20) Glucose Level 132 mg/dL (70-99) 110 mg/dL (70-99) Calcium Level 9.0 mg/dL (8.5-10.1) 9.6 mg/dL (8.5-10.1) Total Bilirubin 0.6 mg/dL (0.2-1.0) Aspartate Amino Transf (AST/SGOT) 153 U/L (15-37) Alanine Aminotransferase (ALT/SGPT) 112 U/L (14-59) Alkaline Phosphatase 61 U/L (46-116) Total Protein 6.6 g/dL (6.4-8.2) Albumin 2.7 g/dL (3.4-5.0) Albumin/Globulin Ratio 0.7 (1.0-1.7) Hepatitis B Surface Antigen Nonreactive (Nonreactive) Body Fluid Total Protein 1.7 g/dL (.) Body Fluid Lactate Dehydrogenase 122 IU/L (.) Laboratory Tests Test 07/19/18 03:05 White Blood Count 12.4 x10^3/uL (4.0-11.0) Red Blood Count 2.80 x10^6/uL (3.50-5.40) Hemoglobin 8.2 g/dL (12.0-15.5) Hematocrit 25.3 % (36.0-47.0) Mean Corpuscular Volume 90 fL (79-100) Mean Corpuscular Hemoglobin 29 pg (25-35) Mean Corpuscular Hemoglobin Concent 32 g/dL (31-37) Red Cell Distribution Width 18.3 % (11.5-14.5) Platelet Count 140 x10^3/uL (140-400) Sodium Level 138 mmol/L (136-145) Potassium Level 4.9 mmol/L (3.5-5.1) Chloride Level 99 mmol/L (98-107) Carbon Dioxide Level 28 mmol/L (21-32) Anion Gap 11 (6-14) Blood Urea Nitrogen 22 mg/dL (7-20) Creatinine 2.0 mg/dL (0.6-1.0) Estimated GFR (Cockcroft-Gault) 24.4 Glucose Level 110 mg/dL (70-99) Calcium Level 9.6 mg/dL (8.5-10.1) Medications Active Scripts Medications Dose Route/Sig Max Daily Dose Days Date Category Furosemide 20 Mg Tablet 20 Mg PO [id number] 07/16/18 Reported Potassium Chloride 20 Meq Tablet.er 20 Meq PO BID 07/16/18 Reported Metoprolol Succinate ( Xl ) (Metoprolol Succinate) 25 Mg Tab.er.24h 25 Mg PO DAILY 30 06/28/18 Rx Clopidogrel (Clopidogrel Bisulfate) 75 Mg Tablet 75 Mg PO DAILYWBKFT 30 06/28/18 Rx Acetaminophen 500 Mg Tablet 1 Tab PO PRN Q6HRS PRN 06/19/18 Reported Zoloft (Sertraline Hcl) 50 Mg Tablet 1 Tab PO HS 06/19/18 Reported Levetiracetam 500 Mg Tablet 1 Tab PO HS 06/19/18 Reported Levetiracetam 500 Mg Tablet 250 Mg PO DAILY 06/19/18 Reported Levothyroxine Sodium 175 Mcg Tablet 1 Tab PO DAILY 11/25/17 Reported Fludrocortisone Acetate 0.1 Mg Tablet 1 Tab PO DAILY12 11/25/17 Reported Vitamin D3 (Cholecalciferol (Vitamin D3)) 1,000 Unit Tablet 1 Tab PO QFR 11/25/17 Reported Atorvastatin Calcium 80 Mg Tablet 1 Tab PO HS 11/25/17 Reported Aspirin 81 Mg Tab.chew 1 Tab PO DAILY 11/24/17 Reported Amlodipine Besylate 10 Mg Tablet 5 Mg PO HS 11/24/17 Reported Amiodarone Hcl 200 Mg Tablet 1 Tab PO DAILY 11/24/[address] CHEST 07/18 REVIEWED BY MI Diffuse interstitial edema/ moderate effusions Impression . 1. Acute on chronic hypoxic respiratory failure secondary to multifactorial etiologies and include a combination of congestive heart failure and acute exacerbation of chronic obstructive pulmonary disease. CHF/ effusions worse on ct 07/18. clinically improved post right thoracentesis and increase UF /HD 2. Bronchospasm, likely related to combination of chronic obstructive pulmonary disease exacerbation and congestive heart failure. improved 3. Abnormal chest x-ray / ct chest consistent with congestive heart failure. 4. 50 years of tobaccoism, on home oxygen at 2 liters, continues to smoke 3 cigarettes a day. 5. History of atrial fibrillation. 6. Chronic kidney disease, on hemodialysis. 7. Moderate effusions, Rt> left, LIKELY TRANSUDATE 8. Left heart cath 06/27 with elevated left sided pressures Plan . D/W / RN and DR Frances 1. hemodialysis with ultrafiltration again today 2. CT guided right thoracentesis done 07/18/ much better. await analysis 3. taper steroids / continue DuoNebs. Pulmicort as well. 4. f/u cxr post tap and HD in am 5. Wean oxygen 6. PRN BARBER DURHAM MD Jul 19, 2018 15:05
--- NOTE | 2018-07-19 17:09 | PATHOLOGY ---
Note [facility] Accession Number: [id number] TESTS RESULT FLAG UNITS REF RANGE LAB Clinician Provided Cytology Information No. of containers..01 Other (Miscellaneous) Source: RT PLEURAL FLUID DIAGNOSIS: RT PLEURAL FLUID NEGATIVE FOR MALIGNANT CELLS. FOCALLY REACTIVE MESOTHELIAL CELLS AND FEW INFLAMMATORY CELLS PRESENT. THIS INTERPRETATION INCLUDES EVALUATION OF A CELL BLOCK. Signed out by: 02 Khanh Vázquez MD, Pathologist NPI- [id number] Performed by: Clark Goldstein, Electric Arc Furnace Operator ([facility]) Gross description: 01 33ML, YELLOW, CLOUDY /LCS FLAG LEGEND: L-Low Normal,H-High Normal,LL-Alert Low,HH-Alert High <-Panic Low,>-Panic High,A-Abnormal,AA-Critical Abnormal Performed at: [address] [place] [address] Joey Price MD, 02 [facility] [address] [place] [address] Khanh Vázquez MD, Specimen Comment: A courtesy copy of this report has been sent to Specimen Comment: [phone]. Specimen Comment: Report sent to Performed at: [address], [place], [place] [id number] MD Joey Price MD Phone: [phone]
[2018-07-19 19:35] VITALS: BP 138/65
[2018-07-19] MEDS: SERTRALINE 50 MG TABLET. PO SCH (21:25)
[2018-07-19] MEDS: ATORVASTATIN CALCIUM 40 MG TABLET. PO SCH (21:25)
[2018-07-19] MEDS: LORazepam 0.5 MG TABLET PO PRN (21:25)
[2018-07-19] MEDS: methylPREDNISolone SOD SUCC PF 40 MG/ML VIAL. IV SCH (21:26)
[2018-07-19 23:35] VITALS: BP 158/67
[2018-07-20] MEDS: IPRATRPIUM/ALBUTEROL 0.5/2.5MG 3 ML NEBU. NEB SCH ×6 (02:24→23:29)
[2018-07-20 03:05] VITALS: BP 157/70
[2018-07-20] MEDS: LEVOTHYROXINE 175 MCG TABLET PO SCH (06:08)
[2018-07-20] MEDS: methylPREDNISolone SOD SUCC PF 40 MG/ML VIAL. IV SCH ×3 (06:12→21:00)
[2018-07-20 07:00] VITALS: BP 140/65
[2018-07-20] MEDS: BUDESONIDE 0.5 MG/2 ML NEBU. NEB SCH ×2 (07:28→20:00)
--- NOTE | 2018-07-20 08:21 | RAD ---
Portable chest, 07/20/2018: HISTORY: Congestive heart failure, pleural effusions Comparison is made to a study from 07/18/2018. A right jugular dialysis type catheter remains in place extending the right atrium. A left-sided transvenous pacemaker is again noted. The heart is enlarged. There are ongoing diffuse pulmonary infiltrates with poor definition of the underlying pulmonary vascularity. Moderate right basilar opacities have developed with poor definition of the underlying pulmonary vascularity. The appearance suggests redeveloping pleural fluid and worsening underlying atelectasis/infiltrate. No large left pleural effusion is seen. There is no evidence of pneumothorax. IMPRESSION: 1. Worsening moderate right lower chest opacities suggesting redeveloping pleural fluid and worsening atelectasis/infiltrate 2. Ongoing underlying 5 lobe pulmonary infiltrates compatible with pulmonary edema or ARDS. Electronically signed by: Adrien Arreola MD (07/20/2018 8:18 AM) [facility]
[2018-07-20] MEDS: POTASSIUM CHLORIDE 20 MEQ TABLET.ER. PO SCH ×2 (09:45→17:40)
[2018-07-20] MEDS: METOPROLOL SUCC 24HR ER 25 MG TAB.ER.24H. PO SCH (09:45)
[2018-07-20] MEDS: ASPIRIN CHEWABLE 81 MG TABLET. PO SCH (09:46)
[2018-07-20] MEDS: CLOPIDOGREL BISULFATE 75 MG TABLET PO SCH (09:46)
[2018-07-20] MEDS: levETIRAcetam 500 MG TABLET PO SCH ×2 (09:46→20:55)
[2018-07-20] MEDS: AMIODARONE HCL 200 MG TABLET. PO SCH (09:46)
[2018-07-20] MEDS: amLODIPine BESYLATE 5 MG TABLET PO SCH ×2 (09:47→20:56)
[2018-07-20] MEDS: FUROSEMIDE 40 MG/4 ML VIAL. IVP SCH (09:47)
--- NOTE | 2018-07-20 10:50 | PDOC ---
PROGRESS NOTES Chief Complaint Chief Complaint impression Hypoxic respiratory failure-O2 dependent 1. Coronary artery disease with a history of three-vessel bypass (PICKARD to LAD, SVG to RCA and SVG to OM1) with PCI earlier this year to the ostium of the saphenous vein graft to the obtuse marginal due to a non-ST elevation myocardial infarction 2. End-stage renal disease on dialysis 3. Paroxysmal atrial fibrillation 4. Hypertension 5. Dyslipidemia 6. Diastolic dysfunction and moderate mitral regurgitation based on echocardiogram in June 2018 7. CVA 8. SSS s/p st. [place] dual chamber pacer 9. PAF - on amiodarone and not on anticoagulation due to DAPT currently on board and prior bleeding issues/anemia. 10 Moderate effusions, Rt> left, LIKELY TRANSUDATE 11. CT guided right thoracentesis done . severe protein-caloric malnutrition 13. severe debility 07/20 very soa, very fatigued with activity more o2 requirements today very ill, poor prognois severe exac of disease, plan select hospital placement History of Present Illness History of Present Illness o2 support SOA not better still very ill LTAC candidate discussed hospice wants DNR STATUS Overall prognosis poor, very frail, PERSISTENT poor by mouth intake, multiple co morbids chest tube , SOA, nonrebreather, and hypoxia/in distress Plan: chest tibe . Pulmonary LTAC CARE COORDINATION, PT EXAM 44 MIN > 50% TIME IN PT EXAM, CHART REVIEW COORDINATION Discussed with RN Vitals Vitals Vital Signs Date Time Temp Pulse Resp B/P (MAP) Pulse Ox O2 Delivery O2 Flow Rate FiO2 07/20/18 09:47 85 07/20/18 08:15 Venturi Mask 07/20/18 07:28 15.0 07/20/18 07:00 98.0 18 140/65 (90) 93 98.0 Physical Exam General: Alert, Oriented X3, Cooperative, moderate distress Heart: Regular rate, No murmurs, Other (sinus 72 RATE) Lungs: Crackles, Other (diminished at the basis) Abdomen: Normal bowel sounds, Soft Extremities: No clubbing, No cyanosis, No tenderness/swelling, Other (minimal subcutaneous tissue) Skin: No rashes, No breakdown Assessment and Plan Assessmemt and Plan Problems Medical Problems: (1) Congestive heart failure Status: Acute Comment Review of Relevant I have reviewed the following items jose (where applicable) has been applied. Labs Laboratory Tests Test 07/18/18 13:15 07/19/18 03:05 Body Fluid Total Protein 1.7 g/dL (.) Body Fluid Lactate Dehydrogenase 122 IU/L (.) White Blood Count 12.4 x10^3/uL (4.0-11.0) Red Blood Count 2.80 x10^6/uL (3.50-5.40) Hemoglobin 8.2 g/dL (12.0-15.5) Hematocrit 25.3 % (36.0-47.0) Mean Corpuscular Volume 90 fL (79-100) Mean Corpuscular Hemoglobin 29 pg (25-35) Mean Corpuscular Hemoglobin Concent 32 g/dL (31-37) Red Cell Distribution Width 18.3 % (11.5-14.5) Platelet Count 140 x10^3/uL (140-400) Sodium Level 138 mmol/L (136-145) Potassium Level 4.9 mmol/L (3.5-5.1) Chloride Level 99 mmol/L (98-107) Carbon Dioxide Level 28 mmol/L (21-32) Anion Gap 11 (6-14) Blood Urea Nitrogen 22 mg/dL (7-20) Creatinine 2.0 mg/dL (0.6-1.0) Estimated GFR (Cockcroft-Gault) 24.4 Glucose Level 110 mg/dL (70-99) Calcium Level 9.6 mg/dL (8.5-10.1) Microbiology 07/18/18 Anaerobic/Aerobic Culture, Resulted Pending 07/18/18 Anaerobic Culture Result 1 (ELZA), Resulted Pending 07/18/18 Aerobic Culture, Resulted Pending 07/18/18 Aerobic Culture Result 1 (ELZA), Resulted Pending 07/18/18 Gram Stain - Final, Resulted 07/18/18 Gram Stain Result 1 (ELZA) - Final, Resulted 07/18/18 Gram Stain Result 2 (ELZA) - Final, Resulted Medications Current Medications Albuterol/ Ipratropium (Duoneb) 3 ml 1X ONCE NEB Last administered on at 10:15; Start 07/16/18 at 10:15; Stop 07/16/18 at 10:16; Status DC Furosemide (Lasix) 40 mg 1X ONCE IVP Last administered on 07/16/18at 11:02; Start 07/16/18 at 10:30; Stop 07/16/18 at 10:31; Status DC Ondansetron HCl (Zofran) 4 mg PRN Q8HRS PRN IV NAUSEA/VOMITING; Start 07/16/18 at 11:30; Stop 07/17/18 at 09:12; Status DC Acetaminophen (Tylenol) 650 mg PRN Q4HRS PRN PO FEVER; Start 07/16/18 at 11:30 ; Stop 07/17/18 at 11:29; Status DC Nitroglycerin (Nitrostat) 0.4 mg PRN Q5MIN PRN SL CHEST PAIN; Start 07/16/18 at 11:30; Stop 07/17/18 at 11:29; Status DC Albuterol/ Ipratropium (Duoneb) 3 ml RTQID NEB Last administered on 07/17/18 08:17; Start 07/16/18 at 12:00; Stop 07/17/18 at 11:59; Status DC Hydralazine HCl (Apresoline Inj) 10 mg PRN Q4HRS PRN IVP ELEVATED BP, SEE COMMENTS Last administered on 07/16/18 12:57; Start 07/16/18 at 12:00 Amiodarone HCl (Cordarone) 200 mg DAILY PO Last administered on 07/20/18 09:46 ; Start 07/17/18 at 09:00 Amlodipine Besylate (Norvasc) 5 mg HS PO Last administered on 07/16/18 21:16; Start 07/16/18 at 21:00; Stop 07/17/18 at 16:07; Status DC Aspirin (Children'S Aspirin) 81 mg DAILY PO Last administered on 07/20/18 09: 46; Start 07/17/18 at 09:00 Vitamin D (Vitamin D3) 1,000 unit QFR PO ; Start 07/21/18 at 16:00 Clopidogrel Bisulfate (Plavix) 75 mg DAILYWBKFT PO Last administered on at 09:46; Start 07/17/18 at 08:00 Fludrocortisone Acetate (Florinef) 0.1 mg DAILYWLUN PO Last administered on at 12:30; Start 07/17/18 at 12:00 Furosemide (Lasix) 20 mg BID92 PO Last administered on 07/17/18 15:45; Start 07/17/18 at 09:00; Stop 07/17/18 at 18:16; Status DC Levetiracetam (Keppra) 500 mg HS PO Last administered on 07/19/18 21:25; Start 07/16/18 at 21:00 Levetiracetam (Keppra) 250 mg DAILY PO Last administered on 07/20/18 09:46; Start 07/17/18 at 09:00 Levothyroxine Sodium (Synthroid) 175 mcg DAILY06 PO Last administered on 06:08; Start 07/17/18 at 06:00 Metoprolol Succinate (Toprol Xl) 25 mg DAILY PO Last administered on 07/20/18 09:45; Start 07/17/18 at 09:00 Sertraline HCl (Zoloft) 50 mg HS PO Last administered on 07/19/18 21:25; Start 07/16/18 at 21:00 Acetaminophen (Tylenol) 500 mg PRN Q6HRS PRN PO MILD PAIN; Start 07/16/18 at 17 :00 Atorvastatin Calcium (Lipitor) 80 mg QHS PO Last administered on 07/19/18 21: 25; Start 07/16/18 at 21:00 Potassium Chloride (Klor-Con) 20 meq BIDWMEALS PO Last administered on 09:45; Start 07/17/18 at 08:00 Sodium Chloride 1,000 ml @ 1,000 mls/hr Q1H PRN IV hypotension; Start 07/16/18 at 16:30; Stop 07/16/18 at 23:59; Status DC Sodium Chloride 1,000 ml @ 400 mls/hr Q2H30M PRN IV PATENCY; Start 07/16/18 at 16:30; Stop 07/16/18 at 23:59; Status DC Info (PHARMACY MONITORING -- do not chart) 1 each PRN DAILY PRN MC SEE COMMENTS ; Start 07/16/18 at 20:00; Status UNV Info (PHARMACY MONITORING -- do not chart) 1 each PRN DAILY PRN MC SEE COMMENTS ; Start 07/16/18 at 20:00; Status Cancel Lorazepam (Ativan) 0.5 mg PRN Q12HR PRN PO ANXIETY / AGITATION Last administered on 07/19/18at 21:25; Start 07/16/18 at 20:15 Sodium Chloride 1,000 ml @ 1,000 mls/hr Q1H PRN IV hypotension; Start 07/17/18 at 08:05; Stop 07/17/18 at 14:04; Status DC Sodium Chloride (Normal Saline Flush) 10 ml 1X PRN PRN IV AP catheter pack; Start 07/17/18 at 08:15; Stop 07/18/18 at 08:14; Status DC Sodium Chloride (Normal Saline Flush) 10 ml 1X PRN PRN IV ARC WELDING MACHINE OPERATOR catheter pack; Start 07/17/18 at 08:15; Stop 07/18/18 at 08:14; Status DC Sodium Chloride 1,000 ml @ 400 mls/hr Q2H30M PRN IV PATENCY; Start 07/17/18 at 08:05; Stop 07/17/18 at 20:04; Status DC Info (PHARMACY MONITORING -- do not chart) 1 each PRN DAILY PRN MC SEE COMMENTS ; Start 07/17/18 at 08:15; Status UNV Info (PHARMACY MONITORING -- do not chart) 1 each PRN DAILY PRN MC SEE COMMENTS ; Start 07/17/18 at 08:15; Status UNV Ondansetron HCl (Zofran) 4 mg PRN Q6HRS PRN IV NAUSEA/VOMITING Last administered on 07/17/18at 15:43; Start 07/17/18 at 09:15 Clonidine HCl (Catapres) 0.1 mg PRN Q1HR PRN PO HYPERTENSION, SEE COMMENTS; Start 07/17/18 at 09:15 Acetaminophen (Tylenol) 500 mg PRN Q6HRS PRN PO MILD PAIN / TEMP; Start at 09:15; Status UNV Darbepoetin Olaf (Aranesp) 60 mcg WEEKLYHS SQ Last administered on 07/17/18at 22 :02; Start 07/17/18 at 21:00 Albuterol/ Ipratropium (Duoneb) 3 ml Q4HRS NEB Last administered on 07/20/18at 07:27; Start 07/17/18 at 13:30 Budesonide (Pulmicort) 0.5 mg RTBID NEB Last administered on 07/20/18at 07:28; Start 07/17/18 at 13:30 Methylprednisolone Sodium Succinate (SOLU-Medrol 125MG VIAL) 60 mg Q8HRS IV Last administered on 07/19/18at 14:41; Start 07/17/18 at 13:30; Stop 07/19/18 at 15:08; Status DC Amlodipine Besylate (Norvasc) 5 mg BID PO Last administered on 07/20/18at 09:47 ; Start 07/18/18 at 09:00 Amlodipine Besylate (Norvasc) 5 mg 1X ONCE PO Last administered on 07/17/18at 17:49; Start 07/17/18 at 16:30; Stop 07/17/18 at 16:31; Status DC Furosemide (Lasix) 40 mg DAILY IVP Last administered on 07/20/18at 09:47; Start 07/17/18 at 18:15 Sodium Chloride 1,000 ml @ 1,000 mls/hr Q1H PRN IV hypotension; Start 07/18/18 at 10:46; Stop 07/18/18 at 16:45; Status DC Albumin Human 200 ml @ 200 mls/hr 1X PRN PRN IV Hypotension; Start 07/18/18 at 11:00; Stop 07/18/18 at 16:59; Status DC Sodium Chloride (Normal Saline Flush) 10 ml 1X PRN PRN IV AP catheter pack; Start 07/18/18 at 11:00; Stop 07/19/18 at 10:59; Status Cancel Sodium Chloride (Normal Saline Flush) 10 ml 1X PRN PRN IV ARC WELDING MACHINE OPERATOR catheter pack; Start 07/18/18 at 11:00; Stop 07/19/18 at 10:59; Status Cancel Sodium Chloride 1,000 ml @ 400 mls/hr Q2H30M PRN IV PATENCY; Start 07/18/18 at 10:46; Stop 07/18/18 at 22:45; Status DC Info (PHARMACY MONITORING -- do not chart) 1 each PRN DAILY PRN MC SEE COMMENTS ; Start 07/18/18 at 11:00; Status UNV Info (PHARMACY MONITORING -- do not chart) 1 each PRN DAILY PRN MC SEE COMMENTS ; Start 07/18/18 at 11:00; Status UNV Sodium Chloride 1,000 ml @ 1,000 mls/hr Q1H PRN IV hypotension; Start 07/19/18 at 07:42; Stop 07/19/18 at 13:41; Status DC Sodium Chloride (Normal Saline Flush) 10 ml 1X PRN PRN IV AP catheter pack; Start 07/19/18 at 07:45; Stop 07/20/18 at 07:44; Status DC Sodium Chloride (Normal Saline Flush) 10 ml 1X PRN PRN IV ARC WELDING MACHINE OPERATOR catheter pack; Start 07/19/18 at 07:45; Stop 07/20/18 at 07:44; Status DC Sodium Chloride 1,000 ml @ 400 mls/hr Q2H30M PRN IV PATENCY; Start 07/19/18 at 07:42; Stop 07/19/18 at 19:41; Status DC Info (PHARMACY MONITORING -- do not chart) 1 each PRN DAILY PRN MC SEE COMMENTS ; Start 07/19/18 at 07:45; Status UNV Info (PHARMACY MONITORING -- do not chart) 1 each PRN DAILY PRN MC SEE COMMENTS ; Start 07/19/18 at 07:45 Methylprednisolone Sodium Succinate (SOLU-Medrol 40MG VIAL) 30 mg Q8HRS IV Last administered on 07/20/18at 06:12; Start 07/19/18 at 22:00 Active Scripts Active Metoprolol Succinate ( Xl ) (Metoprolol Succinate) 25 Mg Tab.er.24h 25 Mg PO DAILY 30 Days Clopidogrel (Clopidogrel Bisulfate) 75 Mg Tablet 75 Mg PO DAILYWBKFT 30 Days Reported Furosemide 20 Mg Tablet 20 Mg PO BID92 Potassium Chloride 20 Meq Tablet.er 20 Meq PO BID Acetaminophen 500 Mg Tablet 1 Tab PO PRN Q6HRS PRN Zoloft (Sertraline Hcl) 50 Mg Tablet 1 Tab PO HS Levetiracetam 500 Mg Tablet 1 Tab PO HS Levetiracetam 500 Mg Tablet 250 Mg PO DAILY Levothyroxine Sodium 175 Mcg Tablet 1 Tab PO DAILY Fludrocortisone Acetate 0.1 Mg Tablet 1 Tab PO DAILY12 Vitamin D3 (Cholecalciferol (Vitamin D3)) 1,000 Unit Tablet 1 Tab PO QFR Atorvastatin Calcium 80 Mg Tablet 1 Tab PO HS Aspirin 81 Mg Tab.chew 1 Tab PO DAILY Amlodipine Besylate 10 Mg Tablet 5 Mg PO HS Amiodarone Hcl 200 Mg Tablet 1 Tab PO DAILY Vitals/I & O Vital Sign - Last 24 Hours 07/19/18 07/19/18 07/19/18 07/19/18 14:46 15:32 19:22 19:35 Temp 98.4 97.8 98.4 97.8 Pulse 76 78 Resp 26 23 B/P (MAP) 138/65 (89) 138/65 (89) Pulse Ox 92 93 90 O2 Delivery Venturi Mask Nasal Cannula Nasal Cannula Nasal Cannula O2 Flow Rate 5.0 5.0 5.0 07/19/18 07/19/18 07/19/18 07/19/18 20:00 21:25 22:17 23:35 Temp 97.9 97.9 Pulse 78 79 Resp 20 B/P (MAP) 138/65 158/67 (97) Pulse Ox 91 93 O2 Delivery Nasal Cannula Nasal Cannula Nasal Cannula O2 Flow Rate 5.0 5.0 5.0 07/20/18 07/20/18 07/20/18 07/20/18 02:24 03:05 07:00 07:28 Temp 97.8 98.0 97.8 98.0 Pulse 76 80 Resp 19 18 B/P (MAP) 157/70 (99) 140/65 (90) Pulse Ox 93 94 93 O2 Delivery Nasal Cannula Nasal Cannula Nasal Cannula Venturi Mask O2 Flow Rate 4.0 5.0 5.0 15.0 07/20/18 07/20/18 07/20/18 07/20/18 08:15 09:45 09:46 09:47 Pulse 81 85 85 O2 Delivery Venturi Mask Intake and Output 07/19/18 07/19/18 07/20/18 15:00 23:00 07:00 Intake Total 800 ml 400 ml Output Total 50 ml Balance -50 ml 800 ml 400 ml Nutrition Consultation Dietary Evaluation: Recommendations by RD: Increase Calorie Intake Comments: Will liberalize diet to regular to promote PO intake; honor food preferences and provide snacks as requested Expected Outcomes/Goals: PO intake to meet >75% est needs Interpretation of weight loss: >10% in 6 months Malnutrition Findings: Food and Nutrition Intake (Sev: <50% est energy req 5days Weight Status: Underweight CAROLE BECK MD Jul 20, 2018 10:50
[2018-07-20 11:00] VITALS: BP 130/63
--- NOTE | 2018-07-20 11:00 | PDOC ---
PULMONARY PROGRESS NOTES Subjective increase O2 requirement today Vitals Vital Signs Date Time Temp Pulse Resp B/P (MAP) Pulse Ox O2 Delivery O2 Flow Rate FiO2 07/20/18 09:47 85 07/20/18 08:15 Venturi Mask 07/20/18 07:28 15.0 07/20/18 07:00 98.0 18 140/65 (90) 93 98.0 General: Alert, No acute distress Lungs: Other (diminished at the basis) Cardiovascular: S1, S2 Abdomen: Soft, Non-tender Extremities: No Edema Labs Laboratory Tests Test 07/18/18 13:15 07/19/18 03:05 Body Fluid Total Protein 1.7 g/dL (.) Body Fluid Lactate Dehydrogenase 122 IU/L (.) White Blood Count 12.4 x10^3/uL (4.0-11.0) Red Blood Count 2.80 x10^6/uL (3.50-5.40) Hemoglobin 8.2 g/dL (12.0-15.5) Hematocrit 25.3 % (36.0-47.0) Mean Corpuscular Volume 90 fL (79-100) Mean Corpuscular Hemoglobin 29 pg (25-35) Mean Corpuscular Hemoglobin Concent 32 g/dL (31-37) Red Cell Distribution Width 18.3 % (11.5-14.5) Platelet Count 140 x10^3/uL (140-400) Sodium Level 138 mmol/L (136-145) Potassium Level 4.9 mmol/L (3.5-5.1) Chloride Level 99 mmol/L (98-107) Carbon Dioxide Level 28 mmol/L (21-32) Anion Gap 11 (6-14) Blood Urea Nitrogen 22 mg/dL (7-20) Creatinine 2.0 mg/dL (0.6-1.0) Estimated GFR (Cockcroft-Gault) 24.4 Glucose Level 110 mg/dL (70-99) Calcium Level 9.6 mg/dL (8.5-10.1) Medications Active Scripts Medications Dose Route/Sig Max Daily Dose Days Date Category Furosemide 20 Mg Tablet 20 Mg PO BID92 07/16/18 Reported Potassium Chloride 20 Meq Tablet.er 20 Meq PO BID 07/16/18 Reported Metoprolol Succinate ( Xl ) (Metoprolol Succinate) 25 Mg Tab.er.24h 25 Mg PO DAILY 30 06/28/18 Rx Clopidogrel (Clopidogrel Bisulfate) 75 Mg Tablet 75 Mg PO DAILYWBKFT 30 06/28/18 Rx Acetaminophen 500 Mg Tablet 1 Tab PO PRN Q6HRS PRN 06/19/18 Reported Zoloft (Sertraline Hcl) 50 Mg Tablet 1 Tab PO HS 06/19/18 Reported Levetiracetam 500 Mg Tablet 1 Tab PO HS 06/19/18 Reported Levetiracetam 500 Mg Tablet 250 Mg PO DAILY 06/19/18 Reported Levothyroxine Sodium 175 Mcg Tablet 1 Tab PO DAILY 11/25/17 Reported Fludrocortisone Acetate 0.1 Mg Tablet 1 Tab PO DAILY12 11/25/17 Reported Vitamin D3 (Cholecalciferol (Vitamin D3)) 1,000 Unit Tablet 1 Tab PO QFR 11/25/17 Reported Atorvastatin Calcium 80 Mg Tablet 1 Tab PO HS 11/25/17 Reported Aspirin 81 Mg Tab.chew 1 Tab PO DAILY 11/24/17 Reported Amlodipine Besylate 10 Mg Tablet 5 Mg PO HS 11/24/17 Reported Amiodarone Hcl 200 Mg Tablet 1 Tab PO DAILY 11/24/[address] CHEST 07/18 REVIEWED BY ME Diffuse interstitial edema/ moderate effusions CXR 07/20 some re-accumulation of right effusion Impression . 1. Acute on chronic hypoxic respiratory failure secondary to multifactorial etiologies and include a combination of congestive heart failure and acute exacerbation of chronic obstructive pulmonary disease. CHF/ effusions worse on ct 07/18. clinically improved post right thoracentesis and increase UF /HD , now some re-accumulation 2. Bronchospasm, likely related to combination of chronic obstructive pulmonary disease exacerbation and congestive heart failure. resolved. 3. Abnormal chest x-ray / ct chest consistent with congestive heart failure. 4. 50 years of tobaccoism, on home oxygen at 2 liters, continues to smoke 3 cigarettes a day. 5. History of atrial fibrillation. 6. Chronic kidney disease, on hemodialysis. 7. Moderate effusions, Rt> left,TRANSUDATE on analysis 8. Left heart cath 06/27 with elevated left sided pressures Plan . D/W / RN and DR Frances 1. hemodialysis with ultrafiltration 2. CT guided right thoracentesis done 07/18/ , now with some re-accumulation RLL , low oncotic pressure another contributing factor, Monitor effusion for now 3. taper steroids / continue DuoNebs. Pulmicort as well. 4. HD per enal 5. Wean oxygen 6. PRN BIPAP possible transfer to [facility] BARBER HASTINGS MD Jul 20, 2018 11:00
--- NOTE | 2018-07-20 11:07 | NUR ---
SS following for discharge planning. SS met with pt and spouse in room and discussed referral to LTAC. Pt and spouse agreeable to LTAC referral at [facility]. SS phoned and faxed referral to [facility], ; fax [phone]. SS will await acceptance decision and will proceed accordingly. Pt's RN notified.
--- NOTE | 2018-07-20 12:03 | PDOC ---
Renal-Progress Notes Subjective Notes Notes LESS SOB History of Present Illness Hx of present illness BETTER Vitals Vitals Vital Signs Date Time Temp Pulse Resp B/P (MAP) Pulse Ox O2 Delivery O2 Flow Rate FiO2 07/20/18 11:35 93 Venturi Mask 15.0 07/20/18 11:00 98.4 76 18 130/63 (85) 98.4 Weight Weight [ ] I.O. Intake and Output Intake and Output 07/20/18 06:59 Intake Total 1200 ml Output Total 50 ml Balance 1150 ml Intake Oral 1200 ml Output Urine Total 50 ml Micro Micro Microbiology 07/18/18 Anaerobic/Aerobic Culture, Resulted Pending 07/18/18 Anaerobic Culture Result 1 (ELZA), Resulted Pending 07/18/18 Aerobic Culture, Resulted Pending 07/18/18 Aerobic Culture Result 1 (ELZA), Resulted Pending 07/18/18 Gram Stain - Final, Resulted 07/18/18 Gram Stain Result 1 (ELZA) - Final, Resulted 07/18/18 Gram Stain Result 2 (ELZA) - Final, Resulted Review of Systems Constitutional: yes: weakness, alert, oriented Ears/Nose/Throat: Yes: no symptom reported Pulmonary: Yes dyspnea Cardiovascular: Yes no symptom reported Gastrointestional: Yes: no symptom reported Genitourinary: Yes: no symptom reported Skin: Yes no symptom reported Psychiatric/Neurological: Yes: no symptom reported Endocrine: Yes: no symptom reported Physical Exam General Appearance: no apparent distress Skin: warm Respiratory: decreased breath sounds Heart: S1S2, RRR Abdomen: soft, bowel sounds present Genitourinary: bladder flat Extremities: pulses present, no edema Neurology: alert, oriented, follow commands Assessment Assessment IMP ACUTE HYPOXIC RESP FAILURE-MUCH IMPROVED ESRD-MWF ANEMIA PLEURAL EFFUSION CHF-PROB ACUTE ON CHRONIC DIASTOLIC AND SYSTOLIC HX OF ATROPHIED LEFT KIDNEY HX OF RIGHT ANNAMARIA AND S/P STENTING PLAN HD TOMORROW DW LOWERED CONT ARANESP D/W DR HASTINGS WOULD BENEFIT FROM THERAPY NISHI BENITEZ MD Jul 20, 2018 12:03
[2018-07-20] MEDS: FLUDROCORTISONE 0.1 MG TABLET PO SCH (12:30)
[2018-07-20 15:00] VITALS: BP 134/60
[2018-07-20 19:30] VITALS: BP 131/59
[2018-07-20] MEDS: LORazepam 0.5 MG TABLET PO PRN (20:55)
[2018-07-20] MEDS: SERTRALINE 50 MG TABLET. PO SCH (20:56)
[2018-07-20] MEDS: ATORVASTATIN CALCIUM 40 MG TABLET. PO SCH (20:56)
[2018-07-20 23:56] VITALS: BP 148/67
[2018-07-21 03:35] VITALS: BP 146/69
[2018-07-21] MEDS: IPRATRPIUM/ALBUTEROL 0.5/2.5MG 3 ML NEBU. NEB SCH ×4 (04:00→20:54)
[2018-07-21] MEDS: LEVOTHYROXINE 175 MCG TABLET PO SCH (06:44)
[2018-07-21] MEDS: methylPREDNISolone SOD SUCC PF 40 MG/ML VIAL. IV SCH ×3 (06:45→21:43)
[2018-07-21 07:00] VITALS: BP 141/65
[2018-07-21] MEDS ORDERED: IV NORMAL SALINE 1000ML BAG 1,000 ML IV PRN ×2 (07:09)
[2018-07-21] MEDS ORDERED: DIALYSIS PATIENT. MC PRN (07:15)
[2018-07-21] MEDS: POTASSIUM CHLORIDE 20 MEQ TABLET.ER. PO SCH ×2 (07:26→17:44)
[2018-07-21] MEDS: amLODIPine BESYLATE 5 MG TABLET PO SCH ×2 (07:26→20:39)
[2018-07-21] MEDS: BUDESONIDE 0.5 MG/2 ML NEBU. NEB SCH ×2 (08:00→20:54)
[2018-07-21] MEDS: FUROSEMIDE 40 MG/4 ML VIAL. IVP SCH (09:00)
--- NOTE | 2018-07-21 09:50 | PDOC3 ---
Discharge Summary Visit Information Date of Admission: Jul 16, 2018 Date of Discharge: Jul 21, 2018 Admitting Diagnosis Comment: impression Hypoxic respiratory failure-O2 dependent 1. Coronary artery disease with a history of three-vessel bypass (PICKARD to LAD, SVG to RCA and SVG to OM1) with PCI earlier this year to the ostium of the saphenous vein graft to the obtuse marginal due to a non-ST elevation myocardial infarction 2. End-stage renal disease on dialysis 3. Paroxysmal atrial fibrillation 4. Hypertension 5. Dyslipidemia 6. Diastolic dysfunction and moderate mitral regurgitation based on echocardiogram in June 2018 7. CVA 8. SSS s/p st. [place] dual chamber pacer 9. PAF - on amiodarone and not on anticoagulation due to DAPT currently on board and prior bleeding issues/anemia. 10 Moderate effusions, Rt> left, LIKELY TRANSUDATE 11. CT guided right thoracentesis done . severe protein-caloric malnutrition 13. severe debility Final Diagnosis Problems Medical Problems: (1) Congestive heart failure Status: Acute Brief Hospital Course Allergies Allergies Coded Allergies Type Severity Reaction Last Updated Verified codeine Allergy Intermediate 11/24/17 Yes Vital Signs Vital Signs Date Time Temp Pulse Resp B/P (MAP) Pulse Ox O2 Delivery O2 Flow Rate FiO2 07/21/18 07:00 98.4 72 20 141/65 (90) 97 NonRebreather Mask 15.0 98.4 Brief Hospital Course Ms. Kearney is a 72 old very frail white female who has a that takes care of her, came from home, readmission. 6 admissions already this year alone. She has a lot of comorbidities including CAD, stents, diastolic heart failure, ESRD on dialysis CHF, history of bypass, COPD, persistent A. fib. Her course was remarkable for portable O2 saturations needing BiPAP when necessary. She is appropriately a DNR. At one point he did mention hospice to but they're not ready yet, They take fluid off during dialysis I do believe so. Initially was hesitant to to LTAC but clearly these are her needs. She underwent right-sided thoracentesis on 07/18/18 which drained 900 mL fluid to the right and seems to be reaccumulating again. is aware of her over all poor prognosis. She is a DNR. We can take care of reaccumulated fluid at LTAC. I updated at this can be a long process and he understands Consults performed pulmonary, cardiology Procedures performed right-sided thoracentesis 900 mL DNR dc 31 mins dw hsuband Discharge Information Condition at Discharge: Stable Disposition/Orders: Other (LTAC) Scheduled Amiodarone Hcl (Amiodarone Hcl) 200 Mg Tablet, 1 TAB PO DAILY, #90 Ref 1 ( Reported) Entered as Reported by: Ivon Houser on 11/24/17 2354 Last Action: Continued on 07/16/181640 by LESLY HILLIARD Amlodipine Besylate (Amlodipine Besylate) 10 Mg Tablet, 5 MG PO HS for HTN, ( Reported) Entered as Reported by: Ivon Houser on 11/24/17 2358 Last Action: Continued on 07/16/181640 by LESLY HILLIARD Aspirin (Aspirin) 81 Mg Tab.chew, 1 TAB PO DAILY, #30 Ref 3 (Reported) Entered as Reported by: Ivon Houser on 11/24/17 2359 Last Action: Continued on 07/16/181640 by LESLY HILLIARD Atorvastatin Calcium (Atorvastatin Calcium) 80 Mg Tablet, 1 TAB PO HS, #30 Ref 5 (Reported) Entered as Reported by: Ivon Houser on 11/25/17 0000 Last Action: Converted on 07/16/181640 by LESLY HILLIARD Cholecalciferol (Vitamin D3) (Vitamin D3) 1,000 Unit Tablet, 1 TAB PO QFR for SUPPLEMENT, #30 Ref 5 (Reported) Entered as Reported by: Ivon Houser on 11/25/17 0000 Last Action: Continued on 07/16/181640 by LESLY HILLIARD Clopidogrel Bisulfate (Clopidogrel) 75 Mg Tablet, 75 MG PO DAILYWBKFT for antiplatelet for 30 Days, #30 Prescribed by: ALEX DIAZ MD on 06/28/18 1530 Last Action: Continued on 07/16/181640 by LESLY HILLIARD Fludrocortisone Acetate (Fludrocortisone Acetate) 0.1 Mg Tablet, 1 TAB PO DAILY12 for STEROID REPLACEMENT, #90 Ref 1 (Reported) Entered as Reported by: Ivon Houser on 11/25/17 0001 Last Action: Continued on 07/16/181640 by LESLY HILLIARD Furosemide (Furosemide) 20 Mg Tablet, 20 MG PO BID92 for CHF, (Reported) Entered as Reported by: LESLY HILLIARD on 07/16/18 1501 Last Action: Continued on 07/16/181640 by LESLY HILLIARD Levetiracetam (Levetiracetam) 500 Mg Tablet, 250 MG PO DAILY for ANTIEPILEPTIC, #180 Ref 3 (Reported) Entered as Reported by: CAROL ZIEGLER on 06/19/18 110 Last Action: Continued on 07/16/181640 by LESLY HILLIARD Levetiracetam (Levetiracetam) 500 Mg Tablet, 1 TAB PO HS for ANTIEPILEPTIC, # 180 Ref 3 (Reported) Entered as Reported by: CAROL ZIEGLER on 06/19/181103 Last Action: Continued on 07/16/181640 by LESLY HILLIARD Levothyroxine Sodium (Levothyroxine Sodium) 175 Mcg Tablet, 1 TAB PO DAILY, #30 Ref 5 (Reported) Entered as Reported by: Ivon Houser on 11/25/17 0001 Last Action: Continued on 07/16/181640 by LESLY HILLIARD Metoprolol Succinate (Metoprolol Succinate ( Xl )) 25 Mg Tab.er.24h, 25 MG PO DAILY for antihypertensive for 30 Days, #30 Prescribed by: ALEX DIAZ MD on 06/28/18 1530 Last Action: Continued on 07/16/181640 by LESLY HILLIARD Potassium Chloride (Potassium Chloride) 20 Meq Tablet.er, 20 MEQ PO BID for Potassium supplement, (Reported) Entered as Reported by: LESLY HILLIARD on 07/16/18 150 Last Action: Converted on 07/16/181640 by LESLY HILLIARD Sertraline Hcl (Zoloft) 50 Mg Tablet, 1 TAB PO HS for SLEEP, #30 Ref 2 (Reported ) Entered as Reported by: CAROL ZIEGLER on 06/19/181103 Last Action: Continued on 07/16/181640 by LESLY HILLIARD Scheduled PRN Acetaminophen (Acetaminophen) 500 Mg Tablet, 1 TAB PO PRN Q6HRS PRN for PAIN, # 60 (Reported) Entered as Reported by: CAROL ZIEGLER on 06/19/181103 Last Action: Converted on 07/16/181640 by AV PARKER MD Jul 21, 2018 09:50
--- NOTE | 2018-07-21 09:51 | SNU/HH DC ---
DISCHARGE ORDERS DISCHARGE INFORMATION: DISCHARGE DATE: Jul 21, 2018 FINAL DIAGNOSIS Problems Medical Problems: (1) Congestive heart failure Status: Acute CONDITION ON DISCHARGE: Stable CODE STATUS: Code Status: DNR/DNI CORRECTION: SNF STAY <30 DAYS: Yes HOSPICE: HOSPICE: No HOSPICE EVAL & TREAT: No LTAC: ADMIT TO LTAC: No POST DISCHARGE ORDERS: ACTIVITY ORDERS: Activity as tolerated WEIGHT BEARING STATUS: As tolerated DIET AFTER DISCHARGE: Renal CHECKS AFTER DISCHARGE: CHECKS AFTER DISCHARGE: Check blood press - daily, Check your Temp as needed, Weigh Yourself Daily TREATMENT/EQUIPMENT ORDERS: ADAPTIVE EQUIPMENT NEEDED: Front wheeled walker Physical Therapy For: Evalulation/Treatment Occupational Therapy For: Evaluation/Treatment Speech Language Pathology For: Evaluation/Treatment DISCHARGE MEDICATIONS: Home Meds Active Scripts Metoprolol Succinate (METOPROLOL SUCCINATE ( XL )) 25 Mg Tab.er.24h, 25 MG PO DAILY for antihypertensive for 30 Days, #30 TAB.SR Prov:ALEX DIAZ MD 06/28/18 Clopidogrel Bisulfate (CLOPIDOGREL) 75 Mg Tablet, 75 MG PO DAILYWBKFT for antiplatelet for 30 Days, #30 TAB Prov:ALEX DIAZ MD 06/28/18 Reported Medications Furosemide (FUROSEMIDE) 20 Mg Tablet, 20 MG PO BID92 for CHF, TAB 07/16/18 Potassium Chloride (POTASSIUM CHLORIDE) 20 Meq Tablet.er, 20 MEQ PO BID for Potassium supplement, TAB.SR 07/16/18 Acetaminophen (ACETAMINOPHEN) 500 Mg Tablet, 1 TAB PO PRN Q6HRS PRN for PAIN, # 60 TAB 06/19/18 Sertraline Hcl (ZOLOFT) 50 Mg Tablet, 1 TAB PO HS for SLEEP, #30 TAB 2 Refills 06/19/18 Levetiracetam (LEVETIRACETAM) 500 Mg Tablet, 1 TAB PO HS for ANTIEPILEPTIC, # 180 TAB 3 Refills 06/19/18 Levetiracetam (LEVETIRACETAM) 500 Mg Tablet, 250 MG PO DAILY for ANTIEPILEPTIC, #180 TAB 3 Refills 06/19/18 Levothyroxine Sodium (LEVOTHYROXINE SODIUM) 175 Mcg Tablet, 1 TAB PO DAILY, #30 TAB 5 Refills 11/25/17 Fludrocortisone Acetate (FLUDROCORTISONE ACETATE) 0.1 Mg Tablet, 1 TAB PO DAILY12 for STEROID REPLACEMENT, #90 TAB 1 Refill 11/25/17 Cholecalciferol (Vitamin D3) (VITAMIN D3) 1,000 Unit Tablet, 1 TAB PO QFR for SUPPLEMENT, #30 TAB 5 Refills 11/25/17 Atorvastatin Calcium (ATORVASTATIN CALCIUM) 80 Mg Tablet, 1 TAB PO HS, #30 TAB 5 Refills 11/25/17 Aspirin (ASPIRIN) 81 Mg Tab.chew, 1 TAB PO DAILY, #30 TAB 3 Refills 11/24/17 Amlodipine Besylate (AMLODIPINE BESYLATE) 10 Mg Tablet, 5 MG PO HS for HTN, TAB 11/24/17 Amiodarone Hcl (AMIODARONE HCL) 200 Mg Tablet, 1 TAB PO DAILY, #90 TAB 1 Refill 11/24/17 AV BASSETT MD Jul 21, 2018 09:51
--- NOTE | 2018-07-21 10:32 | PDOC ---
Provider Note Provider Note HAd a short run of V. tach while on dialysis, seems stable V. tach as there are no reports of hypertension/hypotension, chest pain, more soa, altered mental status or the like is unsure if there is a defibrillator indwelling or just a pacer Plan : hold discharge, stat lites calcium, mag, TSH, troponin today I have informed cardiology Discussed also with AV HUITRON MD Jul 21, 2018 10:32
--- NOTE | 2018-07-21 10:48 | PDOC ---
Renal-Progress Notes Subjective Notes Notes MORE SOB TODAY History of Present Illness Hx of present illness STABLE Vitals Vitals Vital Signs Date Time Temp Pulse Resp B/P (MAP) Pulse Ox O2 Delivery O2 Flow Rate FiO2 07/21/18 07:00 98.4 72 20 141/65 (90) 97 NonRebreather Mask 15.0 98.4 Weight Weight [ ] I.O. Intake and Output Intake and Output 07/21/18 06:59 Intake Total 200 ml Balance 200 ml Intake Oral 200 ml Micro Micro Microbiology 07/18/18 Anaerobic/Aerobic Culture, Resulted Pending 07/18/18 Anaerobic Culture Result 1 (ELZA), Resulted Pending 07/18/18 Aerobic Culture - Preliminary, Resulted 07/18/18 Aerobic Culture Result 1 (ELZA) - Preliminary, Resulted 07/18/18 Gram Stain - Final, Resulted 07/18/18 Gram Stain Result 1 (ELZA) - Final, Resulted 07/18/18 Gram Stain Result 2 (ELZA) - Final, Resulted Review of Systems Constitutional: yes: weakness, alert, oriented Ears/Nose/Throat: Yes: no symptom reported Pulmonary: Yes dyspnea Cardiovascular: Yes no symptom reported Gastrointestional: Yes: no symptom reported Genitourinary: Yes: no symptom reported Skin: Yes no symptom reported Psychiatric/Neurological: Yes: no symptom reported Endocrine: Yes: no symptom reported Physical Exam General Appearance: no apparent distress Skin: warm Respiratory: decreased breath sounds Heart: S1S2, RRR Abdomen: soft, bowel sounds present Genitourinary: bladder flat Extremities: pulses present, no edema Neurology: alert, oriented, follow commands Assessment Assessment IMP ACUTE HYPOXIC RESP FAILURE-MUCH IMPROVED ESRD-MWF ANEMIA PLEURAL EFFUSION-STARTING TO REACCUMULATE CHF-PROB ACUTE ON CHRONIC DIASTOLIC AND SYSTOLIC HX OF ATROPHIED LEFT KIDNEY HX OF RIGHT ANNAMARIA AND S/P STENTING PLAN HD TODAY INCREASE FLUID REMOVAL DW LOWERED CONT ARANESP D/W DR HASTINGS WOULD BENEFIT FROM THERAPY NISHI BENITEZ MD Jul 21, 2018 10:48
--- NOTE | 2018-07-21 11:37 | NUR ---
SS following up with discharge planning. Pt accepted at [facility] but no beds available at this time. Discharge orders received. SS phoned and faxed discharge orders to [facility], ; fax [phone]. SS also phoned and faxed referral to [facility], ; fax [phone]. SS will await acceptance decision from [facility] and bed availability from [facility] and will proceed accordingly. Pt's RN notified.
[2018-07-21] MEDS: CLOPIDOGREL BISULFATE 75 MG TABLET PO SCH (12:49)
[2018-07-21] MEDS: FLUDROCORTISONE 0.1 MG TABLET PO SCH (12:49)
[2018-07-21] MEDS: ASPIRIN CHEWABLE 81 MG TABLET. PO SCH (12:49)
[2018-07-21] MEDS: METOPROLOL SUCC 24HR ER 25 MG TAB.ER.24H. PO SCH (12:49)
[2018-07-21] MEDS: levETIRAcetam 500 MG TABLET PO SCH ×2 (12:49→20:39)
[2018-07-21] MEDS: AMIODARONE HCL 200 MG TABLET. PO SCH (12:50)
--- NOTE | 2018-07-21 13:44 | PDOC ---
PULMONARY PROGRESS NOTES Subjective very weak, frail, on 100%FIO2 Vitals Vital Signs Date Time Temp Pulse Resp B/P (MAP) Pulse Ox O2 Delivery O2 Flow Rate FiO2 07/21/18 12:50 75 07/21/18 08:15 Non-Rebreather 15.0 07/21/18 07:00 98.4 20 141/65 (90) 97 98.4 General: Alert, No acute distress Lungs: Other (diminished at the basis) Cardiovascular: S1, S2 Abdomen: Soft, Non-tender Extremities: No Edema Medications Active Scripts Medications Dose Route/Sig Max Daily Dose Days Date Category Furosemide 20 Mg Tablet 20 Mg PO BID92 07/16/18 Reported Potassium Chloride 20 Meq Tablet.er 20 Meq PO BID 07/16/18 Reported Metoprolol Succinate ( Xl ) (Metoprolol Succinate) 25 Mg Tab.er.24h 25 Mg PO DAILY 30 06/28/18 Rx Clopidogrel (Clopidogrel Bisulfate) 75 Mg Tablet 75 Mg PO DAILYWBKFT 30 06/28/18 Rx Acetaminophen 500 Mg Tablet 1 Tab PO PRN Q6HRS PRN 06/19/18 Reported Zoloft (Sertraline Hcl) 50 Mg Tablet 1 Tab PO HS 06/19/18 Reported Levetiracetam 500 Mg Tablet 1 Tab PO HS 06/19/18 Reported Levetiracetam 500 Mg Tablet 250 Mg PO DAILY 06/19/18 Reported Levothyroxine Sodium 175 Mcg Tablet 1 Tab PO DAILY 11/25/17 Reported Fludrocortisone Acetate 0.1 Mg Tablet 1 Tab PO DAILY12 11/25/17 Reported Vitamin D3 (Cholecalciferol (Vitamin D3)) 1,000 Unit Tablet 1 Tab PO QFR 11/25/17 Reported Atorvastatin Calcium 80 Mg Tablet 1 Tab PO HS 11/25/17 Reported Aspirin 81 Mg Tab.chew 1 Tab PO DAILY 11/24/17 Reported Amlodipine Besylate 10 Mg Tablet 5 Mg PO HS 11/24/17 Reported Amiodarone Hcl 200 Mg Tablet 1 Tab PO DAILY 11/24/[address] CHEST 07/18 REVIEWED BY ME Diffuse interstitial edema/ moderate effusions CXR 07/20 some re-accumulation of right effusion Impression . 1. Acute on chronic hypoxic respiratory failure secondary to multifactorial etiologies and include a combination of congestive heart failure and acute exacerbation of chronic obstructive pulmonary disease. CHF/ effusions worse on ct 07/18. STATUS post right thoracentesis and increase UF /HD , now some re- accumulation 2. Bronchospasm, likely related to combination of chronic obstructive pulmonary disease exacerbation and congestive heart failure. resolved. 3. Abnormal chest x-ray / ct chest consistent with congestive heart failure. 4. 50 years of tobaccoism, on home oxygen at 2 liters, continues to smoke 3 cigarettes a day. 5. History of atrial fibrillation. 6. Chronic kidney disease, on hemodialysis. 7. Moderate effusions, Rt> left,TRANSUDATE on analysis 8. Left heart cath 06/27 with elevated left sided pressures Plan . D/W / RN and DR Frances 1. hemodialysis with ultrafiltration 2. CT guided right thoracentesis done 07/18/ , now with some re-accumulation RLL , low oncotic pressure another contributing factor, Monitor effusion for now 3. taper steroids / continue DuoNebs. Pulmicort as well. 4. HD per renal 5. Wean oxygen . Try VM 6. PRN BIPAP possible transfer [facility] d/w in detail. Prognosis is grim. He understands that. May consider comfort care if clinically does not improve BARBER HASTINGS MD Jul 21, 2018 13:44
--- NOTE | 2018-07-21 13:46 | PDOC ---
CARDIO Progress Notes Date and Time Date of Service 07/21/2018 Time of Evaluation 1320 Subjective Subjective: No Chest Pain, Other (SOA improved following thoracentesis) Vitals Vitals Vital Signs Date Time Temp Pulse Resp B/P (MAP) Pulse Ox O2 Delivery O2 Flow Rate FiO2 07/21/18 12:50 75 07/21/18 08:15 Non-Rebreather 15.0 07/21/18 07:00 98.4 20 141/65 (90) 97 98.4 Weight Weight [ ] Input and Output Intake and Output Intake and Output 07/21/18 06:59 Intake Total 200 ml Balance 200 ml Intake Oral 200 ml Microbiology Micro Microbiology 07/18/18 Anaerobic/Aerobic Culture, Resulted Pending 07/18/18 Anaerobic Culture Result 1 (ELZA), Resulted Pending 07/18/18 Aerobic Culture - Preliminary, Resulted 07/18/18 Aerobic Culture Result 1 (ELZA) - Preliminary, Resulted 07/18/18 Gram Stain - Final, Resulted 07/18/18 Gram Stain Result 1 (ELZA) - Final, Resulted 07/18/18 Gram Stain Result 2 (ELZA) - Final, Resulted Review of Systems Constitutional: yes: weakness, alert, oriented Ears/Nose/Throat: Yes: no symptom reported Pulmonary: Yes dyspnea Cardiovascular: Yes no symptom reported Gastrointestional: Yes: no symptom reported Genitourinary: Yes: no symptom reported Skin: Yes no symptom reported Psychiatric/Neurological: Yes: no symptom reported Endocrine: Yes: no symptom reported Physical Exam HEENT: Neck Supple W Full Motion Chest: Symmetric LUNGS: Other (bibasilar crackles) Heart: S1S2, RRR (SR) Abdomen: Soft N/T Extremities: No Edema, No Calf Tenderness Neurology: alert, oriented, follow commands Assessment Assessment 1. Acute respiratory failure secondary to a/c diastolic CHF and AECOPD: remains with NRB 2. Acute on chronic diastolic CHF; LVEF 50-55% 3. New ESRD 5. CAD with remote history of CABG. Cardiac cath earlier this year with revealed severe 3VD with 2/3 grafts patent. S/p PCI/TANO to the SVG to OM1. 6. PAFIB; on Amiodarone not on anticoagulation due to prior bleeding issues/ anemia. 7. Hypertension; controlled 8. Hyperlipidemia 9. SSS s/p PPM; ([facility]) device interrogation last month with normal function 10. NSVT: happened during HD, no symptoms. Potentiating factors are fluid shifts and hypoxia. 11. Hyperthyroidism: TSH at 0.014, per PCP Recommendations 1. Fluid off-loading via HD as per renal 2. Secondary prevention including DAPT with ASA and Plavix 3. Check K and Mg replace as warranted 4. Continue with amiodarone and toprol. 5. Check EKG and check QTc. Will discuss with primary pot puller. 6. Supportive care, medical therapy. future LTAC transfer. HAJA PHILLIPS APRN Jul 21, 2018 13:46
[2018-07-21 13:59] LABS: CALCIUM 8.5 mg/dL (8.5-10.1); CREATININE 1.4 mg/dL (0.6-1.0); GFR 36.9; POTASSIUM 4.5 mmol/L (3.5-5.1)
--- NOTE | 2018-07-21 14:30 | EKG ---
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
[2018-07-21] MEDS: ACETAMINOPHEN 500 MG TABLET PO PRN ×2 (14:41→20:39)
[2018-07-21 15:00] VITALS: BP 127/58
--- NOTE | 2018-07-21 15:48 | NUR ---
SS following up with discharge planning. SS accepted at [facility] and awaiting be availability at [facility] or [facility].
[2018-07-21] MEDS ORDERED: CHOLECALCIFEROL (VITAMIN D3) 1,000 UNIT TABLET PO SCH (16:00)
--- NOTE | 2018-07-21 17:23 | CARD ---
MR#: [id number] Date of Study: 07/21/2018 Ordering Physician: AHJA PHILLIPS, Referring Physician: SAMUEL QUINTANILLA Tech: Stephanie Juárez PUJA APPROVED REPORT EXAM: LIMITED Two-dimensional and M-mode echocardiogram. Other Information Quality : GoodHR: 70bpm Rhythm : NSR INDICATION Congestive Heart Failure 2D DIMENSIONS RVDd2.5 (2.9-3.5cm)Left Atrium(2D)4.1 (1.6-4.0cm) IVSd1.1 (0.7-1.1cm)Aortic Root(2D)2.8 (2.0-3.7cm) LVDd4.5 (3.9-5.9cm)PWd0.8 (0.7-1.1cm) LVDs3.7 (2.5-4.0cm)FS (%) 18.3 % SV35.5 mlLVEF(%)38.0 (>50%) Tricuspid Valve TR P. [id number] TR Peak [id number] LEFT VENTRICLE The left ventricle is normal size. There is normal left ventricular wall thickness. Left ventricle sy stolic function is low normal. EF 45%. The septum is severely hypokinetic to akinetic. RIGHT VENTRICLE The right ventricle is normal size. There is normal right ventricular wall thickness. The right ventr icular systolic function is normal. Pacer wire noted in RV/RA. ATRIA The left atrium size is normal. The right atrium size is normal. The interatrial septum is intact wit h no evidence for an atrial septal defect or patent foramen ovale as noted on 2-D or Doppler imaging. MITRAL VALVE The mitral valve is thickened but opens well. There is no evidence of mitral valve prolapse. There is no mitral valve stenosis. Doppler and Color-flow revealed mild to moderate mitral regurgitation. TRICUSPID VALVE The tricuspid valve is normal in structure and function. Doppler and Color Flow revealed mild tricusp id regurgitation. The PA pressure was estimated at 37 mmHg. There is no tricuspid valve prolapse or v egetation. There is no tricuspid valve stenosis. GREAT VESSELS The aortic root is normal in size. The IVC is dilated and collapses >50% with inspiration. PERICARDIAL EFFUSION There is no evidence of significant pericardial effusion. Critical Notification Critical Value: No <Conclusion> Left ventricle systolic function is low normal. EF 45%. The septum is severely hypokinetic to akinetic. Pacer wire noted in RV/RA. Doppler and Color Flow revealed mild tricuspid regurgitation. The PA pressure was estimated at 37 mmH g. Limited echo only. Signed by : Braden Masters, Electronically Approved : 07/21/2018 17:22:42
[2018-07-21 19:25] VITALS: BP 128/59
[2018-07-21] MEDS: ATORVASTATIN CALCIUM 40 MG TABLET. PO SCH (20:39)
[2018-07-21] MEDS: LORazepam 0.5 MG TABLET PO PRN (20:39)
[2018-07-21] MEDS: SERTRALINE 50 MG TABLET. PO SCH (20:40)
[2018-07-21 22:22] VITALS: BP 129/60
[2018-07-22] VITALS (7 sets, daily range): BP systolic 126–153; BP diastolic 53–67
[2018-07-22] MEDS: IPRATRPIUM/ALBUTEROL 0.5/2.5MG 3 ML NEBU. NEB SCH ×7 (00:46→23:17)
[2018-07-22] MEDS: methylPREDNISolone SOD SUCC PF 40 MG/ML VIAL. IV SCH ×2 (05:16→17:30)
[2018-07-22] MEDS: LEVOTHYROXINE 175 MCG TABLET PO SCH (05:16)
--- NOTE | 2018-07-22 07:46 | PDOC ---
PULMONARY PROGRESS NOTES Subjective sob better, has occ cough, no pain, oxygenation improved, on 4 lpm now Vitals Vital Signs Date Time Temp Pulse Resp B/P (MAP) Pulse Ox O2 Delivery O2 Flow Rate FiO2 07/22/18 04:32 98 4.0 07/22/18 03:59 97.6 66 22 126/58 (80) Nasal Cannula 97.6 ROS: No Nausea General: Alert, No acute distress HEENT: Other (nc at perrl) Lungs: Crackles, Other (diminished at the basis) Cardiovascular: S1, S2 Abdomen: Soft, Non-tender Neuro Exam: Alert Extremities: No Edema Skin: Warm Labs Laboratory Tests Test 07/21/18 13:40 Sodium Level 140 mmol/L (136-145) Potassium Level 4.5 mmol/L (3.5-5.1) Chloride Level 98 mmol/L (98-107) Carbon Dioxide Level 30 mmol/L (21-32) Anion Gap 12 (6-14) Blood Urea Nitrogen 9 mg/dL (7-20) Creatinine 1.4 mg/dL (0.6-1.0) Estimated GFR (Cockcroft-Gault) 36.9 Glucose Level 116 mg/dL (70-99) Calcium Level 8.5 mg/dL (8.5-10.1) Magnesium Level 2.0 mg/dL (1.8-2.4) Troponin I Quantitative 1.211 ng/mL (0.000-0.055) Thyroid Stimulating Hormone (TSH) 0.014 uIU/mL (0.358-3.74) Laboratory Tests Test 07/21/18 13:40 Sodium Level 140 mmol/L (136-145) Potassium Level 4.5 mmol/L (3.5-5.1) Chloride Level 98 mmol/L (98-107) Carbon Dioxide Level 30 mmol/L (21-32) Anion Gap 12 (6-14) Blood Urea Nitrogen 9 mg/dL (7-20) Creatinine 1.4 mg/dL (0.6-1.0) Estimated GFR (Cockcroft-Gault) 36.9 Glucose Level 116 mg/dL (70-99) Calcium Level 8.5 mg/dL (8.5-10.1) Magnesium Level 2.0 mg/dL (1.8-2.4) Troponin I Quantitative 1.211 ng/mL (0.000-0.055) Thyroid Stimulating Hormone (TSH) 0.014 uIU/mL (0.358-3.74) Medications Active Scripts Medications Dose Route/Sig Max Daily Dose Days Date Category Furosemide 20 Mg Tablet 20 Mg PO [id number] 07/16/18 Reported Potassium Chloride 20 Meq Tablet.er 20 Meq PO BID 07/16/18 Reported Metoprolol Succinate ( Xl ) (Metoprolol Succinate) 25 Mg Tab.er.24h 25 Mg PO DAILY 30 06/28/18 Rx Clopidogrel (Clopidogrel Bisulfate) 75 Mg Tablet 75 Mg PO DAILYWBKFT 30 06/28/18 Rx Acetaminophen 500 Mg Tablet 1 Tab PO PRN Q6HRS PRN 06/19/18 Reported Zoloft (Sertraline Hcl) 50 Mg Tablet 1 Tab PO HS 06/19/18 Reported Levetiracetam 500 Mg Tablet 1 Tab PO HS 06/19/18 Reported Levetiracetam 500 Mg Tablet 250 Mg PO DAILY 06/19/18 Reported Levothyroxine Sodium 175 Mcg Tablet 1 Tab PO DAILY 11/25/17 Reported Fludrocortisone Acetate 0.1 Mg Tablet 1 Tab PO DAILY12 11/25/17 Reported Vitamin D3 (Cholecalciferol (Vitamin D3)) 1,000 Unit Tablet 1 Tab PO QFR 11/25/17 Reported Atorvastatin Calcium 80 Mg Tablet 1 Tab PO HS 11/25/17 Reported Aspirin 81 Mg Tab.chew 1 Tab PO DAILY 11/24/17 Reported Amlodipine Besylate 10 Mg Tablet 5 Mg PO HS 11/24/17 Reported Amiodarone Hcl 200 Mg Tablet 1 Tab PO DAILY 11/24/[address] CHEST 07/18 REVIEWED BY ME Diffuse interstitial edema/ moderate effusions CXR 07/20 some re-accumulation of right effusion Impression . 1. Acute on chronic hypoxic respiratory failure secondary to multifactorial etiologies and include a combination of congestive heart failure and acute exacerbation of chronic obstructive pulmonary disease. CHF/ effusions worse on ct 07/18. STATUS post right thoracentesis and increase UF /HD , now some re- accumulation 2. Bronchospasm, likely related to combination of chronic obstructive pulmonary disease exacerbation and congestive heart failure. resolved. 3. Abnormal chest x-ray / ct chest consistent with congestive heart failure. 4. 50 years of tobaccoism, on home oxygen at 2 liters, continues to smoke 3 cigarettes a day. 5. History of atrial fibrillation. 6. Chronic kidney disease, on hemodialysis. 7. Moderate effusions, Rt> left,TRANSUDATE on analysis 8. Left heart cath 06/27 with elevated left sided pressures Plan . D/W , pt 1. hemodialysis with ultrafiltration 2. CT guided right thoracentesis done 07/18/ , now with some re-accumulation RLL , low oncotic pressure another contributing factor, Monitor effusion for now 3. change solumedrol to 40 bid / continue DuoNebs. Pulmicort as well. 4. HD per renal 5. Wean oxygen . Try VM 6. PRN BIPAP MAJOR DOWLING MD Jul 22, 2018 07:46
[2018-07-22] MEDS: BUDESONIDE 0.5 MG/2 ML NEBU. NEB SCH ×2 (08:19→20:28)
[2018-07-22] MEDS: levETIRAcetam 500 MG TABLET PO SCH ×2 (08:56→21:03)
[2018-07-22] MEDS: CLOPIDOGREL BISULFATE 75 MG TABLET PO SCH (08:57)
[2018-07-22] MEDS: ASPIRIN CHEWABLE 81 MG TABLET. PO SCH (08:57)
[2018-07-22] MEDS: amLODIPine BESYLATE 5 MG TABLET PO SCH ×2 (08:57→21:06)
[2018-07-22] MEDS: POTASSIUM CHLORIDE 20 MEQ TABLET.ER. PO SCH ×2 (08:57→17:30)
[2018-07-22] MEDS: METOPROLOL SUCC 24HR ER 25 MG TAB.ER.24H. PO SCH (08:58)
[2018-07-22] MEDS: AMIODARONE HCL 200 MG TABLET. PO SCH (08:58)
[2018-07-22] MEDS: FUROSEMIDE 40 MG/4 ML VIAL. IVP SCH (08:59)
[2018-07-22 09:52] LABS: FREE T4 4.06 ng/dL (0.76-1.46)
--- NOTE | 2018-07-22 10:10 | PDOC ---
PROGRESS NOTES Chief Complaint Chief Complaint impression Hypoxic respiratory failure-O2 dependent 1. Coronary artery disease with a history of three-vessel bypass (PICKARD to LAD, SVG to RCA and SVG to OM1) with PCI earlier this year to the ostium of the saphenous vein graft to the obtuse marginal due to a non-ST elevation myocardial infarction 2. End-stage renal disease on dialysis 3. Paroxysmal atrial fibrillation 4. Hypertension 5. Dyslipidemia 6. Diastolic dysfunction and moderate mitral regurgitation based on echocardiogram in June 2018 7. CVA 8. SSS s/p st. flor dual chamber pacer 9. PAF - on amiodarone and not on anticoagulation due to DAPT currently on board and prior bleeding issues/anemia. 10 Moderate effusions, Rt> left, LIKELY TRANSUDATE 11. CT guided right thoracentesis done . severe protein-caloric malnutrition 13. severe debility 14 NSVTACH 07/21/1807/20 very soa, very fatigued with activity more o2 requirements today very ill, poor prognois severe exac of disease, plan select hospital placement History of Present Illness History of Present Illness Seen in room, good day today seemingly verifies he does not what mandie but wants select LTAC Has been accepted at [facility] but some staffing issues hence still here at [facility] Also went into nonsustained V. tach few seconds yesterday during dialysis, asymptomatic Plan: okay for discharge today to LTAC, please coordinate with data warehouse specialist Harley on chart Discharge summary done 2 days ago with only addendum of nonsustained V. tach on 07/21/18-during dialysis, no symptoms, continue cardiac meds Vitals Vitals Vital Signs Date Time Temp Pulse Resp B/P (MAP) Pulse Ox O2 Delivery O2 Flow Rate FiO2 07/22/18 08:58 70 145/67 07/22/18 08:19 96 Nasal Cannula 4.0 07/22/18 07:00 97.8 18 97.8 Physical Exam General: Alert, Oriented X3, Cooperative, moderate distress Heart: Regular rate, No murmurs, Other (sinus 72 RATE) Lungs: Other (diminished at the basis) Abdomen: Normal bowel sounds, Soft Extremities: No clubbing, No cyanosis, No tenderness/swelling, Other (minimal subcutaneous tissue) Skin: No rashes, No breakdown Labs LABS Laboratory Tests Test 07/21/18 13:40 Sodium Level 140 mmol/L (136-145) Potassium Level 4.5 mmol/L (3.5-5.1) Chloride Level 98 mmol/L (98-107) Carbon Dioxide Level 30 mmol/L (21-32) Anion Gap 12 (6-14) Blood Urea Nitrogen 9 mg/dL (7-20) Creatinine 1.4 mg/dL (0.6-1.0) Estimated GFR (Cockcroft-Gault) 36.9 Glucose Level 116 mg/dL (70-99) Calcium Level 8.5 mg/dL (8.5-10.1) Magnesium Level 2.0 mg/dL (1.8-2.4) Troponin I Quantitative 1.211 ng/mL (0.000-0.055) Thyroid Stimulating Hormone (TSH) 0.014 uIU/mL (0.358-3.74) Free Thyroxine 4.06 ng/dL (0.76-1.46) Free Triiodothyronine (T3) pg/mL 0.97 pg/mL (2.18-3.98) Review of Systems Review of Systems Weak, SOA on exertion, otherwise rest of 14 point systems reviewed negative Assessment and Plan Assessmemt and Plan Problems Medical Problems: (1) Congestive heart failure Status: Acute Comment Review of Relevant I have reviewed the following items jose (where applicable) has been applied. Labs Laboratory Tests Test 07/21/18 13:40 Sodium Level 140 mmol/L (136-145) Potassium Level 4.5 mmol/L (3.5-5.1) Chloride Level 98 mmol/L (98-107) Carbon Dioxide Level 30 mmol/L (21-32) Anion Gap 12 (6-14) Blood Urea Nitrogen 9 mg/dL (7-20) Creatinine 1.4 mg/dL (0.6-1.0) Estimated GFR (Cockcroft-Gault) 36.9 Glucose Level 116 mg/dL (70-99) Calcium Level 8.5 mg/dL (8.5-10.1) Magnesium Level 2.0 mg/dL (1.8-2.4) Troponin I Quantitative 1.211 ng/mL (0.000-0.055) Thyroid Stimulating Hormone (TSH) 0.014 uIU/mL (0.358-3.74) Free Thyroxine 4.06 ng/dL (0.76-1.46) Free Triiodothyronine (T3) pg/mL 0.97 pg/mL (2.18-3.98) Laboratory Tests Test 07/21/18 13:40 Sodium Level 140 mmol/L (136-145) Potassium Level 4.5 mmol/L (3.5-5.1) Chloride Level 98 mmol/L (98-107) Carbon Dioxide Level 30 mmol/L (21-32) Anion Gap 12 (6-14) Blood Urea Nitrogen 9 mg/dL (7-20) Creatinine 1.4 mg/dL (0.6-1.0) Estimated GFR (Cockcroft-Gault) 36.9 Glucose Level 116 mg/dL (70-99) Calcium Level 8.5 mg/dL (8.5-10.1) Magnesium Level 2.0 mg/dL (1.8-2.4) Troponin I Quantitative 1.211 ng/mL (0.000-0.055) Thyroid Stimulating Hormone (TSH) 0.014 uIU/mL (0.358-3.74) Free Thyroxine 4.06 ng/dL (0.76-1.46) Free Triiodothyronine (T3) pg/mL 0.97 pg/mL (2.18-3.98) Microbiology 07/18/18 Anaerobic/Aerobic Culture - Preliminary, Resulted 07/18/18 Anaerobic Culture Result 1 (ELZA) - Preliminary, Resulted 07/18/18 Aerobic Culture - Final, Resulted 07/18/18 Aerobic Culture Result 1 (ELZA) - Final, Resulted 07/18/18 Gram Stain - Final, Resulted 07/18/18 Gram Stain Result 1 (ELZA) - Final, Resulted 07/18/18 Gram Stain Result 2 (ELZA) - Final, Resulted Medications Current Medications Albuterol/ Ipratropium (Duoneb) 3 ml 1X ONCE NEB Last administered on at 10:15; Start 07/16/18 at 10:15; Stop 07/16/18 at 10:16; Status DC Furosemide (Lasix) 40 mg 1X ONCE IVP Last administered on 07/16/18at 11:02; Start 07/16/18 at 10:30; Stop 07/16/18 at 10:31; Status DC Ondansetron HCl (Zofran) 4 mg PRN Q8HRS PRN IV NAUSEA/VOMITING; Start 07/16/18 at 11:30; Stop 07/17/18 at 09:12; Status DC Acetaminophen (Tylenol) 650 mg PRN Q4HRS PRN PO FEVER; Start 07/16/18 at 11:30 ; Stop 07/17/18 at 11:29; Status DC Nitroglycerin (Nitrostat) 0.4 mg PRN Q5MIN PRN SL CHEST PAIN; Start 07/16/18 at 11:30; Stop 07/17/18 at 11:29; Status DC Albuterol/ Ipratropium (Duoneb) 3 ml RTQID NEB Last administered on 07/17/18 08:17; Start 07/16/18 at 12:00; Stop 07/17/18 at 11:59; Status DC Hydralazine HCl (Apresoline Inj) 10 mg PRN Q4HRS PRN IVP ELEVATED BP, SEE COMMENTS Last administered on 07/16/18 12:57; Start 07/16/18 at 12:00 Amiodarone HCl (Cordarone) 200 mg DAILY PO Last administered on 07/22/18 08:58 ; Start 07/17/18 at 09:00 Amlodipine Besylate (Norvasc) 5 mg HS PO Last administered on 07/16/18 21:16; Start 07/16/18 at 21:00; Stop 07/17/18 at 16:07; Status DC Aspirin (Children'S Aspirin) 81 mg DAILY PO Last administered on 07/22/18 08: 57; Start 07/17/18 at 09:00 Vitamin D (Vitamin D3) 1,000 unit QFR PO Last administered on 07/21/18 17:44; Start 07/21/18 at 16:00 Clopidogrel Bisulfate (Plavix) 75 mg DAILYWBKFT PO Last administered on 08:57; Start 07/17/18 at 08:00 Fludrocortisone Acetate (Florinef) 0.1 mg DAILYWLUN PO Last administered on 12:49; Start 07/17/18 at 12:00 Furosemide (Lasix) 20 mg BID92 PO Last administered on 07/17/18at 15:45; Start 07/17/18 at 09:00; Stop 07/17/18 at 18:16; Status DC Levetiracetam (Keppra) 500 mg HS PO Last administered on 07/21/18 20:39; Start 07/16/18 at 21:00 Levetiracetam (Keppra) 250 mg DAILY PO Last administered on 07/22/18 08:56; Start 07/17/18 at 09:00 Levothyroxine Sodium (Synthroid) 175 mcg DAILY06 PO Last administered on 05:16; Start 07/17/18 at 06:00 Metoprolol Succinate (Toprol Xl) 25 mg DAILY PO Last administered on 07/22/18 08:58; Start 07/17/18 at 09:00 Sertraline HCl (Zoloft) 50 mg HS PO Last administered on 07/21/18 20:40; Start 07/16/18 at 21:00 Acetaminophen (Tylenol) 500 mg PRN Q6HRS PRN PO MILD PAIN Last administered on 07/21/18 20:39; Start 07/16/18 at 17:00 Atorvastatin Calcium (Lipitor) 80 mg QHS PO Last administered on 07/21/18 20: 39; Start 07/16/18 at 21:00 Potassium Chloride (Klor-Con) 20 meq BIDWMEALS PO Last administered on 08:57; Start 07/17/18 at 08:00 Sodium Chloride 1,000 ml @ 1,000 mls/hr Q1H PRN IV hypotension; Start 07/16/18 at 16:30; Stop 07/16/18 at 23:59; Status DC Sodium Chloride 1,000 ml @ 400 mls/hr Q2H30M PRN IV PATENCY; Start 07/16/18 at 16:30; Stop 07/16/18 at 23:59; Status DC Info (PHARMACY MONITORING -- do not chart) 1 each PRN DAILY PRN MC SEE COMMENTS ; Start 07/16/18 at 20:00; Status UNV Info (PHARMACY MONITORING -- do not chart) 1 each PRN DAILY PRN MC SEE COMMENTS ; Start 07/16/18 at 20:00; Status Cancel Lorazepam (Ativan) 0.5 mg PRN Q12HR PRN PO ANXIETY / AGITATION Last administered on 3/15/19at 20:39; Start 07/16/18 at 20:15 Sodium Chloride 1,000 ml @ 1,000 mls/hr Q1H PRN IV hypotension; Start 07/17/18 at 08:05; Stop 07/17/18 at 14:04; Status DC Sodium Chloride (Normal Saline Flush) 10 ml 1X PRN PRN IV AP catheter pack; Start 07/17/18 at 08:15; Stop 07/18/18 at 08:14; Status DC Sodium Chloride (Normal Saline Flush) 10 ml 1X PRN PRN IV LANGUAGE PATHOLOGIST catheter pack; Start 07/17/18 at 08:15; Stop 07/18/18 at 08:14; Status DC Sodium Chloride 1,000 ml @ 400 mls/hr Q2H30M PRN IV PATENCY; Start 07/17/18 at 08:05; Stop 07/17/18 at 20:04; Status DC Info (PHARMACY MONITORING -- do not chart) 1 each PRN DAILY PRN MC SEE COMMENTS ; Start 07/17/18 at 08:15; Status UNV Info (PHARMACY MONITORING -- do not chart) 1 each PRN DAILY PRN MC SEE COMMENTS ; Start 07/17/18 at 08:15; Status UNV Ondansetron HCl (Zofran) 4 mg PRN Q6HRS PRN IV NAUSEA/VOMITING Last administered on 07/17/18at 15:43; Start 07/17/18 at 09:15 Clonidine HCl (Catapres) 0.1 mg PRN Q1HR PRN PO HYPERTENSION, SEE COMMENTS; Start 07/17/18 at 09:15 Acetaminophen (Tylenol) 500 mg PRN Q6HRS PRN PO MILD PAIN / TEMP; Start at 09:15; Status UNV Darbepoetin Olaf (Aranesp) 60 mcg WEEKLYHS SQ Last administered on 07/17/18at 22 :02; Start 07/17/18 at 21:00 Albuterol/ Ipratropium (Duoneb) 3 ml Q4HRS NEB Last administered on 07/22/18at 08:19; Start 07/17/18 at 13:30 Budesonide (Pulmicort) 0.5 mg RTBID NEB Last administered on 07/22/18at 08:19; Start 07/17/18 at 13:30 Methylprednisolone Sodium Succinate (SOLU-Medrol 125MG VIAL) 60 mg Q8HRS IV Last administered on 07/19/18at 14:41; Start 07/17/18 at 13:30; Stop 07/19/18 at 15:08; Status DC Amlodipine Besylate (Norvasc) 5 mg BID PO Last administered on 07/22/18at 08:57 ; Start 07/18/18 at 09:00 Amlodipine Besylate (Norvasc) 5 mg 1X ONCE PO Last administered on 07/17/18at 17:49; Start 07/17/18 at 16:30; Stop 07/17/18 at 16:31; Status DC Furosemide (Lasix) 40 mg DAILY IVP Last administered on 07/22/18at 08:59; Start 07/17/18 at 18:15 Sodium Chloride 1,000 ml @ 1,000 mls/hr Q1H PRN IV hypotension; Start 07/18/18 at 10:46; Stop 07/18/18 at 16:45; Status DC Albumin Human 200 ml @ 200 mls/hr 1X PRN PRN IV Hypotension; Start 07/18/18 at 11:00; Stop 07/18/18 at 16:59; Status DC Sodium Chloride (Normal Saline Flush) 10 ml 1X PRN PRN IV AP catheter pack; Start 07/18/18 at 11:00; Stop 07/19/18 at 10:59; Status Cancel Sodium Chloride (Normal Saline Flush) 10 ml 1X PRN PRN IV LANGUAGE PATHOLOGIST catheter pack; Start 07/18/18 at 11:00; Stop 07/19/18 at 10:59; Status Cancel Sodium Chloride 1,000 ml @ 400 mls/hr Q2H30M PRN IV PATENCY; Start 07/18/18 at 10:46; Stop 07/18/18 at 22:45; Status DC Info (PHARMACY MONITORING -- do not chart) 1 each PRN DAILY PRN MC SEE COMMENTS ; Start 07/18/18 at 11:00; Status UNV Info (PHARMACY MONITORING -- do not chart) 1 each PRN DAILY PRN MC SEE COMMENTS ; Start 07/18/18 at 11:00; Status UNV Sodium Chloride 1,000 ml @ 1,000 mls/hr Q1H PRN IV hypotension; Start 07/19/18 at 07:42; Stop 07/19/18 at 13:41; Status DC Sodium Chloride (Normal Saline Flush) 10 ml 1X PRN PRN IV AP catheter pack; Start 07/19/18 at 07:45; Stop 07/20/18 at 07:44; Status DC Sodium Chloride (Normal Saline Flush) 10 ml 1X PRN PRN IV LANGUAGE PATHOLOGIST catheter pack; Start 07/19/18 at 07:45; Stop 07/20/18 at 07:44; Status DC Sodium Chloride 1,000 ml @ 400 mls/hr Q2H30M PRN IV PATENCY; Start 07/19/18 at 07:42; Stop 07/19/18 at 19:41; Status DC Info (PHARMACY MONITORING -- do not chart) 1 each PRN DAILY PRN MC SEE COMMENTS ; Start 07/19/18 at 07:45; Status UNV Info (PHARMACY MONITORING -- do not chart) 1 each PRN DAILY PRN MC SEE COMMENTS ; Start 07/19/18 at 07:45 Methylprednisolone Sodium Succinate (SOLU-Medrol 40MG VIAL) 30 mg Q8HRS IV Last administered on 07/22/18at 05:16; Start 07/19/18 at 22:00; Stop 07/22/18 at 07:47; Status DC Sodium Chloride 1,000 ml @ 1,000 mls/hr Q1H PRN IV hypotension; Start 07/21/18 at 07:09; Stop 07/21/18 at 13:08; Status DC Sodium Chloride 1,000 ml @ 400 mls/hr Q2H30M PRN IV PATENCY; Start 07/21/18 at 07:09; Stop 07/21/18 at 19:08; Status DC Info (PHARMACY MONITORING -- do not chart) 1 each PRN DAILY PRN MC SEE COMMENTS ; Start 07/21/18 at 07:15 Methylprednisolone Sodium Succinate (SOLU-Medrol 40MG VIAL) 40 mg Q12HR IV ; Start 07/22/18 at 17:00 Active Scripts Active Metoprolol Succinate ( Xl ) (Metoprolol Succinate) 25 Mg Tab.er.24h 25 Mg PO DAILY 30 Days Clopidogrel (Clopidogrel Bisulfate) 75 Mg Tablet 75 Mg PO DAILYWBKFT 30 Days Reported Furosemide 20 Mg Tablet 20 Mg PO BID92 Potassium Chloride 20 Meq Tablet.er 20 Meq PO BID Acetaminophen 500 Mg Tablet 1 Tab PO PRN Q6HRS PRN Zoloft (Sertraline Hcl) 50 Mg Tablet 1 Tab PO HS Levetiracetam 500 Mg Tablet 1 Tab PO HS Levetiracetam 500 Mg Tablet 250 Mg PO DAILY Levothyroxine Sodium 175 Mcg Tablet 1 Tab PO DAILY Fludrocortisone Acetate 0.1 Mg Tablet 1 Tab PO DAILY12 Vitamin D3 (Cholecalciferol (Vitamin D3)) 1,000 Unit Tablet 1 Tab PO QFR Atorvastatin Calcium 80 Mg Tablet 1 Tab PO HS Aspirin 81 Mg Tab.chew 1 Tab PO DAILY Amlodipine Besylate 10 Mg Tablet 5 Mg PO HS Amiodarone Hcl 200 Mg Tablet 1 Tab PO DAILY Vitals/I & O Vital Sign - Last 24 Hours 07/21/18 07/21/18 07/21/18 07/21/18 12:49 12:50 15:00 16:21 Temp 97.7 97.7 Pulse 75 75 72 Resp 20 B/P (MAP) 127/58 (81) Pulse Ox 98 97 O2 Delivery NonRebreather Mask Venturi Mask O2 Flow Rate 15.0 07/21/18 07/21/18 07/21/18 07/21/18 19:25 19:45 20:00 20:39 Temp 98.1 98.1 Pulse 69 69 Resp 24 B/P (MAP) 128/59 (82) 128/59 Pulse Ox 96 O2 Delivery Nasal Cannula Non-Rebreather Non-Rebreather O2 Flow Rate 4.0 4.0 4.0 07/21/18 07/21/18 07/22/18 07/22/18 20:56 22:22 00:48 03:59 Temp 97.3 97.6 97.3 97.6 Pulse 74 66 Resp 22 22 B/P (MAP) 129/60 (83) 126/58 (80) Pulse Ox 94 94 98 98 O2 Delivery Nasal Cannula Nasal Cannula O2 Flow Rate 4.0 4.0 4.0 4.0 07/22/18 07/22/18 07/22/18 07/22/18 04:32 07:00 08:19 08:57 Temp 97.8 97.8 Pulse 70 70 Resp 18 B/P (MAP) 145/67 (93) 145/67 Pulse Ox 98 97 96 O2 Delivery Nasal Cannula Nasal Cannula O2 Flow Rate 4.0 4.0 4.0 07/22/18 07/22/18 08:58 08:58 Pulse 70 70 B/P (MAP) 145/67 145/67 Intake and Output 07/21/18 07/21/18 07/22/18 14:59 22:59 06:59 Intake Total 50 ml 0 ml Output Total 200 ml 0 ml Balance -200 ml 50 ml 0 ml Nutrition Consultation Dietary Evaluation: Recommendations by RD: Increase Calorie Intake, Protein supplementation Comments: continue liberalize diet to regular and encourage PO intake; honor food preferences and provide snacks as requested will send magic cup x 2 /tid and pt to try nepro with dinner tonight Expected Outcomes/Goals: PO intake to meet >75% est needs- do not expect pt to meet new goal 07/21/18: to meet > 50% est nutr needs Interpretation of weight loss: >10% in 6 months Malnutrition Findings: Food and Nutrition Intake (Sev: <50% est energy req 5days Weight Status: Underweight AV BASSETT MD Jul 22, 2018 10:10
--- NOTE | 2018-07-22 11:17 | PDOC ---
Renal-Progress Notes Subjective Notes Notes FEELING BETTER History of Present Illness Hx of present illness IMPROVED Vitals Vitals Vital Signs Date Time Temp Pulse Resp B/P (MAP) Pulse Ox O2 Delivery O2 Flow Rate FiO2 07/22/18 08:58 70 145/67 07/22/18 08:19 96 Nasal Cannula 4.0 07/22/18 07:00 97.8 18 97.8 Weight Weight [ ] I.O. Intake and Output Intake and Output 07/22/18 06:59 Intake Total 50 ml Output Total 200 ml Balance -150 ml Intake Oral 50 ml Output Urine Total 200 ml Labs Labs Laboratory Tests Test 07/21/18 13:40 Sodium Level 140 mmol/L (136-145) Potassium Level 4.5 mmol/L (3.5-5.1) Chloride Level 98 mmol/L (98-107) Carbon Dioxide Level 30 mmol/L (21-32) Anion Gap 12 (6-14) Blood Urea Nitrogen 9 mg/dL (7-20) Creatinine 1.4 mg/dL (0.6-1.0) Estimated GFR (Cockcroft-Gault) 36.9 Glucose Level 116 mg/dL (70-99) Calcium Level 8.5 mg/dL (8.5-10.1) Magnesium Level 2.0 mg/dL (1.8-2.4) Troponin I Quantitative 1.211 ng/mL (0.000-0.055) Thyroid Stimulating Hormone (TSH) 0.014 uIU/mL (0.358-3.74) Free Thyroxine 4.06 ng/dL (0.76-1.46) Free Triiodothyronine (T3) pg/mL 0.97 pg/mL (2.18-3.98) Micro Micro Microbiology 07/18/18 Anaerobic/Aerobic Culture - Preliminary, Resulted 07/18/18 Anaerobic Culture Result 1 (ELZA) - Preliminary, Resulted 07/18/18 Aerobic Culture - Final, Resulted 07/18/18 Aerobic Culture Result 1 (ELZA) - Final, Resulted 07/18/18 Gram Stain - Final, Resulted 07/18/18 Gram Stain Result 1 (ELZA) - Final, Resulted 07/18/18 Gram Stain Result 2 (ELZA) - Final, Resulted Review of Systems Constitutional: yes: weakness, alert, oriented Ears/Nose/Throat: Yes: no symptom reported Pulmonary: Yes dyspnea Cardiovascular: Yes no symptom reported Gastrointestional: Yes: no symptom reported Genitourinary: Yes: no symptom reported Skin: Yes no symptom reported Psychiatric/Neurological: Yes: no symptom reported Endocrine: Yes: no symptom reported Physical Exam General Appearance: no apparent distress Skin: warm Respiratory: decreased breath sounds Heart: S1S2, RRR Abdomen: soft, bowel sounds present Genitourinary: bladder flat Extremities: pulses present, no edema Neurology: alert, oriented, follow commands Assessment Assessment IMP ACUTE HYPOXIC RESP FAILURE-MUCH IMPROVED ESRD-MWF ANEMIA PLEURAL EFFUSION-STARTING TO REACCUMULATE CHF-PROB ACUTE ON CHRONIC DIASTOLIC AND SYSTOLIC HX OF ATROPHIED LEFT KIDNEY HX OF RIGHT ANNAMARIA AND S/P STENTING PLAN HD TUESDAY TW LOWERED CONT ARANESP WOULD BENEFIT FROM THERAPY UPDATED NISHI BENITZE MD Jul 22, 2018 11:17
[2018-07-22] MEDS: FLUDROCORTISONE 0.1 MG TABLET PO SCH (13:27)
[2018-07-22] MEDS: ATORVASTATIN CALCIUM 40 MG TABLET. PO SCH (21:03)
[2018-07-22] MEDS: LORazepam 0.5 MG TABLET PO PRN (21:03)
[2018-07-22] MEDS: SERTRALINE 50 MG TABLET. PO SCH (21:08)
[2018-07-23 03:40] VITALS: BP 147/68
[2018-07-23] MEDS: IPRATRPIUM/ALBUTEROL 0.5/2.5MG 3 ML NEBU. NEB SCH ×3 (04:10→11:37)
[2018-07-23] MEDS: LEVOTHYROXINE 175 MCG TABLET PO SCH (06:06)
[2018-07-23 07:00] VITALS: BP 171/74
--- NOTE | 2018-07-23 07:12 | PDOC ---
PULMONARY PROGRESS NOTES Subjective sob better, has occ cough, no pain, oxygenation improved, on 3 lpm now Vitals Vital Signs Date Time Temp Pulse Resp B/P (MAP) Pulse Ox O2 Delivery O2 Flow Rate FiO2 07/23/18 04:16 94 Nasal Cannula 3.0 07/23/18 03:40 97.5 70 20 147/68 (94) 97.5 ROS: No Nausea General: Alert, No acute distress HEENT: Other (nc at perrl) Lungs: Wheezing, Crackles Cardiovascular: S1, S2 Abdomen: Soft, Non-tender Neuro Exam: Alert Extremities: No Edema Skin: Warm Labs Laboratory Tests Test 07/21/18 13:40 Sodium Level 140 mmol/L (136-145) Potassium Level 4.5 mmol/L (3.5-5.1) Chloride Level 98 mmol/L (98-107) Carbon Dioxide Level 30 mmol/L (21-32) Anion Gap 12 (6-14) Blood Urea Nitrogen 9 mg/dL (7-20) Creatinine 1.4 mg/dL (0.6-1.0) Estimated GFR (Cockcroft-Gault) 36.9 Glucose Level 116 mg/dL (70-99) Calcium Level 8.5 mg/dL (8.5-10.1) Magnesium Level 2.0 mg/dL (1.8-2.4) Troponin I Quantitative 1.211 ng/mL (0.000-0.055) Thyroid Stimulating Hormone (TSH) 0.014 uIU/mL (0.358-3.74) Free Thyroxine 4.06 ng/dL (0.76-1.46) Free Triiodothyronine (T3) pg/mL 0.97 pg/mL (2.18-3.98) Medications Active Scripts Medications Dose Route/Sig Max Daily Dose Days Date Category Furosemide 20 Mg Tablet 20 Mg PO BID92 07/16/18 Reported Potassium Chloride 20 Meq Tablet.er 20 Meq PO BID 07/16/18 Reported Metoprolol Succinate ( Xl ) (Metoprolol Succinate) 25 Mg Tab.er.24h 25 Mg PO DAILY 30 06/28/18 Rx Clopidogrel (Clopidogrel Bisulfate) 75 Mg Tablet 75 Mg PO DAILYWBKFT 30 06/28/18 Rx Acetaminophen 500 Mg Tablet 1 Tab PO PRN Q6HRS PRN 06/19/18 Reported Zoloft (Sertraline Hcl) 50 Mg Tablet 1 Tab PO HS 06/19/18 Reported Levetiracetam 500 Mg Tablet 1 Tab PO HS 06/19/18 Reported Levetiracetam 500 Mg Tablet 250 Mg PO DAILY 06/19/18 Reported Levothyroxine Sodium 175 Mcg Tablet 1 Tab PO DAILY 11/25/17 Reported Fludrocortisone Acetate 0.1 Mg Tablet 1 Tab PO DAILY12 11/25/17 Reported Vitamin D3 (Cholecalciferol (Vitamin D3)) 1,000 Unit Tablet 1 Tab PO QFR 11/25/17 Reported Atorvastatin Calcium 80 Mg Tablet 1 Tab PO HS 11/25/17 Reported Aspirin 81 Mg Tab.chew 1 Tab PO DAILY 11/24/17 Reported Amlodipine Besylate 10 Mg Tablet 5 Mg PO HS 11/24/17 Reported Amiodarone Hcl 200 Mg Tablet 1 Tab PO DAILY 11/24/[address] CHEST 07/18 REVIEWED BY ME Diffuse interstitial edema/ moderate effusions CXR 07/20 some re-accumulation of right effusion Impression . 1. Acute on chronic hypoxic respiratory failure secondary to multifactorial etiologies and include a combination of congestive heart failure and acute exacerbation of chronic obstructive pulmonary disease. CHF/ effusions worse on ct 07/18. STATUS post right thoracentesis and increase UF /HD , w some re- accumulation 2. Bronchospasm, likely related to combination of chronic obstructive pulmonary disease exacerbation and congestive heart failure. resolved. 3. Abnormal chest x-ray / ct chest consistent with congestive heart failure. 4. 50 years of tobaccoism, on home oxygen at 2 liters, continues to smoke 3 cigarettes a day. 5. History of atrial fibrillation. 6. Chronic kidney disease, on hemodialysis. 7. Moderate effusions, Rt> left,TRANSUDATE on analysis 8. Left heart cath 06/27 with elevated left sided pressures Plan . D/W pt, rn 1. hemodialysis with ultrafiltration 2. CT guided right thoracentesis done 07/18/ , now with some re-accumulation RLL , low oncotic pressure another contributing factor, Monitor effusion for now 3. still has wheezing cont solumedrol to 40 bid / continue DuoNebs. Pulmicort. 4. HD per renal 5. 02 titration to keep sat 92% 6. PRN MAJOR DONOHUE MD Jul 23, 2018 07:12
[2018-07-23] MEDS: BUDESONIDE 0.5 MG/2 ML NEBU. NEB SCH (08:02)
[2018-07-23] MEDS: POTASSIUM CHLORIDE 20 MEQ TABLET.ER. PO SCH (08:43)
[2018-07-23] MEDS: FUROSEMIDE 40 MG/4 ML VIAL. IVP SCH (08:43)
[2018-07-23] MEDS: CLOPIDOGREL BISULFATE 75 MG TABLET PO SCH (08:43)
[2018-07-23] MEDS: ASPIRIN CHEWABLE 81 MG TABLET. PO SCH (08:47)
[2018-07-23] MEDS: AMIODARONE HCL 200 MG TABLET. PO SCH (08:47)
[2018-07-23] MEDS: levETIRAcetam 500 MG TABLET PO SCH (08:47)
[2018-07-23] MEDS: amLODIPine BESYLATE 5 MG TABLET PO SCH (08:48)
[2018-07-23] MEDS: METOPROLOL SUCC 24HR ER 25 MG TAB.ER.24H. PO SCH (08:49)
[2018-07-23] MEDS: ONDANSETRON PF 4 MG/2 ML VIAL. IV PRN (08:49)
[2018-07-23] MEDS: methylPREDNISolone SOD SUCC PF 40 MG/ML VIAL. IV SCH (09:10)
--- NOTE | 2018-07-23 10:39 | PDOC3 ---
Discharge Summary Visit Information Date of Admission: Jul 16, 2018 Date of Discharge: Jul 23, 2018 Admitting Diagnosis Comment: [facility] DISCHARGE SUMMARY. Patient Name: Mercedes Kearney Unit Number: [id number] Date of : 1945 Patient Status: Admitted Inpatient Attending Doctor: Jeff Lua III, DO Discharge Summary Visit Information Date of Admission: Jul 16, 2018 Date of Discharge: Jul 23, 2018 Admitting Diagnosis Comment: impression Hypoxic respiratory failure-O2 dependent 1. Coronary artery disease with a history of three-vessel bypass (PICKARD to LAD, SVG to RCA and SVG to OM1) with PCI earlier this year to the ostium of the saphenous vein graft to the obtuse marginal due to a non-ST elevation myocardial infarction 2. End-stage renal disease on dialysis 3. Paroxysmal atrial fibrillation 4. Hypertension 5. Dyslipidemia 6. Diastolic dysfunction and moderate mitral regurgitation based on echocardiogram in June 2018 7. CVA 8. SSS s/p [facility] dual chamber pacer 9. PAF - on amiodarone and not on anticoagulation due to DAPT currently on board and prior bleeding issues/anemia. 10 Moderate effusions, Rt> left, LIKELY TRANSUDATE 11. CT guided right thoracentesis done . severe protein-caloric malnutrition 13. severe debility Final Diagnosis Problems Medical Problems: (1) Congestive heart failure Status: Acute Brief Hospital Course Allergies Allergies Coded Allergies Type Severity Reaction Last Updated Verified codeine Allergy Intermediate 11/24/17 Yes Vital Signs Vital Signs Date Time Temp Pulse Resp B/P (MAP) Pulse Ox O2 Delivery O2 Flow Rate FiO2 07/21/18 07:00 98.4 72 20 141/65 (90) 97 NonRebreather Mask 15.0 98.4 Brief Hospital Course Ms. Kearney is a 72 old very frail white female who has a that takes care of her, came from home, readmission. 6 admissions already this year alone. She has a lot of comorbidities including CAD, stents, diastolic heart failure, ESRD on dialysis CHF, history of bypass, COPD, persistent A. fib. Her course was remarkable for portable O2 saturations needing BiPAP when necessary. She is appropriately a DNR. At one point he did mention hospice to but they're not ready yet, They take fluid off during dialysis I do believe so. Initially was hesitant to to LTAC but clearly these are her needs. She underwent right-sided thoracentesis on 07/18/18 which drained 900 mL fluid to the right and seems to be reaccumulating again. is aware of her over all poor prognosis. She is a DNR. We can take care of reaccumulated fluid at LTAC. I updated at this can be a long process and he understands Consults performed pulmonary, cardiology Procedures performed right-sided thoracentesis 900 mL DNR addendum: She went into nonsustained V. tach maybe 2 days prior to discharge at dialysis but asymptomatic. Patient only has an indwelling pacer no defibrillator. Cardiology aware, continue meds including amiodarone and other cardiac meds. Overall prognosis frequency of hospitalizations, chronic nature of disease causing frequent exacerbations To LTAC today dc 31 mins dw hsuband Discharge Information Condition at Discharge: Stable Disposition/Orders: Other (LTAC) Scheduled Amiodarone Hcl (Amiodarone Hcl) 200 Mg Tablet, 1 TAB PO DAILY, #90 Ref 1 ( Reported) Entered as Reported by: Ivon Houser on 11/24/172353 Last Action: Continued on 07/16/181640 by LESLY HILLIARD Amlodipine Besylate (Amlodipine Besylate) 10 Mg Tablet, 5 MG PO HS for HTN, ( Reported) Entered as Reported by: Ivon Houser on 11/24/172357 Last Action: Continued on 07/16/181640 by LESLY HILLIARD Aspirin (Aspirin) 81 Mg Tab.chew, 1 TAB PO DAILY, #30 Ref 3 (Reported) Entered as Reported by: Ivon Houser on 11/24/172358 Last Action: Continued on 07/16/18 164 by LESLY HILLIARD Atorvastatin Calcium (Atorvastatin Calcium) 80 Mg Tablet, 1 TAB PO HS, #30 Ref 5 (Reported) Entered as Reported by: Ivon Houser on 11/25/17 Last Action: Converted on 07/16/181640 by LESLY HILLIARD Cholecalciferol (Vitamin D3) (Vitamin D3) 1,000 Unit Tablet, 1 TAB PO QFR for SUPPLEMENT, #30 Ref 5 (Reported) Entered as Reported by: Ivon Houser on 11/25/17 0000 Last Action: Continued on 07/16/181640 by LESLY HILLIARD Clopidogrel Bisulfate (Clopidogrel) 75 Mg Tablet, 75 MG PO DAILYWBKFT for antiplatelet for 30 Days, #30 Prescribed by: ALEX DIAZ MD on 06/28/181529 Last Action: Continued on 07/16/181640 by LESLY HILLIARD Fludrocortisone Acetate (Fludrocortisone Acetate) 0.1 Mg Tablet, 1 TAB PO DAILY12 for STEROID REPLACEMENT, #90 Ref 1 (Reported) Entered as Reported by: Ivon Houser on 11/25/172358 Last Action: Continued on 07/16/181640 by LESLY HILLIARD Furosemide (Furosemide) 20 Mg Tablet, 20 MG PO BID92 for CHF, (Reported) Entered as Reported by: LESLY HILLIARD on 07/16/18 1501 Last Action: Continued on 07/16/181640 by LESLY HILLIARD Levetiracetam (Levetiracetam) 500 Mg Tablet, 250 MG PO DAILY for ANTIEPILEPTIC, #180 Ref 3 (Reported) Entered as Reported by: CAROL ZIEGLER on 06/19/18 110 Last Action: Continued on 07/16/181640 by LESLY HILLIARD Levetiracetam (Levetiracetam) 500 Mg Tablet, 1 TAB PO HS for ANTIEPILEPTIC, # 180 Ref 3 (Reported) Entered as Reported by: CAROL ZIEGLER on 06/19/18 1104 Last Action: Continued on 07/16/181640 by LESLY HILLIARD Levothyroxine Sodium (Levothyroxine Sodium) 175 Mcg Tablet, 1 TAB PO DAILY, #30 Ref 5 (Reported) Entered as Reported by: Ivon Houser on 11/25/172358 Last Action: Continued on 07/16/181640 by LESLY HILLIARD Metoprolol Succinate (Metoprolol Succinate ( Xl )) 25 Mg Tab.er.24h, 25 MG PO DAILY for antihypertensive for 30 Days, #30 Prescribed by: ALEX DIAZ MD on 06/28/181529 Last Action: Continued on 07/16/181640 by LESLY HILLIARD Potassium Chloride (Potassium Chloride) 20 Meq Tablet.er, 20 MEQ PO BID for Potassium supplement, (Reported) Entered as Reported by: LESLY HILLIARD on 07/16/18 1501 Last Action: Converted on 07/16/181640 by LESLY HILLIARD Sertraline Hcl (Zoloft) 50 Mg Tablet, 1 TAB PO HS for SLEEP, #30 Ref 2 (Reported ) Entered as Reported by: CAROL ZIEGLER on 06/19/181103 Last Action: Continued on 07/16/181640 by LESLY HILLIARD Scheduled PRN Acetaminophen (Acetaminophen) 500 Mg Tablet, 1 TAB PO PRN Q6HRS PRN for PAIN, # 60 (Reported) Entered as Reported by: CAROL ZIEGLER on 06/19/181103 Last Action: Converted on 07/16/181640 by AV PARKER MD Jul 21, 2018 09:50 Addendum: AV BASSETT MD on 07/21/18 @ 09:54 SHe does make some urine, maybe incontinent at times Final Diagnosis Problems Medical Problems: (1) Congestive heart failure Status: Acute Brief Hospital Course Allergies Allergies Coded Allergies Type Severity Reaction Last Updated Verified codeine Allergy Intermediate 11/24/17 Yes Vital Signs Vital Signs Date Time Temp Pulse Resp B/P (MAP) Pulse Ox O2 Delivery O2 Flow Rate FiO2 07/23/18 08:49 70 171/72 07/23/18 08:03 96 Nasal Cannula 3.0 07/23/18 07:00 98.6 18 98.6 Lab Results Laboratory Tests Test 07/21/18 13:40 Sodium Level 140 mmol/L (136-145) Potassium Level 4.5 mmol/L (3.5-5.1) Chloride Level 98 mmol/L (98-107) Carbon Dioxide Level 30 mmol/L (21-32) Anion Gap 12 (6-14) Blood Urea Nitrogen 9 mg/dL (7-20) Creatinine 1.4 mg/dL (0.6-1.0) Estimated GFR (Cockcroft-Gault) 36.9 Glucose Level 116 mg/dL (70-99) Calcium Level 8.5 mg/dL (8.5-10.1) Magnesium Level 2.0 mg/dL (1.8-2.4) Troponin I Quantitative 1.211 ng/mL (0.000-0.055) Thyroid Stimulating Hormone (TSH) 0.014 uIU/mL (0.358-3.74) Free Thyroxine 4.06 ng/dL (0.76-1.46) Free Triiodothyronine (T3) pg/mL 0.97 pg/mL (2.18-3.98) Brief Hospital Course Ms. Kearney is a 72 old [sex] who presented with [ ] Discharge Information Condition at Discharge: Stable Disposition/Orders: Other (ltac) Scheduled Amiodarone Hcl (Amiodarone Hcl) 200 Mg Tablet, 1 TAB PO DAILY, #90 Ref 1 ( Reported) Entered as Reported by: Ivon Houser on 11/24/174 Last Action: Continued on 07/16/181640 by LESLY HILLIARD Amlodipine Besylate (Amlodipine Besylate) 10 Mg Tablet, 5 MG PO HS for HTN, ( Reported) Entered as Reported by: Ivon Houser on 11/24/17 2358 Last Action: Continued on 07/16/181640 by LESLY HILLIARD Aspirin (Aspirin) 81 Mg Tab.chew, 1 TAB PO DAILY, #30 Ref 3 (Reported) Entered as Reported by: Ivon Houser on 11/24/17 235 Last Action: Continued on 07/16/181640 by LESLY HILLIARD Atorvastatin Calcium (Atorvastatin Calcium) 80 Mg Tablet, 1 TAB PO HS, #30 Ref 5 (Reported) Entered as Reported by: Ivon Houser on 11/25/17 0000 Last Action: Converted on 07/16/181640 by LESLY HILLIARD Cholecalciferol (Vitamin D3) (Vitamin D3) 1,000 Unit Tablet, 1 TAB PO QFR for SUPPLEMENT, #30 Ref 5 (Reported) Entered as Reported by: Ivon Houser on 11/25/17 0000 Last Action: Continued on 07/16/181640 by LESLY HILLIARD Clopidogrel Bisulfate (Clopidogrel) 75 Mg Tablet, 75 MG PO DAILYWBKFT for antiplatelet for 30 Days, #30 Prescribed by: ALEX DIAZ MD on 06/28/18 1530 Last Action: Continued on 07/16/181640 by LESLY HILLIARD Fludrocortisone Acetate (Fludrocortisone Acetate) 0.1 Mg Tablet, 1 TAB PO DAILY12 for STEROID REPLACEMENT, #90 Ref 1 (Reported) Entered as Reported by: Ivon Houser on 11/25/172358 Last Action: Continued on 07/16/181640 by LESLY HILLIARD Furosemide (Furosemide) 20 Mg Tablet, 20 MG PO BID92 for CHF, (Reported) Entered as Reported by: LESLY HILLIARD on 07/16/18 150 Last Action: Continued on 07/16/181640 by LESLY HILLIARD Levetiracetam (Levetiracetam) 500 Mg Tablet, 250 MG PO DAILY for ANTIEPILEPTIC, #180 Ref 3 (Reported) Entered as Reported by: CAROL ZIEGLER on 06/19/181103 Last Action: Continued on 07/16/181640 by LESLY HILLIARD Levetiracetam (Levetiracetam) 500 Mg Tablet, 1 TAB PO HS for ANTIEPILEPTIC, # 180 Ref 3 (Reported) Entered as Reported by: CAROL ZIGELER on 06/19/181103 Last Action: Continued on 07/16/181640 by LESLY HILLIARD Levothyroxine Sodium (Levothyroxine Sodium) 175 Mcg Tablet, 1 TAB PO DAILY, #30 Ref 5 (Reported) Entered as Reported by: Ivon Houser on 11/25/172358 Last Action: Continued on 07/16/181640 by LESLY HILLIARD Metoprolol Succinate (Metoprolol Succinate ( Xl )) 25 Mg Tab.er.24h, 25 MG PO DAILY for antihypertensive for 30 Days, #30 Prescribed by: ALEX DIAZ MD on 06/28/18 1530 Last Action: Continued on 07/16/181640 by LESLY HILLIARD Potassium Chloride (Potassium Chloride) 20 Meq Tablet.er, 20 MEQ PO BID for Potassium supplement, (Reported) Entered as Reported by: LESLY HILLIARD on 07/16/18 150 Last Action: Converted on 07/16/181640 by LESLY HILLIARD Sertraline Hcl (Zoloft) 50 Mg Tablet, 1 TAB PO HS for SLEEP, #30 Ref 2 (Reported ) Entered as Reported by: CAROL ZIEGLER on 06/19/181103 Last Action: Continued on 07/16/181640 by LESLY HILLIARD Scheduled PRN Acetaminophen (Acetaminophen) 500 Mg Tablet, 1 TAB PO PRN Q6HRS PRN for PAIN, # 60 (Reported) Entered as Reported by: CAROL ZIEGLER on 06/19/18 1104 Last Action: Converted on 07/16/18 1641 by AV PARKER MD Jul 23, 2018 10:39
[2018-07-23 11:00] VITALS: BP 156/70
--- NOTE | 2018-07-23 11:16 | PDOC ---
Renal-Progress Notes Subjective Notes Notes TIRED STILL History of Present Illness Hx of present illness STABLE Vitals Vitals Vital Signs Date Time Temp Pulse Resp B/P (MAP) Pulse Ox O2 Delivery O2 Flow Rate FiO2 07/23/18 08:49 70 171/72 07/23/18 08:03 96 Nasal Cannula 3.0 07/23/18 07:00 98.6 18 98.6 Weight Weight [ ] I.O. Intake and Output Intake and Output 07/23/18 06:59 Intake Total 510 ml Balance 510 ml Intake Oral 510 ml # Bowel Movements 3 Micro Micro Microbiology 07/18/18 Anaerobic/Aerobic Culture - Preliminary, Resulted 07/18/18 Anaerobic Culture Result 1 (ELZA) - Preliminary, Resulted 07/18/18 Aerobic Culture - Final, Resulted 07/18/18 Aerobic Culture Result 1 (ELZA) - Final, Resulted 07/18/18 Gram Stain - Final, Resulted 07/18/18 Gram Stain Result 1 (ELZA) - Final, Resulted 07/18/18 Gram Stain Result 2 (ELZA) - Final, Resulted Review of Systems Constitutional: yes: weakness, alert, oriented Ears/Nose/Throat: Yes: no symptom reported Pulmonary: Yes dyspnea Cardiovascular: Yes no symptom reported Gastrointestional: Yes: no symptom reported Genitourinary: Yes: no symptom reported Skin: Yes no symptom reported Psychiatric/Neurological: Yes: no symptom reported Endocrine: Yes: no symptom reported Physical Exam General Appearance: no apparent distress Skin: warm Respiratory: decreased breath sounds Heart: S1S2, RRR Abdomen: soft, bowel sounds present Genitourinary: bladder flat Extremities: pulses present, no edema Neurology: alert, oriented, follow commands Assessment Assessment IMP ACUTE HYPOXIC RESP FAILURE-MUCH IMPROVED ESRD-MWF ANEMIA PLEURAL EFFUSION-STARTING TO REACCUMULATE CHF-PROB ACUTE ON CHRONIC DIASTOLIC AND SYSTOLIC HX OF ATROPHIED LEFT KIDNEY HX OF RIGHT ANNAMARIA AND S/P STENTING PLAN HD TOMORROW TW LOWERED CONT ARANESP WOULD BENEFIT FROM THERAPY UPDATED PROB TO SELECT TODAY NISHI BENITEZ MD Jul 23, 2018 11:16
[2018-07-23] MEDS: FLUDROCORTISONE 0.1 MG TABLET PO SCH (12:18)
[2018-08-17] MEDS ORDERED: CEFD300C PO (15:55)
== END 2018-07-23 14:32 | DRG 280 ==
LOC: ER 09:56 → 2 SOUTH 11:07
PROVIDERS: ADMIT Internal Medicine; ATTEND Internal Medicine
PROC: 5A1D70Z Performance of Urinary Filtration, Intermittent, Less than 6 Hours Per Day (ICD-10-PCS; 2018-07-16)
PROC: 5A1D70Z Performance of Urinary Filtration, Intermittent, Less than 6 Hours Per Day (ICD-10-PCS; 2018-07-17)
PROC: 5A1D70Z Performance of Urinary Filtration, Intermittent, Less than 6 Hours Per Day (ICD-10-PCS; 2018-07-18)
PROC: 0W993ZZ Drainage of Right Pleural Cavity, Percutaneous Approach (ICD-10-PCS; principal; 2018-07-19)
PROC: 5A1D70Z Performance of Urinary Filtration, Intermittent, Less than 6 Hours Per Day (ICD-10-PCS; 2018-07-19)
PROC: 5A1D70Z Performance of Urinary Filtration, Intermittent, Less than 6 Hours Per Day (ICD-10-PCS; 2018-07-21)
DX: I13.2 Hypertensive heart and chronic kidney disease with heart failure and with stage 5 chronic kidney disease, or end stage renal disease (principal); I50.43 Acute on chronic combined systolic (congestive) and diastolic (congestive) heart failure; I21.4 Non-ST elevation (NSTEMI) myocardial infarction; J96.21 Acute and chronic respiratory failure with hypoxia; N18.6 End stage renal disease; E43 Unspecified severe protein-calorie malnutrition; I47.2 Ventricular tachycardia; I48.1 Persistent atrial fibrillation; J44.1 Chronic obstructive pulmonary disease with (acute) exacerbation; J98.11 Atelectasis; Z68.1 Body mass index [BMI] 19.9 or less, adult; D64.9 Anemia, unspecified; E03.9 Hypothyroidism, unspecified; E05.90 Thyrotoxicosis, unspecified without thyrotoxic crisis or storm; E78.5 Hyperlipidemia, unspecified; E87.6 Hypokalemia; F17.200 Nicotine dependence, unspecified, uncomplicated; I25.10 Atherosclerotic heart disease of native coronary artery without angina pectoris; I34.0 Nonrheumatic mitral (valve) insufficiency; I25.2 Old myocardial infarction; I48.0 Paroxysmal atrial fibrillation; K21.9 Gastro-esophageal reflux disease without esophagitis; K76.89 Other specified diseases of liver; F32.9 Major depressive disorder, single episode, unspecified; E21.3 Hyperparathyroidism, unspecified; Z66 Do not resuscitate; Z79.82 Long term (current) use of aspirin; Z79.899 Other long term (current) drug therapy; Z82.49 Family history of ischemic heart disease and other diseases of the circulatory system; Z86.73 Personal history of transient ischemic attack (TIA), and cerebral infarction without residual deficits; Z95.1 Presence of aortocoronary bypass graft; Z98.61 Coronary angioplasty status; Z99.2 Dependence on renal dialysis; Z99.81 Dependence on supplemental oxygen; Z90.710 Acquired absence of both cervix and uterus; Z87.01 Personal history of pneumonia (recurrent); Z88.8 Allergy status to other drugs, medicaments and biological substances
CPT/HCPCS: 32555; 36415; 36600; 71045; 71250; 80048; 80053; 80061; 82805; 83615; 83735; 83880; 84157; 84439; 84443; 84481; 84484; 85007; 85025; 85027; 85610; 85730; 87071; 87075; 87340; 88112; 88305; 93005; 93308; 94640; 94760; 96374; J0360; J0881; J1940; J2405; J2920; J2930; J7620; J7626; 99285-25

== ENCOUNTER 2018-08-17 03:56 | Inpatient (IN) | payer MEDICARE ==
[~2018-08-17] VITALS: Ht 152.4 cm; Wt 36.3 kg
[2018-08-17 05:30] VITALS: BP 167/61
--- NOTE | 2018-08-17 06:06 | NUR ---
0530 arrived to unit admitted to room 404, Dr Gibsb contacted ,admission orders received, patient informed, POC discussed to pt and verbalized understanding.
[2018-08-17] MEDS: VANCOMYCIN PER PHARMACY MC PRN ×2 (06:27→13:53)
--- NOTE | 2018-08-17 06:29 | NUR ---
Pharmacy Vancomycin Dosing Note S:Consulted to monitor and dose vancomycin started 08/17/18. O:TUSHARLURDES THURSTON is a 72 year old F with Cellulitis . Height: 5 feet, 0 inches Weight: 36.803553 kg Armstrong Body Weight: 45.50 Adjusted Body Weight: 41.86 Dosing Weight: Actual Other Antibiotics: LABS: Last BUN: 29 Last Creatinine: 2.4 Creatinine Clearance: HD mL/min Last WBC: 7.9 Last Procalcitonin: Tmax (past 24 hours): Microbiology: I/O: Drug Levels: Last level: on at Last dose given 08/17/18 at 0130 Vancomycin Dosing: Loading Dose: 1000 mg x1 Dosing Weight: Actual Target Trough: 10-20 A: Based on: WT AND DIALYSIS P: 1. Begin Vancomycin 500 mg IV Dose Per Levels 2. Follow up level ON AM OF NEXT DIALYSIS 3. Pharmacy will continue to monitor, follow and adjust therapy as needed. OSCAR ROD RPH, 08/17/18 0629 Signed: 08/17/18 at 0630 by OSCAR ROD RPH PHA
[2018-08-17 07:00] VITALS: BP 170/98
[2018-08-17] MEDS ORDERED: AMLO5TAB10 PO (08:00)
[2018-08-17] MEDS ORDERED: FERR325T14 PO (08:06)
[2018-08-17] MEDS ORDERED: FLUD0.1T PO (08:08)
[2018-08-17] MEDS ORDERED: LEVO175T5 PO (08:11)
[2018-08-17] MEDS ORDERED: MIRT15TA3 PO (08:19)
[2018-08-17] MEDS ORDERED: FOLI0.8T3 PO (08:23)
--- NOTE | 2018-08-17 08:26 | NUR ---
Chart review done. Pt has been at [facility] for rehab since discharge from [facility] in July. Would benefit from PT/OT Eval and Treat. Addendum: 08/17/18 at 0826 by BRIAN COLE OT Amended: Links added.
[2018-08-17] MEDS ORDERED: FERROUS SULFATE 325 MG TABLET. PO PRN (08:30)
[2018-08-17] MEDS ORDERED: amLODIPine BESYLATE 5 MG TABLET PO PRN (08:30)
[2018-08-17] MEDS ORDERED: ACETAMINOPHEN 500 MG TABLET PO PRN ×2 (08:30→12:00)
[2018-08-17] MEDS ORDERED: levETIRAcetam 250 MG TABLET PO SCH (09:00)
[2018-08-17] MEDS ORDERED: AMIODARONE HCL 200 MG TABLET. PO SCH (09:00)
[2018-08-17] MEDS ORDERED: FLUDROCORTISONE 0.1 MG TABLET PO SCH (09:00)
[2018-08-17] MEDS ORDERED: LEVOTHYROXINE 175 MCG TABLET PO SCH (09:00)
[2018-08-17] MEDS ORDERED: ASPIRIN CHEWABLE 81 MG TABLET. PO SCH (09:00)
[2018-08-17] MEDS ORDERED: CLOPIDOGREL BISULFATE 75 MG TABLET PO SCH (09:00)
[2018-08-17] MEDS ORDERED: METOPROLOL SUCC 24HR ER 25 MG TAB.ER.24H. PO SCH (09:00)
--- NOTE | 2018-08-17 09:40 | PDOC ---
Infectious Disease Note Vital Sign Vital Signs Vital Signs Date Time Temp Pulse Resp B/P (MAP) Pulse Ox O2 Delivery O2 Flow Rate FiO2 08/17/18 09:22 68 170/98 08/17/18 07:00 97.7 18 95 Nasal Cannula 2.0 97.7 Objective Assessment left leg cellulitis ESRD on HD HTN CVA CAD Tobaccoism Plan Plan of Care omnicef leg elevation adv to quit smoking ok to d/c KRISTIN Moise MD Aug 17, 2018 09:40
--- NOTE | 2018-08-17 10:14 | HP ---
ADMIT DATE: 08/17/2018 HISTORY OF PRESENT ILLNESS: The patient is a 72-year-old female patient, currently residing at [facility]. She has end-stage renal disease, for which she is on hemodialysis on Tuesday, Tuesday and Tuesday. She apparently missed her dialysis yesterday. [facility] usually arranges transportation to and from the longterm to dialysis unit and somehow they did not transport her yesterday. Basically, she was brought to the Emergency Room of [facility] because of marked swelling and redness of her left leg. The patient was admitted to on 07/16/2018 according to her for congestive heart failure and apparently was transferred to [facility] and from there, she was sent to [facility] to continue the process of rehabilitation as she has weakness, debility and inability to walk. PAST MEDICAL HISTORY: Significant for coronary artery disease with a history of 3-vessel bypass, PICKARD to LAD, saphenous vein graft to right coronary artery and saphenous vein graft to obtuse marginal I with PCI earlier this year to the ostium of the saphenous vein graft to the obtuse marginal due to a non-ST segment elevation myocardial infarction. She is known to have end-stage renal disease, on hemodialysis on Tuesday, Tuesday and Tuesday; paroxysmal atrial fibrillation; hypertension; dyslipidemia; diastolic dysfunction; moderate mitral regurgitation based on echocardiogram done in 06/2018; cerebrovascular accident and sick sinus syndrome, status post [facility] dual-chamber pacer. She is on amiodarone and not on anticoagulation as she had prior bleeding issues and anemia. PAST SURGICAL HISTORY: Significant for coronary artery bypass graft surgery and pacemaker placement. FAMILY HISTORY: Noncontributory. SOCIAL HISTORY: She normally lives with her . She does not smoke, drink alcohol or use any recreational drugs. ALLERGIES: SHE IS ALLERGIC TO CODEINE. MEDICATIONS: She is currently on the following medications: She is on ferrous sulfate 325 mg 3 times a day, Plavix 75 mg once a day, amiodarone 200 mg daily, atorvastatin calcium 80 mg at bedtime, metoprolol succinate 25 mg daily, amlodipine besylate 5 mg p.o. b.i.d., aspirin 81 mg once a day, acetaminophen 500 mg p.o. q. 6 hourly, Keppra 250 mg daily and Keppra 500 mg at bedtime, she is on mirtazapine 15 mg at bedtime, sertraline 50 mg at bedtime, fludrocortisone acetate 100 mcg once a day, levothyroxine sodium 175 mcg once a day, Nephro-Allison 1 tablet once a day and cholecalciferol or vitamin D 1000 international units 1 tablet p.o. q. Tuesday. REVIEW OF SYSTEMS: As per history of present illness. PHYSICAL EXAMINATION: GENERAL: On arrival to the Emergency Room, the patient was in moderately acute distress, nontoxic. VITAL SIGNS: Her heart rate was 69, blood pressure was 158/54, temperature was 98, respiratory rate 20 and oxygen saturation was 96%. HEENT: Examination of the head, eyes, ears, nose and throat showed normocephalic, atraumatic. NECK: Supple. HEART: Showed normal first and second heart sounds. No gallop or murmur. CHEST: Clear to auscultation. No crepitation or rhonchi. ABDOMEN: Scaphoid, soft and nontender. NEUROLOGIC: She was awake, alert, responding appropriately. Her left lower extremity was more swollen and red. LABORATORY DATA: While at [facility] Emergency Room, she had lab work done, which showed a white cell count of 7900, hemoglobin was 9.5, hematocrit 29, MCV was 91 and platelet count of 261,000, with normal manual differential. Her prothrombin time was 9.8, INR of 1 and aPTT was 25. D-dimer was 7.08. Serum sodium 139, potassium 3.5, chloride 101, bicarbonate 29, anion gap of 9, BUN 29 and creatinine 2.4, her estimated GFR was mL, glucose 100 and calcium 8.5. Magnesium was 1.6. Total bilirubin, AST, ALT and alkaline phosphatase were normal. Troponin was 0.045. Beta natriuretic peptide was 40,792. Total protein 6.5, albumin 2.3. Urinalysis showed the urine was yellow, clear with a pH of 7 and specific gravity of 1.020. There is large amount of protein, negative for glucose and ketones, moderate amount of blood, negative for nitrite and leukocyte esterase. There are no rbc's, no wbc's and no bacteria. Her EKG showed that she was in sinus rhythm at 70 beats per minute, left ventricular hypertrophy with nonspecific contour abnormality. No findings suggestive of acute ST-segment elevation myocardial infarction. Her chest x-ray shows cardiomegaly, some cephalization, pacer, defibrillator. There is hemodialysis catheter in the right subclavian. SUMMARY: In summary, the patient was transferred to for left leg cellulitis. She has history of severe peripheral vascular disease; end-stage renal disease, on hemodialysis on ; anemia with hemoglobin 9.5 and slightly elevated liver enzymes. She was given 1 gram of vancomycin. We will consult the Pharmacy to monitor her vancomycin level, Consult Infectious Disease and trade mark attorney for dialysis as well as PT and OT to continue the process of rehabilitation. LEYDA MCDERMOTT MD DR: MEGAN/gatito JOB#: [id number] / [id number]
[2018-08-17] MEDS ORDERED: CEFDINIR 300 MG CAPSULE PO SCH (10:30)
--- NOTE | 2018-08-17 10:30 | NUR ---
wound care patient seen per wound care consult. see wound assessment. patient has 2 skin tears to the left arm, 1 skin tear is steri-stripped a thtis time. the other skin tear was cleaned, applied petroleum gauze with a foam dressing over both. patient was assessed from head to toe and no other wounds noted at this time. patients educated on the dressing change. wound care will continue to f/u.
[2018-08-17 11:00] VITALS: BP 168/67
--- NOTE | 2018-08-17 11:56 | NUR ---
SW following for discharge planning. Discussed with RN, pt came from [facility]. SW will continue to follow for discharge planning needs.
[2018-08-17] MEDS ORDERED: ALBUMIN HUMAN 25% 200 ML IV PRN (12:00)
[2018-08-17] MEDS ORDERED: IV NORMAL SALINE 1000ML BAG 1,000 ML IV PRN ×2 (12:00)
[2018-08-17] MEDS ORDERED: diphenhydrAMINE 50 MG/ML VIAL IV PRN ×2 (12:00)
[2018-08-17] MEDS ORDERED: DIALYSIS PATIENT. MC PRN (12:00)
--- NOTE | 2018-08-17 12:11 | PDOC2 ---
CONSULT Date of Consult Date of Consult DATE: 08/17/18 TIME: 12:01 Reason for Consult Reason for Consult: ESRD MWF Identification/Chief Complaint Chief Complaint Lt Leg Pain and redness since last night Source Source: Chart review, Patient History of Present Illness Reason for Visit: Patient is a 72-year-old female ESRD on HD and multiple co morbidities , currently residing at [facility]. She was brought to the Emergency Room of [facility] because of marked swelling and redness of her left leg. As per Pt she noticed it last night She was recently admitted for CHF at [facility] and transferred to [facility] At present she denies any complaints. Denies CP or SOB. No F.C. No pain Lt LE . Denies any trauma She missed her dialysis yesterday due to transportation not picking her up Past Medical History Cardiovascular: AFIB, CAD, CHF, HTN, HI, Syncope, Hyperlipidemia, Other Pulmonary: Pneumonia CENTRAL NERVOUS SYSTEM: CVA, Seizure, TIA GI: GERD, Gastritis Heme/Onc: Anemia NOS Hepatobiliary: No pertinent hx Psych: Depression Rheumatologic: No pertinent hx Infectious disease: No pertinent hx Renal/: Chronic renal insuff, Urinary Incontinence, Other Endocrine: Hypothyroidism, Hyperparathyroidism, Osteopenia Past Surgical History Past Surgical History: Pacemaker, CABG Family History Family History: Hypertension Social History ALCOHOL: none Drugs: None Lives: with Family Current Medications Current Medications Current Medications Vancomycin HCl (Vanco Per Pharmacy) 1 each PRN DAILY PRN MC SEE COMMENTS Last administered on 08/17/18at 06:27; Start 08/17/18 at 06:00 Amiodarone HCl (Cordarone) 200 mg DAILY PO Last administered on 08/17/18at 09:22 ; Start 08/17/18 at 09:00 Amlodipine Besylate (Norvasc) 5 mg PRN BID PRN PO HYPERTENSION, SEE COMMENTS; Start 08/17/18 at 08:30 Aspirin (Children'S Aspirin) 81 mg DAILY PO Last administered on 08/17/18at 09: 22; Start 08/17/18 at 09:00 Vitamin D (Vitamin D3) 1,000 unit QFR PO ; Start 08/18/18 at 16:00 Clopidogrel Bisulfate (Plavix) 75 mg DAILYWBKFT PO Last administered on at 09:22; Start 08/17/18 at 09:00 Ferrous Sulfate (Feosol) 325 mg PRN TID PRN PO supplement; Start 08/17/18 at 08 :30 Fludrocortisone Acetate (Florinef) 0.1 mg DAILY PO Last administered on at 09:22; Start 08/17/18 at 09:00 Levetiracetam (Keppra) 500 mg HS PO ; Start 08/17/18 at 21:00 Levetiracetam (Keppra) 250 mg DAILY PO Last administered on 08/17/18at 09:21; Start 08/17/18 at 09:00 Levothyroxine Sodium (Synthroid) 175 mcg DAILY06 PO Last administered on at 09:21; Start 08/17/18 at 09:00 Metoprolol Succinate (Toprol Xl) 25 mg DAILY PO Last administered on 08/17/18at 09:21; Start 08/17/18 at 09:00 Sertraline HCl (Zoloft) 50 mg HS PO ; Start 08/17/18 at 21:00 Acetaminophen (Tylenol) 500 mg PRN Q6HRS PRN PO MILD PAIN / TEMP; Start at 08:30 Atorvastatin Calcium (Lipitor) 80 mg QHS PO ; Start 08/17/18 at 21:00 Mirtazapine (Remeron) 15 mg QHS PO ; Start 08/17/18 at 21:00 Cefdinir (Omnicef) 300 mg DAILY PO Last administered on 08/17/18at 10:26; Start 08/17/18 at 10:30 Active Scripts Active Metoprolol Succinate ( Xl ) (Metoprolol Succinate) 25 Mg Tab.er.24h 25 Mg PO DAILY 30 Days Clopidogrel (Clopidogrel Bisulfate) 75 Mg Tablet 75 Mg PO DAILYWBKFT 30 Days Reported Nephro-Allison Tablet (Folic Acid/Vitamin B Comp W-C) 0.8 Mg Tablet 1 Tab PO HS Mirtazapine 15 Mg Tablet 1 Tab PO QHS Levothyroxine Sodium 175 Mcg Tablet 1 Tab PO DAILY Ferrous Sulfate 325 Mg Tablet 1 Tab PO TID PRN Amlodipine Besylate 5 Mg Tablet 5 Mg PO BID PRN Acetaminophen 500 Mg Tablet 1 Tab PO PRN Q6HRS PRN Zoloft (Sertraline Hcl) 50 Mg Tablet 1 Tab PO HS Levetiracetam 500 Mg Tablet 1 Tab PO HS Levetiracetam 500 Mg Tablet 250 Mg PO DAILY Fludrocortisone Acetate 0.1 Mg Tablet 1 Tab PO DAILY12 Vitamin D3 (Cholecalciferol (Vitamin D3)) 1,000 Unit Tablet 1 Tab PO QFR Atorvastatin Calcium 80 Mg Tablet 1 Tab PO HS Aspirin 81 Mg Tab.chew 1 Tab PO DAILY Amiodarone Hcl 200 Mg Tablet 1 Tab PO DAILY Allergies Allergies: Coded Allergies: codeine (Verified Allergy, Intermediate, 11/24/17) ROS Review of System As per HPI Physical Exam Physical Exam GENERAL: NAD HEENT: OM moist, On o2 by NC NECK: Supple. HEART: RRR CHEST: Clear to auscultation. Non labored ABDOMEN soft and nontender. NEUROLOGIC: AxOx3 - No bartlett Derm- Redness Lt LE Ext- Erythema, Lt LE Vital Signs Vital Signs Date Time Temp Pulse Resp B/P (MAP) Pulse Ox O2 Delivery O2 Flow Rate FiO2 08/17/18 11:00 97.8 65 18 168/67 (100) 96 Nasal Cannula 2.0 97.8 Assessment & Plan ESRD - On HD MWF missed yesterday , transportation did pick her up HD today, discussed ordered with snowboarder History of severe PVD Lt leg Cellulitis- On PO Abx ID ok with Dc to the facility on PO Abx Anemia- On Epo and Fe as per Protocol at OP Unit CAD- stable Hx of CVA - stable Discussed A/P with Pt and RN Labs Review All relevant outside records, renal labs, imaging studies, telemetry/EKG's were reviewed. JAZLYN CUNHA MD Aug 17, 2018 12:11
[2018-08-17 12:24] LABS: CALCIUM 8.2 mg/dL (8.5-10.1); CREATININE 2.3 mg/dL (0.6-1.0); GFR 20.8
--- NOTE | 2018-08-17 13:16 | NUR ---
MARYJANE following. SW met with pt and pt's at bedside, they do not want to return to [facility] due to the care pt was receiving there. Pt's daughter is going to take pt home and care for her at home, family would like [facility]) Home Health PT/OT/RN. SW phoned and faxed referral (ph: [phone], fax: [phone]). Awaiting discharge paperwork, pt likely discharging today after dialysis to daughter's home. RN notified.
[2018-08-17] MEDS ORDERED: CEFD300C PO (15:55)
--- NOTE | 2018-08-17 16:44 | NUR ---
Discharge instructions, follow up and belongings reviewed with patient, verbalized understanding. Patient was escorted out of hospital via wheelchair by Deann CISNEROS accompanied by her .
[2018-08-17] MEDS ORDERED: SERTRALINE 50 MG TABLET. PO SCH (21:00)
[2018-08-17] MEDS ORDERED: ATORVASTATIN CALCIUM 40 MG TABLET. PO SCH (21:00)
[2018-08-17] MEDS ORDERED: levETIRAcetam 500 MG TABLET PO SCH (21:00)
[2018-08-17] MEDS ORDERED: MIRTAZAPINE 15 MG TABLET PO SCH (21:00)
--- NOTE | 2018-08-18 00:04 | CONS ---
DATE OF CONSULTATION: 08/17/2018 REQUESTING PHYSICIAN: Dr. Gibbs. REASON FOR CONSULTATION: Cellulitis. HISTORY OF PRESENT ILLNESS: This is a 72-year-old female who had been in the hospital 3 weeks ago for pleural effusion, now she transferred from [facility] after having redness of the leg, more so on the left than right she says. Denies any fever, denies any trauma. Denies any nausea, vomiting, diarrhea or chest pain, shortness of breath, abdominal pain, urinary symptoms. PAST MEDICAL HISTORY: Positive for hypertension, coronary artery disease. She has had coronary artery bypass grafting in the past; seizure disorder; end-stage renal disease, on hemodialysis; CVA. SOCIAL HISTORY: Positive for smoking still. No alcohol use or drug use. ALLERGIES: LISTED ALLERGIC TO CODEINE. CURRENT MEDICATIONS: Reviewed. REVIEW OF SYSTEMS: As per HPI. All other systems reviewed are negative. PHYSICAL EXAMINATION: GENERAL: Alert, oriented female, not in any distress. VITAL SIGNS: Stable, afebrile. HEENT: NAD. NECK: Supple, no JVP, no lymphadenopathy. LUNGS: Clear. HEART: S1, S2 regular. ABDOMEN: Benign. EXTREMITIES: Very mild faint erythema noted on the left. There is bruising all over the place. There is no other skin breakdown. NEUROLOGIC: The patient is neurologically intact other than the patient is blind in the left eye. LABORATORY DATA: White count is normal. BUN and creatinine is 32 and 2.0. IMPRESSION: 1. Very mild cellulitis of the left leg, which already looks better, hardly any trace left. 2. Coronary artery disease. 3. Congestive heart failure. 4. Chronic obstructive pulmonary disease. 5. End-stage renal disease, on hemodialysis. RECOMMENDATIONS: Switch over antibiotics to Omnicef. The patient was advised to quit smoking. Supportive care, leg elevation and the patient can be discharged from the Infectious Disease standpoint of view. Discussed with family at the bedside. KRISTIN CATHERINE MD DR: SAVANNA/gatito JOB#: [id number] / [id number]
[2018-08-18] MEDS ORDERED: VANCOMYCIN RANDOM LEVEL. MC ONE (05:00)
[2018-08-18] MEDS ORDERED: CHOLECALCIFEROL (VITAMIN D3) 1,000 UNIT TABLET PO SCH (16:00)
[2018-08-18] MEDS ORDERED: VANCOMYCIN 500 MG in IV NORMAL SALINE 100ML 100 ML IV SCH (16:00)
== END 2018-08-17 16:46 | disposition home health service (06) | DRG 602 ==
LOC: 4 NORTH 05:30
PROVIDERS: ADMIT Internal Medicine; ATTEND Internal Medicine
DX: L03.116 Cellulitis of left lower limb (principal); N18.6 End stage renal disease; I13.2 Hypertensive heart and chronic kidney disease with heart failure and with stage 5 chronic kidney disease, or end stage renal disease; E03.9 Hypothyroidism, unspecified; E78.5 Hyperlipidemia, unspecified; F17.200 Nicotine dependence, unspecified, uncomplicated; G40.909 Epilepsy, unspecified, not intractable, without status epilepticus; I25.10 Atherosclerotic heart disease of native coronary artery without angina pectoris; I48.0 Paroxysmal atrial fibrillation; I50.9 Heart failure, unspecified; J44.9 Chronic obstructive pulmonary disease, unspecified; K21.9 Gastro-esophageal reflux disease without esophagitis; E21.3 Hyperparathyroidism, unspecified; F32.9 Major depressive disorder, single episode, unspecified; I49.5 Sick sinus syndrome; I73.9 Peripheral vascular disease, unspecified; D64.9 Anemia, unspecified; I25.2 Old myocardial infarction; Z86.73 Personal history of transient ischemic attack (TIA), and cerebral infarction without residual deficits; Z82.49 Family history of ischemic heart disease and other diseases of the circulatory system; Z95.0 Presence of cardiac pacemaker; Z95.1 Presence of aortocoronary bypass graft; Z99.2 Dependence on renal dialysis; Z87.01 Personal history of pneumonia (recurrent); Z88.5 Allergy status to narcotic agent; Z71.6 Tobacco abuse counseling
CPT/HCPCS: 36415; 80048; 87641

== ENCOUNTER 2018-09-06 05:33 | Inpatient (IN) | payer MEDICARE ==
[~2018-09-06] VITALS: Ht 152.4 cm; Wt 35.5 kg
[~2018-09-06 05:33] MED LIST changes: +AMLO5TAB10 PO; +CEFD300C PO; +FERR325T14 PO; +FOLI0.8T3 PO; +MIRT15TA3 PO
--- NOTE | 2018-09-06 06:21 | RAD ---
Indication:shortness of breath x 12 hours TECHNIQUE:Portable AP chest X-ray COMPARISON:None FINDINGS: CABG changes noted. Dialysis catheter in the cavoatrial junction. Heart is moderately enlarged in size. Diffuse bilateral interstitial opacities with blunting of the right CP angle. No pneumothorax. Visualized bony thorax within normal limits. IMPRESSION: Interstitial pulmonary edema with small right pleural effusion. Electronically signed by: Bright Gudino DO (09/06/2018 6:19 AM) [facility]
--- NOTE | 2018-09-06 06:38 | PHYS DOC ---
Past Medical History Past Medical History: CHF, COPD, CVA, Depression, Heart Disease, Hypertension, Hypothyroid, Renal Failure, Seizure Additional Past Medical Histor: Left carotid artery completely occluded Past Surgical History: Coronary Bypass Surgery, Hysterectomy, Pacemaker Additional Past Surgical Histo: PARATHYROID GLAND REMOVED, Stent in kidney, shoulder surgery, carotids Alcohol Use: None Drug Use: None Adult General Chief Complaint Chief Complaint: SHORTNESS OF BREATH HPI HPI Patient is a 72-year-old female with a Past history of coronary artery disease, atrial fibrillation, COPD, diastolic dysfunction, echo from 07/25 has been reviewed, as has the recent H&P from hospitalization last month, who presents to the emergency department with increasing shortness of breath over the past 12 hours. She has not had any chest pain. She does not report any orthopnea, but reports significantly increased dyspnea with exertion. She has not had any cough, or any pain. She does have oxygen at home. Upon her recent hospital discharge the patient's states that they were instructed to keep her on oxygen at 1 L chronically, but she only uses the oxygen as needed. Upon arrival in the emergency department, she was attempted to be placed on 2 L via nasal cannula her oxygen saturation was only in the 80s, proximal and saturation improved to the 90s on 4 L of oxygen flow. There are no alleviating or exacerbating factors to the patient's symptoms , except as noted above. She does take dialysis, her last dialysis was Tuesday and she is due for dialysis today. Review of Systems Review of Systems Constitutional: Denies fever or chills [] Eyes: Denies change in visual acuity, redness, or eye pain [] HENT: Denies nasal congestion or sore throat [] Respiratory: Denies cough or pleuritic chest pain.[] Cardiovascular: The patient denies any chest pain, palpitations, or orthopnea [] GI: Denies abdominal pain, nausea, vomiting, bloody stools or diarrhea [] : Denies dysuria or hematuria [] Musculoskeletal: Denies back pain or joint pain [] Integument: Denies rash or skin lesions [] Neurologic: Denies headache, focal weakness or sensory changes [] Endocrine: Denies polyuria or polydipsia [] All other systems were reviewed and found to be within normal limits, except as documented in this note. Current Medications Current Medications Current Medications Medications (Trade) Dose Ordered Sig/Dez Start Time Stop Time Status Last Admin Dose Admin Albuterol/ Ipratropium (Duoneb) 3 ml 1X ONCE 09/06/18 07:00 09/06/18 07:01 DC 09/06/18 07:34 3 ML Aspirin (Children'S Aspirin) 324 mg 1X ONCE 09/06/18 07:00 09/06/18 07:01 DC 09/06/18 06:50 324 MG Furosemide (Lasix) 80 mg 1X ONCE 09/06/18 07:00 09/06/18 07:01 DC 09/06/18 06:53 80 MG Nitroglycerin/ Dextrose 250 ml @ 0 mls/hr 1X ONCE 09/06/18 07:00 09/06/18 07:01 DC 09/06/18 07:01 1.5 MLS/HR Potassium Chloride/Water 100 ml @ 100 mls/hr Q1H 09/06/18 07:30 09/06/18 09:29 09/06/18 07:38 100 MLS/HR Potassium Chloride (Klor-Con) 40 meq 1X ONCE 09/06/18 07:30 09/06/18 07:31 DC Allergies Allergies Allergies Coded Allergies Type Severity Reaction Last Updated Verified codeine Allergy Intermediate 11/24/17 Yes Physical Exam Physical Exam PHYSICAL EXAM: CONSTITUTIONAL: Well developed, well nourished HEAD: normocephalic, atraumatic EENT: PERRL, EOMI. Conjunctivae normal color, sclerae non-icteric; moist mucous membranes. NECK: Supple, non-tender; no meningismus. LUNGS: There are diminished breath sounds on the right base, with crackles in the left base. HEART: Regular rate and rhythm, There is a soft systolic ejection murmur, with an S4 gallop CHEST: No deformity; non-tender ABDOMEN: The abdomen is soft, and non-tender, no masses or bruits. EXTREM: Normal ROM; no deformity, no calf tenderness. Normal pulses palpable in all extremities. There is no pedal edema. SKIN: No rash; no diaphoresis NEURO: Alert; normal speech and cognition; CN's grossly intact; strength grossly intact without focal deficit. BACK: No CVA TTP. Current Patient Data Vital Signs Vital Signs Date Time Temp Pulse Resp B/P (MAP) Pulse Ox O2 Delivery O2 Flow Rate FiO2 09/06/18 07:37 81 18 162/72 (102) 98 Venturi Mask 5.0 09/06/18 05:35 98.0 98.0 Lab Values Laboratory Tests Test 09/06/18 06:30 White Blood Count 10.3 x10^3/uL (4.0-11.0) Red Blood Count 3.28 x10^6/uL (3.50-5.40) L Hemoglobin 9.4 g/dL (12.0-15.5) L Hematocrit 29.7 % (36.0-47.0) L Mean Corpuscular Volume 90 fL (79-100) Mean Corpuscular Hemoglobin 29 pg (25-35) Mean Corpuscular Hemoglobin Concent 32 g/dL (31-37) Red Cell Distribution Width 18.0 % (11.5-14.5) H Platelet Count 209 x10^3/uL (140-400) Neutrophils (%) (Auto) 84 % (31-73) H Lymphocytes (%) (Auto) 7 % (24-48) L Monocytes (%) (Auto) 7 % (0-9) Eosinophils (%) (Auto) 1 % (0-3) Basophils (%) (Auto) 1 % (0-3) Neutrophils # (Auto) 8.7 x10^3uL (1.8-7.7) H Lymphocytes # (Auto) 0.7 x10^3/uL (1.0-4.8) L Monocytes # (Auto) 0.7 x10^3/uL (0.0-1.1) Eosinophils # (Auto) 0.1 x10^3/uL (0.0-0.7) Basophils # (Auto) 0.1 x10^3/uL (0.0-0.2) Prothrombin Time 12.5 SEC (11.7-14.0) Prothrombin Time INR 1.0 (0.8-1.1) Sodium Level 140 mmol/L (136-145) Potassium Level 2.8 mmol/L (3.5-5.1) *L Chloride Level 101 mmol/L (98-107) Carbon Dioxide Level 29 mmol/L (21-32) Anion Gap 10 (6-14) Blood Urea Nitrogen 24 mg/dL (7-20) H Creatinine 2.5 mg/dL (0.6-1.0) H Estimated GFR (Cockcroft-Gault) 18.9 BUN/Creatinine Ratio 10 (6-20) Glucose Level 118 mg/dL (70-99) H Calcium Level 9.1 mg/dL (8.5-10.1) Total Bilirubin 0.5 mg/dL (0.2-1.0) Aspartate Amino Transferase (AST) 34 U/L (15-37) Alanine Aminotransferase (ALT) 35 U/L (14-59) Alkaline Phosphatase 59 U/L (46-116) Troponin I Quantitative 0.056 ng/mL (0.000-0.055) GW-Dwg-B-Type Natriuretic Peptide > 70421 pg/mL (0-124) H Total Protein 6.5 g/dL (6.4-8.2) Albumin 2.7 g/dL (3.4-5.0) L Albumin/Globulin Ratio 0.7 (1.0-1.7) L Laboratory Tests 09/06/18 06:30 Laboratory Tests 09/06/18 06:30 EKG EKG Normal sinus rhythm at a rate of 87 beats for minute, normal axis, incomplete right bundle-branch block pattern, left ventricular hypertrophy with repolarization abnormality, with diffuse nonspecific ST/T changes and lateral ST depression, EKG is not significantly changed compared to the patient's prior EKG.[] Radiology/Procedures Radiology/Procedures [PROCEDURE: PORTABLE CHEST 1V Indication:shortness of breath x 12 hours TECHNIQUE:Portable AP chest X-ray COMPARISON:None FINDINGS: CABG changes noted. Dialysis catheter in the cavoatrial junction. Heart is moderately enlarged in size. Diffuse bilateral interstitial opacities with blunting of the right CP angle. No pneumothorax. Visualized bony thorax within normal limits. IMPRESSION: Interstitial pulmonary edema with small right pleural effusion.] Course & Med Decision Making Course & Med Decision Making Pertinent Labs and Imaging studies reviewed. (See chart for details) []8:05 AM: The patient's blood pressure has improved to the 150s systolic on ni troglycerin drip and her shortness of breath has improved as well.The patient's condition remains stable. I spoke with the hospitalist, who accepted the patient to the hospital for further evaluation and treatment. Dragon Disclaimer Dragon Disclaimer This electronic medical record was generated, in whole or in part, using a voice recognition dictation system. Departure Departure Impression: Primary Impression: SOB (shortness of breath) Additional Impressions: Chronic renal failure CHF (congestive heart failure) Pleural effusion Disposition: ADMITTED INPATIENT Admitting Physician: Kia Gibbs Condition: STABLE Referrals: HUI DOZIER MD (PCP) Problem Qualifiers CLARIBEL OLEA MD September 06, 2018 06:38
[2018-09-06 06:56] LABS: BASO # 0.1 x10^3/uL (0.0-0.2); BASO % 1 % (0-3); EOS # 0.1 x10^3/uL (0.0-0.7); EOS % 1 % (0-3); HEMATOCRIT 29.7 % (36.0-47.0); HEMOGLOBIN 9.4 g/dL (12.0-15.5); LYMPH # 0.7 x10^3/uL (1.0-4.8); LYMPH % 7 % (24-48); MEAN CORPUSCULAR HEMOGLOBIN 29 pg (25-35); MEAN CORPUSCULAR HGB CONC 32 g/dL (31-37); MEAN CORPUSCULAR VOLUME 90 fL (79-100); MONO # 0.7 x10^3/uL (0.0-1.1); MONO % 7 % (0-9); NEUT # 8.7 x10^3uL (1.8-7.7); NEUT % 84 % (31-73); PLATELET COUNT 209 x10^3/uL (140-400); RED BLOOD COUNT 3.28 x10^6/uL (3.50-5.40); WHITE BLOOD COUNT 10.3 x10^3/uL (4.0-11.0)
[2018-09-06] MEDS ORDERED: IPRATRPIUM/ALBUTEROL 0.5/2.5MG 3 ML NEBU. NEB ONE (07:00)
[2018-09-06] MEDS ORDERED: ASPIRIN CHEWABLE 81 MG TABLET. PO ONE (07:00)
[2018-09-06] MEDS ORDERED: FUROSEMIDE 40 MG/4 ML VIAL. IVP ONE (07:00)
[2018-09-06] MEDS ORDERED: NITROGLYCERIN PREMIX 250 ML IV ONE (07:00)
[2018-09-06 07:03] LABS: ALBUMIN 2.7 g/dL (3.4-5.0); ALBUMIN/GLOBULIN RATIO 0.7 (1.0-1.7); CALCIUM 9.1 mg/dL (8.5-10.1); CREATININE 2.5 mg/dL (0.6-1.0); GFR 18.9; TOTAL BILIRUBIN 0.5 mg/dL (0.2-1.0); TOTAL PROTEIN 6.5 g/dL (6.4-8.2)
[2018-09-06 07:07] LABS: POTASSIUM 2.8 mmol/L (3.5-5.1)
[2018-09-06 07:23] LABS: PROTHROMBIN TIME PATIENT 12.5 SEC (11.7-14.0)
--- NOTE | 2018-09-06 07:25 | EKG ---
[facility] [address] [place] [address] Test Date: 2018-09-06 Test Time: 05:48:30 Pat Name: LURDES LEMOS Department: Room: Gender: F History Professor: : 1945 Requested By: LISA WU Order Number: [id number] Reading MD: Joey Walker Measurements Intervals [place] Rate: 87 P: 0 SC: 188 QRS: 36 QRSD: 106 T: -126 QT: 336 QTc: 410 Interpretive Statements SINUS RHYTHM INCOMPLETE RIGHT BUNDLE BRANCH BLOCK LVH WITH REPOLARIZATION ABNORMALITY POSSIBLE LATERAL ISCHEMIA Electronically Signed On 09-08-2018 9:51:07 CDT by Joey Walker
[2018-09-06] MEDS ORDERED: POTASSIUM CHLORIDE 20 MEQ TABLET.ER. PO ONE (07:30)
[2018-09-06] MEDS: POTASSIUM CHLORIDE 10MEQ 100 ML IV SCH ×2 (07:38→08:41)
[2018-09-06] MEDS ORDERED: IV NORMAL SALINE 1000ML BAG 1,000 ML IV PRN ×2 (11:30)
[2018-09-06] MEDS ORDERED: ALBUMIN HUMAN 25% 200 ML IV PRN (11:30)
[2018-09-06] MEDS ORDERED: DIALYSIS PATIENT. MC PRN ×2 (11:30)
[2018-09-06 15:05] VITALS: BP 159/78
--- NOTE | 2018-09-06 15:55 | NUR ---
The patient, LURDES LEMOS, 72 y/o, F admitted by LEYDA MCDERMOTT MD, was given written information regarding hospital policies, unit procedures and contact persons. Pt arrived to unit from dialysis. Stable at time of admit.
[2018-09-06] MEDS ORDERED: ACETAMINOPHEN 500 MG TABLET PO PRN (19:15)
[2018-09-06] MEDS ORDERED: FERROUS SULFATE 325 MG TABLET. PO PRN (19:15)
[2018-09-06] MEDS ORDERED: amLODIPine BESYLATE 5 MG TABLET PO PRN (19:15)
[2018-09-06 19:32] VITALS: BP 172/83
--- NOTE | 2018-09-06 20:01 | PDOC2 ---
CONSULT Date of Consult Date of Consult DATE: 09/06/18 TIME: 13:00 Reason for Consult Reason for Consult: ESRD Identification/Chief Complaint Chief Complaint Short of breath Source Source: Chart review, Patient History of Present Illness Reason for Visit: Patient is a 72-year-old CF with ESRD on HD, coronary artery disease, atrial f ibrillation, COPD, diastolic dysfunction, frequent hospitalizations , presents to the emergency department with increasing shortness of breath over the past 12 hours. She has not had any chest pain. She does not report any orthopnea, but reports significantly increased dyspnea with exertion. She has not had any cough She does have oxygen at home. Upon her recent hospital discharge the patient's states that they were instructed to keep her on oxygen at 1 L chronically, but she only uses the oxygen as needed. Upon arrival in the emergency department, her O2 sats was in the 80s, improved to 90s on 4 L of oxygen. She is complaint with HD Past Medical History Cardiovascular: AFIB, CAD, CHF, HTN, VT, Syncope, Hyperlipidemia, Other Pulmonary: Pneumonia CENTRAL NERVOUS SYSTEM: CVA, Seizure, TIA GI: GERD, Gastritis Heme/Onc: Anemia NOS Hepatobiliary: No pertinent hx Psych: Depression Rheumatologic: No pertinent hx Infectious disease: No pertinent hx Renal/: Chronic renal insuff, Urinary Incontinence, Other Endocrine: Hypothyroidism, Hyperparathyroidism, Osteopenia Past Surgical History Past Surgical History: Pacemaker, CABG Family History Family History: Hypertension Social History ALCOHOL: none Drugs: None Lives: with Family Current Problem List Problem List Problems Medical Problems: (1) CHF (congestive heart failure) Status: Acute (2) Pleural effusion Status: Acute Current Medications Current Medications Current Medications Aspirin (Children'S Aspirin) 324 mg 1X ONCE PO Last administered on 09/06/18at 06:50; Start 09/06/18 at 07:00; Stop 09/06/18 at 07:01; Status DC Furosemide (Lasix) 80 mg 1X ONCE IVP Last administered on 09/06/18at 06:53; Start 09/06/18 at 07:00; Stop 09/06/18 at 07:01; Status DC Albuterol/ Ipratropium (Duoneb) 3 ml 1X ONCE NEB Last administered on 09/06/18at 07:34; Start 09/06/18 at 07:00; Stop 09/06/18 at 07:01; Status DC Nitroglycerin/ Dextrose 250 ml @ 0 mls/hr 1X ONCE IV Last administered on 09/06at 07:01; Start 09/06/18 at 07:00; Stop 09/06/18 at 07:01; Status DC Potassium Chloride (Klor-Con) 40 meq 1X ONCE PO Last administered on 09/06/18at 11:15; Start 09/06/18 at 07:30; Stop 09/06/18 at 07:31; Status DC Potassium Chloride/Water 100 ml @ 100 mls/hr Q1H IV Last administered on 09/06/18at 08:41; Start 09/06/18 at 07:30; Stop 09/06/18 at 09:29; Status DC Sodium Chloride 1,000 ml @ 1,000 mls/hr Q1H PRN IV hypotension; Start 09/06/18 at 11:30; Stop 09/06/18 at 17:29; Status DC Albumin Human 200 ml @ 200 mls/hr 1X PRN PRN IV Hypotension; Start 09/06/18 at 11:30; Stop 09/06/18 at 17:29; Status DC Sodium Chloride 1,000 ml @ 400 mls/hr Q2H30M PRN IV PATENCY; Start 09/06/18 at 11:30; Stop 09/06/18 at 23:29 Info (PHARMACY MONITORING -- do not chart) 1 each PRN DAILY PRN MC SEE COMMENTS; Start 09/06/18 at 11:30; Status UNV Info (PHARMACY MONITORING -- do not chart) 1 each PRN DAILY PRN MC SEE COMMENTS; Start 09/06/18 at 11:30 Amiodarone HCl (Cordarone) 200 mg DAILY PO ; Start 09/07/18 at 09:00 Amlodipine Besylate (Norvasc) 5 mg BID PRN PO HYPERTENSION, SEE COMMENTS; Start 09/06/18 at 19:15; Stop 09/06/18 at 19:15; Status DC Vitamin D (Vitamin D3) 1,000 unit QFR PO ; Start 09/08/18 at 16:00 Ferrous Sulfate (Feosol) 325 mg TID PRN PO supplement; Start 09/06/18 at 19:15; Stop 09/06/18 at 19:15; Status DC Fludrocortisone Acetate (Florinef) 0.1 mg DAILY PO ; Start 09/07/18 at 09:00 Vitamin B Complex/ Vitamin C (Katie-Allison) 1 tab HS PO ; Start 09/06/18 at 21:00 Levetiracetam (Keppra) 500 mg HS PO ; Start 09/06/18 at 21:00 Levetiracetam (Keppra) 250 mg DAILY PO ; Start 09/07/18 at 09:00 Levothyroxine Sodium (Synthroid) 175 mcg DAILY06 PO ; Start 09/07/18 at 06:00 Metoprolol Succinate (Toprol Xl) 25 mg DAILY PO ; Start 09/07/18 at 09:00 Sertraline HCl (Zoloft) 50 mg HS PO ; Start 09/06/18 at 21:00 Acetaminophen (Tylenol) 500 mg PRN Q6HRS PRN PO MILD PAIN / TEMP; Start 09/06/18 at 19:15 Atorvastatin Calcium (Lipitor) 80 mg QHS PO ; Start 09/06/18 at 21:00 Mirtazapine (Remeron) 15 mg QHS PO ; Start 09/06/18 at 21:00 Active Scripts Active Metoprolol Succinate ( Xl ) (Metoprolol Succinate) 25 Mg Tab.er.24h 25 Mg PO DAILY 30 Days Clopidogrel (Clopidogrel Bisulfate) 75 Mg Tablet 75 Mg PO DAILYWBKFT 30 Days Reported Nephro-Allison Tablet (Folic Acid/Vitamin B Comp W-C) 0.8 Mg Tablet 1 Tab PO HS Mirtazapine 15 Mg Tablet 1 Tab PO QHS Levothyroxine Sodium 175 Mcg Tablet 1 Tab PO DAILY Ferrous Sulfate 325 Mg Tablet 1 Tab PO TID PRN Amlodipine Besylate 5 Mg Tablet 5 Mg PO BID PRN Acetaminophen 500 Mg Tablet 1 Tab PO PRN Q6HRS PRN Zoloft (Sertraline Hcl) 50 Mg Tablet 1 Tab PO HS Levetiracetam 500 Mg Tablet 1 Tab PO HS Levetiracetam 500 Mg Tablet 250 Mg PO DAILY Fludrocortisone Acetate 0.1 Mg Tablet 1 Tab PO DAILY12 Vitamin D3 (Cholecalciferol (Vitamin D3)) 1,000 Unit Tablet 1 Tab PO QFR Atorvastatin Calcium 80 Mg Tablet 1 Tab PO HS Aspirin 81 Mg Tab.chew 1 Tab PO DAILY Amiodarone Hcl 200 Mg Tablet 1 Tab PO DAILY Allergies Allergies: Coded Allergies: codeine (Verified Allergy, Intermediate, 7/19/18) ROS Review of System As per HPI Physical Exam Physical Exam General: mild distress HEENT: Mucous membr. 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 presently maintaining SR HTN: Stays high , Had Renal Art Stenting Rt at [facility] in 2017 Renal doppler 11/23- The left kidney appears smaller in size could be mild atrophic changes. No evidence of right renal artery stenosis. SSS s/p PPM; ([facility]). Labs Labs Laboratory Tests Test 09/06/18 06:30 White Blood Count 10.3 x10^3/uL (4.0-11.0) Red Blood Count 3.28 x10^6/uL (3.50-5.40) Hemoglobin 9.4 g/dL (12.0-15.5) Hematocrit 29.7 % (36.0-47.0) Mean Corpuscular Volume 90 fL (79-100) Mean Corpuscular Hemoglobin 29 pg (25-35) Mean Corpuscular Hemoglobin Concent 32 g/dL (31-37) Red Cell Distribution Width 18.0 % (11.5-14.5) Platelet Count 209 x10^3/uL (140-400) Neutrophils (%) (Auto) 84 % (31-73) Lymphocytes (%) (Auto) 7 % (24-48) Monocytes (%) (Auto) 7 % (0-9) Eosinophils (%) (Auto) 1 % (0-3) Basophils (%) (Auto) 1 % (0-3) Neutrophils # (Auto) 8.7 x10^3uL (1.8-7.7) Lymphocytes # (Auto) 0.7 x10^3/uL (1.0-4.8) Monocytes # (Auto) 0.7 x10^3/uL (0.0-1.1) Eosinophils # (Auto) 0.1 x10^3/uL (0.0-0.7) Basophils # (Auto) 0.1 x10^3/uL (0.0-0.2) Prothrombin Time 12.5 SEC (11.7-14.0) Prothromb Time International Ratio 1.0 (0.8-1.1) Sodium Level 140 mmol/L (136-145) Potassium Level 2.8 mmol/L (3.5-5.1) Chloride Level 101 mmol/L (98-107) Carbon Dioxide Level 29 mmol/L (21-32) Anion Gap 10 (6-14) Blood Urea Nitrogen 24 mg/dL (7-20) Creatinine 2.5 mg/dL (0.6-1.0) Estimated GFR (Cockcroft-Gault) 18.9 BUN/Creatinine Ratio 10 (6-20) Glucose Level 118 mg/dL (70-99) Calcium Level 9.1 mg/dL (8.5-10.1) Total Bilirubin 0.5 mg/dL (0.2-1.0) Aspartate Amino Transf (AST/SGOT) 34 U/L (15-37) Alanine Aminotransferase (ALT/SGPT) 35 U/L (14-59) Alkaline Phosphatase 59 U/L (46-116) Troponin I Quantitative 0.056 ng/mL (0.000-0.055) HS-Vlp-O-Type Natriuretic Peptide > 50901 pg/mL (0-124) Total Protein 6.5 g/dL (6.4-8.2) Albumin 2.7 g/dL (3.4-5.0) Albumin/Globulin Ratio 0.7 (1.0-1.7) Laboratory Tests Test 09/06/18 06:30 White Blood Count 10.3 x10^3/uL (4.0-11.0) Red Blood Count 3.28 x10^6/uL (3.50-5.40) Hemoglobin 9.4 g/dL (12.0-15.5) Hematocrit 29.7 % (36.0-47.0) Mean Corpuscular Volume 90 fL (79-100) Mean Corpuscular Hemoglobin 29 pg (25-35) Mean Corpuscular Hemoglobin Concent 32 g/dL (31-37) Red Cell Distribution Width 18.0 % (11.5-14.5) Platelet Count 209 x10^3/uL (140-400) Neutrophils (%) (Auto) 84 % (31-73) Lymphocytes (%) (Auto) 7 % (24-48) Monocytes (%) (Auto) 7 % (0-9) Eosinophils (%) (Auto) 1 % (0-3) Basophils (%) (Auto) 1 % (0-3) Neutrophils # (Auto) 8.7 x10^3uL (1.8-7.7) Lymphocytes # (Auto) 0.7 x10^3/uL (1.0-4.8) Monocytes # (Auto) 0.7 x10^3/uL (0.0-1.1) Eosinophils # (Auto) 0.1 x10^3/uL (0.0-0.7) Basophils # (Auto) 0.1 x10^3/uL (0.0-0.2) Prothrombin Time 12.5 SEC (11.7-14.0) Prothromb Time International Ratio 1.0 (0.8-1.1) Sodium Level 140 mmol/L (136-145) Potassium Level 2.8 mmol/L (3.5-5.1) Chloride Level 101 mmol/L (98-107) Carbon Dioxide Level 29 mmol/L (21-32) Anion Gap 10 (6-14) Blood Urea Nitrogen 24 mg/dL (7-20) Creatinine 2.5 mg/dL (0.6-1.0) Estimated GFR (Cockcroft-Gault) 18.9 BUN/Creatinine Ratio 10 (6-20) Glucose Level 118 mg/dL (70-99) Calcium Level 9.1 mg/dL (8.5-10.1) Total Bilirubin 0.5 mg/dL (0.2-1.0) Aspartate Amino Transf (AST/SGOT) 34 U/L (15-37) Alanine Aminotransferase (ALT/SGPT) 35 U/L (14-59) Alkaline Phosphatase 59 U/L (46-116) Troponin I Quantitative 0.056 ng/mL (0.000-0.055) TJ-Pjk-I-Type Natriuretic Peptide > 46084 pg/mL (0-124) Total Protein 6.5 g/dL (6.4-8.2) Albumin 2.7 g/dL (3.4-5.0) Albumin/Globulin Ratio 0.7 (1.0-1.7) Review All relevant outside records, renal labs, imaging studies, telemetry/EKG's were reviewed. JAZLYN CUNHA MD September 06, 2018 20:01
[2018-09-06] MEDS: FOLIC/VIT B COMP W-C (RENAL) TABLET. PO SCH (21:11)
[2018-09-06] MEDS: levETIRAcetam 500 MG TABLET PO SCH (21:12)
[2018-09-06] MEDS: ATORVASTATIN CALCIUM 40 MG TABLET. PO SCH (21:12)
[2018-09-06] MEDS: SERTRALINE 50 MG TABLET. PO SCH (21:12)
[2018-09-06] MEDS: MIRTAZAPINE 15 MG TABLET PO SCH (21:12)
[2018-09-06 22:55] VITALS: BP 169/49
[2018-09-07] VITALS (10 sets, daily range): BP systolic 138–197; BP diastolic 64–104
[2018-09-07] MEDS: LEVOTHYROXINE 175 MCG TABLET PO SCH (06:03)
[2018-09-07] MEDS: levETIRAcetam 500 MG TABLET PO SCH ×2 (08:19→21:36)
[2018-09-07] MEDS: METOPROLOL SUCC 24HR ER 25 MG TAB.ER.24H. PO SCH (08:20)
[2018-09-07] MEDS: AMIODARONE HCL 200 MG TABLET. PO SCH (08:20)
[2018-09-07] MEDS ORDERED: FLUDROCORTISONE 0.1 MG TABLET PO SCH (09:00)
[2018-09-07] MEDS: ASPIRIN ENTERIC COATED 81 MG TABLET.DR. PO SCH (09:12)
[2018-09-07] MEDS: FERROUS SULFATE 325 MG TABLET. PO SCH ×2 (09:13→16:45)
[2018-09-07] MEDS ORDERED: amLODIPine BESYLATE 5 MG TABLET PO SCH (09:30)
[2018-09-07 10:06] LABS: CALCIUM 9.1 mg/dL (8.5-10.1); CREATININE 1.9 mg/dL (0.6-1.0); GFR 25.9; MAGNESIUM 1.8 mg/dL (1.8-2.4); POTASSIUM 3.8 mmol/L (3.5-5.1)
--- NOTE | 2018-09-07 10:20 | CONS ---
DATE OF CONSULTATION: ATTENDING PHYSICIAN. Dr. Gibbs. REASON FOR CONSULTATION: Dyspnea. HISTORY OF PRESENT ILLNESS: The patient is a 72-year-old who has been a smoker for 60 years, continues to smoke cigarettes. She has chronic hypoxic respiratory failure. She has history of cardiomyopathy with an EF of 45% and atrial fibrillation. She presented to the hospital with increasing dyspnea for the last 24 hours. She said she has no cough, no chest pain, no headache, no nausea, vomiting, no diarrhea. No chest pains. She has oxygen at home at 2 liters on a 24-hour basis. Chest x-ray was consistent with interstitial edema along with pleural effusions. She did have dialysis yesterday. Her CT chest today shows moderate right-sided pleural effusion with associated atelectasis and a small left pleural effusion. There is evidence of mild interstitial edema. PAST MEDICAL HISTORY: Significant for CHF, history of cardiomyopathy, history of COPD, history of chronic respiratory failure, hypothyroidism, end-stage renal disease. PAST SURGICAL HISTORY: Left carotid artery completely occluded and surgery for that, history of bypass surgery, hysterectomy and pacemaker. ALLERGIES: CODEINE. MEDICATIONS: All reviewed as listed in the MRAD. REVIEW OF SYSTEMS: Twelve-point system obtained. Pertinent positives discussed in my history of present illness, otherwise noncontributory. All systems that were negative were reviewed as well. SOCIAL HISTORY: Smoker for 60 years and continues to smoke half pack per day. PHYSICAL EXAMINATION: VITAL SIGNS: With a high blood pressure of 197 systolic. Pulse ox 90-93% on 2 liters, afebrile. HEENT: Sclerae nonicteric. NECK: Supple. LUNGS: Diminished breath sounds at the bases. CARDIOVASCULAR: Regular rate and rhythm. ABDOMEN: Soft, nontender. EXTREMITIES: With no pitting edema. LABORATORY DATA: Reviewed. White cell count 10.3, hemoglobin 9.4, platelets 209. Potassium 2.8. BUN and creatinine 24 and 2.5. ProBNP greater than 35,000. IMPRESSION: 1. Dyspnea in the last 24 hours due to development of [id number]-dtawswr congestive heart failure. 2. The patient with history of cardiomyopathy with an EF of 45% and suspected diastolic dysfunction, now presents with increasing dyspnea related to bilateral pleural effusion and development of congestive heart failure. She would benefit from right-sided thoracentesis. Her hypertensive emergency contributing to heart failure as well. 3. Cardiomyopathy. 4. Suspected severe chronic obstructive pulmonary disease with chronic respiratory failure with exacerbation triggered by congestive heart failure. RECOMMENDATIONS: 1. Continue with present oxygen. 2. Hemodialysis with ultrafiltration. 3. Smoking cessation counseling provided. 4. The patient would benefit from right-sided thoracentesis. 5. Hold Plavix prior to the procedure. 6. Follow cardiology recommendations. 7. Discussed with RN. BARBER HASTINGS MD DR: DESTINEE/gatito JOB#: [id number] / [id number]
--- NOTE | 2018-09-07 10:36 | RAD ---
CT CHEST WO CONTRAST Indication: Small pleural effusions, CHF Technique: Noncontrast CT imaging was performed of the chest, multiplanar reconstruction images submitted. One or more of the following individualized dose reduction techniques were utilized for this examination: 1. Automated exposure control 2. Adjustment of the mA and/or kV according to patient size 3. Use of iterative reconstruction technique. Comparison: July 18, 2018 Findings: There is again small left pleural effusion seen dependently and also again more localized along the left hemidiaphragm. There is again hcgwu-lu-iieqcent right pleural effusion again more prominent near the right lung base with subpulmonic extent, size slightly decreased. Previously there was a much greater degree of groundglass density present of the bilateral hemithoraces overall decreased, scattered mild residual. There is persistent degree of consolidation of the lower lobes near the lung bases bilaterally right greater than left, somewhat increased in the interval. Heart is again enlarged. There is again left electronic cardiac device. There is prominent coronary calcification. There again has been a median sternotomy. There is again degree of pectus excavatum. Thoracic aortic caliber is overall within normal limits, scattered plaque present. Precarinal node up to about 1.2 cm short axis dimension is similar, again some other mediastinal nodes similar. There is right internal jugular dialysis catheter again present. There is again hypodense lesion of the left lobe the liver, may be cyst. IMPRESSION: 1. There is significantly improved groundglass density of the bilateral hemithoraces likely due to decreased alveolar edema. There are persistent right greater than left pleural effusions with subpulmonic extent, somewhat less prominent on the right. There are again areas of consolidation of the lower lobes bilaterally near the lung bases somewhat greater in interval, air bronchograms present. There is again enlargement of the heart. 2. There is similar mild mediastinal lymphadenopathy. Electronically signed by: Neymar Parra MD (09/07/2018 10:33 AM) [id number]
--- NOTE | 2018-09-07 10:56 | PDOC2 ---
HAJA PHILLIPS [employer] DRIVER 09/07/18 1056: CARDIAC CONSULT DATE OF CONSULT Date of Consult DATE: 09/07/18 TIME: 0850 REASON FOR CONSULT Reason for Consult: CHF REFERRING PHYSICIAN Referring Physician: Sai SOURCE Source: Chart review, Patient HISTORY OF PRESENT ILLNESS HISTORY OF PRESENT ILLNESS This is a 72 yo female who is currently irritable but cooperative, came in for complains of SOA. Son is in room for detail clarification of her symptoms. Reports that in the last 20-3 days she has been more weak than usual. She has noticed more pedal edema which has improved overnight compared to her description. No palpitations, nausea, chest pain. No chills or recorded fever. She gets SOA with exertion but as pronounced as yesterday and her SOA seem to have gotten worse last night. She continues to smoke tobacco. 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 She does comply dialysis and does not take any lasix. She had her dialysis yesterday. Her BP is erratic and at times son told me her SBP was in the 180s. Overnight as an inpt her BP has been labile. She uses O2 around 2-3 L but her son increased to 5 as she was noted to be hypoxic at 70s and with increased in O2 supply she was still in the 80s. She has been receiving home health and she has been doing fair with her mobility till in the last 2 days when she felt weaker. No noted fever or chills. PAST MEDICAL HISTORY Past Medical History Cardiovascular: AFIB, CAD (with previous CABG in 1994 - PICKARD to LAD; SVG to OM1; SVG to RPDA), CHF (diastolic), HTN, Hyperlipidemia, Other (SSS with dual chamber [facility] PPM; chronically occluded left carotid artery; orthostatic hypotension ), Moderate MR CENTRAL NERVOUS SYSTEM: CVA (left hemisphere; residual aphasia), Seizure (?) GI: No pertinent hx Heme/Onc: No pertinent hx Hepatobiliary: No pertinent hx Psych: Anxiety Rheumatologic: No pertinent hx Infectious disease: No pertinent hx ENT: No pertinent hx Renal/: Chronic renal insuff (stage 3; atrophied left kidney; right renal artery stent) Endocrine: Hypothyroidism Dermatology: No pertinent hx PAST SURGICAL HISTORY Past Surgical History Pacemaker ([facility] dual chamber), CABG (X 3 - 1994), Other (parathyroidectomy) FAMILY HISTORY Family History: Hypertension SOCIAL HISTORY Smoke: <1 pack per day ALCOHOL: none Drugs: None Lives: with Family CURRENT MEDICATIONS CURRENT MEDICATIONS Current Medications Medications (Trade) Dose Ordered Sig/Dez Route PRN Reason Start Time Stop Time Status Last Admin Dose Admin Amiodarone HCl (Cordarone) 200 mg DAILY PO 09/07/18 09:00 09/07/18 08:20 Fludrocortisone Acetate (Florinef) 0.1 mg DAILY PO 09/07/18 09:00 09/07/18 08:20 Vitamin B Complex/ Vitamin C (Katie-Allison) 1 tab HS PO 09/06/18 21:00 09/06/18 21:11 Levetiracetam (Keppra) 500 mg HS PO 09/06/18 21:00 09/06/18 21:12 Levetiracetam (Keppra) 250 mg DAILY PO 09/07/18 09:00 09/07/18 08:19 Levothyroxine Sodium (Synthroid) 175 mcg DAILY06 PO 09/07/18 06:00 09/07/18 06:03 Metoprolol Succinate (Toprol Xl) 25 mg DAILY PO 09/07/18 09:00 09/07/18 08:20 Sertraline HCl (Zoloft) 50 mg HS PO 09/06/18 21:00 09/06/18 21:12 Atorvastatin Calcium (Lipitor) 80 mg QHS PO 09/06/18 21:00 09/06/18 21:12 Mirtazapine (Remeron) 15 mg QHS PO 09/06/18 21:00 09/06/18 21:12 Aspirin (Ecotrin) 81 mg DAILYWBKFT PO 09/07/18 09:00 09/07/18 09:12 Amlodipine Besylate (Norvasc) 5 mg DAILY PO 09/07/18 09:30 09/07/18 09:13 Ferrous Sulfate (Feosol) 325 mg BIDWMEALS PO 09/07/18 09:30 09/07/18 09:13 ALLERGIES ALLERGIES: Coded Allergies: codeine (Verified Allergy, Intermediate, 11/24/17) ROS Review of System 14 point ROS evaluated with pertinent positives noted per HPI PHYSICAL EXAM General: Alert, Oriented X3, Cooperative, mild distress HEENT: Atraumatic, Mucous membr. moist/pink Lungs: Other (diminished, basilar crackles) Heart: Regular rate (SR), Other (distant heart sounds) Abdomen: Soft, No tenderness Extremities: No cyanosis, No edema Skin: No breakdown, No significant lesion Neuro: Normal speech, Sensation intact Psych/Mental Status: Mental status NL, Other (irritable) MUSCULOSKELETAL: Osteoarthritic changes both hands VITALS VITALS Vital Signs Date Time Temp Pulse Resp B/P (MAP) Pulse Ox O2 Delivery O2 Flow Rate FiO2 09/07/18 09:13 89 197/104 09/07/18 08:00 Nasal Cannula 2.0 09/07/18 07:00 98.3 20 90 98.3 LABS Lab: Laboratory Tests Test 09/07/18 09:30 Sodium Level 133 mmol/L (136-145) Potassium Level 3.8 mmol/L (3.5-5.1) Chloride Level 98 mmol/L (98-107) Carbon Dioxide Level 27 mmol/L (21-32) Anion Gap 8 (6-14) Blood Urea Nitrogen 15 mg/dL (7-20) Creatinine 1.9 mg/dL (0.6-1.0) Estimated GFR (Cockcroft-Gault) 25.9 Glucose Level 130 mg/dL (70-99) Calcium Level 9.1 mg/dL (8.5-10.1) Magnesium Level 1.8 mg/dL (1.8-2.4) Troponin I Quantitative 0.050 ng/mL (0.000-0.055) Triglycerides Level 71 mg/dL (0-150) Cholesterol Level 146 mg/dL (0-200) LDL Cholesterol, Calculated 58 mg/dL (0-100) VLDL Cholesterol, Calculated 14 mg/dL (0-40) Non-HDL Cholesterol Calculated 72 mg/dL (0-129) HDL Cholesterol 74 mg/dL (40-60) Cholesterol/HDL Ratio 2.0 ECHOCARDIOGRAM ECHOCARDIOGRAM <Conclusion> The left ventricle is normal size. The left ventricular systolic function is normal. The Ejection Fraction is 50-55% There is borderline concentric left ventricular hypertrophy. There is no significant aortic valvular stenosis. Doppler and Color Flow revealed trace aortic regurgitation. Doppler and Color-flow revealed mild to moderate mitral regurgitation. Doppler and Color Flow revealed trace tricuspid regurgitation. DATE: 06/19/18 1558 HEART CATH HEART CATH Conclusion 1. Elevated left sided filling pressures. 2. Severe three vessel coronary disease with 2/3 grafts patent 3. Successful PCI of the SVG to OM1 with implantation of a 4.0/12 mm Resolute TANO Recommendations ASA 81mg daily Continue plavix 75mg daily Continue statin therapy Consider PCI of the LM depending on recovery of acute medical issues and future symptoms when more stable. DATE: 06/22/18 1425 ASSESSMENT/PLAN ASSESSMENT/PLAN 1. Acute respiratory failure secondary COPD, CHF, recurrent pleural effusion with continued tobaccoism 2. Acute on chronic diastolic CHF: uncontrolled BP contributing to CHF. 3. ESRD 5. CAD with remote history of CABG. S/P PCI/TANO to the SVG to OM1 on 06/2018, clinically stable. no CP, EKG SR without acute changes 6. PAFIB; maintaining SR 7. Accelerated HTN: 8. HLP 9. SSS s/p PPM; ([facility]) Recommendations Fluid off-loading via HD. CT chest noncontrast. pulmonary consult pending. Secondary prevention including DAPT with ASA and continue plavix if no invasive procedure such as thoracentesis Resume home BP meds and will uptitrate per trend and continue amiodarone ASA for stroke prevention with noted past history of bleeding and anemia Will interrogate device and note any contributing arrhythmias. Advised smoking cessation, but not ready. Stop florinef for now after obtaining orthostatic readings. YA MACKEY MD 09/07/18 2017: CARDIAC CONSULT ASSESSMENT/PLAN ASSESSMENT/PLAN Patient seen and examined. Agree with EXTRACTOR PULLER's assessment and plan. Continue fluid removal with HD for acute on chr diastolic HF Recent echo showed normal LV function CAD s/p CABG and more recent PCI to SVG to OM, clinically stable Resume home antihypertensives and titrate for better control PAF maintaining sinus rhythm with amiodarone Thank you for your consultation HAJA PHILLIPS APRN September 07, 2018 10:56 YA MACKEY MD September 07, 2018 20:17
[2018-09-07] MEDS: hydrALAZINE 20 MG/ML VIAL. IVP PRN ×2 (12:00→17:13)
--- NOTE | 2018-09-07 12:28 | NUR ---
SS following up with discharge planning. SS reviewed pt chart. Pt is from home with family and is currently requiring oxygen. Pt has had previous services in the past with [facility]. Pt will need PT/OT evaluations to assess for needs. SS will continue to follow for discharge planning.
--- NOTE | 2018-09-07 12:39 | PDOC ---
SUBJECTIVE ROS States feeling much better, Thoracentesis scheduled for today OBJECTIVE Vital Signs Vital Signs Date Time Temp Pulse Resp B/P (MAP) Pulse Ox O2 Delivery O2 Flow Rate FiO2 09/07/18 12:00 89 188/78 09/07/18 11:00 98.2 20 92 Nasal Cannula 2.0 98.2 I & 0 Intake and Output 09/07/18 06:59 Intake Total 150 ml Output Total 200 ml Balance -50 ml Intake Oral 50 ml IV Total 100 ml Output Urine Total 200 ml # Voids 2 PHYSICAL EXAM Physical Exam General: mild distress HEENT: Mucous membr. moist/pink, O2 by NC neck Supple Lungs: Other (bibasilar crackles) Heart: Regular rate, Normal S1, Normal S2, Other (2/6 systolic murmur ) Abdomen: Soft Extremities: Trace bilat LE edema Neuro: expressive aphasia ) - No Klein Skin No Rash DIAGNOSIS/ASSESSMENT Assessment & Plan ESRD -[facility] Johnson on HD since Jun 2018 No indication for HD today Acute on chronic diastolic CHF; EF 50-55% Worsening SOB , Improved Compliant with HD with UF to dry weight Hypokalemia- resolved Monitor HYponatremia- Mild Anemia- stable NSTEMI: 06/22/2018 S/P PCI/TANO CAD with remote history of CABG PAFIB; prior RVR. presently maintaining SR HTN: Stays high , Had Renal Art Stenting Rt at [facility] in 2017 Renal doppler 11/23- The left kidney appears smaller in size could be mild atrophic changes. No evidence of right renal artery stenosis. SSS s/p PPM; ([facility]) Pleural effusion Thoracentesis today COMMENT/RELEVANT DATA Meds Current Medications Medications (Trade) Dose Ordered Sig/Dez Start Time Stop Time Status Last Admin Dose Admin Acetaminophen (Tylenol) 500 mg PRN Q6HRS PRN 09/06/18 19:15 Albumin Human 200 ml @ 200 mls/hr 1X PRN PRN 09/06/18 11:30 09/06/18 17:29 DC Albuterol/ Ipratropium (Duoneb) 3 ml 1X ONCE 09/06/18 07:00 09/06/18 07:01 DC 09/06/18 07:34 3 ML Amiodarone HCl (Cordarone) 200 mg DAILY 09/07/18 09:00 09/07/18 08:20 200 MG Amlodipine Besylate (Norvasc) 5 mg DAILY 09/07/18 09:30 09/07/18 09:13 5 MG Aspirin (Children'S Aspirin) 324 mg 1X ONCE 09/06/18 07:00 09/06/18 07:01 DC 09/06/18 06:50 324 MG Aspirin (Ecotrin) 81 mg DAILYWBKFT 09/07/18 09:00 09/07/18 09:12 81 MG Atorvastatin Calcium (Lipitor) 80 mg QHS 09/06/18 21:00 09/06/18 21:12 80 MG Clopidogrel Bisulfate (Plavix) 75 mg DAILYWBKFT 09/07/18 09:00 Ferrous Sulfate (Feosol) 325 mg BIDWMEALS 09/07/18 09:30 09/07/18 09:13 325 MG Fludrocortisone Acetate (Florinef) 0.1 mg DAILY 09/07/18 09:00 09/07/18 08:20 0.1 MG Furosemide (Lasix) 80 mg 1X ONCE 09/06/18 07:00 09/06/18 07:01 DC 09/06/18 06:53 80 MG Hydralazine HCl (Apresoline Inj) 10 mg PRN Q4HRS PRN 09/07/18 10:45 09/07/18 12:00 10 MG Info (PHARMACY MONITORING -- do not chart) 1 each PRN DAILY PRN 09/06/18 11:30 Levetiracetam (Keppra) 250 mg DAILY 09/07/18 09:00 09/07/18 08:19 250 MG Levothyroxine Sodium (Synthroid) 175 mcg DAILY06 09/07/18 06:00 09/07/18 06:03 175 MCG Metoprolol Succinate (Toprol Xl) 25 mg DAILY 09/07/18 09:00 09/07/18 08:20 25 MG Mirtazapine (Remeron) 15 mg QHS 09/06/18 21:00 09/06/18 21:12 15 MG Nitroglycerin/ Dextrose 250 ml @ 0 mls/hr 1X ONCE 09/06/18 07:00 09/06/18 07:01 DC 09/06/18 07:01 1.5 MLS/HR Potassium Chloride/Water 100 ml @ 100 mls/hr Q1H 09/06/18 07:30 09/06/18 09:29 DC 09/06/18 08:41 100 MLS/HR Potassium Chloride (Klor-Con) 40 meq 1X ONCE 09/06/18 07:30 09/06/18 07:31 DC 09/06/18 11:15 40 MEQ Sertraline HCl (Zoloft) 50 mg HS 09/06/18 21:00 09/06/18 21:12 50 MG Sodium Chloride 1,000 ml @ 400 mls/hr Q2H30M PRN 09/06/18 11:30 09/06/18 23:29 DC Vitamin B Complex/ Vitamin C (Katie-Allison) 1 tab HS 09/06/18 21:00 09/06/18 21:11 1 TAB Vitamin D (Vitamin D3) 1,000 unit QFR 09/08/18 16:00 Lab Laboratory Tests Test 09/07/18 09:30 Sodium Level 133 mmol/L (136-145) Potassium Level 3.8 mmol/L (3.5-5.1) Chloride Level 98 mmol/L (98-107) Carbon Dioxide Level 27 mmol/L (21-32) Anion Gap 8 (6-14) Blood Urea Nitrogen 15 mg/dL (7-20) Creatinine 1.9 mg/dL (0.6-1.0) Estimated GFR (Cockcroft-Gault) 25.9 Glucose Level 130 mg/dL (70-99) Calcium Level 9.1 mg/dL (8.5-10.1) Magnesium Level 1.8 mg/dL (1.8-2.4) Troponin I Quantitative 0.050 ng/mL (0.000-0.055) Triglycerides Level 71 mg/dL (0-150) Cholesterol Level 146 mg/dL (0-200) LDL Cholesterol, Calculated 58 mg/dL (0-100) VLDL Cholesterol, Calculated 14 mg/dL (0-40) Non-HDL Cholesterol Calculated 72 mg/dL (0-129) HDL Cholesterol 74 mg/dL (40-60) Cholesterol/HDL Ratio 2.0 Results All relevant outside records, renal labs, imaging studies, telemetry/EKG's were reviewed. Other CT 09/07 - . There is significantly improved groundglass density of the bilateral hemithoraces likely due to decreased alveolar edema. There are persistent right greater than left pleural effusions with subpulmonic extent, somewhat less prominent on the right. There are again areas of consolidation of the lower lobes bilaterally near the lung bases somewhat greater in interval, air bronchograms present. There is again enlargement of the heart. 2. There is similar mild mediastinal lymphadenopathy. JAZLYN CUNHA MD September 07, 2018 12:39
--- NOTE | 2018-09-07 15:19 | HP ---
ADMIT DATE: 09/06/2018 HISTORY OF PRESENT ILLNESS: The patient is a 72-year-old female patient who came to the Emergency Room complaining of increasing shortness of breath over the past 12 hours prior to admission. She has not had any chest pain. She does not report any orthopnea, but there was significant increased dyspnea on exertion. She has not had any cough or chest pain. Does have oxygen at home. Upon her recent hospital discharge, the patient's stated that they were instructed to keep her on oxygen at 1 liter chronically, but she only used oxygen as needed. When she arrived to the Emergency Room, was to place 2 liters by nasal cannula as her oxygen was only 80% and her oxygen improved to 90% on 4 liters oxygen flow. There are no alleviating or exacerbating factors to the patient's symptoms, except as noted above. When she arrived to the Emergency Room, she was due for her dialysis. Her lab work on arrival showed that her potassium was low at 2.8. Her beta natriuretic peptide was more than 35,000 and her troponin was less than 0.056. She was admitted with a diagnosis of [id number] congestive heart failure, pleural effusion and she has obviously end-stage renal disease, on hemodialysis. PAST MEDICAL HISTORY: Significant for atrial fibrillation, coronary artery disease, previous CABG in 1994. She has PICKARD to LAD, saphenous venous graft to obtuse marginal. She is also known to have congestive heart failure, hypertension, hyperlipidemia, sick sinus syndrome with dual-chamber [facility] [facility] permanent pacemaker, chronically occluded left carotid artery and orthostatic hypotension. 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 She also is known to have seizures and end-stage renal disease, on hemodialysis and hypothyroidism. PAST SURGICAL HISTORY: Pacemaker placement, coronary artery bypass graft surgery x 3 and parathyroidectomy. FAMILY HISTORY: Noncontributory. SOCIAL HISTORY: She is , lives with her . She used to smoke a pack a day, quit on 07/18/2017, then resumed about . ALLERGIES: SHE IS ALLERGIC TO CODEINE. MEDICATIONS: She is currently on the following medications: Ferrous sulfate 325 mg 3 times a day, Plavix 75 mg once a day, amiodarone 200 mg daily and Atorvastatin 80 mg at bedtime. She is on metoprolol succinate 25 mg once a day, amlodipine 5 mg twice a day, aspirin 81 mg chewable tablet once a day, acetaminophen 500 mg every 6 hours, levetiracetam 250 mg p.o. daily, levetiracetam 500 mg p.o. at bedtime, mirtazapine 15 mg at bedtime, sertraline 50 mg at bedtime, fludrocortisone acetate 100 mcg once a day, levothyroxine 175 mcg once a day, folic acid for Nephro-Allison 1 tablet once a day and cholecalciferol for vitamin D3 at 1000 International units once a day. PHYSICAL EXAMINATION: GENERAL: On arrival to the Emergency Room, the patient was tachypneic, markedly hypertensive, hypoxic with oxygen saturation only 80% on arrival on room air. She was pale, but not jaundiced or cyanosed from thyromegaly. No jugular venous distention. No lower limb edema. VITAL SIGNS: Her heart rate was 88, blood pressure was 205/87, temperature was 98, respiratory rate was and oxygen saturation was 93% on 4 liters of oxygen. HEENT: Examination of the head, eyes, ears, nose and throat showed normocephalic, atraumatic. NECK: Supple. HEART: Showed normal first and second heart sounds, with no gallop, rub or murmur. CHEST: Clear to auscultation. No crepitation or rhonchi. LUNGS: With dull percussion noted and absent breath sounds on both sides posteriorly. ABDOMEN: Soft, nontender. No guarding or rigidity. No organomegaly. All hernial orifices intact. Bowel sounds normal. NEUROLOGIC: She was awake, alert and responding appropriately. She does have mild aphasia and residual right-sided hemiplegia. LABORATORY DATA: Her lab work on arrival showed a white cell count of 10,300, hemoglobin 9.4, hematocrit 30, MCV 90 and platelet count of 209,000. Her chemistry showed a serum sodium 140, potassium 2.8, chloride 101, bicarbonate 29, anion gap of 10, BUN 24, creatinine 2.5, estimated GFR was 19 mL per minute, her glucose was 118 and calcium was 9.1. Total bilirubin, AST, ALT and alkaline phosphatase were normal. Total protein was 6.5. Albumin was 2.7. Her beta natriuretic peptide was more than 35,000. Her troponin I was 0.056. Her prothrombin time was 12.5, INR 1.1. SUMMARY: The patient was admitted. We consulted the Nephrology team. She was admitted on her scheduled hemodialysis day. I also held her Plavix and aspirin in anticipation that she might require thoracentesis. I also consulted the transportation dispatch manager given her elevated troponin. So, in summary, this is a 72-year-old female patient with end-stage renal disease, who is coming with fluid overload. She has hyponatremia, elevated troponin, large bilateral pleural effusion and hypokalemia. LEYDA MCDERMOTT MD DR: MEGAN/gatito JOB#: [id number] / [id number]
--- NOTE | 2018-09-07 15:25 | NUR ---
Patient to IR for right thoracentesis, removed 900ml. Bandaid to right post lower back. Patient tolerated well with no issues. Vitals stable, report called to [address] [place] [id number] nurse. Patient transferred back to [address] [place] [address].
[2018-09-07] MEDS: CLOPIDOGREL BISULFATE 75 MG TABLET PO SCH (15:52)
--- NOTE | 2018-09-07 15:54 | RAD ---
Ultrasound-guided right-sided thoracentesis 09/07/2018 3:50 PM Indication: ct guided right thoracentesis Procedure: Informed consent was obtained. A timeout procedure was performed. Sonographic evaluation of the right chest was performed demonstrating moderate pleural effusion. The right posterior chest was prepped and draped in sterile fashion. 1% lidocaine without epinephrine was administered for local anesthesia. Real-time ultrasonographic guidance was used in passing a 5 [employer] catheter into the right pleural space. 0.9 L of serosanguineous pleural fluid was removed. Samples of fluid were sent to the lab for further evaluation per ordering physician request. The catheter was removed and pressure held to achieve hemostasis. A sterile dressing was applied. No immediate complications were identified. The patient tolerated the procedure well. Impression: Right sided ultrasound-guided thoracentesis
--- NOTE | 2018-09-07 19:25 | NUR ---
Assessment completed vss poc explained pt denies pain, will resume care and continue to monitor pt.call light in reach.
[2018-09-07] MEDS: FOLIC/VIT B COMP W-C (RENAL) TABLET. PO SCH (21:36)
[2018-09-07] MEDS: ATORVASTATIN CALCIUM 40 MG TABLET. PO SCH (21:36)
[2018-09-07] MEDS: SERTRALINE 50 MG TABLET. PO SCH (21:36)
[2018-09-07] MEDS: MIRTAZAPINE 15 MG TABLET PO SCH (21:37)
[2018-09-07] MEDS: amLODIPine BESYLATE 5 MG TABLET PO SCH (21:37)
--- NOTE | 2018-09-08 02:21 | PN ---
DATE: 09/07/2018 HISTORY OF PRESENT ILLNESS: The patient was admitted yesterday with increasing shortness of breath, was found to be hypokalemic. Her troponin was slightly elevated. Her chest x-ray showed that she has bilateral pleural effusion and also interstitial pulmonary edema. She was dialyzed yesterday. I did consult the accountancy professor as well as the product mgmt dev manager and obviously she was seen by the poultry process worker and we made arrangements for right-sided thoracentesis. PHYSICAL EXAMINATION: GENERAL: When I saw her this morning she was resting flat in bed, clearly in no apparent respiratory distress, pale, but no jaundice, cyanosis or thyromegaly. No jugular venous distension. No lower limb edema. VITAL SIGNS: Her heart rate was 79, blood pressure was 188/78, temperature was 98.2, respiratory rate was 20, and oxygen saturation was 92% on 2 liters of oxygen by nasal cannula. HEAD, EYES, EARS, NOSE AND THROAT: Showed normocephalic, atraumatic. NECK: Supple. HEART: Showed normal first and second sounds. No gallop, rub or murmur. CHEST: Showed central trachea. Equal bilateral expansion, air entry, vesicular sounds. No crepitation or rhonchi anteriorly. She has a dull percussion noted and absent breath sounds both sides, more so on right. ABDOMEN: Distended, soft, nontender. NEUROLOGIC: She is awake, alert, responding appropriately. All cranial nerves intact. She has mild right-sided hemiparesis. She is completely anuric and hemodialysis dependent. LABORATORY DATA: Her lab work this morning showed that her serum sodium was 133, potassium 3.8, chloride 98, bicarbonate 27, anion gap of 8, BUN 15, creatinine 1.9, estimated GFR was 26 mL per minute. Her glucose was 130, calcium was 9.1, magnesium was 1.8. Second troponin was 0.050. Her fasting lipid profile showed serum triglycerides were 71, total cholesterol 146, LDL was 58, VLDL was 14, HDL cholesterol was 74 and cholesterol to HDL cholesterol was 2. ASSESSMENT: 1. Oyhxd-mo-[id number] congestive heart failure. 2. History of cardiomyopathy with an ejection fraction of 45%, suspected diastolic dysfunction. 3. Bilateral pleural effusion. 4. Severe chronic obstructive pulmonary disease and chronic respiratory failure with exacerbation triggered by congestive heart failure. PLAN: To continue with oxygen supplementation. Continue with hemodialysis. We have arranged for her to have right-sided thoracentesis. Continue to hold Plavix and aspirin for now. The patient was evaluated by the product mgmt dev manager. The plan is to continue basically with medical management. LEYDA MCDERMOTT MD DR: MEGAN/gatito JOB#: [id number] / [id number]
[2018-09-08 03:33] VITALS: BP 168/72
--- NOTE | 2018-09-08 04:02 | NUR ---
call placed to Dr. Jackson re pt cxr results
--- NOTE | 2018-09-08 04:03 | RAD ---
Indication:INPATIENT. POST RIGHT SIDE THORACENTESIS. PRIOR XRAY. TECHNIQUE:Portable AP chest X-ray COMPARISON:09/06/2018 FINDINGS: Heart is normal in size. Stable position of right-sided central venous catheter and cardiac pacer. Diffuse interstitial opacities are seen. Interval resolution of previously seen right pleural effusion. Trace amount of right apical pneumothorax. Visualized bony thorax within normal limits. IMPRESSION: Diffuse interstitial opacities may be secondary to interstitial pulmonary edema or atypical/viral infection. Trace right apical pneumothorax. Follow-up chest x-ray recommended. Findings discussed with nurse Dunaway on 09/08/2018 at 4:00 AM. Electronically signed by: Bright Gudino DO (09/08/2018 4:01 AM) [facility]
--- NOTE | 2018-09-08 04:04 | NUR ---
Dr. campbell returned call orders received.
[2018-09-08] MEDS: LEVOTHYROXINE 175 MCG TABLET PO SCH (06:09)
[2018-09-08 07:32] VITALS: BP 156/56
[2018-09-08] MEDS: ASPIRIN ENTERIC COATED 81 MG TABLET.DR. PO SCH (08:11)
[2018-09-08] MEDS: levETIRAcetam 500 MG TABLET PO SCH ×2 (08:11→20:57)
[2018-09-08] MEDS: FERROUS SULFATE 325 MG TABLET. PO SCH ×2 (08:12→17:31)
[2018-09-08] MEDS: amLODIPine BESYLATE 5 MG TABLET PO SCH ×2 (08:12→20:57)
[2018-09-08] MEDS: AMIODARONE HCL 200 MG TABLET. PO SCH (08:12)
[2018-09-08] MEDS: METOPROLOL SUCC 24HR ER 25 MG TAB.ER.24H. PO SCH (08:12)
[2018-09-08] MEDS ORDERED: IV NORMAL SALINE 1000ML BAG 1,000 ML IV PRN (09:00)
[2018-09-08] MEDS ORDERED: ALBUMIN HUMAN 25% 200 ML IV PRN (09:00)
[2018-09-08] MEDS ORDERED: 0.9 % SODIUM CHLORIDE 10 ML DISP.SYRIN. IV PRN ×2 (09:00)
--- NOTE | 2018-09-08 09:07 | RAD ---
Portable chest, 09/08/2018: HISTORY: Pneumothorax Comparison is made to yesterday's study. A right jugular dialysis type catheter and a left-sided transvenous pacing device are again noted and are unchanged. The heart is enlarged. There is calcific plaquing the aorta. There are moderate ongoing bilateral pulmonary infiltrates with dominant involvement of the lung bases. Similar findings were present on yesterday's study. There is blunting of the right lateral costophrenic angle compatible with a small amount of residual pleural fluid. The tiny right apical pneumothorax seen on yesterday's study is no longer clearly visible. No new abnormality is detected. IMPRESSION: 1. Resolving tiny right apical pneumothorax. 2. Unchanged bilateral pulmonary infiltrates. 3. Small residual right pleural effusion. Electronically signed by: Adrien Arreola MD (09/08/2018 9:04 AM) [facility]
[2018-09-08 10:03] LABS: HEMATOCRIT 29.3 % (36.0-47.0); HEMOGLOBIN 9.5 g/dL (12.0-15.5); RED BLOOD COUNT 3.29 x10^6/uL (3.50-5.40); WHITE BLOOD COUNT 9.2 x10^3/uL (4.0-11.0)
[2018-09-08 10:07] LABS: CALCIUM 8.6 mg/dL (8.5-10.1); CREATININE 1.9 mg/dL (0.6-1.0); GFR 25.9; POTASSIUM 3.1 mmol/L (3.5-5.1)
--- NOTE | 2018-09-08 10:10 | PDOC ---
PULMONARY PROGRESS NOTES Subjective s/p thoracentesis Vitals Vital Signs Date Time Temp Pulse Resp B/P (MAP) Pulse Ox O2 Delivery O2 Flow Rate FiO2 09/08/18 08:12 76 156/56 09/08/18 07:32 97.9 18 97 Nasal Cannula 2.0 97.9 General: Alert, No acute distress HEENT: Other Lungs: Crackles Cardiovascular: S1, S2 Abdomen: Soft, Non-tender Neuro Exam: Alert Extremities: No Edema Skin: Warm Labs Laboratory Tests Test 09/07/18 09:30 Sodium Level 133 mmol/L (136-145) Potassium Level 3.8 mmol/L (3.5-5.1) Chloride Level 98 mmol/L (98-107) Carbon Dioxide Level 27 mmol/L (21-32) Anion Gap 8 (6-14) Blood Urea Nitrogen 15 mg/dL (7-20) Creatinine 1.9 mg/dL (0.6-1.0) Estimated GFR (Cockcroft-Gault) 25.9 Glucose Level 130 mg/dL (70-99) Calcium Level 9.1 mg/dL (8.5-10.1) Magnesium Level 1.8 mg/dL (1.8-2.4) Troponin I Quantitative 0.050 ng/mL (0.000-0.055) Triglycerides Level 71 mg/dL (0-150) Cholesterol Level 146 mg/dL (0-200) LDL Cholesterol, Calculated 58 mg/dL (0-100) VLDL Cholesterol, Calculated 14 mg/dL (0-40) Non-HDL Cholesterol Calculated 72 mg/dL (0-129) HDL Cholesterol 74 mg/dL (40-60) Cholesterol/HDL Ratio 2.0 Medications Active Scripts Medications Dose Route/Sig Max Daily Dose Days Date Category Nephro-Allison Tablet (Folic Acid/Vitamin B Comp W-C) 0.8 Mg Tablet 1 Tab PO HS 08/17/18 Reported Mirtazapine 15 Mg Tablet 1 Tab PO QHS 08/17/18 Reported Levothyroxine Sodium 175 Mcg Tablet 1 Tab PO DAILY 08/17/18 Reported Ferrous Sulfate 325 Mg Tablet 1 Tab PO TID PRN 08/17/18 Reported Amlodipine Besylate 5 Mg Tablet 5 Mg PO BID PRN 08/17/18 Reported Metoprolol Succinate ( Xl ) (Metoprolol Succinate) 25 Mg Tab.er.24h 25 Mg PO DAILY 30 06/28/18 Rx Clopidogrel (Clopidogrel Bisulfate) 75 Mg Tablet 75 Mg PO DAILYWBKFT 30 06/28/18 Rx Acetaminophen 500 Mg Tablet 1 Tab PO PRN Q6HRS PRN 06/19/18 Reported Zoloft (Sertraline Hcl) 50 Mg Tablet 1 Tab PO HS 06/19/18 Reported Levetiracetam 500 Mg Tablet 1 Tab PO HS 06/19/18 Reported Levetiracetam 500 Mg Tablet 250 Mg PO DAILY 06/19/18 Reported Fludrocortisone Acetate 0.1 Mg Tablet 1 Tab PO DAILY12 11/25/17 Reported Vitamin D3 (Cholecalciferol (Vitamin D3)) 1,000 Unit Tablet 1 Tab PO QFR 11/25/17 Reported Atorvastatin Calcium 80 Mg Tablet 1 Tab PO HS 11/25/17 Reported Aspirin 81 Mg Tab.chew 1 Tab PO DAILY 11/24/17 Reported Amiodarone Hcl 200 Mg Tablet 1 Tab PO DAILY 11/24/17 Reported Impression . 1. Dyspnea in the last 24 hours due to development of noedo-[id number] congestive heart failure. 2. The patient with history of cardiomyopathy with an EF of 45% and suspected diastolic dysfunction, now presents with increasing dyspnea related to bilateral pleural effusion and development of congestive heart failure. s/p right-sided thoracentesis. Her hypertensive emergency contributing to heart failure as well. 3. Cardiomyopathy. 4. Suspected severe chronic obstructive pulmonary disease with chronic respiratory failure with exacerbation triggered by congestive heart failure. Plan . 1. Continue with present oxygen. 2. Hemodialysis with ultrafiltration. 3. Smoking cessation counseling provided. 4. s/p right-sided thoracentesis. will review analysis 5. resolved tiny PTX today 6. Follow cardiology recommendations. 7. Discussed with RN. BARBER HASTINGS MD September 08, 2018 10:10
[2018-09-08 10:13] LABS: ALBUMIN 2.3 g/dL (3.4-5.0); ALBUMIN/GLOBULIN RATIO 0.5 (1.0-1.7); TOTAL BILIRUBIN 0.6 mg/dL (0.2-1.0); TOTAL PROTEIN 6.5 g/dL (6.4-8.2)
--- NOTE | 2018-09-08 10:42 | PDOC ---
SUBJECTIVE ROS States feeling much better, s/p Thoracentesis 09/07, wants to go home OBJECTIVE Vital Signs Vital Signs Date Time Temp Pulse Resp B/P (MAP) Pulse Ox O2 Delivery O2 Flow Rate FiO2 09/08/18 08:12 76 156/56 09/08/18 07:32 97.9 18 97 Nasal Cannula 2.0 97.9 I & 0 Intake and Output 09/08/18 07:00 Intake Total 150 ml Output Total 900 ml Balance -750 ml Intake Oral 150 ml Drainage Total 900 ml # Voids 1 PHYSICAL EXAM Physical Exam General: mild distress HEENT: Mucous membr. 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 presently maintaining SR HTN: Stays high , Had Renal Art Stenting Rt at [facility] in 2017 Renal doppler 11/23- The left kidney appears smaller in size could be mild atrophic changes. No evidence of right renal artery stenosis. SSS s/p PPM; ([facility]) Pleural effusion s/p Thoracentesis 09/07 - 900 ml drained COMMENT/RELEVANT DATA Meds Current Medications Medications (Trade) Dose Ordered Sig/Dez Start Time Stop Time Status Last Admin Dose Admin Acetaminophen (Tylenol) 500 mg PRN Q6HRS PRN 09/06/18 19:15 Albumin Human 200 ml @ 200 mls/hr 1X PRN PRN 09/06/18 11:30 09/06/18 17:29 DC Albuterol/ Ipratropium (Duoneb) 3 ml 1X ONCE 09/06/18 07:00 09/06/18 07:01 DC 09/06/18 07:34 3 ML Amiodarone HCl (Cordarone) 200 mg DAILY 09/07/18 09:00 09/08/18 08:12 200 MG Amlodipine Besylate (Norvasc) 5 mg BID 09/07/18 21:00 09/08/18 08:12 5 MG Aspirin (Children'S Aspirin) 324 mg 1X ONCE 09/06/18 07:00 09/06/18 07:01 DC 09/06/18 06:50 324 MG Aspirin (Ecotrin) 81 mg DAILYWBKFT 09/07/18 09:00 09/08/18 08:11 81 MG Atorvastatin Calcium (Lipitor) 80 mg QHS 09/06/18 21:00 09/07/18 21:36 80 MG Clopidogrel Bisulfate (Plavix) 75 mg DAILYWBKFT 09/07/18 09:00 09/07/18 15:52 75 MG Ferrous Sulfate (Feosol) 325 mg BIDWMEALS 09/07/18 09:30 09/08/18 08:12 325 MG Fludrocortisone Acetate (Florinef) 0.1 mg DAILY 09/07/18 09:00 09/07/18 15:23 DC 09/07/18 08:20 0.1 MG Furosemide (Lasix) 80 mg 1X ONCE 09/06/18 07:00 09/06/18 07:01 DC 09/06/18 06:53 80 MG Hydralazine HCl (Apresoline Inj) 10 mg PRN Q4HRS PRN 09/07/18 10:45 09/07/18 17:13 10 MG Info (PHARMACY MONITORING -- do not chart) 1 each PRN DAILY PRN 09/06/18 11:30 Levetiracetam (Keppra) 250 mg DAILY 09/07/18 09:00 09/08/18 08:11 250 MG Levothyroxine Sodium (Synthroid) 175 mcg DAILY06 09/07/18 06:00 09/08/18 06:09 175 MCG Metoprolol Succinate (Toprol Xl) 25 mg DAILY 09/07/18 09:00 09/08/18 08:12 25 MG Mirtazapine (Remeron) 15 mg QHS 09/06/18 21:00 09/07/18 21:37 15 MG Nitroglycerin/ Dextrose 250 ml @ 0 mls/hr 1X ONCE 09/06/18 07:00 09/06/18 07:01 DC 09/06/18 07:01 1.5 MLS/HR Potassium Chloride/Water 100 ml @ 100 mls/hr Q1H 09/06/18 07:30 09/06/18 09:29 DC 09/06/18 08:41 100 MLS/HR Potassium Chloride (Klor-Con) 40 meq 1X ONCE 09/06/18 07:30 09/06/18 07:31 DC 09/06/18 11:15 40 MEQ Sertraline HCl (Zoloft) 50 mg HS 09/06/18 21:00 09/07/18 21:36 50 MG Sodium Chloride 1,000 ml @ 400 mls/hr Q2H30M PRN 09/06/18 11:30 09/06/18 23:29 DC Vitamin B Complex/ Vitamin C (Katie-Allison) 1 tab HS 09/06/18 21:00 09/07/18 21:36 1 TAB Vitamin D (Vitamin D3) 1,000 unit QFR 09/08/18 16:00 Lab Laboratory Tests Test 09/08/18 09:19 09/08/18 09:40 White Blood Count 9.2 x10^3/uL (4.0-11.0) Red Blood Count 3.29 x10^6/uL (3.50-5.40) Hemoglobin 9.5 g/dL (12.0-15.5) Hematocrit 29.3 % (36.0-47.0) Mean Corpuscular Volume 89 fL (79-100) Mean Corpuscular Hemoglobin 29 pg (25-35) Mean Corpuscular Hemoglobin Concent 33 g/dL (31-37) Red Cell Distribution Width 18.0 % (11.5-14.5) Platelet Count 196 x10^3/uL (140-400) Sodium Level 137 mmol/L (136-145) Potassium Level 3.1 mmol/L (3.5-5.1) Chloride Level 97 mmol/L (98-107) Carbon Dioxide Level 32 mmol/L (21-32) Anion Gap 8 (6-14) Blood Urea Nitrogen 18 mg/dL (7-20) Creatinine 1.9 mg/dL (0.6-1.0) Estimated GFR (Cockcroft-Gault) 25.9 BUN/Creatinine Ratio 9 (6-20) Glucose Level 121 mg/dL (70-99) Calcium Level 8.6 mg/dL (8.5-10.1) Total Bilirubin 0.6 mg/dL (0.2-1.0) Aspartate Amino Transf (AST/SGOT) 28 U/L (15-37) Alanine Aminotransferase (ALT/SGPT) 28 U/L (14-59) Alkaline Phosphatase 56 U/L (46-116) Total Protein 6.5 g/dL (6.4-8.2) Albumin 2.3 g/dL (3.4-5.0) Albumin/Globulin Ratio 0.5 (1.0-1.7) Results All relevant outside records, renal labs, imaging studies, telemetry/EKG's were reviewed. Other CxR-- 1. Resolving tiny right apical pneumothorax. 2. Unchanged bilateral pulmonary infiltrates. 3. Small residual right pleural effusion. JAZLYN CUNHA MD September 08, 2018 10:41
[2018-09-08] MEDS ORDERED: DIALYSIS PATIENT. MC PRN ×2 (10:45)
--- NOTE | 2018-09-08 13:44 | PDOC ---
HAJA PHILLIPS GAMMA OPERATOR 09/08/18 1344: CARDIO Progress Notes Date and Time Date of Service 09/08/2018 Time of Evaluation 1320 Subjective Subjective: No Chest Pain, No shortness of breath, No Palpitations, Other (feels better today, doing puzzles) Vitals Vitals Vital Signs Date Time Temp Pulse Resp B/P (MAP) Pulse Ox O2 Delivery O2 Flow Rate FiO2 09/08/18 08:12 76 156/56 09/08/18 07:32 97.9 18 97 Nasal Cannula 2.0 97.9 Weight Weight [ ] Input and Output Intake and Output Intake and Output 09/08/18 07:00 Intake Total 150 ml Output Total 900 ml Balance -750 ml Intake Oral 150 ml Drainage Total 900 ml # Voids 1 Laboratory Labs Laboratory Tests Test 09/08/18 09:19 09/08/18 09:40 White Blood Count 9.2 x10^3/uL (4.0-11.0) Red Blood Count 3.29 x10^6/uL (3.50-5.40) Hemoglobin 9.5 g/dL (12.0-15.5) Hematocrit 29.3 % (36.0-47.0) Mean Corpuscular Volume 89 fL (79-100) Mean Corpuscular Hemoglobin 29 pg (25-35) Mean Corpuscular Hemoglobin Concent 33 g/dL (31-37) Red Cell Distribution Width 18.0 % (11.5-14.5) Platelet Count 196 x10^3/uL (140-400) Sodium Level 137 mmol/L (136-145) Potassium Level 3.1 mmol/L (3.5-5.1) Chloride Level 97 mmol/L (98-107) Carbon Dioxide Level 32 mmol/L (21-32) Anion Gap 8 (6-14) Blood Urea Nitrogen 18 mg/dL (7-20) Creatinine 1.9 mg/dL (0.6-1.0) Estimated GFR (Cockcroft-Gault) 25.9 BUN/Creatinine Ratio 9 (6-20) Glucose Level 121 mg/dL (70-99) Calcium Level 8.6 mg/dL (8.5-10.1) Total Bilirubin 0.6 mg/dL (0.2-1.0) Aspartate Amino Transf (AST/SGOT) 28 U/L (15-37) Alanine Aminotransferase (ALT/SGPT) 28 U/L (14-59) Alkaline Phosphatase 56 U/L (46-116) Total Protein 6.5 g/dL (6.4-8.2) Albumin 2.3 g/dL (3.4-5.0) Albumin/Globulin Ratio 0.5 (1.0-1.7) Physical Exam HEENT: Neck Supple W Full Motion Chest: Symmetric LUNGS: Other (basailr crackles) Heart: RRR (SR) Abdomen: Soft N/T Extremities: No Calf Tenderness Neurology: alert, oriented, follow commands Assessment Assessment 1. Acute respiratory failure secondary COPD, CHF, recurrent pleural effusion with continued tobaccoism. S/P right thoracentesis. SOA better 2. Acute on chronic diastolic CHF: uncontrolled BP contributing to CHF 3. ESRD 5. CAD with remote history of CABG. S/P PCI/TANO to the SVG to OM1 on 06/2018, clinically stable. no CP, EKG SR without acute changes 6. PAFIB; maintaining SR 7. Accelerated HTN: BP better 8. HLP 9. SSS s/p PPM; ([facility]). Interrogation revealed normal functioning device with <1% AFIB burden Recommendations Fluid off-loading via HD. K is low at 3.1 will reeval tomorrow as pt is having HD today. Secondary prevention including DAPT with ASA and continue plavix Continue amiodarone and BP regimen. Much better with novasc additional dose at noc. DC florinef negative for orthostasis. ASA for stroke prevention with noted past history of bleeding and anemia Advised smoking cessation, but not ready. Discussed with RN repeat orthostatic readings tomorrow. YA MACKEY MD 09/09/18 1644: CARDIO Progress Notes Assessment Assessment Patient seen and examined 09/08/18. Agree with PEDIATRICS PHYSICIAN's assessment and plan. Acute on chronic diastolic HF better compensated Continue fluid removal with HD per nephrology team CAD status stable Afib maintaining sinus rhythm with amiodarone We will follow as needed HAJA PHILLIPS APRN September 08, 2018 13:44 YA MACKEY MD September 09, 2018 16:44
[2018-09-08 15:30] VITALS: BP 131/41
[2018-09-08] MEDS ORDERED: CHOLECALCIFEROL (VITAMIN D3) 1,000 UNIT TABLET PO SCH (16:00)
[2018-09-08] MEDS: CLOPIDOGREL BISULFATE 75 MG TABLET PO SCH (17:31)
[2018-09-08 19:00] VITALS: BP 155/52
--- NOTE | 2018-09-08 19:15 | NUR ---
Pt in bed assessment completed. vss pt denied pain will resume care and continue to monitor pt. call light in reach.
[2018-09-08] MEDS: FOLIC/VIT B COMP W-C (RENAL) TABLET. PO SCH (20:56)
[2018-09-08] MEDS: SERTRALINE 50 MG TABLET. PO SCH (20:57)
[2018-09-08] MEDS: ATORVASTATIN CALCIUM 40 MG TABLET. PO SCH (20:57)
[2018-09-08] MEDS: MIRTAZAPINE 15 MG TABLET PO SCH (20:57)
[2018-09-08 22:28] VITALS: BP 145/87
--- NOTE | 2018-09-08 23:42 | PN ---
DATE: 09/08/2018 SUBJECTIVE: The patient is resting, slightly propped up in bed, eating her breakfast comfortably, in no apparent distress. On questioning her, she denied any complaints, in particular denied any chest pain or shortness of breath. She underwent thoracentesis and about 900 mL of serosanguineous fluid drained from her right hemithorax. PHYSICAL EXAMINATION: GENERAL: When I examined her, she was pale, cachectic, no jaundice, cyanosis or thyromegaly. No jugular venous distension. No lower limb edema. VITAL SIGNS: Her heart rate was 76, blood pressure 156/56, temperature was 97.9, respiratory rate was 18 and oxygen saturation was 97% on 2 liters of oxygen. HEAD, EYES, EARS, NOSE AND THROAT: Showed normocephalic, atraumatic. NECK: Supple. HEART: Showed normal first and second heart sounds. No gallop, rub or murmur. CHEST: Clear to auscultation. No crepitation or rhonchi. ABDOMEN: Distended, soft, nontender. NEUROLOGIC: She is awake, alert. She has expressive aphasia and right-sided hemiplegia. Her intake and output were incompletely recorded. LABORATORY DATA: As of yesterday showed her serum sodium was 133, potassium 3.8, chloride 98, bicarbonate 27, anion gap of 8, BUN 15, creatinine 1.9. ASSESSMENT: 1. Acute on chronic congestive heart failure. 2. History of cardiomyopathy and ejection fraction 45%, suspected diastolic function. 3. Bilateral pleural effusion, status post right-sided thoracentesis. 4. Severe chronic obstructive pulmonary disease and chronic respiratory failure. 5. End-stage renal disease, on hemodialysis. 6. Left middle cerebral artery territory infarct, right-sided hemiplegia, aphasia. PLAN: To continue oxygen supplementation. Continue with hemodialysis. The patient underwent right-sided thoracentesis. No invasive procedure recommended by the nuclear equipment operator. LEYDA MCDERMOTT MD DR: MEGAN/gatito JOB#: [id number] / [id number]
[2018-09-09 02:28] VITALS: BP 167/74
[2018-09-09] MEDS: LEVOTHYROXINE 175 MCG TABLET PO SCH (05:45)
[2018-09-09 06:56] VITALS: BP 175/75
[2018-09-09 07:30] VITALS: BP 160/72
[2018-09-09 07:32] VITALS: BP 161/72
[2018-09-09 07:34] VITALS: BP 138/64
[2018-09-09] MEDS: AMIODARONE HCL 200 MG TABLET. PO SCH (08:40)
[2018-09-09] MEDS: METOPROLOL SUCC 24HR ER 25 MG TAB.ER.24H. PO SCH (08:41)
[2018-09-09] MEDS: FERROUS SULFATE 325 MG TABLET. PO SCH (08:41)
[2018-09-09] MEDS: CLOPIDOGREL BISULFATE 75 MG TABLET PO SCH (08:41)
[2018-09-09 08:42] VITALS: BP 138/64
[2018-09-09] MEDS: levETIRAcetam 500 MG TABLET PO SCH (08:42)
[2018-09-09] MEDS: ASPIRIN ENTERIC COATED 81 MG TABLET.DR. PO SCH (08:42)
[2018-09-09] MEDS: amLODIPine BESYLATE 5 MG TABLET PO SCH (08:42)
--- NOTE | 2018-09-09 09:42 | SNU/HH DC ---
DISCHARGE WITH HOME HEALTH DISCHARGE INFORMATION: Discharge Date: September 09, 2018 Final Diagnosis: Problems Medical Problems: (1) CHF (congestive heart failure) Status: Acute (2) Pleural effusion Status: Acute Condition on Discharge: Stable CODE STATUS: Code Status: DNR/DNI HOME HEALTH: Face to Face: I certify this patient is under my care and that I, or a nurse practitioner or physician's certified dental assistant working with me, had a face to face encounter that meets the physician face to face encounter requirements with this patient on []. Medical Complications: CHF, COPD Jail For: Medication Management RN For Eval/Treatment: Yes Physical Therapy For: Evalulation/Treatment Occupational Therapy For: Evaluation/Treatment Pt Meets Homebound Status: Extreme weakness w/ amb. POST DISCHARGE ORDERS: Activity Instructions for Disc: Activity as tolerated Weight Bearing Status after Di: As tolerated DIET AFTER DISCHARGE: Renal CHECKS AFTER DISCHARGE: Checks after discharge: Check blood press - daily, Check your Temp as needed, Weigh Yourself Daily FOLLOW-UP: PCP to follow Home Health: PCP as needed Follow up with: Dr Frances and outpatient dialysis TREATMENT/EQUIPMENT ORDERS: Adaptive Equipment Issued: Front wheeled walker CERTIFICATION STATEMENT: Certification Statement: Certification Statement: Based on the above finding, I certify that this patient is confined to the home and needs intermittent prison care, physical therapy and/or speech therapy, or continues to need occupational therapy.~ This patient is under my care, and I have initiated the establishment of the plan of care on 09/10/2018 Home Meds Active Scripts Metoprolol Succinate (METOPROLOL SUCCINATE ( XL )) 25 Mg Tab.er.24h, 25 MG PO DAILY for antihypertensive for 30 Days, #30 TAB.SR Prov:ALEX DIAZ MD 06/28/18 Clopidogrel Bisulfate (CLOPIDOGREL) 75 Mg Tablet, 75 MG PO DAILYWBKFT for antiplatelet for 30 Days, #30 TAB Prov:ALEX DIAZ MD 06/28/18 Reported Medications Folic Acid/Vitamin B Comp W-C (NEPHRO-FABIÁN TABLET) 0.8 Mg Tablet, 1 TAB PO HS for supplement, #30 TAB 5 Refills 08/17/18 Mirtazapine (MIRTAZAPINE) 15 Mg Tablet, 1 TAB PO QHS for depression, #30 TAB 3 Refills 08/17/18 Levothyroxine Sodium (LEVOTHYROXINE SODIUM) 175 Mcg Tablet, 1 TAB PO DAILY for thyroid, #30 TAB 5 Refills 08/17/18 Ferrous Sulfate (FERROUS SULFATE) 325 Mg Tablet, 1 TAB PO TID PRN for supplement, #60 TAB 3 Refills 08/17/18 Amlodipine Besylate (AMLODIPINE BESYLATE) 5 Mg Tablet, 5 MG PO BID PRN for HYPERTENSION, SEE COMMENTS, TAB 08/17/18 Acetaminophen (ACETAMINOPHEN) 500 Mg Tablet, 1 TAB PO PRN Q6HRS PRN for PAIN, #60 TAB 06/19/18 Sertraline Hcl (ZOLOFT) 50 Mg Tablet, 1 TAB PO HS for SLEEP, #30 TAB 2 Refills 06/19/18 Levetiracetam (LEVETIRACETAM) 500 Mg Tablet, 1 TAB PO HS for ANTIEPILEPTIC, #180 TAB 3 Refills 06/19/18 Levetiracetam (LEVETIRACETAM) 500 Mg Tablet, 250 MG PO DAILY for ANTIEPILEPTIC, #180 TAB 3 Refills 06/19/18 Fludrocortisone Acetate (FLUDROCORTISONE ACETATE) 0.1 Mg Tablet, 1 TAB PO DAILY12 for STEROID REPLACEMENT, #90 TAB 1 Refill 11/25/17 Cholecalciferol (Vitamin D3) (VITAMIN D3) 1,000 Unit Tablet, 1 TAB PO QFR for SUPPLEMENT, #30 TAB 5 Refills 11/25/17 Atorvastatin Calcium (ATORVASTATIN CALCIUM) 80 Mg Tablet, 1 TAB PO HS, #30 TAB 5 Refills 11/25/17 Aspirin (ASPIRIN) 81 Mg Tab.chew, 1 TAB PO DAILY, #30 TAB 3 Refills 11/24/17 Amiodarone Hcl (AMIODARONE HCL) 200 Mg Tablet, 1 TAB PO DAILY, #90 TAB 1 Refill 11/24/17 LEYDA MCDERMOTT MD September 09, 2018 09:42
--- NOTE | 2018-09-09 10:11 | PDOC ---
PULMONARY PROGRESS NOTES Subjective s/p thoracentesis feels better Vitals Vital Signs Date Time Temp Pulse Resp B/P (MAP) Pulse Ox O2 Delivery O2 Flow Rate FiO2 09/09/18 08:42 138/64 09/09/18 08:40 72 09/09/18 07:52 Nasal Cannula 2.0 09/09/18 06:56 97.6 16 99 97.6 General: Alert, No acute distress HEENT: Other Lungs: Crackles Cardiovascular: S1, S2 Abdomen: Soft, Non-tender Neuro Exam: Alert Extremities: No Edema Skin: Warm Labs Laboratory Tests Test 09/08/18 09:19 09/08/18 09:40 White Blood Count 9.2 x10^3/uL (4.0-11.0) Red Blood Count 3.29 x10^6/uL (3.50-5.40) Hemoglobin 9.5 g/dL (12.0-15.5) Hematocrit 29.3 % (36.0-47.0) Mean Corpuscular Volume 89 fL (79-100) Mean Corpuscular Hemoglobin 29 pg (25-35) Mean Corpuscular Hemoglobin Concent 33 g/dL (31-37) Red Cell Distribution Width 18.0 % (11.5-14.5) Platelet Count 196 x10^3/uL (140-400) Sodium Level 137 mmol/L (136-145) Potassium Level 3.1 mmol/L (3.5-5.1) Chloride Level 97 mmol/L (98-107) Carbon Dioxide Level 32 mmol/L (21-32) Anion Gap 8 (6-14) Blood Urea Nitrogen 18 mg/dL (7-20) Creatinine 1.9 mg/dL (0.6-1.0) Estimated GFR (Cockcroft-Gault) 25.9 BUN/Creatinine Ratio 9 (6-20) Glucose Level 121 mg/dL (70-99) Calcium Level 8.6 mg/dL (8.5-10.1) Total Bilirubin 0.6 mg/dL (0.2-1.0) Aspartate Amino Transf (AST/SGOT) 28 U/L (15-37) Alanine Aminotransferase (ALT/SGPT) 28 U/L (14-59) Alkaline Phosphatase 56 U/L (46-116) Total Protein 6.5 g/dL (6.4-8.2) Albumin 2.3 g/dL (3.4-5.0) Albumin/Globulin Ratio 0.5 (1.0-1.7) Medications Active Scripts Medications Dose Route/Sig Max Daily Dose Days Date Category Nephro-Allison Tablet (Folic Acid/Vitamin B Comp W-C) 0.8 Mg Tablet 1 Tab PO HS 08/17/18 Reported Mirtazapine 15 Mg Tablet 1 Tab PO QHS 08/17/18 Reported Levothyroxine Sodium 175 Mcg Tablet 1 Tab PO DAILY 08/17/18 Reported Ferrous Sulfate 325 Mg Tablet 1 Tab PO TID PRN 08/17/18 Reported Amlodipine Besylate 5 Mg Tablet 5 Mg PO BID PRN 08/17/18 Reported Metoprolol Succinate ( Xl ) (Metoprolol Succinate) 25 Mg Tab.er.24h 25 Mg PO DAILY 30 06/28/18 Rx Clopidogrel (Clopidogrel Bisulfate) 75 Mg Tablet 75 Mg PO DAILYWBKFT 30 06/28/18 Rx Acetaminophen 500 Mg Tablet 1 Tab PO PRN Q6HRS PRN 06/19/18 Reported Zoloft (Sertraline Hcl) 50 Mg Tablet 1 Tab PO HS 06/19/18 Reported Levetiracetam 500 Mg Tablet 1 Tab PO HS 06/19/18 Reported Levetiracetam 500 Mg Tablet 250 Mg PO DAILY 06/19/18 Reported Fludrocortisone Acetate 0.1 Mg Tablet 1 Tab PO DAILY12 11/25/17 Reported Vitamin D3 (Cholecalciferol (Vitamin D3)) 1,000 Unit Tablet 1 Tab PO QFR 11/25/17 Reported Atorvastatin Calcium 80 Mg Tablet 1 Tab PO HS 11/25/17 Reported Aspirin 81 Mg Tab.chew 1 Tab PO DAILY 11/24/17 Reported Amiodarone Hcl 200 Mg Tablet 1 Tab PO DAILY 11/24/17 Reported Impression . 1. Dyspnea in the last 24 hours due to development of [id number] congestive heart failure. 2. The patient with history of cardiomyopathy with an EF of 45% and suspected diastolic dysfunction, now presents with increasing dyspnea related to bilateral pleural effusion and development of congestive heart failure. s/p right-sided thoracentesis. Her hypertensive emergency contributing to heart failure as well. 3. Cardiomyopathy. 4. Suspected severe chronic obstructive pulmonary disease with chronic respiratory failure with exacerbation triggered by congestive heart failure. Plan . 1. Continue with present oxygen. 2. Hemodialysis with ultrafiltration. 3. Smoking cessation counseling provided. 4. s/p right-sided thoracentesis. analysis P 5. resolved tiny PTX 6. Follow cardiology recommendations. 7. Discussed with RN./ DR BALDEMAR SULLIVAN WITH BARBER STORM MD September 09, 2018 10:10
--- NOTE | 2018-09-09 10:33 | NUR ---
Pt discharged to home with services, will resume [facility], dtr has already been in contact to resume tuesday am. Pt took out own IV, site without bleeding or complications. Pt alert and oriented. All discharge instructions reviewed, stats understanding. Denies further needs at this time. Pt assisted to car via wheelchair with staff and family.
--- NOTE | 2018-09-09 14:35 | DS ---
DATE OF DISCHARGE: 09/09/2018 HISTORY OF PRESENT ILLNESS: The patient is a 72-year-old female patient who was admitted on 09/06, on account of increasing shortness of breath that has been going on for 12 hours prior to admission. She denied at that time any chest pain, denied any orthopnea or paroxysmal nocturnal dyspnea. Did complain of dyspnea on exertion. She has not had any cough or phlegm. She does have oxygen at home upon recent hospital discharge. The patient's stated that they were instructed to keep her on oxygen at 1 liter, but even with the 2 liters, her oxygen was only 80%; however, her oxygen saturation has improved to 90% on 4 liters of oxygen. The patient was evaluated in the Emergency Room, was found to have hypokalemia. Her troponin was slightly elevated at 0.056. She was dialyzed and was admitted for further evaluation and treatment. She was seen in consultation by the group sales coordinator, the gear shaver set up operator as well as driver's license examiner. She was found to have large right-sided pleural effusion, for which she underwent paracentesis. Although the troponin was slightly elevated, the Cardiology team did not recommend any further ischemic workup. As the patient remained stable, a decision was made to discharge her home to continue with home health and outpatient hemodialysis. PHYSICAL EXAMINATION: GENERAL: When I saw her this morning, she looked well and was clearly in no apparent respiratory distress, pale, but no jaundice, cyanosis, or thyromegaly. No jugular venous distension. No limb edema. VITAL SIGNS: Her heart rate was 72, blood pressure was 138/64, her temperature was 97.6, respiratory rate was 16, and oxygen saturation was 99% on 2 liters of oxygen. HEAD, EYES, EARS, NOSE AND THROAT: Showed normocephalic, atraumatic. NECK: Supple. HEART: Showed normal first and second sounds. No gallop, rub or murmur. CHEST: Clear to auscultation. No crepitation or rhonchi. ABDOMEN: Scaphoid, soft, nontender. NEUROLOGIC: She is awake, alert, responding appropriately. Cranial nerves are intact. She has left middle cerebral artery territory infarct, right-sided hemiparesis, aphasia. LABORATORY DATA: As of yesterday showed a white cell count 9200, hemoglobin 9.5, hematocrit 29, MCV 89 and platelet count of 196,000. Her chemistry yesterday showed a serum sodium 137, potassium 3.1, chloride 97, bicarbonate 32, anion gap of 8, BUN 18, creatinine 1.9, estimated GFR was 26 mL per minute, glucose 121, and calcium was 8.6. Total bilirubin, AST, ALT, and alkaline phosphatase were normal. Her total protein was 6.5, albumin was 2.3. DISCHARGE MEDICATIONS: She was discharged home with home health to continue on her acetaminophen 500 mg every 6 hours, amiodarone 200 mg once a day, amlodipine besylate 5 mg twice a day, aspirin 81 mg once a day, atorvastatin calcium 80 mg at bedtime, cholecalciferol vitamin D3 1000 International Units every Tuesday, Plavix 75 mg once a day, ferrous sulfate 325 mg 3 times a day, fludrocortisone 100 mcg 1 tablet once a day, folic acid and vitamin B complex and vitamin C for Nephro-Allison 1 tablet once a day, Keppra 250 mg daily, Keppra 500 mg at bedtime. She is on levothyroxine sodium 175 mcg once a day, metoprolol succinate 25 mg daily, mirtazapine 15 mg tablet once a day and sertraline for Zoloft 50 mg daily. FINAL DISCHARGE DIAGNOSES: 1. Acute on chronic congestive heart failure. 2. History of cardiomyopathy and ejection fraction 45 to suspect diastolic dysfunction. 3. Bilateral pleural effusion, status post right-sided thoracentesis. 4. Severe chronic obstructive pulmonary disease and chronic respiratory failure. 5. End-stage renal disease, on hemodialysis. 6. Left middle cerebral artery territory infarct, right-sided hemiplegia, aphasia. 7. Hypothyroidism. LEYDA MCDERMOTT MD DR: MEGAN/gatito JOB#: [id number] / [id number]
--- NOTE | 2018-09-11 17:07 | PATHOLOGY ---
Note [facility] Accession Number: [id number] TESTS RESULT FLAG UNITS REF RANGE LAB Clinician Provided Cytology Information No. of containers..01 Other (Miscellaneous) Source: RIGHT PLEURAL FLUID DIAGNOSIS: 02 RIGHT PLEURAL FLUID NEGATIVE FOR MALIGNANT CELLS. FOCALLY REACTIVE MESOTHELIAL CELLS AND FEW INFLAMMATORY CELLS PRESENT. THIS INTERPRETATION INCLUDES EVALUATION OF A CELL BLOCK. Signed out by: 02 Khanh Vázquez MD, Pathologist NPI- [id number] Performed by: Clark Goldstein, Pattern Filer ([facility]) Gross description: 01 35ML, YELLOW, HAZY /LCS FLAG LEGEND: L-Low Normal,H-High Normal,LL-Alert Low,HH-Alert High <-Panic Low,>-Panic High,A-Abnormal,AA-Critical Abnormal Performed at: [facility] [address] [place] [address] Joey Price MD, [address] [facility] [address] [place] [address] Khanh Vázquez MD, Specimen Comment: A courtesy copy of this report has been sent to Specimen Comment: [phone], , , . Specimen Comment: Report sent to ,DR BARONE,DR MCDERMOTT / DR DOZIER Specimen Comment: A duplicate report has been generated due to demographic updates. Performed at: 01 [facility] [address], [place], [place] [id number] MD Joey Price MD Phone: [phone]
== END 2018-09-09 10:35 | disposition home health service (06) | DRG 291 ==
LOC: ER 05:33 → ED HOLD 09:10 → 2 NORTH 15:07
PROVIDERS: ADMIT Internal Medicine; ATTEND Internal Medicine
PROC: 0W993ZZ Drainage of Right Pleural Cavity, Percutaneous Approach (ICD-10-PCS; principal; 2018-09-06)
PROC: 5A1D70Z Performance of Urinary Filtration, Intermittent, Less than 6 Hours Per Day (ICD-10-PCS; 2018-09-06)
PROC: 5A1D70Z Performance of Urinary Filtration, Intermittent, Less than 6 Hours Per Day (ICD-10-PCS; 2018-09-07)
PROC: 5A1D70Z Performance of Urinary Filtration, Intermittent, Less than 6 Hours Per Day (ICD-10-PCS; 2018-09-08)
DX: I13.2 Hypertensive heart and chronic kidney disease with heart failure and with stage 5 chronic kidney disease, or end stage renal disease (principal); J96.21 Acute and chronic respiratory failure with hypoxia; I50.33 Acute on chronic diastolic (congestive) heart failure; N18.6 End stage renal disease; G81.91 Hemiplegia, unspecified affecting right dominant side; I16.1 Hypertensive emergency; J98.11 Atelectasis; R47.01 Aphasia; E87.1 Hypo-osmolality and hyponatremia; I42.9 Cardiomyopathy, unspecified; E03.9 Hypothyroidism, unspecified; E78.5 Hyperlipidemia, unspecified; E87.6 Hypokalemia; F17.210 Nicotine dependence, cigarettes, uncomplicated; I25.10 Atherosclerotic heart disease of native coronary artery without angina pectoris; I48.0 Paroxysmal atrial fibrillation; I49.5 Sick sinus syndrome; J44.9 Chronic obstructive pulmonary disease, unspecified; K21.9 Gastro-esophageal reflux disease without esophagitis; M85.80 Other specified disorders of bone density and structure, unspecified site; Z82.49 Family history of ischemic heart disease and other diseases of the circulatory system; Z86.73 Personal history of transient ischemic attack (TIA), and cerebral infarction without residual deficits; Z90.710 Acquired absence of both cervix and uterus; Z95.0 Presence of cardiac pacemaker; Z95.1 Presence of aortocoronary bypass graft; Z98.61 Coronary angioplasty status; Z99.2 Dependence on renal dialysis; Z99.81 Dependence on supplemental oxygen
CPT/HCPCS: 32555; 36415; 71045; 71250; 80048; 80053; 80061; 83615; 83735; 83880; 84157; 84484; 85025; 85027; 85610; 87071; 87075; 88112; 88305; 93005; 94640; 96374; J0360; J1940; J3480; J3490; J7620; 97116; 97535; 99285-25

== ENCOUNTER 2019-01-05 16:20 | Inpatient (IN) | payer MEDICARE ==
[~2019-01-05] VITALS: Ht 152.4 cm; Wt 38.7 kg
[~2019-01-05 16:20] MED LIST changes: +FURO-69 PO
--- NOTE | 2019-01-05 17:01 | PHYS DOC ---
Past Medical History Past Medical History: CHF, COPD, CVA, Depression, Heart Disease, Hypertension, Hypothyroid, Renal Failure, Seizure Additional Past Medical Histor: Left carotid artery completely occluded Past Surgical History: Coronary Bypass Surgery, Hysterectomy, Pacemaker Additional Past Surgical Histo: PARATHYROID GLAND REMOVED, Stent in kidney, shoulder surgery, carotids Alcohol Use: None Drug Use: None Adult General HPI HPI Patient is a 73 year old female who presents with shortness of breath has been ongoing since her dialysis treatment. The patient was discharged from this hospital 1 week ago with pneumonia. Patient had a thoracentesis yesterday. The patient was unable to finish her dialysis treatment she began satting in the 70 percent. He was placed on a nonrebreather and CPAP by ambulance and brought to ER. She was titrated down on arrival to ER to 4 L of oxygen. Review of Systems Review of Systems Constitutional: Denies fever or chills [] Eyes: Denies change in visual acuity, redness, or eye pain [] HENT: Denies nasal congestion or sore throat [] Respiratory: Reports shortness of breath. Cardiovascular: No additional information not addressed in HPI [] GI: Denies abdominal pain, nausea, vomiting, bloody stools or diarrhea [] : Denies dysuria or hematuria [] Musculoskeletal: Denies back pain or joint pain [] Integument: Denies rash or skin lesions [] Neurologic: Denies headache, focal weakness or sensory changes [] Endocrine: Denies polyuria or polydipsia [] Complete systems were reviewed and found to be within normal limits, except as documented in this note. Current Medications Current Medications Current Medications Medications (Trade) Dose Ordered Sig/Dez Start Time Stop Time Status Last Admin Dose Admin Albuterol Sulfate (Ventolin Neb Soln) 2.5 mg PRN Q4HRS PRN 01/05/19 17:15 Albuterol/ Ipratropium (Duoneb) 3 ml 1X STAT 01/05/19 17:03 01/05/19 17:04 DC 01/05/19 17:04 3 ML Methylprednisolone Sodium Succinate (SOLU-Medrol 125MG VIAL) 125 mg 1X ONCE 01/05/19 17:30 01/05/19 17:31 DC Morphine Sulfate (Morphine Sulfate) 2 mg PRN Q2HR PRN 01/05/19 18:00 01/06/19 17:59 UNV Ondansetron HCl (Zofran) 4 mg PRN Q8HRS PRN 01/05/19 18:00 01/06/19 17:59 UNV Piperacillin Sod/ Tazobactam Sod 3.375 gm/Sodium Chloride 50 ml @ 100 mls/hr 1X ONCE 01/05/19 17:45 01/05/19 18:14 Vancomycin HCl 250 ml @ 250 mls/hr 1X ONCE 01/05/19 18:00 01/05/19 18:59 Vancomycin HCl 1 gm/Sodium Chloride 500 ml @ 250 mls/hr 1X ONCE 01/05/19 17:30 01/05/19 19:29 UNV Allergies Allergies Allergies Coded Allergies Type Severity Reaction Last Updated Verified codeine Allergy Intermediate 01/04/19 Yes Physical Exam Physical Exam Constitutional: Well developed, well nourished, no acute distress, non-toxic appearance. [] HENT: Normocephalic, atraumatic, bilateral external ears normal, oropharynx moist, no oral exudates, nose normal. [] Eyes: PERRLA, EOMI, conjunctiva normal, no discharge. [] Neck: Normal range of motion, no tenderness, supple, no stridor. [] Cardiovascular:Heart rate regular rhythm, no murmur [] Lungs & Thorax: Bilateral breath sounds rhonchi diffusely through lobes, diminished on left lower. Abdomen: Bowel sounds normal, soft, no tenderness, no masses, no pulsatile masses. [] Skin: Warm, dry, no erythema, no rash. [] Back: No tenderness, no CVA tenderness. [] Extremities: No tenderness, no cyanosis, no clubbing, ROM intact, no edema. [] Neurologic: Alert and oriented X 3, normal motor function, normal sensory function, no focal deficits noted. [] Psychologic: Affect normal, judgement normal, mood normal. [] Current Patient Data Vital Signs Vital Signs Date Time Temp Pulse Resp B/P (MAP) Pulse Ox O2 Delivery O2 Flow Rate FiO2 01/05/19 16:37 92 Nasal Cannula 4.0 01/05/19 16:20 97.8 90 40 206/95 (132) 97.8 Lab Values Laboratory Tests Test 01/05/19 16:50 01/05/19 17:16 White Blood Count 12.1 x10^3/uL (4.0-11.0) H Red Blood Count 3.84 x10^6/uL (3.50-5.40) Hemoglobin 11.3 g/dL (12.0-15.5) L Hematocrit 34.5 % (36.0-47.0) L Mean Corpuscular Volume 90 fL (79-100) Mean Corpuscular Hemoglobin 30 pg (25-35) Mean Corpuscular Hemoglobin Concent 33 g/dL (31-37) Red Cell Distribution Width 19.2 % (11.5-14.5) H Platelet Count 210 x10^3/uL (140-400) Neutrophils (%) (Auto) 91 % (31-73) H Lymphocytes (%) (Auto) 2 % (24-48) L Monocytes (%) (Auto) 7 % (0-9) Eosinophils (%) (Auto) 0 % (0-3) Basophils (%) (Auto) 0 % (0-3) Neutrophils # (Auto) 11.0 x10^3/uL (1.8-7.7) H Lymphocytes # (Auto) 0.3 x10^3/uL (1.0-4.8) L Monocytes # (Auto) 0.8 x10^3/uL (0.0-1.1) Eosinophils # (Auto) 0.0 x10^3/uL (0.0-0.7) Basophils # (Auto) 0.0 x10^3/uL (0.0-0.2) Segmented Neutrophils % 92 % (35-66) H Lymphocytes % 2 % (24-48) L Monocytes % 6 % (0-10) Platelet Estimate Adequate (ADEQUATE) Anisocytosis Slight Prothrombin Time 14.4 SEC (11.7-14.0) H Prothrombin Time INR 1.2 (0.8-1.1) H Activated Partial Thromboplast Time 31 SEC (24-38) Sodium Level 141 mmol/L (136-145) Potassium Level 2.8 mmol/L (3.5-5.1) *L Chloride Level 101 mmol/L (98-107) Carbon Dioxide Level 27 mmol/L (21-32) Anion Gap 13 (6-14) Blood Urea Nitrogen 29 mg/dL (7-20) H Creatinine 3.6 mg/dL (0.6-1.0) H Estimated GFR (Cockcroft-Gault) 12.4 BUN/Creatinine Ratio 8 (6-20) Glucose Level 129 mg/dL (70-99) H Lactic Acid Level 1.0 mmol/L (0.4-2.0) Calcium Level 7.8 mg/dL (8.5-10.1) L Total Bilirubin 0.7 mg/dL (0.2-1.0) Aspartate Amino Transferase (AST) 58 U/L (15-37) H Alanine Aminotransferase (ALT) 52 U/L (14-59) Alkaline Phosphatase 72 U/L (46-116) Troponin I Quantitative 0.126 ng/mL (0.000-0.055) Total Protein 6.3 g/dL (6.4-8.2) L Albumin 2.2 g/dL (3.4-5.0) L Albumin/Globulin Ratio 0.5 (1.0-1.7) L Laboratory Tests 01/05/19 16:50 Laboratory Tests 01/05/19 17:16 EKG EKG EKG interpreted by Dr. Tan Sinus with rate of 78 with repolarization. NO STEMI.[] Radiology/Procedures Radiology/Procedures [][facility] [address] [place] [address] IMAGING REPORT Signed PATIENT: LURDES LEMOSOUNT: [id number] : 1945 LOCATION: ER AGE: 73 SEX: F EXAM STATUS: REG ER ORD. PHYSICIAN: DOC GUTIÉRREZ APRN REASON: shortness of breath, RENAL FAILURE PROCEDURE: PORTABLE CHEST 1V PORTABLE CHEST 1V History: Shortness of breath. Renal failure. COMPARISON: January 02, 2019. FINDINGS: Moderate left effusion and small right effusion. These appear greater in size than on the previous study. There is improved aeration of the left upper lung as compared with previous study. Diffuse interstitial hazy opacities in both lungs compatible with edema or infiltrate. Atelectasis in lung bases. No evidence of pneumothorax. Pacemaker again seen. Right IJ central catheter again seen. IMPRESSION: 1. Bilateral pleural effusions, have slightly increased in size. 2. Improved aeration of the left upper lung since prior study. 3. Diffuse interstitial edema or infiltrate in both lungs. Bibasilar atelectasis. Electronically signed by: Doc Wilcox MD (01/05/2019 5:31 PM) [facility] DICTATED and SIGNED BY: DOC WILCOX MD DATE: 01/05/19 1736 Course & Med Decision Making Course & Med Decision Making Pertinent Labs and Imaging studies reviewed. (See chart for details) Will get Chest x-ray, labs, lactic, respiratory treatments. Chest x-ray shows: IMPRESSION: 1. Bilateral pleural effusions, have slightly increased in size. 2. Improved aeration of the left upper lung since prior study. 3. Diffuse interstitial edema or infiltrate in both lungs. Bibasilar atelectasis. Will start on Vanc and Zosyn and Consult Pulmonology. Labs show: WBC of 12.1 Potassium of 2.8--will replace with 60 meq Creatinine of 3.6-lower then when admitted on Tuesday but higher than when left (2.8). Troponin of 0.126--likely related to ARF. Discussed with Dr. Oviedo who will admit to hospital ([id number]). Will consult pulmonary. Dragon Disclaimer Dragon Disclaimer This electronic medical record was generated, in whole or in part, using a voice recognition dictation system. Departure Departure Impression: Primary Impression: Acute respiratory failure with hypoxia Additional Impressions: Elevated troponin Hypokalemia ALEXEY (acute kidney injury) Disposition: ADMITTED INPATIENT Admitting Physician: SARAH Condition: GUARDED Referrals: HUI DOZIER MD (PCP) Problem Qualifiers DOC GUTIÉRREZ APRN Jan 05, 2019 17:01
[2019-01-05] MEDS ORDERED: IPRATRPIUM/ALBUTEROL 0.5/2.5MG 3 ML NEBU. NEB STA (17:03)
[2019-01-05 17:04] LABS: BASO % 0 % (0-3); EOS % 0 % (0-3); HEMATOCRIT 34.5 % (36.0-47.0); HEMOGLOBIN 11.3 g/dL (12.0-15.5); LYMPH # 0.3 x10^3/uL (1.0-4.8); LYMPH % 2 % (24-48); MEAN CORPUSCULAR HEMOGLOBIN 30 pg (25-35); MEAN CORPUSCULAR HGB CONC 33 g/dL (31-37); MEAN CORPUSCULAR VOLUME 90 fL (79-100); MONO # 0.8 x10^3/uL (0.0-1.1); MONO % 7 % (0-9); NEUT % 91 % (31-73); PLATELET COUNT 210 x10^3/uL (140-400); RED BLOOD COUNT 3.84 x10^6/uL (3.50-5.40); RED CELL DISTRIBUTION WIDTH 19.2 % (11.5-14.5); WHITE BLOOD COUNT 12.1 x10^3/uL (4.0-11.0)
[2019-01-05] MEDS ORDERED: ALBUTEROL SULFATE 2.5 MG/3 ML NEBU. NEB PRN (17:15)
[2019-01-05 17:28] LABS: % LYMPHS 2 % (24-48); % MONOS 6 % (0-10); % SEGS 92 % (35-66); ANISOCYTOSIS SLIGHT; PLT ESTIMATE ADEQUATE (ADEQUATE)
[2019-01-05] MEDS ORDERED: methylPREDNISolone SOD SUCC PF 125 MG/2 ML VIAL. IV ONE (17:30)
[2019-01-05] MEDS ORDERED: PIPERACILLIN/TAZOBACTAM 3.375 GM in IV NORMAL SALINE 50ML 50 ML IV ONE ×2 (17:30→17:45)
[2019-01-05] MEDS ORDERED: VANCOMYCIN 1 GM in IV NORMAL SALINE 500ML BAG 500 ML IV ONE (17:30)
[2019-01-05 17:34] LABS: PROTHROMBIN TIME PATIENT 14.4 SEC (11.7-14.0)
--- NOTE | 2019-01-05 17:34 | RAD ---
PORTABLE CHEST 1V History: Shortness of breath. Renal failure. COMPARISON: January 02, 2019. FINDINGS: Moderate left effusion and small right effusion. These appear greater in size than on the previous study. There is improved aeration of the left upper lung as compared with previous study. Diffuse interstitial hazy opacities in both lungs compatible with edema or infiltrate. Atelectasis in lung bases. No evidence of pneumothorax. Pacemaker again seen. Right IJ central catheter again seen. IMPRESSION: 1. Bilateral pleural effusions, have slightly increased in size. 2. Improved aeration of the left upper lung since prior study. 3. Diffuse interstitial edema or infiltrate in both lungs. Bibasilar atelectasis. Electronically signed by: Doc Wilcox MD (01/05/2019 5:31 PM) [facility]
[2019-01-05 17:44] LABS: ALBUMIN 2.2 g/dL (3.4-5.0); ALBUMIN/GLOBULIN RATIO 0.5 (1.0-1.7); CALCIUM 7.8 mg/dL (8.5-10.1); CREATININE 3.6 mg/dL (0.6-1.0); GFR 12.4; TOTAL BILIRUBIN 0.7 mg/dL (0.2-1.0); TOTAL PROTEIN 6.3 g/dL (6.4-8.2)
[2019-01-05 17:47] LABS: POTASSIUM 2.8 mmol/L (3.5-5.1)
--- NOTE | 2019-01-05 17:53 | PDOC1 ---
History and Physical Date of Admission Date of Admission DATE: 01/05/19 TIME: 17:51 Identification/Chief Complaint Chief Complaint SEEN IN ER, STILL SMOKING AFTER SHE LEFT [facility] ,73 year old female who presents with shortness of breath has been ongoing since her dialysis treatment. The patient was discharged from this hospital 1 week ago with pneumonia. Patient had a thoracentesis yesterday. The patient was unable to finish her dialysis treatment she began satting in the 70 percent. He was placed on a nonrebreather and CPAP by ambulance and brought to ER. She was titrated down on arrival to ER to 4 L of oxygen Past Medical History Past Medical History Past Medical History Past Medical History: CHF, COPD, CVA, Depression, Heart Disease, Hypertension, Hypothyroid, Renal Failure, Seizure Additional Past Medical Histor: Left carotid artery completely occluded Past Surgical History: Coronary Bypass Surgery, Hysterectomy, Pacemaker Additional Past Surgical Histo: PARATHYROID GLAND REMOVED, Stent in kidney, shoulder surgery, carotids Alcohol Use: None Drug Use: None family hx copd Cardiovascular: AFIB, CAD, CHF, HTN, [place], Syncope, Hyperlipidemia, Other Pulmonary: Pneumonia CENTRAL NERVOUS SYSTEM: CVA, Seizure, TIA GI: GERD, Gastritis Heme/Onc: Anemia NOS Hepatobiliary: No pertinent hx Psych: Depression Rheumatologic: No pertinent hx Infectious disease: No pertinent hx Renal/: Chronic renal insuff, Urinary Incontinence, Other Endocrine: Hypothyroidism, Hyperparathyroidism, Osteopenia Past Surgical History Past Surgical History: Pacemaker, CABG Family History Family History: Hypertension Social History Smoke: <1 pack per day ALCOHOL: none Drugs: None Current Problem List Problem List Problems Medical Problems: (1) Acute respiratory failure with hypoxia Status: Acute Current Medications Current Medications Current Medications Albuterol/ Ipratropium (Duoneb) 3 ml 1X STAT NEB Last administered on 01/05/19at 17:04; Start 01/05/19 at 17:03; Stop 01/05/19 at 17:04; Status DC Methylprednisolone Sodium Succinate (SOLU-Medrol 125MG VIAL) 125 mg 1X ONCE IV ; Start 01/05/19 at 17:30; Stop 01/05/19 at 17:31; Status DC Albuterol Sulfate (Ventolin Neb Soln) 2.5 mg PRN Q4HRS PRN NEB SHORTNESS OF BREATH; Start 01/05/19 at 17:15 Vancomycin HCl 1 gm/Sodium Chloride 500 ml @ 250 mls/hr 1X ONCE IV ; Start 01/05/19 at 17:30; Stop 01/05/19 at 19:29; Status UNV Piperacillin Sod/ Tazobactam Sod 3.375 gm/Sodium Chloride 50 ml @ 100 mls/hr 1X ONCE IV ; Start 01/05/19 at 17:30; Stop 01/05/19 at 17:59; Status UNV Vancomycin HCl 250 ml @ 250 mls/hr 1X ONCE IV ; Start 01/05/19 at 18:00; Stop 01/05/19 at 18:59 Piperacillin Sod/ Tazobactam Sod 3.375 gm/Sodium Chloride 50 ml @ 100 mls/hr 1X ONCE IV ; Start 01/05/19 at 17:45; Stop 01/05/19 at 18:14 Ondansetron HCl (Zofran) 4 mg PRN Q8HRS PRN IV NAUSEA/VOMITING; Start 01/05/19 at 18:00; Stop 01/06/19 at 17:59; Status UNV Morphine Sulfate (Morphine Sulfate) 2 mg PRN Q2HR PRN IV PAIN; Start 01/05/19 at 18:00; Stop 01/06/19 at 17:59; Status UNV Active Scripts Active Metoprolol Succinate ( Xl ) (Metoprolol Succinate) 25 Mg Tab.er.24h 25 Mg PO DAILY 30 Days Clopidogrel (Clopidogrel Bisulfate) 75 Mg Tablet 75 Mg PO DAILYWBKFT 30 Days Reported Lasix (Furosemide) 20 Mg Tablet 1 Tab PO BID Nephro-Allison Tablet (Folic Acid/Vitamin B Comp W-C) 0.8 Mg Tablet 1 Tab PO HS Mirtazapine 15 Mg Tablet 1 Tab PO QHS Levothyroxine Sodium 175 Mcg Tablet 1 Tab PO DAILY Ferrous Sulfate 325 Mg Tablet 1 Tab PO TID PRN Amlodipine Besylate 5 Mg Tablet 5 Mg PO BID PRN Acetaminophen 500 Mg Tablet 1 Tab PO PRN Q6HRS PRN Zoloft (Sertraline Hcl) 50 Mg Tablet 1 Tab PO HS Levetiracetam 500 Mg Tablet 1 Tab PO HS Levetiracetam 500 Mg Tablet 250 Mg PO DAILY Vitamin D3 (Cholecalciferol (Vitamin D3)) 1,000 Unit Tablet 1 Tab PO QFR Atorvastatin Calcium 80 Mg Tablet 1 Tab PO HS Aspirin 81 Mg Tab.chew 1 Tab PO DAILY Amiodarone Hcl 200 Mg Tablet 1 Tab PO DAILY Allergies Allergies: Coded Allergies: codeine (Verified Allergy, Intermediate, 01/04/19) ROS Review of System Review of Systems Review of Systems Constitutional: Denies fever or chills [] Eyes: Denies change in visual acuity, redness, or eye pain [] HENT: Denies nasal congestion or sore throat [] Respiratory: Reports shortness of breath. Cardiovascular: No additional information not addressed in HPI [] GI: Denies abdominal pain, nausea, vomiting, bloody stools or diarrhea [] : Denies dysuria or hematuria [] Musculoskeletal: Denies back pain or joint pain [] Integument: Denies rash or skin lesions [] Neurologic: Denies headache, focal weakness or sensory changes [] Endocrine: Denies polyuria or polydipsia [] 14 PT systems were reviewed and found to be within normal limits, except as documented . General: YES: Fatigue Eyes: Yes Decreased vision Breast: No New/Changing Breast Lumps, No Nipple changes, No Nipple discharge, No Other Respiratory: YES: Cough, Shortness of breath, SOB with excertion Musculoskeletal: Yes Joint Stiffness Skin: Yes Dry Skin Vitals Vitals Vital Signs Date Time Temp Pulse Resp B/P (MAP) Pulse Ox O2 Delivery O2 Flow Rate FiO2 01/05/19 16:37 92 Nasal Cannula 4.0 01/05/19 16:20 97.8 90 40 206/95 (132) 97.8 Labs Labs Laboratory Tests Test 01/05/19 16:50 01/05/19 17:16 White Blood Count 12.1 x10^3/uL (4.0-11.0) Red Blood Count 3.84 x10^6/uL (3.50-5.40) Hemoglobin 11.3 g/dL (12.0-15.5) Hematocrit 34.5 % (36.0-47.0) Mean Corpuscular Volume 90 fL (79-100) Mean Corpuscular Hemoglobin 30 pg (25-35) Mean Corpuscular Hemoglobin Concent 33 g/dL (31-37) Red Cell Distribution Width 19.2 % (11.5-14.5) Platelet Count 210 x10^3/uL (140-400) Neutrophils (%) (Auto) 91 % (31-73) Lymphocytes (%) (Auto) 2 % (24-48) Monocytes (%) (Auto) 7 % (0-9) Eosinophils (%) (Auto) 0 % (0-3) Basophils (%) (Auto) 0 % (0-3) Neutrophils # (Auto) 11.0 x10^3/uL (1.8-7.7) Lymphocytes # (Auto) 0.3 x10^3/uL (1.0-4.8) Monocytes # (Auto) 0.8 x10^3/uL (0.0-1.1) Eosinophils # (Auto) 0.0 x10^3/uL (0.0-0.7) Basophils # (Auto) 0.0 x10^3/uL (0.0-0.2) Segmented Neutrophils % 92 % (35-66) Lymphocytes % 2 % (24-48) Monocytes % 6 % (0-10) Platelet Estimate Adequate (ADEQUATE) Anisocytosis Slight Prothrombin Time 14.4 SEC (11.7-14.0) Prothromb Time International Ratio 1.2 (0.8-1.1) Activated Partial Thromboplast Time 31 SEC (24-38) Sodium Level 141 mmol/L (136-145) Potassium Level 2.8 mmol/L (3.5-5.1) Chloride Level 101 mmol/L (98-107) Carbon Dioxide Level 27 mmol/L (21-32) Anion Gap 13 (6-14) Blood Urea Nitrogen 29 mg/dL (7-20) Creatinine 3.6 mg/dL (0.6-1.0) Estimated GFR (Cockcroft-Gault) 12.4 BUN/Creatinine Ratio 8 (6-20) Glucose Level 129 mg/dL (70-99) Lactic Acid Level 1.0 mmol/L (0.4-2.0) Calcium Level 7.8 mg/dL (8.5-10.1) Total Bilirubin 0.7 mg/dL (0.2-1.0) Aspartate Amino Transf (AST/SGOT) 58 U/L (15-37) Alanine Aminotransferase (ALT/SGPT) 52 U/L (14-59) Alkaline Phosphatase 72 U/L (46-116) Troponin I Quantitative 0.126 ng/mL (0.000-0.055) Total Protein 6.3 g/dL (6.4-8.2) Albumin 2.2 g/dL (3.4-5.0) Albumin/Globulin Ratio 0.5 (1.0-1.7) Laboratory Tests Test 01/05/19 16:50 01/05/19 17:16 White Blood Count 12.1 x10^3/uL (4.0-11.0) Red Blood Count 3.84 x10^6/uL (3.50-5.40) Hemoglobin 11.3 g/dL (12.0-15.5) Hematocrit 34.5 % (36.0-47.0) Mean Corpuscular Volume 90 fL (79-100) Mean Corpuscular Hemoglobin 30 pg (25-35) Mean Corpuscular Hemoglobin Concent 33 g/dL (31-37) Red Cell Distribution Width 19.2 % (11.5-14.5) Platelet Count 210 x10^3/uL (140-400) Neutrophils (%) (Auto) 91 % (31-73) Lymphocytes (%) (Auto) 2 % (24-48) Monocytes (%) (Auto) 7 % (0-9) Eosinophils (%) (Auto) 0 % (0-3) Basophils (%) (Auto) 0 % (0-3) Neutrophils # (Auto) 11.0 x10^3/uL (1.8-7.7) Lymphocytes # (Auto) 0.3 x10^3/uL (1.0-4.8) Monocytes # (Auto) 0.8 x10^3/uL (0.0-1.1) Eosinophils # (Auto) 0.0 x10^3/uL (0.0-0.7) Basophils # (Auto) 0.0 x10^3/uL (0.0-0.2) Segmented Neutrophils % 92 % (35-66) Lymphocytes % 2 % (24-48) Monocytes % 6 % (0-10) Platelet Estimate Adequate (ADEQUATE) Anisocytosis Slight Prothrombin Time 14.4 SEC (11.7-14.0) Prothromb Time International Ratio 1.2 (0.8-1.1) Activated Partial Thromboplast Time 31 SEC (24-38) Sodium Level 141 mmol/L (136-145) Potassium Level 2.8 mmol/L (3.5-5.1) Chloride Level 101 mmol/L (98-107) Carbon Dioxide Level 27 mmol/L (21-32) Anion Gap 13 (6-14) Blood Urea Nitrogen 29 mg/dL (7-20) Creatinine 3.6 mg/dL (0.6-1.0) Estimated GFR (Cockcroft-Gault) 12.4 BUN/Creatinine Ratio 8 (6-20) Glucose Level 129 mg/dL (70-99) Lactic Acid Level 1.0 mmol/L (0.4-2.0) Calcium Level 7.8 mg/dL (8.5-10.1) Total Bilirubin 0.7 mg/dL (0.2-1.0) Aspartate Amino Transf (AST/SGOT) 58 U/L (15-37) Alanine Aminotransferase (ALT/SGPT) 52 U/L (14-59) Alkaline Phosphatase 72 U/L (46-116) Troponin I Quantitative 0.126 ng/mL (0.000-0.055) Total Protein 6.3 g/dL (6.4-8.2) Albumin 2.2 g/dL (3.4-5.0) Albumin/Globulin Ratio 0.5 (1.0-1.7) Images Images CT CHEST WO CONTRAST History: Shortness of breath Technique: Noncontrast CT of the chest was performed. Coronal and sagittal reconstructions were performed. Exposure: One or more of the following individualized dose reduction techniques were utilized for this examination: 1. Automated exposure control 2. Adjustment of the mA and/or kV according to patient size 3. Use of iterative reconstruction technique. Comparison: Chest x-ray January 02, 2019. Chest CT September 07, 2018 Findings: Chest: Pulmonary emphysema. Prior median sternotomy. Left-sided pacemaker. Right IJ central line with tip at the cavoatrial junction. Small to moderate left pleural effusion with loculated component anteriorly. Small right pleural effusion. Mildly prominent mediastinal lymph nodes, decreased compared to prior. Left upper lobe complete atelectasis.. Scattered left lower lobe, right middle lobe and right lower lobe subsegmental atelectasis. Upper abdomen: Left hepatic lobe hypodensity, unchanged. Left renal atrophy. Increased density of the liver, can be seen with iron deposition disease or amiodarone use. Bones: Postop changes left proximal humerus. Chronic left-sided rib fractures. Subacute left anterior fifth rib fracture, interval development compared to prior. Impression: 1. Complete left upper lobe atelectasis, may be a component of mucus plugging. Recommend follow-up after treatment to exclude obstructing mass. 2. Small to moderate left pleural effusion with loculated component anteriorly. 3. Small right pleural effusion with adjacent atelectasis. 4. Increased density of the liver, can be seen with iron deposition or amiodarone use, unchanged. 5. Subacute left anterior fifth rib fracture. Electronically signed by: Freddie Rios DO (01/02/2019 5:35 PM) [facility] SEX: F EXAM STATUS: REG ER ORD. PHYSICIAN: MARY GUTIÉRREZ APRN REASON: shortness of breath, RENAL FAILURE PROCEDURE: PORTABLE CHEST 1V PORTABLE CHEST 1V History: Shortness of breath. Renal failure. COMPARISON: January 02, 2019. FINDINGS: Moderate left effusion and small right effusion. These appear greater in size than on the previous study. There is improved aeration of the left upper lung as compared with previous study. Diffuse interstitial hazy opacities in both lungs compatible with edema or infiltrate. Atelectasis in lung bases. No evidence of pneumothorax. Pacemaker again seen. Right IJ central catheter again seen. IMPRESSION: 1. Bilateral pleural effusions, have slightly increased in size. 2. Improved aeration of the left upper lung since prior study. 3. Diffuse interstitial edema or infiltrate in both lungs. Bibasilar atelectasis. VTE Prophylaxis Ordered VTE Prophylaxis Devices: Yes VTE Pharmacological Prophylaxi: Yes Assessment/Plan Assessment/Plan IMPRESSION Bilateral pleural effusions, have slightly increased in size. Improved aeration of the left upper lung since prior study. Diffuse interstitial edema or infiltrate in both lungs. Bibasilar atelectasis. Acute on chronic hypoxic respiratory failure on NIPPV Complete left upper lobe atelectasis, may be a component of mucus plugging , exclude obstructing mass. Small to moderate left pleural effusion with loculated component anteriorly. Small right pleural effusion with adjacent atelectasis. Increased density of the liver, can be seen with iron deposition or amiodarone use, unchanged. Subacute left anterior fifth rib fracture. ESRD on dialysis AOCD Hx a fib/arrhythmia - stable placement of AV fistula graft at [facility] last week (Dr Sy) smoker Depression NOS Dyslipidemia statin Hypertension, uncontrolled plan admit cvc bed pulm consult id consult EMPERIC IV ANTIBIOTICS DVT PROPHYLAXIS 35 MIN CC TIME CAROLE BECK MD Jan 05, 2019 17:53
[2019-01-05] MEDS ORDERED: POTASSIUM CHLORIDE 20 MEQ TABLET.ER. PO ONE (18:00)
[2019-01-05] MEDS ORDERED: ONDANSETRON PF 4 MG/2 ML VIAL. IV PRN (18:00)
[2019-01-05] MEDS ORDERED: MORPHINE SULFATE 2 MG/ML VIAL. IV PRN (18:00)
[2019-01-05] MEDS ORDERED: VANCOMYCIN 1GM IVPB FOR OMNI 250 ML IV ONE (18:00)
[2019-01-05 19:29] VITALS: BP 181/81
[2019-01-05] MEDS: MIRTAZAPINE 15 MG TABLET PO SCH (20:18)
[2019-01-05] MEDS: amLODIPine BESYLATE 5 MG TABLET PO SCH (20:19)
[2019-01-05] MEDS: FOLIC/VIT B COMP W-C (RENAL) TABLET. PO SCH (20:19)
[2019-01-05] MEDS: levETIRAcetam 500 MG TABLET PO SCH (20:19)
[2019-01-05] MEDS: ATORVASTATIN CALCIUM 40 MG TABLET. PO SCH (20:19)
[2019-01-05] MEDS: SERTRALINE 50 MG TABLET. PO SCH (20:19)
[2019-01-05] MEDS: FUROSEMIDE 20 MG TABLET PO SCH (20:20)
[2019-01-05] MEDS: ALBUTEROL SULFATE 2.5 MG/3 ML NEBU. NEB SCH ×2 (21:21→23:16)
[2019-01-05] MEDS: hydrALAZINE 20 MG/ML VIAL. IVP PRN (22:06)
[2019-01-05] MEDS: HEPARIN for SUB-Q USE 5,000 UNIT/ML VIAL. SQ SCH (22:16)
[2019-01-05 22:19] VITALS: BP 180/77
[2019-01-05] MEDS ORDERED: C.DIFF MED SCREEN BY RX. MC ONE (23:00)
[2019-01-05 23:45] LABS: BASE EXCESS ABG 0 mmol/L (-3-3); HCO3 ABG 23 mmol/L (21-28); PCO2 ABG 33 mmHg (35-46); PO2 ABG 54 mmHg (65-108); SAT O2 ABG 88 % (92-99)
[2019-01-05 23:47] LABS: FIO2 ABG 36
[2019-01-06 03:02] VITALS: BP 168/60
[2019-01-06] MEDS: ALBUTEROL SULFATE 2.5 MG/3 ML NEBU. NEB SCH ×6 (03:30→23:38)
[2019-01-06] MEDS: HEPARIN for SUB-Q USE 5,000 UNIT/ML VIAL. SQ SCH ×3 (05:16→21:02)
[2019-01-06 07:00] VITALS: BP 195/79
[2019-01-06] MEDS ORDERED: PANTOPRAZOLE 40 MG TABLET.DR. PO SCH (07:30)
[2019-01-06] MEDS: amLODIPine BESYLATE 5 MG TABLET PO SCH ×2 (08:03→20:45)
[2019-01-06] MEDS: FUROSEMIDE 20 MG TABLET PO SCH ×2 (08:04→20:44)
[2019-01-06] MEDS: METOPROLOL SUCC 24HR ER 25 MG TAB.ER.24H. PO SCH (08:04)
[2019-01-06] MEDS: levETIRAcetam 250 MG TABLET PO SCH (08:04)
[2019-01-06] MEDS: CLOPIDOGREL BISULFATE 75 MG TABLET PO SCH (08:04)
[2019-01-06] MEDS: FERROUS SULFATE 325 MG TABLET. PO SCH ×3 (08:04→16:50)
[2019-01-06] MEDS: ASPIRIN CHEWABLE 81 MG TABLET. PO SCH (08:04)
[2019-01-06] MEDS: AMIODARONE HCL 200 MG TABLET. PO SCH (08:08)
--- NOTE | 2019-01-06 09:43 | PDOC ---
PULMONARY PROGRESS NOTES Vitals Vital Signs Date Time Temp Pulse Resp B/P (MAP) Pulse Ox O2 Delivery O2 Flow Rate FiO2 01/06/19 08:09 92 195/79 01/06/19 07:16 93 BiPAP/CPAP 01/06/19 07:00 98.0 24 98.0 01/05/19 23:16 4.0 General: Alert, No acute distress HEENT: Other Lungs: Wheezing Cardiovascular: S1, S2 Abdomen: Soft, Non-tender Extremities: No Edema Labs Laboratory Tests Test 01/05/19 16:50 01/05/19 17:16 01/05/19 23:30 White Blood Count 12.1 x10^3/uL (4.0-11.0) Red Blood Count 3.84 x10^6/uL (3.50-5.40) Hemoglobin 11.3 g/dL (12.0-15.5) Hematocrit 34.5 % (36.0-47.0) Mean Corpuscular Volume 90 fL (79-100) Mean Corpuscular Hemoglobin 30 pg (25-35) Mean Corpuscular Hemoglobin Concent 33 g/dL (31-37) Red Cell Distribution Width 19.2 % (11.5-14.5) Platelet Count 210 x10^3/uL (140-400) Neutrophils (%) (Auto) 91 % (31-73) Lymphocytes (%) (Auto) 2 % (24-48) Monocytes (%) (Auto) 7 % (0-9) Eosinophils (%) (Auto) 0 % (0-3) Basophils (%) (Auto) 0 % (0-3) Neutrophils # (Auto) 11.0 x10^3/uL (1.8-7.7) Lymphocytes # (Auto) 0.3 x10^3/uL (1.0-4.8) Monocytes # (Auto) 0.8 x10^3/uL (0.0-1.1) Eosinophils # (Auto) 0.0 x10^3/uL (0.0-0.7) Basophils # (Auto) 0.0 x10^3/uL (0.0-0.2) Segmented Neutrophils % 92 % (35-66) Lymphocytes % 2 % (24-48) Monocytes % 6 % (0-10) Platelet Estimate Adequate (ADEQUATE) Anisocytosis Slight Prothrombin Time 14.4 SEC (11.7-14.0) Prothromb Time International Ratio 1.2 (0.8-1.1) Activated Partial Thromboplast Time 31 SEC (24-38) Sodium Level 141 mmol/L (136-145) Potassium Level 2.8 mmol/L (3.5-5.1) Chloride Level 101 mmol/L (98-107) Carbon Dioxide Level 27 mmol/L (21-32) Anion Gap 13 (6-14) Blood Urea Nitrogen 29 mg/dL (7-20) Creatinine 3.6 mg/dL (0.6-1.0) Estimated GFR (Cockcroft-Gault) 12.4 BUN/Creatinine Ratio 8 (6-20) Glucose Level 129 mg/dL (70-99) Lactic Acid Level 1.0 mmol/L (0.4-2.0) Calcium Level 7.8 mg/dL (8.5-10.1) Magnesium Level 1.9 mg/dL (1.8-2.4) Total Bilirubin 0.7 mg/dL (0.2-1.0) Aspartate Amino Transf (AST/SGOT) 58 U/L (15-37) Alanine Aminotransferase (ALT/SGPT) 52 U/L (14-59) Alkaline Phosphatase 72 U/L (46-116) Troponin I Quantitative 0.126 ng/mL (0.000-0.055) Total Protein 6.3 g/dL (6.4-8.2) Albumin 2.2 g/dL (3.4-5.0) Albumin/Globulin Ratio 0.5 (1.0-1.7) Procalcitonin 0.72 ng/mL (0.00-0.10) O2 Saturation 88 % (92-99) Arterial Blood pH 7.47 (7.35-7.45) Arterial Blood pCO2 at Patient Temp 33 mmHg (35-46) Arterial Blood pO2 at Patient Temp 54 mmHg (65-108) Arterial Blood HCO3 23 mmol/L (21-28) Arterial Blood Base Excess 0 mmol/L (-3-3) FiO2 36 Laboratory Tests Test 01/05/19 16:50 01/05/19 17:16 01/05/19 23:30 White Blood Count 12.1 x10^3/uL (4.0-11.0) Red Blood Count 3.84 x10^6/uL (3.50-5.40) Hemoglobin 11.3 g/dL (12.0-15.5) Hematocrit 34.5 % (36.0-47.0) Mean Corpuscular Volume 90 fL (79-100) Mean Corpuscular Hemoglobin 30 pg (25-35) Mean Corpuscular Hemoglobin Concent 33 g/dL (31-37) Red Cell Distribution Width 19.2 % (11.5-14.5) Platelet Count 210 x10^3/uL (140-400) Neutrophils (%) (Auto) 91 % (31-73) Lymphocytes (%) (Auto) 2 % (24-48) Monocytes (%) (Auto) 7 % (0-9) Eosinophils (%) (Auto) 0 % (0-3) Basophils (%) (Auto) 0 % (0-3) Neutrophils # (Auto) 11.0 x10^3/uL (1.8-7.7) Lymphocytes # (Auto) 0.3 x10^3/uL (1.0-4.8) Monocytes # (Auto) 0.8 x10^3/uL (0.0-1.1) Eosinophils # (Auto) 0.0 x10^3/uL (0.0-0.7) Basophils # (Auto) 0.0 x10^3/uL (0.0-0.2) Segmented Neutrophils % 92 % (35-66) Lymphocytes % 2 % (24-48) Monocytes % 6 % (0-10) Platelet Estimate Adequate (ADEQUATE) Anisocytosis Slight Prothrombin Time 14.4 SEC (11.7-14.0) Prothromb Time International Ratio 1.2 (0.8-1.1) Activated Partial Thromboplast Time 31 SEC (24-38) Sodium Level 141 mmol/L (136-145) Potassium Level 2.8 mmol/L (3.5-5.1) Chloride Level 101 mmol/L (98-107) Carbon Dioxide Level 27 mmol/L (21-32) Anion Gap 13 (6-14) Blood Urea Nitrogen 29 mg/dL (7-20) Creatinine 3.6 mg/dL (0.6-1.0) Estimated GFR (Cockcroft-Gault) 12.4 BUN/Creatinine Ratio 8 (6-20) Glucose Level 129 mg/dL (70-99) Lactic Acid Level 1.0 mmol/L (0.4-2.0) Calcium Level 7.8 mg/dL (8.5-10.1) Magnesium Level 1.9 mg/dL (1.8-2.4) Total Bilirubin 0.7 mg/dL (0.2-1.0) Aspartate Amino Transf (AST/SGOT) 58 U/L (15-37) Alanine Aminotransferase (ALT/SGPT) 52 U/L (14-59) Alkaline Phosphatase 72 U/L (46-116) Troponin I Quantitative 0.126 ng/mL (0.000-0.055) Total Protein 6.3 g/dL (6.4-8.2) Albumin 2.2 g/dL (3.4-5.0) Albumin/Globulin Ratio 0.5 (1.0-1.7) Procalcitonin 0.72 ng/mL (0.00-0.10) O2 Saturation 88 % (92-99) Arterial Blood pH 7.47 (7.35-7.45) Arterial Blood pCO2 at Patient Temp 33 mmHg (35-46) Arterial Blood pO2 at Patient Temp 54 mmHg (65-108) Arterial Blood HCO3 23 mmol/L (21-28) Arterial Blood Base Excess 0 mmol/L (-3-3) FiO2 36 Medications Active Scripts Medications Dose Route/Sig Max Daily Dose Days Date Category Lasix (Furosemide) 20 Mg Tablet 1 Tab PO BID 01/03/19 Reported Nephro-Allison Tablet (Folic Acid/Vitamin B Comp W-C) 0.8 Mg Tablet 1 Tab PO HS 08/17/18 Reported Mirtazapine 15 Mg Tablet 1 Tab PO QHS 08/17/18 Reported Levothyroxine Sodium 175 Mcg Tablet 1 Tab PO DAILY 08/17/18 Reported Ferrous Sulfate 325 Mg Tablet 1 Tab PO TID PRN 08/17/18 Reported Amlodipine Besylate 5 Mg Tablet 5 Mg PO BID PRN 08/17/18 Reported Metoprolol Succinate ( Xl ) (Metoprolol Succinate) 25 Mg Tab.er.24h 25 Mg PO DAILY 30 06/28/18 Rx Clopidogrel (Clopidogrel Bisulfate) 75 Mg Tablet 75 Mg PO DAILYWBKFT 30 06/28/18 Rx Acetaminophen 500 Mg Tablet 1 Tab PO PRN Q6HRS PRN 06/19/18 Reported Zoloft (Sertraline Hcl) 50 Mg Tablet 1 Tab PO HS 06/19/18 Reported Levetiracetam 500 Mg Tablet 1 Tab PO HS 06/19/18 Reported Levetiracetam 500 Mg Tablet 250 Mg PO DAILY 06/19/18 Reported Vitamin D3 (Cholecalciferol (Vitamin D3)) 1,000 Unit Tablet 1 Tab PO QFR 11/25/17 Reported Atorvastatin Calcium 80 Mg Tablet 1 Tab PO HS 11/25/17 Reported Aspirin 81 Mg Tab.chew 1 Tab PO DAILY 11/24/17 Reported Amiodarone Hcl 200 Mg Tablet 1 Tab PO DAILY 11/24/17 Reported Impression . Note [facility] Accession Number: [id number] TESTS RESULT FLAG UNITS REF RANGE LAB Clinician Provided Cytology Information No. of containers..01 Other (Miscellaneous) Source: DAVE BAL DIAGNOSIS: 02 DAVE BAL NEGATIVE FOR MALIGNANT CELLS. SCANT CELLULARITY. NORMAL BRONCHIAL CELLS AND MACROPHAGES ARE PRESENT. PULMONARY MACROPHAGES (DUST CELLS) ARE PRESENT. Signed out by: 02 BRONCH REVEALED MUCUS PLUGGING DAVE BAL FROM 01/04 SPEC #: [id number] BJ: 01/04/191235 STATUS: COMP REQ #: [id number] RECD: 01/04/19 [facility] DR: AV BASSETT MD SOURCE: BRONCH [place] ENTR: 01/04/19-133 [facility] DR: HUI DOZIER MD [facility] NISHI CUNNING[facility] MD, SABATO MD ORDERED: BRONCH COMMENTS: BAL, DAVE Procedure Result BRONCHIAL GRAM STAIN Final WBCS FEW RBCS MODERATE ORGANISMS NONE SEEN CITLALLI AGEE MD Jan 06, 2019 09:43
[2019-01-06] MEDS ORDERED: IV NORMAL SALINE 1000ML BAG 1,000 ML IV PRN ×2 (10:00)
[2019-01-06] MEDS ORDERED: PIP/TAZO PER PHARMACY MC PRN (10:30)
--- NOTE | 2019-01-06 10:35 | PDOC ---
Infectious Disease Note Vital Sign Vital Signs Vital Signs Date Time Temp Pulse Resp B/P (MAP) Pulse Ox O2 Delivery O2 Flow Rate FiO2 01/06/19 08:09 92 195/79 01/06/19 07:16 93 BiPAP/CPAP 01/06/19 07:00 98.0 24 98.0 01/05/19 23:16 4.0 Labs Lab Laboratory Tests Test 01/05/19 16:50 01/05/19 17:16 01/05/19 23:30 White Blood Count 12.1 x10^3/uL (4.0-11.0) Red Blood Count 3.84 x10^6/uL (3.50-5.40) Hemoglobin 11.3 g/dL (12.0-15.5) Hematocrit 34.5 % (36.0-47.0) Mean Corpuscular Volume 90 fL (79-100) Mean Corpuscular Hemoglobin 30 pg (25-35) Mean Corpuscular Hemoglobin Concent 33 g/dL (31-37) Red Cell Distribution Width 19.2 % (11.5-14.5) Platelet Count 210 x10^3/uL (140-400) Neutrophils (%) (Auto) 91 % (31-73) Lymphocytes (%) (Auto) 2 % (24-48) Monocytes (%) (Auto) 7 % (0-9) Eosinophils (%) (Auto) 0 % (0-3) Basophils (%) (Auto) 0 % (0-3) Neutrophils # (Auto) 11.0 x10^3/uL (1.8-7.7) Lymphocytes # (Auto) 0.3 x10^3/uL (1.0-4.8) Monocytes # (Auto) 0.8 x10^3/uL (0.0-1.1) Eosinophils # (Auto) 0.0 x10^3/uL (0.0-0.7) Basophils # (Auto) 0.0 x10^3/uL (0.0-0.2) Segmented Neutrophils % 92 % (35-66) Lymphocytes % 2 % (24-48) Monocytes % 6 % (0-10) Platelet Estimate Adequate (ADEQUATE) Anisocytosis Slight Prothrombin Time 14.4 SEC (11.7-14.0) Prothromb Time International Ratio 1.2 (0.8-1.1) Activated Partial Thromboplast Time 31 SEC (24-38) Sodium Level 141 mmol/L (136-145) Potassium Level 2.8 mmol/L (3.5-5.1) Chloride Level 101 mmol/L (98-107) Carbon Dioxide Level 27 mmol/L (21-32) Anion Gap 13 (6-14) Blood Urea Nitrogen 29 mg/dL (7-20) Creatinine 3.6 mg/dL (0.6-1.0) Estimated GFR (Cockcroft-Gault) 12.4 BUN/Creatinine Ratio 8 (6-20) Glucose Level 129 mg/dL (70-99) Lactic Acid Level 1.0 mmol/L (0.4-2.0) Calcium Level 7.8 mg/dL (8.5-10.1) Magnesium Level 1.9 mg/dL (1.8-2.4) Total Bilirubin 0.7 mg/dL (0.2-1.0) Aspartate Amino Transf (AST/SGOT) 58 U/L (15-37) Alanine Aminotransferase (ALT/SGPT) 52 U/L (14-59) Alkaline Phosphatase 72 U/L (46-116) Troponin I Quantitative 0.126 ng/mL (0.000-0.055) Total Protein 6.3 g/dL (6.4-8.2) Albumin 2.2 g/dL (3.4-5.0) Albumin/Globulin Ratio 0.5 (1.0-1.7) Procalcitonin 0.72 ng/mL (0.00-0.10) O2 Saturation 88 % (92-99) Arterial Blood pH 7.47 (7.35-7.45) Arterial Blood pCO2 at Patient Temp 33 mmHg (35-46) Arterial Blood pO2 at Patient Temp 54 mmHg (65-108) Arterial Blood HCO3 23 mmol/L (21-28) Arterial Blood Base Excess 0 mmol/L (-3-3) FiO2 36 Micro Bronch, 01/02. BRONCHIAL GRAM STAIN Final WBCS FEW RBCS MODERATE ORGANISMS NONE SEEN Objective Assessment Bilateral pleural effusions with questionable pneumonia Leukocytosis Acute respiratory failure, now on BiPAP FiO2 40% Recent bronch, 01/04. No organisms on gram stain. culture still pending CHF ESRD on HD via HD catheter Seizure disorder Hypertension Plan Plan of Care Continue vanc and Zosyn Steroids f/u cultures Maintain aspiration precautions D/w at bedside D/w nursing D/w Dr. Perry Thank you [id number] Patient seen and examined. Chart reviewed in detail. Case discussed with STUDY MANAGER. Agree with above plan. EYAD DIEGO APRN Jan 06, 2019 10:35 ROD WINTER MD Jan 06, 2019 20:20
--- NOTE | 2019-01-06 10:51 | PDOC ---
PROGRESS NOTES History of Present Illness History of Present Illness VTE Prophylaxis Ordered VTE Prophylaxis Devices: Yes VTE Pharmacological Prophylaxi: Yes Assessment/Plan Assessment/Plan IMPRESSION Bilateral pleural effusions, have slightly increased in size. Improved aeration of the left upper lung since prior study. Diffuse interstitial edema or infiltrate in both lungs. Bibasilar atelectasis. Acute on chronic hypoxic respiratory failure on NIPPV Complete left upper lobe atelectasis, may be a component of mucus plugging , exclude obstructing mass. Small to moderate left pleural effusion with loculated component anteriorly. Small right pleural effusion with adjacent atelectasis. Increased density of the liver, can be seen with iron deposition or amiodarone use, unchanged. Subacute left anterior fifth rib fracture. ESRD on dialysis AOCD Hx a fib/arrhythmia - stable placement of AV fistula graft at [facility] last week (Dr Sy) smoker Depression NOS Dyslipidemia statin Hypertension, uncontrolled plan admit cvc bed pulm consult id consult EMPERIC IV ANTIBIOTICS DVT PROPHYLAXIS dvt prophylaxis gi prophylaxis 37 min pt exam, chart review, > 50% of time spent with exam, chart review, pt care coordination Vitals Vitals Vital Signs Date Time Temp Pulse Resp B/P (MAP) Pulse Ox O2 Delivery O2 Flow Rate FiO2 01/06/19 08:09 92 195/79 01/06/19 07:16 93 BiPAP/CPAP 01/06/19 07:00 98.0 24 98.0 01/05/19 23:16 4.0 Physical Exam Physical Exam Eyes: PERRLA, EOMI, conjunctiva normal, no discharge. [] Neck: Normal range of motion, no tenderness, supple, no stridor. [] Cardiovascular:Heart rate regular rhythm, no murmur [] Lungs & Thorax: Bilateral breath sounds rhonchi diffusely through lobes, diminished on left lower. Abdomen: Bowel sounds normal, soft, no tenderness, no masses, no pulsatile masses. [] Skin: Warm, dry, no erythema, no rash. [] Back: No tenderness, no CVA tenderness. [] Extremities: No tenderness, no cyanosis, no clubbing, ROM intact, no edema. [] Neurologic: Alert and oriented X 3, normal motor function, normal sensory function, no focal deficits noted. [] Psychologic: Affect normal, judgement normal, mood normal. General: Alert, Oriented X3, Cooperative, No acute distress Lungs: Wheezing Abdomen: Soft Extremities: No cyanosis Labs LABS History: Shortness of breath. Renal failure. COMPARISON: January 02, 2019. FINDINGS: Moderate left effusion and small right effusion. These appear greater in size than on the previous study. There is improved aeration of the left upper lung as compared with previous study. Diffuse interstitial hazy opacities in both lungs compatible with edema or infiltrate. Atelectasis in lung bases. No evidence of pneumothorax. Pacemaker again seen. Right IJ central catheter again seen. IMPRESSION: 1. Bilateral pleural effusions, have slightly increased in size. 2. Improved aeration of the left upper lung since prior study. 3. Diffuse interstitial edema or infiltrate in both lungs. Bibasilar atelectasis. Electronically signed by: Doc Wilcox MD (01/05/2019 5:31 PM) [id number] DICTATED and SIGNED BY: DOC WILCOX MD DATE: 01/05/19 1731 Laboratory Tests Test 01/05/19 16:50 01/05/19 17:16 01/05/19 23:30 White Blood Count 12.1 x10^3/uL (4.0-11.0) Red Blood Count 3.84 x10^6/uL (3.50-5.40) Hemoglobin 11.3 g/dL (12.0-15.5) Hematocrit 34.5 % (36.0-47.0) Mean Corpuscular Volume 90 fL (79-100) Mean Corpuscular Hemoglobin 30 pg (25-35) Mean Corpuscular Hemoglobin Concent 33 g/dL (31-37) Red Cell Distribution Width 19.2 % (11.5-14.5) Platelet Count 210 x10^3/uL (140-400) Neutrophils (%) (Auto) 91 % (31-73) Lymphocytes (%) (Auto) 2 % (24-48) Monocytes (%) (Auto) 7 % (0-9) Eosinophils (%) (Auto) 0 % (0-3) Basophils (%) (Auto) 0 % (0-3) Neutrophils # (Auto) 11.0 x10^3/uL (1.8-7.7) Lymphocytes # (Auto) 0.3 x10^3/uL (1.0-4.8) Monocytes # (Auto) 0.8 x10^3/uL (0.0-1.1) Eosinophils # (Auto) 0.0 x10^3/uL (0.0-0.7) Basophils # (Auto) 0.0 x10^3/uL (0.0-0.2) Segmented Neutrophils % 92 % (35-66) Lymphocytes % 2 % (24-48) Monocytes % 6 % (0-10) Platelet Estimate Adequate (ADEQUATE) Anisocytosis Slight Prothrombin Time 14.4 SEC (11.7-14.0) Prothromb Time International Ratio 1.2 (0.8-1.1) Activated Partial Thromboplast Time 31 SEC (24-38) Sodium Level 141 mmol/L (136-145) Potassium Level 2.8 mmol/L (3.5-5.1) Chloride Level 101 mmol/L (98-107) Carbon Dioxide Level 27 mmol/L (21-32) Anion Gap 13 (6-14) Blood Urea Nitrogen 29 mg/dL (7-20) Creatinine 3.6 mg/dL (0.6-1.0) Estimated GFR (Cockcroft-Gault) 12.4 BUN/Creatinine Ratio 8 (6-20) Glucose Level 129 mg/dL (70-99) Lactic Acid Level 1.0 mmol/L (0.4-2.0) Calcium Level 7.8 mg/dL (8.5-10.1) Magnesium Level 1.9 mg/dL (1.8-2.4) Total Bilirubin 0.7 mg/dL (0.2-1.0) Aspartate Amino Transf (AST/SGOT) 58 U/L (15-37) Alanine Aminotransferase (ALT/SGPT) 52 U/L (14-59) Alkaline Phosphatase 72 U/L (46-116) Troponin I Quantitative 0.126 ng/mL (0.000-0.055) Total Protein 6.3 g/dL (6.4-8.2) Albumin 2.2 g/dL (3.4-5.0) Albumin/Globulin Ratio 0.5 (1.0-1.7) Procalcitonin 0.72 ng/mL (0.00-0.10) O2 Saturation 88 % (92-99) Arterial Blood pH 7.47 (7.35-7.45) Arterial Blood pCO2 at Patient Temp 33 mmHg (35-46) Arterial Blood pO2 at Patient Temp 54 mmHg (65-108) Arterial Blood HCO3 23 mmol/L (21-28) Arterial Blood Base Excess 0 mmol/L (-3-3) FiO2 36 Assessment and Plan Assessmemt and Plan Problems Medical Problems: (1) Acute respiratory failure with hypoxia Status: Acute (2) ALEXEY (acute kidney injury) Status: Acute (3) Hypokalemia Status: Acute Comment Review of Relevant I have reviewed the following items jose (where applicable) has been applied. Labs Laboratory Tests Test 01/05/19 16:50 01/05/19 17:16 01/05/19 23:30 White Blood Count 12.1 x10^3/uL (4.0-11.0) Red Blood Count 3.84 x10^6/uL (3.50-5.40) Hemoglobin 11.3 g/dL (12.0-15.5) Hematocrit 34.5 % (36.0-47.0) Mean Corpuscular Volume 90 fL (79-100) Mean Corpuscular Hemoglobin 30 pg (25-35) Mean Corpuscular Hemoglobin Concent 33 g/dL (31-37) Red Cell Distribution Width 19.2 % (11.5-14.5) Platelet Count 210 x10^3/uL (140-400) Neutrophils (%) (Auto) 91 % (31-73) Lymphocytes (%) (Auto) 2 % (24-48) Monocytes (%) (Auto) 7 % (0-9) Eosinophils (%) (Auto) 0 % (0-3) Basophils (%) (Auto) 0 % (0-3) Neutrophils # (Auto) 11.0 x10^3/uL (1.8-7.7) Lymphocytes # (Auto) 0.3 x10^3/uL (1.0-4.8) Monocytes # (Auto) 0.8 x10^3/uL (0.0-1.1) Eosinophils # (Auto) 0.0 x10^3/uL (0.0-0.7) Basophils # (Auto) 0.0 x10^3/uL (0.0-0.2) Segmented Neutrophils % 92 % (35-66) Lymphocytes % 2 % (24-48) Monocytes % 6 % (0-10) Platelet Estimate Adequate (ADEQUATE) Anisocytosis Slight Prothrombin Time 14.4 SEC (11.7-14.0) Prothromb Time International Ratio 1.2 (0.8-1.1) Activated Partial Thromboplast Time 31 SEC (24-38) Sodium Level 141 mmol/L (136-145) Potassium Level 2.8 mmol/L (3.5-5.1) Chloride Level 101 mmol/L (98-107) Carbon Dioxide Level 27 mmol/L (21-32) Anion Gap 13 (6-14) Blood Urea Nitrogen 29 mg/dL (7-20) Creatinine 3.6 mg/dL (0.6-1.0) Estimated GFR (Cockcroft-Gault) 12.4 BUN/Creatinine Ratio 8 (6-20) Glucose Level 129 mg/dL (70-99) Lactic Acid Level 1.0 mmol/L (0.4-2.0) Calcium Level 7.8 mg/dL (8.5-10.1) Magnesium Level 1.9 mg/dL (1.8-2.4) Total Bilirubin 0.7 mg/dL (0.2-1.0) Aspartate Amino Transf (AST/SGOT) 58 U/L (15-37) Alanine Aminotransferase (ALT/SGPT) 52 U/L (14-59) Alkaline Phosphatase 72 U/L (46-116) Troponin I Quantitative 0.126 ng/mL (0.000-0.055) Total Protein 6.3 g/dL (6.4-8.2) Albumin 2.2 g/dL (3.4-5.0) Albumin/Globulin Ratio 0.5 (1.0-1.7) Procalcitonin 0.72 ng/mL (0.00-0.10) O2 Saturation 88 % (92-99) Arterial Blood pH 7.47 (7.35-7.45) Arterial Blood pCO2 at Patient Temp 33 mmHg (35-46) Arterial Blood pO2 at Patient Temp 54 mmHg (65-108) Arterial Blood HCO3 23 mmol/L (21-28) Arterial Blood Base Excess 0 mmol/L (-3-3) FiO2 36 Laboratory Tests Test 01/05/19 16:50 01/05/19 17:16 01/05/19 23:30 White Blood Count 12.1 x10^3/uL (4.0-11.0) Red Blood Count 3.84 x10^6/uL (3.50-5.40) Hemoglobin 11.3 g/dL (12.0-15.5) Hematocrit 34.5 % (36.0-47.0) Mean Corpuscular Volume 90 fL (79-100) Mean Corpuscular Hemoglobin 30 pg (25-35) Mean Corpuscular Hemoglobin Concent 33 g/dL (31-37) Red Cell Distribution Width 19.2 % (11.5-14.5) Platelet Count 210 x10^3/uL (140-400) Neutrophils (%) (Auto) 91 % (31-73) Lymphocytes (%) (Auto) 2 % (24-48) Monocytes (%) (Auto) 7 % (0-9) Eosinophils (%) (Auto) 0 % (0-3) Basophils (%) (Auto) 0 % (0-3) Neutrophils # (Auto) 11.0 x10^3/uL (1.8-7.7) Lymphocytes # (Auto) 0.3 x10^3/uL (1.0-4.8) Monocytes # (Auto) 0.8 x10^3/uL (0.0-1.1) Eosinophils # (Auto) 0.0 x10^3/uL (0.0-0.7) Basophils # (Auto) 0.0 x10^3/uL (0.0-0.2) Segmented Neutrophils % 92 % (35-66) Lymphocytes % 2 % (24-48) Monocytes % 6 % (0-10) Platelet Estimate Adequate (ADEQUATE) Anisocytosis Slight Prothrombin Time 14.4 SEC (11.7-14.0) Prothromb Time International Ratio 1.2 (0.8-1.1) Activated Partial Thromboplast Time 31 SEC (24-38) Sodium Level 141 mmol/L (136-145) Potassium Level 2.8 mmol/L (3.5-5.1) Chloride Level 101 mmol/L (98-107) Carbon Dioxide Level 27 mmol/L (21-32) Anion Gap 13 (6-14) Blood Urea Nitrogen 29 mg/dL (7-20) Creatinine 3.6 mg/dL (0.6-1.0) Estimated GFR (Cockcroft-Gault) 12.4 BUN/Creatinine Ratio 8 (6-20) Glucose Level 129 mg/dL (70-99) Lactic Acid Level 1.0 mmol/L (0.4-2.0) Calcium Level 7.8 mg/dL (8.5-10.1) Magnesium Level 1.9 mg/dL (1.8-2.4) Total Bilirubin 0.7 mg/dL (0.2-1.0) Aspartate Amino Transf (AST/SGOT) 58 U/L (15-37) Alanine Aminotransferase (ALT/SGPT) 52 U/L (14-59) Alkaline Phosphatase 72 U/L (46-116) Troponin I Quantitative 0.126 ng/mL (0.000-0.055) Total Protein 6.3 g/dL (6.4-8.2) Albumin 2.2 g/dL (3.4-5.0) Albumin/Globulin Ratio 0.5 (1.0-1.7) Procalcitonin 0.72 ng/mL (0.00-0.10) O2 Saturation 88 % (92-99) Arterial Blood pH 7.47 (7.35-7.45) Arterial Blood pCO2 at Patient Temp 33 mmHg (35-46) Arterial Blood pO2 at Patient Temp 54 mmHg (65-108) Arterial Blood HCO3 23 mmol/L (21-28) Arterial Blood Base Excess 0 mmol/L (-3-3) FiO2 36 Medications Current Medications Albuterol/ Ipratropium (Duoneb) 3 ml 1X STAT NEB Last administered on 01/05/19at 17:04; Start 01/05/19 at 17:03; Stop 01/05/19 at 17:04; Status DC Methylprednisolone Sodium Succinate (SOLU-Medrol 125MG VIAL) 125 mg 1X ONCE IV Last administered on 01/05/19at 18:25; Start 01/05/19 at 17:30; Stop 01/05/19 at 17:31; Status DC Albuterol Sulfate (Ventolin Neb Soln) 2.5 mg PRN Q4HRS PRN NEB SHORTNESS OF B REATH; Start 01/05/19 at 17:15; Stop 01/05/19 at 18:17; Status DC Vancomycin HCl 1 gm/Sodium Chloride 500 ml @ 250 mls/hr 1X ONCE IV ; Start 01/05/19 at 17:30; Stop 01/05/19 at 19:29; Status UNV Piperacillin Sod/ Tazobactam Sod 3.375 gm/Sodium Chloride 50 ml @ 100 mls/hr 1X ONCE IV ; Start 01/05/19 at 17:30; Stop 01/05/19 at 17:59; Status UNV Vancomycin HCl 250 ml @ 250 mls/hr 1X ONCE IV Last administered on 01/05/19at 20:20; Start 01/05/19 at 18:00; Stop 01/05/19 at 18:59; Status DC Piperacillin Sod/ Tazobactam Sod 3.375 gm/Sodium Chloride 50 ml @ 100 mls/hr 1X ONCE IV Last administered on 01/05/19at 18:26; Start 01/05/19 at 17:45; Stop 01/05/19 at 18:14; Status DC Ondansetron HCl (Zofran) 4 mg PRN Q8HRS PRN IV NAUSEA/VOMITING; Start 01/05/19 at 18:00; Stop 01/06/19 at 17:59 Morphine Sulfate (Morphine Sulfate) 2 mg PRN Q2HR PRN IV PAIN; Start 01/05/19 at 18:00; Stop 01/06/19 at 17:59 Potassium Chloride (Klor-Con) 60 meq 1X ONCE PO Last administered on 01/05/19at 18:25; Start 01/05/19 at 18:00; Stop 01/05/19 at 18:01; Status DC Acetaminophen (Tylenol) 500 mg PRN Q6HRS PRN PO PAIN; Start 01/05/19 at 18:00 Amiodarone HCl (Cordarone) 200 mg DAILY PO Last administered on 01/06/19at 08:09; Start 01/06/19 at 09:00 Amlodipine Besylate (Norvasc) 5 mg BID PO Last administered on 01/06/19at 08:07; Start 01/05/19 at 21:00 Aspirin (Children'S Aspirin) 81 mg DAILY PO Last administered on 01/06/19at 08:07; Start 01/06/19 at 09:00 Ergocalciferol (Vitamin D2) 50,000 unit WEEKLY PO ; Start 01/19/19 at 09:00 Clopidogrel Bisulfate (Plavix) 75 mg DAILYWBKFT PO Last administered on 01/06/19at 08:07; Start 01/06/19 at 08:00 Ferrous Sulfate (Feosol) 325 mg TIDWMEALS PO Last administered on 01/06/19 08:07; Start 01/06/19 at 08:00 Vitamin B Complex/ Vitamin C (Katie-Allison) 1 tab HS PO Last administered on 01/05/19 20:20; Start 01/05/19 at 21:00 Furosemide (Lasix) 20 mg BID PO Last administered on 01/06/19 08:07; Start 01/05/19 at 21:00 Levetiracetam (Keppra) 500 mg HS PO Last administered on 01/05/19 20:20; Start 01/05/19 at 21:00 Levetiracetam (Keppra) 250 mg DAILY PO Last administered on 01/06/19 08:07; Start 01/06/19 at 09:00 Metoprolol Succinate (Toprol Xl) 25 mg DAILY PO Last administered on 01/06/19 08:07; Start 01/06/19 at 09:00 Mirtazapine (Remeron) 15 mg QHS PO Last administered on 01/05/19 20:20; Start 01/05/19 at 21:00 Sertraline HCl (Zoloft) 50 mg HS PO Last administered on 01/05/19 20:20; Start 01/05/19 at 21:00 Atorvastatin Calcium (Lipitor) 80 mg QHS PO Last administered on 01/05/19 20:20; Start 01/05/19 at 21:00 Albuterol Sulfate (Ventolin Neb Soln) 2.5 mg Q4HRS NEB Last administered on 01/06/19 07:16; Start 01/05/19 at 20:00 Hydralazine HCl (Apresoline Inj) 10 mg PRN Q4HRS PRN IVP ELEVATED BP, SEE COMMENTS Last administered on 01/05/19 22:16; Start 01/05/19 at 21:15 Heparin Sodium (Porcine) (Heparin Sodium) 5,000 unit Q8HRS SQ Last administered on 01/06/19 05:16; Start 01/05/19 at 22:00 Pantoprazole Sodium (Protonix) 40 mg DAILYAC PO Last administered on 8/31/19at 08:07; Start 01/06/19 at 07:30 Pharmacy Consult (Анна Med Screen By Rx) 1 each 1X ONCE MC Last administered on 01/06/19at 02:17; Start 01/05/19 at 23:00; Stop 01/05/19 at 23:01; Status DC Vancomycin HCl (Vanco Per Pharmacy) 1 each PRN DAILY PRN [facility] SEE COMMENTS; Start 01/06/19 at 10:30 Piperacillin Sod/ Tazobactam Sod (Zosyn Per Pharmacy) 1 each PRN DAILY PRN [facility] SEE COMMENTS; Start 01/06/19 at 10:30 Piperacillin Sod/ Tazobactam Sod 2.25 gm/Sodium Chloride 50 ml @ 100 mls/hr Q8HRS IV ; Start 01/06/19 at 11:00 Active Scripts Active Metoprolol Succinate ( Xl ) (Metoprolol Succinate) 25 Mg Tab.er.24h 25 Mg PO DAILY 30 Days Clopidogrel (Clopidogrel Bisulfate) 75 Mg Tablet 75 Mg PO DAILYWBKFT 30 Days Reported Lasix (Furosemide) 20 Mg Tablet 1 Tab PO BID Nephro-Allison Tablet (Folic Acid/Vitamin B Comp W-C) 0.8 Mg Tablet 1 Tab PO HS Mirtazapine 15 Mg Tablet 1 Tab PO QHS Levothyroxine Sodium 175 Mcg Tablet 1 Tab PO DAILY Ferrous Sulfate 325 Mg Tablet 1 Tab PO TID PRN Amlodipine Besylate 5 Mg Tablet 5 Mg PO BID PRN Acetaminophen 500 Mg Tablet 1 Tab PO PRN Q6HRS PRN Zoloft (Sertraline Hcl) 50 Mg Tablet 1 Tab PO HS Levetiracetam 500 Mg Tablet 1 Tab PO HS Levetiracetam 500 Mg Tablet 250 Mg PO DAILY Vitamin D3 (Cholecalciferol (Vitamin D3)) 1,000 Unit Tablet 1 Tab PO QFR Atorvastatin Calcium 80 Mg Tablet 1 Tab PO HS Aspirin 81 Mg Tab.chew 1 Tab PO DAILY Amiodarone Hcl 200 Mg Tablet 1 Tab PO DAILY Vitals/I & O Vital Sign - Last 24 Hours 01/05/19 01/05/19 01/05/19 01/05/19 16:20 16:34 16:37 16:53 Temp 97.8 97.8 Pulse 90 78 77 Resp 40 36 40 B/P (MAP) 206/95 (132) 192/81 (118) 207/85 (125) Pulse Ox 100 89 92 93 O2 Delivery NonRebreather Mask Nasal Cannula Nasal Cannula Nasal Cannula O2 Flow Rate 15.0 4.0 4.0 4.0 01/05/19 01/05/19 01/05/19 01/05/19 17:09 17:39 17:54 18:24 Pulse 77 75 76 78 Resp 36 35 36 32 B/P (MAP) 184/79 (114) 199/80 (119) 195/79 (117) 180/77 (111) Pulse Ox 94 94 95 94 O2 Delivery Nasal Cannula Nasal Cannula Nasal Cannula Nasal Cannula O2 Flow Rate 4.0 4.0 4.0 4.0 01/05/19 01/05/19 01/05/19 01/05/19 19:00 19:29 19:45 20:20 Temp 97.8 97.8 Pulse 76 79 79 Resp 26 B/P (MAP) 178/74 (108) 181/81 (114) 214/85 Pulse Ox 91 91 O2 Delivery Nasal Cannula Nasal Cannula Nasal Cannula O2 Flow Rate 4.0 5.0 5.0 01/05/19 01/05/19 01/05/19 01/05/19 21:23 22:16 22:19 23:16 Temp 97.5 97.5 Pulse 79 69 Resp 24 B/P (MAP) 214/85 180/77 (111) Pulse Ox 92 93 91 O2 Delivery Nasal Cannula Nasal Cannula Nasal Cannula O2 Flow Rate 4.0 4.0 4.0 01/05/19 01/06/19 01/06/19 01/06/19 23:29 01:47 03:02 03:30 Temp 98.2 98.2 Pulse 88 Resp 40 B/P (MAP) 168/60 (96) Pulse Ox 94 94 93 96 O2 Delivery BiPAP/CPAP BiPAP/CPAP BiPAP/CPAP BiPAP/CPAP 01/06/19 01/06/19 01/06/19 01/06/19 05:35 07:00 07:16 08:07 Temp 98.0 98.0 Pulse 92 92 Resp 24 B/P (MAP) 195/79 (117) 195/79 Pulse Ox 94 95 93 O2 Delivery BiPAP/CPAP BiPAP/CPAP BiPAP/CPAP 01/06/19 01/06/19 08:07 08:09 Pulse 92 92 B/P (MAP) 195/79 195/79 Intake and Output 8/30/19 8/30/19 8/31/19 14:59 22:59 06:59 Intake Total 50 ml 90 ml Balance 50 ml 90 ml CAROLE BECK MD Jan 06, 2019 10:51
[2019-01-06] MEDS: VANCOMYCIN PER PHARMACY MC PRN (11:15)
--- NOTE | 2019-01-06 11:23 | NUR ---
Pharmacy Vancomycin Dosing Note S:Consulted to monitor and dose vancomycin started 01/05/19. O:TUSHARRONLURDES MOODY is a 73 year old F with Pneumonia Height: 5 feet, 0 inches Weight: 41.8 kg [place] Body Weight: 45.50 Adjusted Body Weight: 44.10 Dosing Weight: Actual Other Antibiotics: Zosyn LABS: Last BUN: 29 Last Creatinine: 3.6 Creatinine Clearance: Dialysis Last WBC: 12.1 Last Procalcitonin: 0.72 (dialysis patient) Tmax (past 24 hours): 98 Microbiology: Bronch wash: No organisms seen (last admit 01/04/19) I/O: - Drug Levels: Last level: on at Last dose given 01/05/19 at 2020 Vancomycin Dosing: Loading Dose: 1000 mg x1 Dosing Weight: Actual Target Trough: 15-20 A: Based on: weight and renal function P: 1. Patient received Vancomycin 1000 mg IV One Time 2. Follow up Random level on 01/07/19 at 0500 3. Pharmacy will continue to monitor, follow and adjust therapy as needed. Megan Hines RPH, 01/06/19 1125
--- NOTE | 2019-01-06 11:24 | NUR ---
Pharmacy Medication Review S: Consulted for medication review re: C.diff Risk Assessment score of 6 O: LURDES LEMOS is a 73 year old with: Previous C.diff infection: No Previous hospitalization: Within 30 days Recent antibiotics: Within 30 days Use of gastric acid suppressor: No Transfer from PR/LTAC: No Current antibiotic regimen: Vancomycin and Zosyn per pharmacy Current acid suppression regimen: Protonix 40mg po daily A: Patient has been identified as having risk factors for C.diff infection as noted above. P: Antibiotic Regimen recommendation made: no - followed by infectious disease Probiotic ordered: Yes PPI changed to [id number]: PPI d/c'd Megan Hines RPH, 01/06/19 1124
--- NOTE | 2019-01-06 11:26 | CONS ---
DATE OF CONSULTATION: 01/06/2019 Ad Mckeon APRN, dictating for Rod Winter MD, Infectious Disease. REFERRING PHYSICIAN: Andrzej Oviedo MD REASON FOR CONSULT: Pneumonia. HISTORY OF PRESENT ILLNESS: This patient is a 73-year-old female with a past medical history of congestive heart failure, chronic obstructive pulmonary disease and end-stage renal disease; on hemodialysis, who presented with worsening shortness of air. According to the medical record and her , she was recently admitted on 01/02/2019 with acute respiratory failure, complete left upper lobe atelectasis and small size effusion. She underwent a bronchoscopy on the . There were no organisms seen on Gram stain. Cultures are still pending. She was treated empirically with vancomycin and Zosyn. She was discharged home reportedly on oral antibiotics. She felt increasingly short of breath, weak and fatigued. Her home oxygen was increased to 4 liters. The following day, she went to dialysis. She apparently desaturated and was placed on a nonrebreather by EMS. On arrival to the ER, she was afebrile with a WBC count of 12,100, lactic acid 1.0 and procalcitonin 0.72. A chest x-ray revealed improved aeration of the left upper lung compared to previous study. Diffuse interstitial and hazy opacities in both lungs compatible with edema or infiltrate. Atelectasis in lung bases. No evidence of pneumothorax. Pulmonology has been consulted. She was dosed with vancomycin and Zosyn. PAST MEDICAL HISTORY: End-stage renal disease; on hemodialysis via HD catheter. Congestive heart failure, chronic obstructive pulmonary disease, seizure disorder, coronary artery disease, hyperlipidemia, chronic atrial fibrillation, hypertension, osteoporosis, hypothyroidism, blindness; left eye, heart attack. PAST SURGICAL HISTORY: Coronary artery bypass graft x 3, pacemaker placement, hysterectomy, renal artery stent placement, elbow and shoulder surgery, parathyroidectomy, AV fistula. SOCIAL HISTORY: The patient is and lives at home. She is and lives at home. She is a smoker. FAMILY HISTORY: Hypertension. ALLERGIES: CODEINE. MEDICATIONS: One-time dose of vancomycin, 1-time dose of Zosyn, amiodarone, Keppra, DuoNeb, furosemide, methylprednisolone. Other medications are available and have been reviewed on the JUL. REVIEW OF SYSTEMS: The patient is currently on BiPAP. Her says that she has been agitated. No fevers have been reported. She was having some diarrhea. She has had multiple hospitalizations this year, most recently within the last week. PHYSICAL EXAMINATION: VITAL SIGNS: Temperature 98.0, blood pressure 195/79, heart rate 92, respiratory rate 24, pulse oximetry 93% on BiPAP, FiO2 of 40%. GENERAL: The patient is propped up in bed, resting quietly, calm, on BiPAP. HEENT: Left eye blindness. Oral cavity deferred. LUNGS: Diminished aeration in bases, fine crackles. HEART: S1 and S2. ABDOMEN: Soft. No guarding. Bowel sounds present. EXTREMITIES: No gross edema or cyanosis. SKIN: Warm to touch. No signs of rash. NEUROLOGIC: Arouses to name. LINES: RIJ/HDC without signs of any complications. LABORATORY DATA: WBC 12.1, hemoglobin 11.3, platelets 210,000. Segs 92%, lymphocytes 2%. Sodium 141, potassium 2.8, creatinine 3.6, BUN 29, glucose 129. Lactic acid 1.0. Total bilirubin 0.7, AST 58, ALT 52, troponin 0.126, albumin 2.2. Procalcitonin 0.72. Chest x-ray per HPI. A urinalysis and C. diff PCR in progress. ASSESSMENT: 1. Bilateral pleural effusions with questionable pneumonia. 2. Leukocytosis. 3. Acute respiratory failure, now on a BiPAP. 4. Recent history of complete left upper lobe atelectasis, status post bronchoscopy on 01/04/2019. Cultures are still pending. 5. Congestive heart failure. 6. End-stage renal disease, on hemodialysis via HD catheter. 7. Seizure disorder. 8. Hypertension. PLAN: Continue the vancomycin and Zosyn. We will follow up on culture results. Maintain aspiration precautions. Discussed with at bedside. Thank you, Dr. Oviedo, for asking us to participate in this patient's care. Should you have further questions or concerns, please call. ROD WINTER MD DR: SOLITARIO/gatito JOB#: [id number] / [id number] SHEA
--- NOTE | 2019-01-06 11:50 | PDOC ---
PULMONARY PROGRESS NOTES Vitals Vital Signs Date Time Temp Pulse Resp B/P (MAP) Pulse Ox O2 Delivery O2 Flow Rate FiO2 01/06/19 08:09 92 195/79 01/06/19 07:16 93 BiPAP/CPAP 01/06/19 07:00 98.0 24 98.0 01/05/19 23:16 4.0 General: Alert, No acute distress HEENT: Other Lungs: Wheezing Cardiovascular: S1, S2 Abdomen: Soft, Non-tender Extremities: No Edema Labs Laboratory Tests Test 01/05/19 16:50 01/05/19 17:16 01/05/19 23:30 White Blood Count 12.1 x10^3/uL (4.0-11.0) Red Blood Count 3.84 x10^6/uL (3.50-5.40) Hemoglobin 11.3 g/dL (12.0-15.5) Hematocrit 34.5 % (36.0-47.0) Mean Corpuscular Volume 90 fL (79-100) Mean Corpuscular Hemoglobin 30 pg (25-35) Mean Corpuscular Hemoglobin Concent 33 g/dL (31-37) Red Cell Distribution Width 19.2 % (11.5-14.5) Platelet Count 210 x10^3/uL (140-400) Neutrophils (%) (Auto) 91 % (31-73) Lymphocytes (%) (Auto) 2 % (24-48) Monocytes (%) (Auto) 7 % (0-9) Eosinophils (%) (Auto) 0 % (0-3) Basophils (%) (Auto) 0 % (0-3) Neutrophils # (Auto) 11.0 x10^3/uL (1.8-7.7) Lymphocytes # (Auto) 0.3 x10^3/uL (1.0-4.8) Monocytes # (Auto) 0.8 x10^3/uL (0.0-1.1) Eosinophils # (Auto) 0.0 x10^3/uL (0.0-0.7) Basophils # (Auto) 0.0 x10^3/uL (0.0-0.2) Segmented Neutrophils % 92 % (35-66) Lymphocytes % 2 % (24-48) Monocytes % 6 % (0-10) Platelet Estimate Adequate (ADEQUATE) Anisocytosis Slight Prothrombin Time 14.4 SEC (11.7-14.0) Prothromb Time International Ratio 1.2 (0.8-1.1) Activated Partial Thromboplast Time 31 SEC (24-38) Sodium Level 141 mmol/L (136-145) Potassium Level 2.8 mmol/L (3.5-5.1) Chloride Level 101 mmol/L (98-107) Carbon Dioxide Level 27 mmol/L (21-32) Anion Gap 13 (6-14) Blood Urea Nitrogen 29 mg/dL (7-20) Creatinine 3.6 mg/dL (0.6-1.0) Estimated GFR (Cockcroft-Gault) 12.4 BUN/Creatinine Ratio 8 (6-20) Glucose Level 129 mg/dL (70-99) Lactic Acid Level 1.0 mmol/L (0.4-2.0) Calcium Level 7.8 mg/dL (8.5-10.1) Magnesium Level 1.9 mg/dL (1.8-2.4) Total Bilirubin 0.7 mg/dL (0.2-1.0) Aspartate Amino Transf (AST/SGOT) 58 U/L (15-37) Alanine Aminotransferase (ALT/SGPT) 52 U/L (14-59) Alkaline Phosphatase 72 U/L (46-116) Troponin I Quantitative 0.126 ng/mL (0.000-0.055) Total Protein 6.3 g/dL (6.4-8.2) Albumin 2.2 g/dL (3.4-5.0) Albumin/Globulin Ratio 0.5 (1.0-1.7) Procalcitonin 0.72 ng/mL (0.00-0.10) O2 Saturation 88 % (92-99) Arterial Blood pH 7.47 (7.35-7.45) Arterial Blood pCO2 at Patient Temp 33 mmHg (35-46) Arterial Blood pO2 at Patient Temp 54 mmHg (65-108) Arterial Blood HCO3 23 mmol/L (21-28) Arterial Blood Base Excess 0 mmol/L (-3-3) FiO2 36 Laboratory Tests Test 01/05/19 16:50 01/05/19 17:16 01/05/19 23:30 White Blood Count 12.1 x10^3/uL (4.0-11.0) Red Blood Count 3.84 x10^6/uL (3.50-5.40) Hemoglobin 11.3 g/dL (12.0-15.5) Hematocrit 34.5 % (36.0-47.0) Mean Corpuscular Volume 90 fL (79-100) Mean Corpuscular Hemoglobin 30 pg (25-35) Mean Corpuscular Hemoglobin Concent 33 g/dL (31-37) Red Cell Distribution Width 19.2 % (11.5-14.5) Platelet Count 210 x10^3/uL (140-400) Neutrophils (%) (Auto) 91 % (31-73) Lymphocytes (%) (Auto) 2 % (24-48) Monocytes (%) (Auto) 7 % (0-9) Eosinophils (%) (Auto) 0 % (0-3) Basophils (%) (Auto) 0 % (0-3) Neutrophils # (Auto) 11.0 x10^3/uL (1.8-7.7) Lymphocytes # (Auto) 0.3 x10^3/uL (1.0-4.8) Monocytes # (Auto) 0.8 x10^3/uL (0.0-1.1) Eosinophils # (Auto) 0.0 x10^3/uL (0.0-0.7) Basophils # (Auto) 0.0 x10^3/uL (0.0-0.2) Segmented Neutrophils % 92 % (35-66) Lymphocytes % 2 % (24-48) Monocytes % 6 % (0-10) Platelet Estimate Adequate (ADEQUATE) Anisocytosis Slight Prothrombin Time 14.4 SEC (11.7-14.0) Prothromb Time International Ratio 1.2 (0.8-1.1) Activated Partial Thromboplast Time 31 SEC (24-38) Sodium Level 141 mmol/L (136-145) Potassium Level 2.8 mmol/L (3.5-5.1) Chloride Level 101 mmol/L (98-107) Carbon Dioxide Level 27 mmol/L (21-32) Anion Gap 13 (6-14) Blood Urea Nitrogen 29 mg/dL (7-20) Creatinine 3.6 mg/dL (0.6-1.0) Estimated GFR (Cockcroft-Gault) 12.4 BUN/Creatinine Ratio 8 (6-20) Glucose Level 129 mg/dL (70-99) Lactic Acid Level 1.0 mmol/L (0.4-2.0) Calcium Level 7.8 mg/dL (8.5-10.1) Magnesium Level 1.9 mg/dL (1.8-2.4) Total Bilirubin 0.7 mg/dL (0.2-1.0) Aspartate Amino Transf (AST/SGOT) 58 U/L (15-37) Alanine Aminotransferase (ALT/SGPT) 52 U/L (14-59) Alkaline Phosphatase 72 U/L (46-116) Troponin I Quantitative 0.126 ng/mL (0.000-0.055) Total Protein 6.3 g/dL (6.4-8.2) Albumin 2.2 g/dL (3.4-5.0) Albumin/Globulin Ratio 0.5 (1.0-1.7) Procalcitonin 0.72 ng/mL (0.00-0.10) O2 Saturation 88 % (92-99) Arterial Blood pH 7.47 (7.35-7.45) Arterial Blood pCO2 at Patient Temp 33 mmHg (35-46) Arterial Blood pO2 at Patient Temp 54 mmHg (65-108) Arterial Blood HCO3 23 mmol/L (21-28) Arterial Blood Base Excess 0 mmol/L (-3-3) FiO2 36 Medications Active Scripts Medications Dose Route/Sig Max Daily Dose Days Date Category Lasix (Furosemide) 20 Mg Tablet 1 Tab PO BID 01/03/19 Reported Nephro-Allison Tablet (Folic Acid/Vitamin B Comp W-C) 0.8 Mg Tablet 1 Tab PO HS 08/17/18 Reported Mirtazapine 15 Mg Tablet 1 Tab PO QHS 08/17/18 Reported Levothyroxine Sodium 175 Mcg Tablet 1 Tab PO DAILY 08/17/18 Reported Ferrous Sulfate 325 Mg Tablet 1 Tab PO TID PRN 08/17/18 Reported Amlodipine Besylate 5 Mg Tablet 5 Mg PO BID PRN 08/17/18 Reported Metoprolol Succinate ( Xl ) (Metoprolol Succinate) 25 Mg Tab.er.24h 25 Mg PO DAILY 30 06/28/18 Rx Clopidogrel (Clopidogrel Bisulfate) 75 Mg Tablet 75 Mg PO DAILYWBKFT 30 06/28/18 Rx Acetaminophen 500 Mg Tablet 1 Tab PO PRN Q6HRS PRN 06/19/18 Reported Zoloft (Sertraline Hcl) 50 Mg Tablet 1 Tab PO HS 06/19/18 Reported Levetiracetam 500 Mg Tablet 1 Tab PO HS 06/19/18 Reported Levetiracetam 500 Mg Tablet 250 Mg PO DAILY 06/19/18 Reported Vitamin D3 (Cholecalciferol (Vitamin D3)) 1,000 Unit Tablet 1 Tab PO QFR 11/25/17 Reported Atorvastatin Calcium 80 Mg Tablet 1 Tab PO HS 11/25/17 Reported Aspirin 81 Mg Tab.chew 1 Tab PO DAILY 11/24/17 Reported Amiodarone Hcl 200 Mg Tablet 1 Tab PO DAILY 11/24/17 Reported Impression . FULL NOTE DICTATED SEE ORDERS CASE D/W AND ID NEEDS EMERGENT HD POSSIBLE THORACENTESIS IN FUTURE Note [facility] Accession Number: [id number] TESTS RESULT FLAG UNITS REF RANGE LAB Clinician Provided Cytology Information No. of containers..01 Other (Miscellaneous) Source: DAVE BAL DIAGNOSIS: 02 DAVE BAL NEGATIVE FOR MALIGNANT CELLS. SCANT CELLULARITY. NORMAL BRONCHIAL CELLS AND MACROPHAGES ARE PRESENT. PULMONARY MACROPHAGES (DUST CELLS) ARE PRESENT. Signed out by: 02 BRONCH REVEALED MUCUS PLUGGING DAVE BAL FROM 01/04 SPEC #: [id number] BJ: 01/04/19-1235 STATUS: COMP REQ #: [id number] RECD: 01/04/19-1306 [facility] DR: AV BASSETT MD SOURCE: [place] ENTR: 01/04/19-1333 [facility] DR: HUI DOZIER MD SPDESC: [facility] NISHI BENITEZ MD, SABATO MD ORDERED: BRONCH COMMENTS: BAL, DAVE Procedure Result BRONCHIAL GRAM STAIN Final WBCS FEW RBCS MODERATE ORGANISMS NONE SEEN CITLALLI AGEE MD Jan 06, 2019 11:50
--- NOTE | 2019-01-06 11:58 | PDOC2 ---
CONSULT Date of Consult Date of Consult DATE: 01/06/19 TIME: 11:48 Reason for Consult Reason for Consult: esrd Identification/Chief Complaint Chief Complaint Shortness of breath- severe Source Source: Chart review, Patient History of Present Illness Reason for Visit: Pt is a 73-year-old female with history of congestive heart failure, copd ,ESRD on HD MWF presented with worsening shortness of air. She was recently admitted on 01/02/2019 with acute respiratory failure, complete left upper lobe atelectasis and small size effusion. She underwent a bronchoscopy on the . There were no organisms seen on Gram stain. Cultures are still pending. She was treated empirically with Abx . She was discharged home reportedly on oral antibiotics. She felt increasingly short of breath, weak and fatigued. Her home oxygen was increased to 4 liters. Yesterday she went for her routine HD at her OP unit but apparently desaturated in < an hour of starting HD and was placed on a nonrebreather by EMS and did not complete the treatment . A chest x-ray revealed improved aeration of the left upper lung compared to previous study. Diffuse interstitial and hazy opacities in both lungs compatible with edema or infiltrate. Currently she is on Hd, on Bipap appears short of breath Past Medical History Cardiovascular: AFIB, CAD, CHF, HTN, DE, Syncope, Hyperlipidemia, Other Pulmonary: Pneumonia CENTRAL NERVOUS SYSTEM: CVA, Seizure, TIA GI: GERD, Gastritis Heme/Onc: Anemia NOS Hepatobiliary: No pertinent hx Psych: Depression Rheumatologic: No pertinent hx Infectious disease: No pertinent hx Renal/: Chronic renal insuff, Urinary Incontinence, Other Endocrine: Hypothyroidism, Hyperparathyroidism, Osteopenia Past Surgical History Past Surgical History: Pacemaker, CABG Family History Family History: Hypertension Social History <1 pack per day ALCOHOL: none Drugs: None Lives: with Family Current Problem List Problem List Problems Medical Problems: (1) Acute respiratory failure with hypoxia Status: Acute (2) ALEXEY (acute kidney injury) Status: Acute (3) Hypokalemia Status: Acute Current Medications Current Medications Current Medications Albuterol/ Ipratropium (Duoneb) 3 ml 1X STAT NEB Last administered on 01/05/19at 17:04; Start 01/05/19 at 17:03; Stop 01/05/19 at 17:04; Status DC Methylprednisolone Sodium Succinate (SOLU-Medrol 125MG VIAL) 125 mg 1X ONCE IV Last administered on 01/05/19at 18:25; Start 01/05/19 at 17:30; Stop 01/05/19 at 17:31; Status DC Albuterol Sulfate (Ventolin Neb Soln) 2.5 mg PRN Q4HRS PRN NEB SHORTNESS OF BREATH; Start 01/05/19 at 17:15; Stop 01/05/19 at 18:17; Status DC Vancomycin HCl 1 gm/Sodium Chloride 500 ml @ 250 mls/hr 1X ONCE IV ; Start 01/05/19 at 17:30; Stop 01/05/19 at 19:29; Status UNV Piperacillin Sod/ Tazobactam Sod 3.375 gm/Sodium Chloride 50 ml @ 100 mls/hr 1X ONCE IV ; Start 01/05/19 at 17:30; Stop 01/05/19 at 17:59; Status UNV Vancomycin HCl 250 ml @ 250 mls/hr 1X ONCE IV Last administered on 01/05/19at 20:20; Start 01/05/19 at 18:00; Stop 01/05/19 at 18:59; Status DC Piperacillin Sod/ Tazobactam Sod 3.375 gm/Sodium Chloride 50 ml @ 100 mls/hr 1X ONCE IV Last administered on 01/05/19at 18:26; Start 01/05/19 at 17:45; Stop 01/05/19 at 18:14; Status DC Ondansetron HCl (Zofran) 4 mg PRN Q8HRS PRN IV NAUSEA/VOMITING; Start 01/05/19 at 18:00; Stop 01/06/19 at 17:59 Morphine Sulfate (Morphine Sulfate) 2 mg PRN Q2HR PRN IV PAIN; Start 01/05/19 at 18:00; Stop 01/06/19 at 17:59 Potassium Chloride (Klor-Con) 60 meq 1X ONCE PO Last administered on 01/05/19at 18:25; Start 01/05/19 at 18:00; Stop 01/05/19 at 18:01; Status DC Acetaminophen (Tylenol) 500 mg PRN Q6HRS PRN PO PAIN; Start 01/05/19 at 18:00 Amiodarone HCl (Cordarone) 200 mg DAILY PO Last administered on 01/06/19at 08:09; Start 01/06/19 at 09:00 Amlodipine Besylate (Norvasc) 5 mg BID PO Last administered on 01/06/19 08:07; Start 01/05/19 at 21:00 Aspirin (Children'S Aspirin) 81 mg DAILY PO Last administered on 01/06/19 08:07; Start 01/06/19 at 09:00 Ergocalciferol (Vitamin D2) 50,000 unit WEEKLY PO ; Start 01/19/19 at 09:00 Clopidogrel Bisulfate (Plavix) 75 mg DAILYWBKFT PO Last administered on 01/06/19 08:07; Start 01/06/19 at 08:00 Ferrous Sulfate (Feosol) 325 mg TIDWMEALS PO Last administered on 01/06/19 08:07; Start 01/06/19 at 08:00 Vitamin B Complex/ Vitamin C (Katie-Allison) 1 tab HS PO Last administered on 01/05/19 20:20; Start 01/05/19 at 21:00 Furosemide (Lasix) 20 mg BID PO Last administered on 01/06/19 08:07; Start 01/05/19 at 21:00 Levetiracetam (Keppra) 500 mg HS PO Last administered on 01/05/19 20:20; Start 01/05/19 at 21:00 Levetiracetam (Keppra) 250 mg DAILY PO Last administered on 01/06/19 08:07; Start 01/06/19 at 09:00 Metoprolol Succinate (Toprol Xl) 25 mg DAILY PO Last administered on 01/06/19 08:07; Start 01/06/19 at 09:00 Mirtazapine (Remeron) 15 mg QHS PO Last administered on 01/05/19 20:20; Start 01/05/19 at 21:00 Sertraline HCl (Zoloft) 50 mg HS PO Last administered on 01/05/19 20:20; Start 01/05/19 at 21:00 Atorvastatin Calcium (Lipitor) 80 mg QHS PO Last administered on 01/05/19 20:20; Start 01/05/19 at 21:00 Albuterol Sulfate (Ventolin Neb Soln) 2.5 mg Q4HRS NEB Last administered on 01/06/19 07:16; Start 01/05/19 at 20:00 Hydralazine HCl (Apresoline Inj) 10 mg PRN Q4HRS PRN IVP ELEVATED BP, SEE COMMENTS Last administered on 01/05/19at 22:16; Start 01/05/19 at 21:15 Heparin Sodium (Porcine) (Heparin Sodium) 5,000 unit Q8HRS SQ Last administered on 01/06/19at 05:16; Start 01/05/19 at 22:00 Pantoprazole Sodium (Protonix) 40 mg DAILYAC PO Last administered on 01/06/19at 08:07; Start 01/06/19 at 07:30; Stop 01/06/19 at 11:25; Status DC Pharmacy Consult (C.diff Med Screen By Rx) 1 each 1X ONCE MC Last administered on 01/06/19at 02:17; Start 01/05/19 at 23:00; Stop 01/05/19 at 23:01; Status DC Vancomycin HCl (Vanco Per Pharmacy) 1 each PRN DAILY PRN MC SEE COMMENTS Last administered on 01/06/19at 11:22; Start 01/06/19 at 10:30 Piperacillin Sod/ Tazobactam Sod (Zosyn Per Pharmacy) 1 each PRN DAILY PRN MC SEE COMMENTS; Start 01/06/19 at 10:30 Piperacillin Sod/ Tazobactam Sod 2.25 gm/Sodium Chloride 50 ml @ 100 mls/hr Q8HRS IV ; Start 01/06/19 at 11:00 Vancomycin HCl (Vancomycin Random Level) 1 each 1X ONCE MC ; Start 01/07/19 at 05:00; Stop 01/07/19 at 05:01 Lactobacillus Rhamnosus (Culturelle) 1 cap BID PO ; Start 01/06/19 at 21:00 Active Scripts Active Metoprolol Succinate ( Xl ) (Metoprolol Succinate) 25 Mg Tab.er.24h 25 Mg PO DAILY 30 Days Clopidogrel (Clopidogrel Bisulfate) 75 Mg Tablet 75 Mg PO DAILYWBKFT 30 Days Reported Lasix (Furosemide) 20 Mg Tablet 1 Tab PO BID Nephro-Allison Tablet (Folic Acid/Vitamin B Comp W-C) 0.8 Mg Tablet 1 Tab PO HS Mirtazapine 15 Mg Tablet 1 Tab PO QHS Levothyroxine Sodium 175 Mcg Tablet 1 Tab PO DAILY Ferrous Sulfate 325 Mg Tablet 1 Tab PO TID PRN Amlodipine Besylate 5 Mg Tablet 5 Mg PO BID PRN Acetaminophen 500 Mg Tablet 1 Tab PO PRN Q6HRS PRN Zoloft (Sertraline Hcl) 50 Mg Tablet 1 Tab PO HS Levetiracetam 500 Mg Tablet 1 Tab PO HS Levetiracetam 500 Mg Tablet 250 Mg PO DAILY Vitamin D3 (Cholecalciferol (Vitamin D3)) 1,000 Unit Tablet 1 Tab PO QFR Atorvastatin Calcium 80 Mg Tablet 1 Tab PO HS Aspirin 81 Mg Tab.chew 1 Tab PO DAILY Amiodarone Hcl 200 Mg Tablet 1 Tab PO DAILY Allergies Allergies: Coded Allergies: codeine (Verified Allergy, Intermediate, 01/04/19) ROS Review of System Per HPI Physical Exam Physical Exam GENERAL: on BiPAP, Mild distress HEENT: Left eye blindness. Neck Supple LUNGS: Diminished aeration in bases, fine crackles. HEART: S1 and S2. ABDOMEN: Soft. No guarding. Bowel sounds present. EXTREMITIES: No gross edema or cyanosis. SKIN: Warm to touch. No signs of rash. NEUROLOGIC: Grossly Normal LINES: RIJ/HDC without signs of any complications - No Klein Vital Signs Vital Signs Date Time Temp Pulse Resp B/P (MAP) Pulse Ox O2 Delivery O2 Flow Rate FiO2 01/06/19 08:09 92 195/79 01/06/19 07:16 93 BiPAP/CPAP 01/06/19 07:00 98.0 24 98.0 01/05/19 23:16 4.0 Assessment & Plan ESRD - On HD MWF at [facility] under Dr. Johnson Unable to complete HD yesterday due to worsening SOB Seen on HD , No issues with HD, UF 4 Lts as tolerated Discussed ordered with Thai Hypokalemia- Adjust in Dialysate If continues to be low replace as needed Anemia- Hgb stable, No indication of REENA currently Bilateral pleural effusions with questionable pneumonia. Acute respiratory failure, now on a BiPAP. Recent history of complete left upper lobe atelectasis, status post bronchoscopy on 01/04/2019. Cultures are still pending. Congestive heart failure. Hx of Seizure disorder. Labs Labs Laboratory Tests Test 01/05/19 16:50 01/05/19 17:16 01/05/19 23:30 White Blood Count 12.1 x10^3/uL (4.0-11.0) Red Blood Count 3.84 x10^6/uL (3.50-5.40) Hemoglobin 11.3 g/dL (12.0-15.5) Hematocrit 34.5 % (36.0-47.0) Mean Corpuscular Volume 90 fL (79-100) Mean Corpuscular Hemoglobin 30 pg (25-35) Mean Corpuscular Hemoglobin Concent 33 g/dL (31-37) Red Cell Distribution Width 19.2 % (11.5-14.5) Platelet Count 210 x10^3/uL (140-400) Neutrophils (%) (Auto) 91 % (31-73) Lymphocytes (%) (Auto) 2 % (24-48) Monocytes (%) (Auto) 7 % (0-9) Eosinophils (%) (Auto) 0 % (0-3) Basophils (%) (Auto) 0 % (0-3) Neutrophils # (Auto) 11.0 x10^3/uL (1.8-7.7) Lymphocytes # (Auto) 0.3 x10^3/uL (1.0-4.8) Monocytes # (Auto) 0.8 x10^3/uL (0.0-1.1) Eosinophils # (Auto) 0.0 x10^3/uL (0.0-0.7) Basophils # (Auto) 0.0 x10^3/uL (0.0-0.2) Segmented Neutrophils % 92 % (35-66) Lymphocytes % 2 % (24-48) Monocytes % 6 % (0-10) Platelet Estimate Adequate (ADEQUATE) Anisocytosis Slight Prothrombin Time 14.4 SEC (11.7-14.0) Prothromb Time International Ratio 1.2 (0.8-1.1) Activated Partial Thromboplast Time 31 SEC (24-38) Sodium Level 141 mmol/L (136-145) Potassium Level 2.8 mmol/L (3.5-5.1) Chloride Level 101 mmol/L (98-107) Carbon Dioxide Level 27 mmol/L (21-32) Anion Gap 13 (6-14) Blood Urea Nitrogen 29 mg/dL (7-20) Creatinine 3.6 mg/dL (0.6-1.0) Estimated GFR (Cockcroft-Gault) 12.4 BUN/Creatinine Ratio 8 (6-20) Glucose Level 129 mg/dL (70-99) Lactic Acid Level 1.0 mmol/L (0.4-2.0) Calcium Level 7.8 mg/dL (8.5-10.1) Magnesium Level 1.9 mg/dL (1.8-2.4) Total Bilirubin 0.7 mg/dL (0.2-1.0) Aspartate Amino Transf (AST/SGOT) 58 U/L (15-37) Alanine Aminotransferase (ALT/SGPT) 52 U/L (14-59) Alkaline Phosphatase 72 U/L (46-116) Troponin I Quantitative 0.126 ng/mL (0.000-0.055) Total Protein 6.3 g/dL (6.4-8.2) Albumin 2.2 g/dL (3.4-5.0) Albumin/Globulin Ratio 0.5 (1.0-1.7) Procalcitonin 0.72 ng/mL (0.00-0.10) O2 Saturation 88 % (92-99) Arterial Blood pH 7.47 (7.35-7.45) Arterial Blood pCO2 at Patient Temp 33 mmHg (35-46) Arterial Blood pO2 at Patient Temp 54 mmHg (65-108) Arterial Blood HCO3 23 mmol/L (21-28) Arterial Blood Base Excess 0 mmol/L (-3-3) FiO2 36 Laboratory Tests Test 01/05/19 16:50 01/05/19 17:16 01/05/19 23:30 White Blood Count 12.1 x10^3/uL (4.0-11.0) Red Blood Count 3.84 x10^6/uL (3.50-5.40) Hemoglobin 11.3 g/dL (12.0-15.5) Hematocrit 34.5 % (36.0-47.0) Mean Corpuscular Volume 90 fL (79-100) Mean Corpuscular Hemoglobin 30 pg (25-35) Mean Corpuscular Hemoglobin Concent 33 g/dL (31-37) Red Cell Distribution Width 19.2 % (11.5-14.5) Platelet Count 210 x10^3/uL (140-400) Neutrophils (%) (Auto) 91 % (31-73) Lymphocytes (%) (Auto) 2 % (24-48) Monocytes (%) (Auto) 7 % (0-9) Eosinophils (%) (Auto) 0 % (0-3) Basophils (%) (Auto) 0 % (0-3) Neutrophils # (Auto) 11.0 x10^3/uL (1.8-7.7) Lymphocytes # (Auto) 0.3 x10^3/uL (1.0-4.8) Monocytes # (Auto) 0.8 x10^3/uL (0.0-1.1) Eosinophils # (Auto) 0.0 x10^3/uL (0.0-0.7) Basophils # (Auto) 0.0 x10^3/uL (0.0-0.2) Segmented Neutrophils % 92 % (35-66) Lymphocytes % 2 % (24-48) Monocytes % 6 % (0-10) Platelet Estimate Adequate (ADEQUATE) Anisocytosis Slight Prothrombin Time 14.4 SEC (11.7-14.0) Prothromb Time International Ratio 1.2 (0.8-1.1) Activated Partial Thromboplast Time 31 SEC (24-38) Sodium Level 141 mmol/L (136-145) Potassium Level 2.8 mmol/L (3.5-5.1) Chloride Level 101 mmol/L (98-107) Carbon Dioxide Level 27 mmol/L (21-32) Anion Gap 13 (6-14) Blood Urea Nitrogen 29 mg/dL (7-20) Creatinine 3.6 mg/dL (0.6-1.0) Estimated GFR (Cockcroft-Gault) 12.4 BUN/Creatinine Ratio 8 (6-20) Glucose Level 129 mg/dL (70-99) Lactic Acid Level 1.0 mmol/L (0.4-2.0) Calcium Level 7.8 mg/dL (8.5-10.1) Magnesium Level 1.9 mg/dL (1.8-2.4) Total Bilirubin 0.7 mg/dL (0.2-1.0) Aspartate Amino Transf (AST/SGOT) 58 U/L (15-37) Alanine Aminotransferase (ALT/SGPT) 52 U/L (14-59) Alkaline Phosphatase 72 U/L (46-116) Troponin I Quantitative 0.126 ng/mL (0.000-0.055) Total Protein 6.3 g/dL (6.4-8.2) Albumin 2.2 g/dL (3.4-5.0) Albumin/Globulin Ratio 0.5 (1.0-1.7) Procalcitonin 0.72 ng/mL (0.00-0.10) O2 Saturation 88 % (92-99) Arterial Blood pH 7.47 (7.35-7.45) Arterial Blood pCO2 at Patient Temp 33 mmHg (35-46) Arterial Blood pO2 at Patient Temp 54 mmHg (65-108) Arterial Blood HCO3 23 mmol/L (21-28) Arterial Blood Base Excess 0 mmol/L (-3-3) FiO2 36 Review All relevant outside records, renal labs, imaging studies, telemetry/EKG's were reviewed. Images Images 1. Bilateral pleural effusions, have slightly increased in size. 2. Improved aeration of the left upper lung since prior study. 3. Diffuse interstitial edema or infiltrate in both lungs. Bibasilar atelectasis. JAZLYN CUNHA MD Jan 06, 2019 11:58
[2019-01-06] MEDS ORDERED: DIALYSIS PATIENT. MC PRN ×2 (13:00)
--- NOTE | 2019-01-06 14:14 | PDOC2 ---
CONSULT Date of Consult Date of Consult DATE: 01/06/19 TIME: 14:07 Reason for Consult Reason for Consult: Heart failure Referring Physician Referring Physician: Dr. Oviedo Identification/Chief Complaint Chief Complaint SOB Source Source: Chart review, Patient History of Present Illness Reason for Visit: The patient is a 73-year-old female with multiple medical problems who was recently discharged after treatment for pneumonia. The patient was again seen and admitted through the emergency room due to episodes of increasing shortness of breath. This has been multifactorial in the past including COPD with recent pneumonia, heart failure and end-stage renal disease on hemodialysis. Patient was seen today on dialysis. She reports feeling better. Her shortness of breath has improved. She denies chest pain. Past Medical History Cardiovascular: AFIB, CAD, CHF, HTN, VT, Syncope, Hyperlipidemia, Other Pulmonary: Pneumonia CENTRAL NERVOUS SYSTEM: CVA, Seizure, TIA GI: GERD, Gastritis Heme/Onc: Anemia NOS Hepatobiliary: No pertinent hx Psych: Depression Rheumatologic: No pertinent hx Infectious disease: No pertinent hx Renal/: Chronic renal insuff, Urinary Incontinence, Other Endocrine: Hypothyroidism, Hyperparathyroidism, Osteopenia Past Surgical History Past Surgical History: Pacemaker, CABG, Other (carotid stents.) Family History Family History: Hypertension Social History <1 pack per day ALCOHOL: none Drugs: None Lives: with Family Current Problem List Problem List Problems Medical Problems: (1) Acute respiratory failure with hypoxia Status: Acute (2) ALEXEY (acute kidney injury) Status: Acute (3) Hypokalemia Status: Acute Current Medications Current Medications Current Medications Albuterol/ Ipratropium (Duoneb) 3 ml 1X STAT NEB Last administered on 01/05/19at 17:04; Start 01/05/19 at 17:03; Stop 01/05/19 at 17:04; Status DC Methylprednisolone Sodium Succinate (SOLU-Medrol 125MG VIAL) 125 mg 1X ONCE IV Last administered on 01/05/19at 18:25; Start 01/05/19 at 17:30; Stop 01/05/19 at 17:31; Status DC Albuterol Sulfate (Ventolin Neb Soln) 2.5 mg PRN Q4HRS PRN NEB SHORTNESS OF BREATH; Start 01/05/19 at 17:15; Stop 01/05/19 at 18:17; Status DC Vancomycin HCl 1 gm/Sodium Chloride 500 ml @ 250 mls/hr 1X ONCE IV ; Start 01/05/19 at 17:30; Stop 01/05/19 at 19:29; Status UNV Piperacillin Sod/ Tazobactam Sod 3.375 gm/Sodium Chloride 50 ml @ 100 mls/hr 1X ONCE IV ; Start 01/05/19 at 17:30; Stop 01/05/19 at 17:59; Status UNV Vancomycin HCl 250 ml @ 250 mls/hr 1X ONCE IV Last administered on 01/05/19at 20:20; Start 01/05/19 at 18:00; Stop 01/05/19 at 18:59; Status DC Piperacillin Sod/ Tazobactam Sod 3.375 gm/Sodium Chloride 50 ml @ 100 mls/hr 1X ONCE IV Last administered on 01/05/19at 18:26; Start 01/05/19 at 17:45; Stop 01/05/19 at 18:14; Status DC Ondansetron HCl (Zofran) 4 mg PRN Q8HRS PRN IV NAUSEA/VOMITING; Start 01/05/19 at 18:00; Stop 01/06/19 at 17:59 Morphine Sulfate (Morphine Sulfate) 2 mg PRN Q2HR PRN IV PAIN; Start 01/05/19 at 18:00; Stop 01/06/19 at 17:59 Potassium Chloride (Klor-Con) 60 meq 1X ONCE PO Last administered on 01/05/19at 18:25; Start 01/05/19 at 18:00; Stop 01/05/19 at 18:01; Status DC Acetaminophen (Tylenol) 500 mg PRN Q6HRS PRN PO PAIN; Start 01/05/19 at 18:00 Amiodarone HCl (Cordarone) 200 mg DAILY PO Last administered on 01/06/19at 08:09; Start 01/06/19 at 09:00 Amlodipine Besylate (Norvasc) 5 mg BID PO Last administered on 01/06/19at 08:07; Start 01/05/19 at 21:00 Aspirin (Children'S Aspirin) 81 mg DAILY PO Last administered on 01/06/19at 08:07; Start 01/06/19 at 09:00 Ergocalciferol (Vitamin D2) 50,000 unit WEEKLY PO ; Start 01/19/19 at 09:00 Clopidogrel Bisulfate (Plavix) 75 mg DAILYWBKFT PO Last administered on 01/06/19 08:07; Start 01/06/19 at 08:00 Ferrous Sulfate (Feosol) 325 mg TIDWMEALS PO Last administered on 01/06/19 08:07; Start 01/06/19 at 08:00 Vitamin B Complex/ Vitamin C (Katie-Allison) 1 tab HS PO Last administered on 01/05/19 20:20; Start 01/05/19 at 21:00 Furosemide (Lasix) 20 mg BID PO Last administered on 01/06/19 08:07; Start 01/05/19 at 21:00 Levetiracetam (Keppra) 500 mg HS PO Last administered on 01/05/19 20:20; Start 01/05/19 at 21:00 Levetiracetam (Keppra) 250 mg DAILY PO Last administered on 01/06/19 08:07; Start 01/06/19 at 09:00 Metoprolol Succinate (Toprol Xl) 25 mg DAILY PO Last administered on 01/06/19 08:07; Start 01/06/19 at 09:00 Mirtazapine (Remeron) 15 mg QHS PO Last administered on 01/05/19 20:20; Start 01/05/19 at 21:00 Sertraline HCl (Zoloft) 50 mg HS PO Last administered on 01/05/19 20:20; Start 01/05/19 at 21:00 Atorvastatin Calcium (Lipitor) 80 mg QHS PO Last administered on 01/05/19 20:20; Start 01/05/19 at 21:00 Albuterol Sulfate (Ventolin Neb Soln) 2.5 mg Q4HRS NEB Last administered on 01/06/19 07:16; Start 01/05/19 at 20:00 Hydralazine HCl (Apresoline Inj) 10 mg PRN Q4HRS PRN IVP ELEVATED BP, SEE COMM ENTS Last administered on 01/05/19 22:16; Start 01/05/19 at 21:15 Heparin Sodium (Porcine) (Heparin Sodium) 5,000 unit Q8HRS SQ Last administered on 01/06/19 05:16; Start 01/05/19 at 22:00 Pantoprazole Sodium (Protonix) 40 mg DAILYAC PO Last administered on 01/06/19at 08:07; Start 01/06/19 at 07:30; Stop 01/06/19 at 11:25; Status DC Pharmacy Consult (C.diff Med Screen By Rx) 1 each 1X ONCE MC Last administered on 01/06/19at 02:17; Start 01/05/19 at 23:00; Stop 01/05/19 at 23:01; Status DC Vancomycin HCl (Vanco Per Pharmacy) 1 each PRN DAILY PRN MC SEE COMMENTS Last administered on 01/06/19at 11:22; Start 01/06/19 at 10:30 Piperacillin Sod/ Tazobactam Sod (Zosyn Per Pharmacy) 1 each PRN DAILY PRN MC SEE COMMENTS; Start 01/06/19 at 10:30 Piperacillin Sod/ Tazobactam Sod 2.25 gm/Sodium Chloride 50 ml @ 100 mls/hr Q8HRS IV ; Start 01/06/19 at 11:00 Vancomycin HCl (Vancomycin Random Level) 1 each 1X ONCE MC ; Start 01/07/19 at 05:00; Stop 01/07/19 at 05:01 Lactobacillus Rhamnosus (Culturelle) 1 cap BID PO ; Start 01/06/19 at 21:00 Sodium Chloride 1,000 ml @ 1,000 mls/hr Q1H PRN IV hypotension; Start 01/06/19 at 10:00; Stop 01/06/19 at 15:59 Sodium Chloride 1,000 ml @ 400 mls/hr Q2H30M PRN IV PATENCY; Start 01/06/19 at 10:00; Stop 01/06/19 at 21:59 Info (PHARMACY MONITORING -- do not chart) 1 each PRN DAILY PRN MC SEE COMMENTS; Start 01/06/19 at 13:00; Status UNV Info (PHARMACY MONITORING -- do not chart) 1 each PRN DAILY PRN MC SEE COMMENTS; Start 01/06/19 at 13:00 Active Scripts Active Metoprolol Succinate ( Xl ) (Metoprolol Succinate) 25 Mg Tab.er.24h 25 Mg PO DAILY 30 Days Clopidogrel (Clopidogrel Bisulfate) 75 Mg Tablet 75 Mg PO DAILYWBKFT 30 Days Reported Lasix (Furosemide) 20 Mg Tablet 1 Tab PO BID Nephro-Allison Tablet (Folic Acid/Vitamin B Comp W-C) 0.8 Mg Tablet 1 Tab PO HS Mirtazapine 15 Mg Tablet 1 Tab PO QHS Levothyroxine Sodium 175 Mcg Tablet 1 Tab PO DAILY Ferrous Sulfate 325 Mg Tablet 1 Tab PO TID PRN Amlodipine Besylate 5 Mg Tablet 5 Mg PO BID PRN Acetaminophen 500 Mg Tablet 1 Tab PO PRN Q6HRS PRN Zoloft (Sertraline Hcl) 50 Mg Tablet 1 Tab PO HS Levetiracetam 500 Mg Tablet 1 Tab PO HS Levetiracetam 500 Mg Tablet 250 Mg PO DAILY Vitamin D3 (Cholecalciferol (Vitamin D3)) 1,000 Unit Tablet 1 Tab PO QFR Atorvastatin Calcium 80 Mg Tablet 1 Tab PO HS Aspirin 81 Mg Tab.chew 1 Tab PO DAILY Amiodarone Hcl 200 Mg Tablet 1 Tab PO DAILY Allergies Allergies: Coded Allergies: codeine (Verified Allergy, Intermediate, 01/04/19) ROS General: YES: Fatigue Respiratory: YES: Shortness of breath Physical Exam General: mild distress HEENT: Atraumatic Lungs: Other (decreased breath sounds.) Heart: Other (irregular) Vitals VITALS Vital Signs Date Time Temp Pulse Resp B/P (MAP) Pulse Ox O2 Delivery O2 Flow Rate FiO2 01/06/19 08:09 92 195/79 01/06/19 07:16 93 BiPAP/CPAP 01/06/19 07:00 98.0 24 98.0 01/05/19 23:16 4.0 Labs Labs Laboratory Tests Test 01/05/19 16:50 01/05/19 17:16 01/05/19 23:30 White Blood Count 12.1 x10^3/uL (4.0-11.0) Red Blood Count 3.84 x10^6/uL (3.50-5.40) Hemoglobin 11.3 g/dL (12.0-15.5) Hematocrit 34.5 % (36.0-47.0) Mean Corpuscular Volume 90 fL (79-100) Mean Corpuscular Hemoglobin 30 pg (25-35) Mean Corpuscular Hemoglobin Concent 33 g/dL (31-37) Red Cell Distribution Width 19.2 % (11.5-14.5) Platelet Count 210 x10^3/uL (140-400) Neutrophils (%) (Auto) 91 % (31-73) Lymphocytes (%) (Auto) 2 % (24-48) Monocytes (%) (Auto) 7 % (0-9) Eosinophils (%) (Auto) 0 % (0-3) Basophils (%) (Auto) 0 % (0-3) Neutrophils # (Auto) 11.0 x10^3/uL (1.8-7.7) Lymphocytes # (Auto) 0.3 x10^3/uL (1.0-4.8) Monocytes # (Auto) 0.8 x10^3/uL (0.0-1.1) Eosinophils # (Auto) 0.0 x10^3/uL (0.0-0.7) Basophils # (Auto) 0.0 x10^3/uL (0.0-0.2) Segmented Neutrophils % 92 % (35-66) Lymphocytes % 2 % (24-48) Monocytes % 6 % (0-10) Platelet Estimate Adequate (ADEQUATE) Anisocytosis Slight Prothrombin Time 14.4 SEC (11.7-14.0) Prothromb Time International Ratio 1.2 (0.8-1.1) Activated Partial Thromboplast Time 31 SEC (24-38) Sodium Level 141 mmol/L (136-145) Potassium Level 2.8 mmol/L (3.5-5.1) Chloride Level 101 mmol/L (98-107) Carbon Dioxide Level 27 mmol/L (21-32) Anion Gap 13 (6-14) Blood Urea Nitrogen 29 mg/dL (7-20) Creatinine 3.6 mg/dL (0.6-1.0) Estimated GFR (Cockcroft-Gault) 12.4 BUN/Creatinine Ratio 8 (6-20) Glucose Level 129 mg/dL (70-99) Lactic Acid Level 1.0 mmol/L (0.4-2.0) Calcium Level 7.8 mg/dL (8.5-10.1) Magnesium Level 1.9 mg/dL (1.8-2.4) Total Bilirubin 0.7 mg/dL (0.2-1.0) Aspartate Amino Transf (AST/SGOT) 58 U/L (15-37) Alanine Aminotransferase (ALT/SGPT) 52 U/L (14-59) Alkaline Phosphatase 72 U/L (46-116) Troponin I Quantitative 0.126 ng/mL (0.000-0.055) Total Protein 6.3 g/dL (6.4-8.2) Albumin 2.2 g/dL (3.4-5.0) Albumin/Globulin Ratio 0.5 (1.0-1.7) Procalcitonin 0.72 ng/mL (0.00-0.10) Hepatitis B Surface Antigen Nonreactive (Nonreactive) Hepatitis B Surface Antibody Reactive O2 Saturation 88 % (92-99) Arterial Blood pH 7.47 (7.35-7.45) Arterial Blood pCO2 at Patient Temp 33 mmHg (35-46) Arterial Blood pO2 at Patient Temp 54 mmHg (65-108) Arterial Blood HCO3 23 mmol/L (21-28) Arterial Blood Base Excess 0 mmol/L (-3-3) FiO2 36 Laboratory Tests Test 01/05/19 16:50 01/05/19 17:16 01/05/19 23:30 White Blood Count 12.1 x10^3/uL (4.0-11.0) Red Blood Count 3.84 x10^6/uL (3.50-5.40) Hemoglobin 11.3 g/dL (12.0-15.5) Hematocrit 34.5 % (36.0-47.0) Mean Corpuscular Volume 90 fL (79-100) Mean Corpuscular Hemoglobin 30 pg (25-35) Mean Corpuscular Hemoglobin Concent 33 g/dL (31-37) Red Cell Distribution Width 19.2 % (11.5-14.5) Platelet Count 210 x10^3/uL (140-400) Neutrophils (%) (Auto) 91 % (31-73) Lymphocytes (%) (Auto) 2 % (24-48) Monocytes (%) (Auto) 7 % (0-9) Eosinophils (%) (Auto) 0 % (0-3) Basophils (%) (Auto) 0 % (0-3) Neutrophils # (Auto) 11.0 x10^3/uL (1.8-7.7) Lymphocytes # (Auto) 0.3 x10^3/uL (1.0-4.8) Monocytes # (Auto) 0.8 x10^3/uL (0.0-1.1) Eosinophils # (Auto) 0.0 x10^3/uL (0.0-0.7) Basophils # (Auto) 0.0 x10^3/uL (0.0-0.2) Segmented Neutrophils % 92 % (35-66) Lymphocytes % 2 % (24-48) Monocytes % 6 % (0-10) Platelet Estimate Adequate (ADEQUATE) Anisocytosis Slight Prothrombin Time 14.4 SEC (11.7-14.0) Prothromb Time International Ratio 1.2 (0.8-1.1) Activated Partial Thromboplast Time 31 SEC (24-38) Sodium Level 141 mmol/L (136-145) Potassium Level 2.8 mmol/L (3.5-5.1) Chloride Level 101 mmol/L (98-107) Carbon Dioxide Level 27 mmol/L (21-32) Anion Gap 13 (6-14) Blood Urea Nitrogen 29 mg/dL (7-20) Creatinine 3.6 mg/dL (0.6-1.0) Estimated GFR (Cockcroft-Gault) 12.4 BUN/Creatinine Ratio 8 (6-20) Glucose Level 129 mg/dL (70-99) Lactic Acid Level 1.0 mmol/L (0.4-2.0) Calcium Level 7.8 mg/dL (8.5-10.1) Magnesium Level 1.9 mg/dL (1.8-2.4) Total Bilirubin 0.7 mg/dL (0.2-1.0) Aspartate Amino Transf (AST/SGOT) 58 U/L (15-37) Alanine Aminotransferase (ALT/SGPT) 52 U/L (14-59) Alkaline Phosphatase 72 U/L (46-116) Troponin I Quantitative 0.126 ng/mL (0.000-0.055) Total Protein 6.3 g/dL (6.4-8.2) Albumin 2.2 g/dL (3.4-5.0) Albumin/Globulin Ratio 0.5 (1.0-1.7) Procalcitonin 0.72 ng/mL (0.00-0.10) Hepatitis B Surface Antigen Nonreactive (Nonreactive) Hepatitis B Surface Antibody Reactive O2 Saturation 88 % (92-99) Arterial Blood pH 7.47 (7.35-7.45) Arterial Blood pCO2 at Patient Temp 33 mmHg (35-46) Arterial Blood pO2 at Patient Temp 54 mmHg (65-108) Arterial Blood HCO3 23 mmol/L (21-28) Arterial Blood Base Excess 0 mmol/L (-3-3) FiO2 36 Images Images Chest x-ray. Bilateral pleural effusion. Assessment/Plan Assessment/Plan 1. Acute respiratory failure. Multi-factorial. Continuing present premedications. ID evaluating for possible pneumonia. 2. Acute on chronic heart failure. Fluid status as per the renal service. We will check for recent echocardiogram. 3. End-stage renal disease. Patient seen during hemodialysis. Followed by renal. 4. History of coronary disease with previous bypass surgery. Continuing present treatment. 5. History of a pacemaker. We'll check on manufacturers and interrogate as needed. 6. Hypertension. Reasonably controlled. Thank you for allowing us to participate in the care of your patient. RADHA FUENTES MD Jan 06, 2019 14:14
[2019-01-06] MEDS: PIPERACILLIN/TAZOBACTAM 2.25 GM in IV NORMAL SALINE 50ML 50 ML IV SCH ×3 (14:20→21:01)
[2019-01-06 19:30] VITALS: BP 158/48
[2019-01-06] MEDS: SERTRALINE 50 MG TABLET. PO SCH (20:42)
[2019-01-06] MEDS: levETIRAcetam 500 MG TABLET PO SCH (20:42)
[2019-01-06] MEDS: MIRTAZAPINE 15 MG TABLET PO SCH (20:42)
[2019-01-06] MEDS: FOLIC/VIT B COMP W-C (RENAL) TABLET. PO SCH (20:43)
[2019-01-06] MEDS: LACTOBACILLUS RHAMNOSUS GG 1 CAPSULE. PO SCH (20:43)
[2019-01-06] MEDS: ATORVASTATIN CALCIUM 40 MG TABLET. PO SCH (20:45)
--- NOTE | 2019-01-06 21:15 | CONS ---
DATE OF CONSULTATION: 01/06/2019 ATTENDING PHYSICIAN: Andrzej Oviedo M.D. REASON FOR CONSULTATION: The patient seen in pulmonary consultation at the request of Dr. Oviedo for respiratory failure requiring noninvasive ventilation. Arterial blood gas revealing a pH of 7.47, PaCO2 of 33 and pO2 of 54. The patient is well known to me. She was recently hospitalized and discharged home within the last 48 hours. She now comes in with increasing shortness of breath, different problem than previously. Her x-ray now reveals bilateral effusions and interstitial edema. She was in last time with a left upper lobe atelectasis and underwent bronchoscopy. Bronchoscopic evaluation revealed mucus plugging. BAL was performed. So far, I have reviewed the BAL results. There is no organism seen. The patient was discharged home on prednisone and antibiotics. She now presents with a different problem. She has bilateral pulmonary infiltrates compatible with acute on chronic pulmonary edema. In addition, she has bilateral pleural effusions. She has had previous effusions. She had a thoracentesis in the past revealing transudative effusion. Cytology was negative. The chest x-ray report revealed bilateral pleural effusions have slightly increased in size. She had improved aeration of the left upper lobe since the prior study. There was also diffuse interstitial edema or infiltrates in both lungs. This was the official report from the radiologist. The patient denies fever, chills or night sweats. She is on hemodialysis. She is compliant with her hemodialysis days. Her white count was 12.1. Electrolytes were noted. Her potassium was low. PAST MEDICAL HISTORY: She has multiple comorbidities, chronic heart failure, COPD, CVA, depression, hypertension, hypothyroidism, renal failure, on hemodialysis and seizures. She has had peripheral vascular disease. Previous left carotid artery has been documented occluded. PAST SURGICAL HISTORY: Coronary artery bypass grafting, hysterectomy and pacemaker implantation. She has had a stent in the kidney, shoulder surgery in the past, carotid endarterectomy and has had a parotid thyroid gland removed. ALLERGIES: CODEINE. FAMILY HISTORY: Remarkable for COPD. SOCIAL HISTORY: She smokes less than a pack of cigarettes a day. REVIEW OF SYSTEMS: As indicated above, otherwise, a 10-point system was reviewed and negative. CONSTITUTIONAL: No fever or chills. EYES: No change in visual acuity. HEENT: No nasal congestion or sore throat. PULMONARY: As indicated above. CARDIOVASCULAR: No chest pain. No pressure. GASTROINTESTINAL: No nausea, vomiting or diarrhea. GENITOURINARY: No dysuria or frequency. MUSCULOSKELETAL: No localized muscle aches or joint pain. SKIN: No new skin rashes. NEUROLOGIC: No headaches, diplopia or blurred vision. PHYSICAL EXAMINATION: GENERAL: The patient was in severe respiratory distress, requiring noninvasive ventilation. O2 saturation was greater than 92%. HEENT: Eyes, the sclerae were nonicteric. NECK: Jugular venous distention was not elevated. No lymphadenopathy. CHEST: Full expansion, no deformities. LUNGS: Diminished breath sounds in the bases. Bilateral rales and rhonchi. CARDIOVASCULAR: Regular rate and rhythm with S1, S2, no S3. ABDOMEN: Soft, nontender and nondistended. EXTREMITIES: No clubbing or cyanosis, 1+ edema. LABORATORY DATA: As indicated above. Troponin was elevated. The procalcitonin was 0.72. Albumin was low. IMPRESSION: 1. Acute on chronic hypoxemic respiratory failure. 2. Abnormal x-ray compatible with bilateral interstitial edema. 3. Bilateral pleural effusions, right greater than left. 4. Recent bronchoscopy status post removal of mucus plug in the left upper lobe. Current chest x-ray is greatly improved. 5. End-stage renal disease, on hemodialysis. 6. Protein malnutrition. 7. Generalized weakness. 8. Hypokalemia. 9. Leukocytosis. 10. Peripheral vascular disease. 11. History of hypothyroidism, hypertension, depression and anxiety. 12. History of seizures. PLAN: As indicated above, the current admission is not related to the previous admission. She was previously admitted for mucus plugging and left upper lobe atelectasis. She now presents with bilateral interstitial pulmonary edema. She also presents with bilateral pleural effusions which have increased. 1. I recommend Emergent hemodialysis. 2. Repeat chest x-ray and possible thoracentesis in the near future. 3. Continue empiric antibiotics. 4. Follow up on previous bronchoalveolar lavage cultures. The above was discussed with the at the bedside. Total cumulative critical care time of 45 minutes reviewing the current data, labs and reviewing the chest x-rays. In addition, the case was discussed with Infectious Disease Service. CITLALLI AGEE MD DR: LUZ MARIA/gatito JOB#: [id number] / [id number]
[2019-01-06 23:00] VITALS: BP_DIAS 69
[2019-01-07 03:00] VITALS: BP 148/66
[2019-01-07] MEDS: ALBUTEROL SULFATE 2.5 MG/3 ML NEBU. NEB SCH ×6 (03:44→23:33)
[2019-01-07] MEDS ORDERED: VANCOMYCIN RANDOM LEVEL. MC ONE (05:00)
[2019-01-07] MEDS: HEPARIN for SUB-Q USE 5,000 UNIT/ML VIAL. SQ SCH ×3 (06:00→21:14)
[2019-01-07] MEDS: PIPERACILLIN/TAZOBACTAM 2.25 GM in IV NORMAL SALINE 50ML 50 ML IV SCH ×3 (06:16→21:05)
[2019-01-07 07:21] VITALS: BP 180/82
[2019-01-07] MEDS: AMIODARONE HCL 200 MG TABLET. PO SCH (08:56)
[2019-01-07] MEDS: FUROSEMIDE 20 MG TABLET PO SCH ×2 (08:56→21:06)
[2019-01-07] MEDS: levETIRAcetam 250 MG TABLET PO SCH (08:56)
[2019-01-07] MEDS: LACTOBACILLUS RHAMNOSUS GG 1 CAPSULE. PO SCH ×2 (08:56→21:06)
[2019-01-07] MEDS: FERROUS SULFATE 325 MG TABLET. PO SCH ×3 (08:56→17:29)
[2019-01-07] MEDS: amLODIPine BESYLATE 5 MG TABLET PO SCH ×2 (08:56→21:06)
[2019-01-07] MEDS: METOPROLOL SUCC 24HR ER 25 MG TAB.ER.24H. PO SCH (08:56)
[2019-01-07] MEDS: CLOPIDOGREL BISULFATE 75 MG TABLET PO SCH (08:57)
[2019-01-07] MEDS: ASPIRIN CHEWABLE 81 MG TABLET. PO SCH (08:57)
--- NOTE | 2019-01-07 10:05 | PDOC ---
PROGRESS NOTES History of Present Illness History of Present Illness VTE Prophylaxis Ordered VTE Prophylaxis Devices: Yes VTE Pharmacological Prophylaxi: Yes Assessment/Plan Assessment/Plan IMPRESSION Bilateral pleural effusions, have slightly increased in size. Improved aeration of the left upper lung since prior study. Diffuse interstitial edema or infiltrate in both lungs. Bibasilar atelectasis. Acute on chronic hypoxic respiratory failure on NIPPV Complete left upper lobe atelectasis, may be a component of mucus plugging , exclude obstructing mass. Small to moderate left pleural effusion with loculated component anteriorly. Small right pleural effusion with adjacent atelectasis. Increased density of the liver, can be seen with iron deposition or amiodarone use, unchanged. Subacute left anterior fifth rib fracture. ESRD on dialysis AOCD Hx a fib/arrhythmia - stable placement of AV fistula graft at [facility] (Dr Sy) smoker Depression NOS Dyslipidemia statin Hypertension, uncontrolled poor prognosis sec to continued smoking, poor insight into disease state d/w in room plan admit cvc bed pulm following id consult EMPERIC IV ANTIBIOTICS DVT PROPHYLAXIS dvt prophylaxis gi prophylaxis 39 min pt exam, chart review, > 50% of time spent with exam, chart review, pt care coordination Vitals Vitals Vital Signs Date Time Temp Pulse Resp B/P (MAP) Pulse Ox O2 Delivery O2 Flow Rate FiO2 01/07/19 08:58 76 180/82 01/07/19 08:30 90 Nasal Cannula 6.0 01/07/19 07:21 98.2 24 98.2 Physical Exam Physical Exam Eyes: PERRLA, EOMI, conjunctiva normal, no discharge. [] Neck: Normal range of motion, no tenderness, supple, no stridor. [] Cardiovascular:Heart rate regular rhythm, no murmur [] Lungs & Thorax: Bilateral breath sounds rhonchi diffusely through lobes, dimi nished on left lower. Abdomen: Bowel sounds normal, soft, no tenderness, no masses, no pulsatile masses. [] Skin: Warm, dry, no erythema, no rash. [] Back: No tenderness, no CVA tenderness. [] Extremities: No tenderness, no cyanosis, no clubbing, ROM intact, no edema. [] Neurologic: Alert and oriented X 3, normal motor function, normal sensory function, no focal deficits noted. [] Psychologic: Affect normal, judgement normal, mood normal. General: Alert, Oriented X3, Cooperative, No acute distress Heart: Regular rate, Other (irregular) Lungs: Wheezing, Crackles Abdomen: Soft Extremities: No cyanosis Assessment and Plan Assessmemt and Plan Problems Medical Problems: (1) Acute respiratory failure with hypoxia Status: Acute (2) ALEXEY (acute kidney injury) Status: Acute (3) Hypokalemia Status: Acute Comment Review of Relevant I have reviewed the following items jose (where applicable) has been applied. Labs Laboratory Tests Test 01/05/19 16:50 01/05/19 17:16 01/05/19 23:30 01/06/19 00:35 White Blood Count 12.1 x10^3/uL (4.0-11.0) Red Blood Count 3.84 x10^6/uL (3.50-5.40) Hemoglobin 11.3 g/dL (12.0-15.5) Hematocrit 34.5 % (36.0-47.0) Mean Corpuscular Volume 90 fL (79-100) Mean Corpuscular Hemoglobin 30 pg (25-35) Mean Corpuscular Hemoglobin Concent 33 g/dL (31-37) Red Cell Distribution Width 19.2 % (11.5-14.5) Platelet Count 210 x10^3/uL (140-400) Neutrophils (%) (Auto) 91 % (31-73) Lymphocytes (%) (Auto) 2 % (24-48) Monocytes (%) (Auto) 7 % (0-9) Eosinophils (%) (Auto) 0 % (0-3) Basophils (%) (Auto) 0 % (0-3) Neutrophils # (Auto) 11.0 x10^3/uL (1.8-7.7) Lymphocytes # (Auto) 0.3 x10^3/uL (1.0-4.8) Monocytes # (Auto) 0.8 x10^3/uL (0.0-1.1) Eosinophils # (Auto) 0.0 x10^3/uL (0.0-0.7) Basophils # (Auto) 0.0 x10^3/uL (0.0-0.2) Segmented Neutrophils % 92 % (35-66) Lymphocytes % 2 % (24-48) Monocytes % 6 % (0-10) Platelet Estimate Adequate (ADEQUATE) Anisocytosis Slight Prothrombin Time 14.4 SEC (11.7-14.0) Prothromb Time International Ratio 1.2 (0.8-1.1) Activated Partial Thromboplast Time 31 SEC (24-38) Sodium Level 141 mmol/L (136-145) Potassium Level 2.8 mmol/L (3.5-5.1) Chloride Level 101 mmol/L (98-107) Carbon Dioxide Level 27 mmol/L (21-32) Anion Gap 13 (6-14) Blood Urea Nitrogen 29 mg/dL (7-20) Creatinine 3.6 mg/dL (0.6-1.0) Estimated GFR (Cockcroft-Gault) 12.4 BUN/Creatinine Ratio 8 (6-20) Glucose Level 129 mg/dL (70-99) Lactic Acid Level 1.0 mmol/L (0.4-2.0) Calcium Level 7.8 mg/dL (8.5-10.1) Magnesium Level 1.9 mg/dL (1.8-2.4) Total Bilirubin 0.7 mg/dL (0.2-1.0) Aspartate Amino Transf (AST/SGOT) 58 U/L (15-37) Alanine Aminotransferase (ALT/SGPT) 52 U/L (14-59) Alkaline Phosphatase 72 U/L (46-116) Troponin I Quantitative 0.126 ng/mL (0.000-0.055) Total Protein 6.3 g/dL (6.4-8.2) Albumin 2.2 g/dL (3.4-5.0) Albumin/Globulin Ratio 0.5 (1.0-1.7) Procalcitonin 0.72 ng/mL (0.00-0.10) Hepatitis B Surface Antigen Nonreactive (Nonreactive) Hepatitis B Surface Antibody Reactive O2 Saturation 88 % (92-99) Arterial Blood pH 7.47 (7.35-7.45) Arterial Blood pCO2 at Patient Temp 33 mmHg (35-46) Arterial Blood pO2 at Patient Temp 54 mmHg (65-108) Arterial Blood HCO3 23 mmol/L (21-28) Arterial Blood Base Excess 0 mmol/L (-3-3) FiO2 36 Clostridium difficile Toxin B Gene Negative (Negative) Medications Current Medications Albuterol/ Ipratropium (Duoneb) 3 ml 1X STAT NEB Last administered on 01/05/19a t 17:04; Start 01/05/19 at 17:03; Stop 01/05/19 at 17:04; Status DC Methylprednisolone Sodium Succinate (SOLU-Medrol 125MG VIAL) 125 mg 1X ONCE IV Last administered on 01/05/19at 18:25; Start 01/05/19 at 17:30; Stop 01/05/19 at 17:31; Status DC Albuterol Sulfate (Ventolin Neb Soln) 2.5 mg PRN Q4HRS PRN NEB SHORTNESS OF BREATH; Start 01/05/19 at 17:15; Stop 01/05/19 at 18:17; Status DC Vancomycin HCl 1 gm/Sodium Chloride 500 ml @ 250 mls/hr 1X ONCE IV ; Start 01/05/19 at 17:30; Stop 01/05/19 at 19:29; Status UNV Piperacillin Sod/ Tazobactam Sod 3.375 gm/Sodium Chloride 50 ml @ 100 mls/hr 1X ONCE IV ; Start 01/05/19 at 17:30; Stop 01/05/19 at 17:59; Status UNV Vancomycin HCl 250 ml @ 250 mls/hr 1X ONCE IV Last administered on 01/05/19at 20:20; Start 01/05/19 at 18:00; Stop 01/05/19 at 18:59; Status DC Piperacillin Sod/ Tazobactam Sod 3.375 gm/Sodium Chloride 50 ml @ 100 mls/hr 1X ONCE IV Last administered on 01/05/19at 18:26; Start 01/05/19 at 17:45; Stop 01/05/19 at 18:14; Status DC Ondansetron HCl (Zofran) 4 mg PRN Q8HRS PRN IV NAUSEA/VOMITING; Start 01/05/19 at 18:00; Stop 01/06/19 at 17:59; Status DC Morphine Sulfate (Morphine Sulfate) 2 mg PRN Q2HR PRN IV PAIN; Start 01/05/19 at 18:00; Stop 01/06/19 at 17:59; Status DC Potassium Chloride (Klor-Con) 60 meq 1X ONCE PO Last administered on 01/05/19at 18:25; Start 01/05/19 at 18:00; Stop 01/05/19 at 18:01; Status DC Acetaminophen (Tylenol) 500 mg PRN Q6HRS PRN PO PAIN; Start 01/05/19 at 18:00 Amiodarone HCl (Cordarone) 200 mg DAILY PO Last administered on 01/07/19 08:58; Start 01/06/19 at 09:00 Amlodipine Besylate (Norvasc) 5 mg BID PO Last administered on 01/07/19 08:58; Start 01/05/19 at 21:00 Aspirin (Children'S Aspirin) 81 mg DAILY PO Last administered on 01/07/19 08:58; Start 01/06/19 at 09:00 Ergocalciferol (Vitamin D2) 50,000 unit WEEKLY PO ; Start 01/19/19 at 09:00 Clopidogrel Bisulfate (Plavix) 75 mg DAILYWBKFT PO Last administered on 01/07/19 08:58; Start 01/06/19 at 08:00 Ferrous Sulfate (Feosol) 325 mg TIDWMEALS PO Last administered on 01/07/19 08:58; Start 01/06/19 at 08:00 Vitamin B Complex/ Vitamin C (Katie-Allison) 1 tab HS PO Last administered on 01/06/19 21:03; Start 01/05/19 at 21:00 Furosemide (Lasix) 20 mg BID PO Last administered on 01/07/19 08:58; Start 01/05/19 at 21:00 Levetiracetam (Keppra) 500 mg HS PO Last administered on 01/06/19 21:03; Start 01/05/19 at 21:00 Levetiracetam (Keppra) 250 mg DAILY PO Last administered on 01/07/19 08:58; Start 01/06/19 at 09:00 Metoprolol Succinate (Toprol Xl) 25 mg DAILY PO Last administered on 01/07/19 08:58; Start 01/06/19 at 09:00 Mirtazapine (Remeron) 15 mg QHS PO Last administered on 01/06/19 21:03; Start 01/05/19 at 21:00 Sertraline HCl (Zoloft) 50 mg HS PO Last administered on 01/06/19 21:03; Start 01/05/19 at 21:00 Atorvastatin Calcium (Lipitor) 80 mg QHS PO Last administered on 8/31/19at 21:03; Start 01/05/19 at 21:00 Albuterol Sulfate (Ventolin Neb Soln) 2.5 mg Q4HRS NEB Last administered on 01/07/19at 08:30; Start 01/05/19 at 20:00 Hydralazine HCl (Apresoline Inj) 10 mg PRN Q4HRS PRN IVP ELEVATED BP, SEE COMMENTS Last administered on 01/05/19at 22:16; Start 01/05/19 at 21:15 Heparin Sodium (Porcine) (Heparin Sodium) 5,000 unit Q8HRS SQ Last administered on 01/07/19 06:36; Start 01/05/19 at 22:00 Pantoprazole Sodium (Protonix) 40 mg DAILYAC PO Last administered on 01/06/19 08:07; Start 01/06/19 at 07:30; Stop 01/06/19 at 11:25; Status DC Pharmacy Consult (C.diff Med Screen By Rx) 1 each 1X ONCE MC Last administered on 01/06/19at 02:17; Start 01/05/19 at 23:00; Stop 01/05/19 at 23:01; Status DC Vancomycin HCl (Vanco Per Pharmacy) 1 each PRN DAILY PRN MC SEE COMMENTS Last administered on 01/06/19at 11:22; Start 01/06/19 at 10:30 Piperacillin Sod/ Tazobactam Sod (Zosyn Per Pharmacy) 1 each PRN DAILY PRN MC SEE COMMENTS; Start 01/06/19 at 10:30 Piperacillin Sod/ Tazobactam Sod 2.25 gm/Sodium Chloride 50 ml @ 100 mls/hr Q8HRS IV Last administered on 01/07/19at 06:36; Start 01/06/19 at 11:00 Vancomycin HCl (Vancomycin Random Level) 1 each 1X ONCE MC ; Start 01/07/19 at 05:00; Stop 01/07/19 at 05:01; Status DC Lactobacillus Rhamnosus (Culturelle) 1 cap BID PO Last administered on 01/07/19at 08:58; Start 01/06/19 at 21:00 Sodium Chloride 1,000 ml @ 1,000 mls/hr Q1H PRN IV hypotension; Start 01/06/19 at 10:00; Stop 01/06/19 at 15:59; Status DC Sodium Chloride 1,000 ml @ 400 mls/hr Q2H30M PRN IV PATENCY; Start 01/06/19 at 10:00; Stop 01/06/19 at 21:59; Status DC Info (PHARMACY MONITORING -- do not chart) 1 each PRN DAILY PRN MC SEE COMMENTS; Start 01/06/19 at 13:00; Status UNV Info (PHARMACY MONITORING -- do not chart) 1 each PRN DAILY PRN MC SEE COMMENTS; Start 01/06/19 at 13:00 Active Scripts Active Metoprolol Succinate ( Xl ) (Metoprolol Succinate) 25 Mg Tab.er.24h 25 Mg PO DAILY 30 Days Clopidogrel (Clopidogrel Bisulfate) 75 Mg Tablet 75 Mg PO DAILYWBKFT 30 Days Reported Lasix (Furosemide) 20 Mg Tablet 1 Tab PO BID Nephro-Allison Tablet (Folic Acid/Vitamin B Comp W-C) 0.8 Mg Tablet 1 Tab PO HS Mirtazapine 15 Mg Tablet 1 Tab PO QHS Levothyroxine Sodium 175 Mcg Tablet 1 Tab PO DAILY Ferrous Sulfate 325 Mg Tablet 1 Tab PO TID PRN Amlodipine Besylate 5 Mg Tablet 5 Mg PO BID PRN Acetaminophen 500 Mg Tablet 1 Tab PO PRN Q6HRS PRN Zoloft (Sertraline Hcl) 50 Mg Tablet 1 Tab PO HS Levetiracetam 500 Mg Tablet 1 Tab PO HS Levetiracetam 500 Mg Tablet 250 Mg PO DAILY Vitamin D3 (Cholecalciferol (Vitamin D3)) 1,000 Unit Tablet 1 Tab PO QFR Atorvastatin Calcium 80 Mg Tablet 1 Tab PO HS Aspirin 81 Mg Tab.chew 1 Tab PO DAILY Amiodarone Hcl 200 Mg Tablet 1 Tab PO DAILY Vitals/I & O Vital Sign - Last 24 Hours 01/06/19 01/06/19 01/06/19 01/06/19 15:56 19:30 20:00 20:16 Temp 98.1 98.1 Pulse 83 Resp 26 B/P (MAP) 158/48 (84) Pulse Ox 88 90 O2 Delivery Nasal Cannula Nasal Cannula Nasal Cannula Nasal Cannula O2 Flow Rate 6.0 5.0 5.0 6.0 01/06/19 01/06/19 01/07/19 01/07/19 21:03 23:00 03:00 03:44 Temp 98.0 98.2 98.0 98.2 Pulse 83 83 78 Resp 24 24 B/P (MAP) 158/48 /69 148/66 (93) Pulse Ox 91 90 O2 Delivery Nasal Cannula Nasal Cannula Nasal Cannula O2 Flow Rate 6.0 5.0 6.0 01/07/19 01/07/19 01/07/19 01/07/19 07:21 08:30 08:58 08:58 Temp 98.2 98.2 Pulse 76 76 76 Resp 24 B/P (MAP) 180/82 (114) 180/82 180/82 Pulse Ox 92 90 O2 Delivery Nasal Cannula Nasal Cannula O2 Flow Rate 5.0 6.0 01/07/19 08:58 Pulse 76 B/P (MAP) 180/82 Intake and Output 01/06/19 01/06/19 01/07/19 14:59 22:59 06:59 Intake Total 600 ml 200 ml Output Total 0 ml 0 ml Balance 600 ml 200 ml CAROLE BECK MD Jan 07, 2019 10:05
[2019-01-07] MEDS: VANCOMYCIN PER PHARMACY MC PRN ×2 (10:39→12:53)
[2019-01-07 10:40] VITALS: BP 182/75
[2019-01-07] MEDS: hydrALAZINE 20 MG/ML VIAL. IVP PRN ×2 (10:57→14:25)
--- NOTE | 2019-01-07 12:42 | PDOC ---
SUBJECTIVE ROS Breathing better, On O2 by NC OBJECTIVE Vital Signs Vital Signs Date Time Temp Pulse Resp B/P (MAP) Pulse Ox O2 Delivery O2 Flow Rate FiO2 01/07/19 12:21 95 Nasal Cannula 8.0 01/07/19 10:57 70 182/75 01/07/19 10:40 98.1 24 98.1 I & 0 Intake and Output 01/07/19 06:59 Intake Total 800 ml Output Total 0 ml Balance 800 ml Intake Oral 800 ml Output Urine Total 0 ml # Voids 1 # Bowel Movements 1 PHYSICAL EXAM Physical Exam GENERAL: NAD HEENT: Left eye blindness, On O2 by NC Neck Supple LUNGS: Diminished aeration in bases, fine crackles. HEART: S1 and S2. ABDOMEN: Soft. No guarding. Bowel sounds present. EXTREMITIES: No gross edema or cyanosis, has AVG Rt arm SKIN: Warm to touch. No signs of rash. NEUROLOGIC: Grossly Normal LINES: RIJ/HDC without signs of any complications - No Klein DIAGNOSIS/ASSESSMENT Assessment & Plan ESRD - On HD MWF at [facility] under Dr. Johnson Dialyzed yesterday No labs today - hard stick, unable to get labs, Thai to draw labs in am from HDC Try to use AV graft in am- per Dr Sy(Vascular) recommended to be used right away Hypokalemia- No labs today due to hard stick Pt takes PO KCL 20 meq QD Advised to give 1 dose today Anemia- Hgb stable, No indication of REENA currently Bilateral pleural effusions with questionable pneumonia. Acute respiratory failure, now on a BiPAP. Recent history of complete left upper lobe atelectasis, status post bronchoscopy on 01/04/2019. Cultures are still pending. Congestive heart failure. Hx of Seizure disorder. COMMENT/RELEVANT DATA Meds Current Medications Medications (Trade) Dose Ordered Sig/Dez Start Time Stop Time Status Last Admin Dose Admin Acetaminophen (Tylenol) 500 mg PRN Q6HRS PRN 01/05/19 18:00 Albuterol Sulfate (Ventolin Neb Soln) 2.5 mg Q4HRS 01/05/19 20:00 01/07/19 12:21 2.5 MG Albuterol/ Ipratropium (Duoneb) 3 ml 1X STAT 01/05/19 17:03 01/05/19 17:04 DC 01/05/19 17:04 3 ML Amiodarone HCl (Cordarone) 200 mg DAILY 01/06/19 09:00 01/07/19 08:58 200 MG Amlodipine Besylate (Norvasc) 5 mg BID 01/05/19 21:00 01/07/19 08:58 5 MG Aspirin (Children'S Aspirin) 81 mg DAILY 01/06/19 09:00 01/07/19 08:58 81 MG Atorvastatin Calcium (Lipitor) 80 mg QHS 01/05/19 21:00 01/06/19 21:03 80 MG Clopidogrel Bisulfate (Plavix) 75 mg DAILYWBKFT 01/06/19 08:00 01/07/19 08:58 75 MG Ergocalciferol (Vitamin D2) 50,000 unit WEEKLY 01/19/19 09:00 Ferrous Sulfate (Feosol) 325 mg TIDWMEALS 01/06/19 08:00 01/07/19 12:34 325 MG Furosemide (Lasix) 20 mg BID 01/05/19 21:00 01/07/19 08:58 20 MG Heparin Sodium (Porcine) (Heparin Sodium) 5,000 unit Q8HRS 01/05/19 22:00 01/07/19 06:36 5,000 UNIT Hydralazine HCl (Apresoline Inj) 10 mg PRN Q4HRS PRN 01/05/19 21:15 01/07/19 10:57 10 MG Info (PHARMACY MONITORING -- do not chart) 1 each PRN DAILY PRN 01/06/19 13:00 Lactobacillus Rhamnosus (Culturelle) 1 cap BID 01/06/19 21:00 01/07/19 08:58 1 CAP Levetiracetam (Keppra) 250 mg DAILY 01/06/19 09:00 01/07/19 08:58 250 MG Methylprednisolone Sodium Succinate (SOLU-Medrol 125MG VIAL) 125 mg 1X ONCE 01/05/19 17:30 01/05/19 17:31 DC 01/05/19 18:25 125 MG Metoprolol Succinate (Toprol Xl) 25 mg DAILY 01/06/19 09:00 01/07/19 08:58 25 MG Mirtazapine (Remeron) 15 mg QHS 01/05/19 21:00 01/06/19 21:03 15 MG Morphine Sulfate (Morphine Sulfate) 2 mg PRN Q2HR PRN 01/05/19 18:00 01/06/19 17:59 DC Ondansetron HCl (Zofran) 4 mg PRN Q8HRS PRN 01/05/19 18:00 01/06/19 17:59 DC Pantoprazole Sodium (Protonix) 40 mg DAILYAC 01/06/19 07:30 01/06/19 11:25 DC 01/06/19 08:07 40 MG Pharmacy Consult (C.diff Med Screen By Rx) 1 each 1X ONCE 01/05/19 23:00 01/05/19 23:01 DC 01/06/19 02:17 1 EACH Piperacillin Sod/ Tazobactam Sod (Zosyn Per Pharmacy) 1 each PRN DAILY PRN 01/06/19 10:30 Piperacillin Sod/ Tazobactam Sod 2.25 gm/Sodium Chloride 50 ml @ 100 mls/hr Q8HRS 01/06/19 11:00 01/07/19 06:36 100 MLS/HR Piperacillin Sod/ Tazobactam Sod 3.375 gm/Sodium Chloride 50 ml @ 100 mls/hr 1X ONCE 01/05/19 17:45 01/05/19 18:14 DC 01/05/19 18:26 100 MLS/HR Potassium Chloride (Klor-Con) 20 meq 1X ONCE 01/07/19 11:45 01/07/19 11:46 UNV Sertraline HCl (Zoloft) 50 mg HS 01/05/19 21:00 01/06/19 21:03 50 MG Sodium Chloride 1,000 ml @ 400 mls/hr Q2H30M PRN 01/06/19 10:00 01/06/19 21:59 DC Vancomycin HCl (Vanco Per Pharmacy) 1 each PRN DAILY PRN 01/06/19 10:30 01/07/19 10:40 1 EACH Vancomycin HCl (Vancomycin Random Level) 1 each 1X ONCE 01/07/19 05:00 01/07/19 05:01 DC Vancomycin HCl 1 gm/Sodium Chloride 500 ml @ 250 mls/hr 1X ONCE 01/05/19 17:30 01/05/19 19:29 UNV Vitamin B Complex/ Vitamin C (Katie-Allison) 1 tab HS 01/05/19 21:00 01/06/19 21:03 1 TAB Results All relevant outside records, renal labs, imaging studies, telemetry/EKG's were reviewed. JAZLYN CUNHA MD Jan 07, 2019 12:42
[2019-01-07 14:03] LABS: CALCIUM 7.8 mg/dL (8.5-10.1); CREATININE 3.8 mg/dL (0.6-1.0); GFR 11.6; POTASSIUM 3.2 mmol/L (3.5-5.1)
[2019-01-07] MEDS ORDERED: POTASSIUM CHLORIDE 20 MEQ TABLET.ER. PO ONE (14:30)
--- NOTE | 2019-01-07 14:36 | PDOC ---
Infectious Disease Note Subjective Subjective Feeling better, less work of breathing Off BiPAP Satting 91% on 8L O2 Denies F/C/S ROS ROS per HPI Vital Sign Vital Signs Vital Signs Date Time Temp Pulse Resp B/P (MAP) Pulse Ox O2 Delivery O2 Flow Rate FiO2 01/07/19 14:29 70 167/73 01/07/19 12:21 95 Nasal Cannula 8.0 01/07/19 10:40 98.1 24 98.1 Physical Exam PHYSICAL EXAM GENERAL: Popped up in bed, alert, relaxed appearance, watching TV HEENT: Left eye blindness. Oral cavity dry LUNGS: Diminished aeration in bases, fine crackles and soft wheezes HEART: S1 and S2. Pacemaker ABDOMEN: Soft. No guarding. Bowel sounds present. EXTREMITIES: No gross edema or cyanosis. RUE-AV fistula - clean SKIN: Warm to touch. No signs of rash. NEUROLOGIC: Alert, responding appropriately RIJ/HDC without signs of any complications. Labs Lab Laboratory Tests Test 01/07/19 13:45 Sodium Level 138 mmol/L (136-145) Potassium Level 3.2 mmol/L (3.5-5.1) Chloride Level 100 mmol/L (98-107) Carbon Dioxide Level 25 mmol/L (21-32) Anion Gap 13 (6-14) Blood Urea Nitrogen 27 mg/dL (7-20) Creatinine 3.8 mg/dL (0.6-1.0) Estimated GFR (Cockcroft-Gault) 11.6 Glucose Level 192 mg/dL (70-99) Calcium Level 7.8 mg/dL (8.5-10.1) Micro Bronch, 01/02. BRONCHIAL GRAM STAIN Final WBCS FEW RBCS MODERATE ORGANISMS NONE SEEN BRONCH RES 1 Final Yeast isolated. Objective Assessment Bilateral pleural effusions with questionable pneumonia Leukocytosis Acute respiratory failure, off BiPAP Recent bronch, 01/04. No organisms on gram stain. culture: yeast CHF ESRD on HD via HD catheter Seizure disorder Hypertension Diarrhea, C. diff neg 01/06 Plan Plan of Care Continue vanc and Zosyn Steroids f/u cultures am labs Maintain aspiration precautions D/w nursing Patient seen and examined. Chart reviewed in detail. Case discussed with P[employer]ER. Agree with above plan. EYAD DIEGO APRN Jan 07, 2019 14:36 ROD WINTER MD Jan 07, 2019 21:22
[2019-01-07 15:11] VITALS: BP 180/67
--- NOTE | 2019-01-07 15:16 | PDOC4 ---
PROCEDURE Procedure BEDSIDE THORACENTESIS REMOVED 350 CC OF FLUID PT LESS SOA AFTER PROCEDURE NO COMPLICATIONS CITLALLI AGEE MD Jan 07, 2019 15:16
--- NOTE | 2019-01-07 15:19 | PDOC ---
PULMONARY PROGRESS NOTES Subjective PT OFF BIPAP NOW MORE SOA NO CHEST PAIN Vitals Vital Signs Date Time Temp Pulse Resp B/P (MAP) Pulse Ox O2 Delivery O2 Flow Rate FiO2 01/07/19 15:11 97.8 73 24 180/67 (104) 86 Nasal Cannula 5.0 97.8 ROS: No Nausea, No Chest Pain, No Abdominal Pain, No Increase Cough General: Alert, No acute distress HEENT: Other (POS JVD) Lungs: Crackles Cardiovascular: S1, S2 Abdomen: Soft, Non-tender Neuro Exam: Alert Extremities: No Edema Skin: Warm Labs Laboratory Tests Test 01/05/19 16:50 01/05/19 17:16 01/05/19 23:30 01/06/19 00:35 White Blood Count 12.1 x10^3/uL (4.0-11.0) Red Blood Count 3.84 x10^6/uL (3.50-5.40) Hemoglobin 11.3 g/dL (12.0-15.5) Hematocrit 34.5 % (36.0-47.0) Mean Corpuscular Volume 90 fL (79-100) Mean Corpuscular Hemoglobin 30 pg (25-35) Mean Corpuscular Hemoglobin Concent 33 g/dL (31-37) Red Cell Distribution Width 19.2 % (11.5-14.5) Platelet Count 210 x10^3/uL (140-400) Neutrophils (%) (Auto) 91 % (31-73) Lymphocytes (%) (Auto) 2 % (24-48) Monocytes (%) (Auto) 7 % (0-9) Eosinophils (%) (Auto) 0 % (0-3) Basophils (%) (Auto) 0 % (0-3) Neutrophils # (Auto) 11.0 x10^3/uL (1.8-7.7) Lymphocytes # (Auto) 0.3 x10^3/uL (1.0-4.8) Monocytes # (Auto) 0.8 x10^3/uL (0.0-1.1) Eosinophils # (Auto) 0.0 x10^3/uL (0.0-0.7) Basophils # (Auto) 0.0 x10^3/uL (0.0-0.2) Segmented Neutrophils % 92 % (35-66) Lymphocytes % 2 % (24-48) Monocytes % 6 % (0-10) Platelet Estimate Adequate (ADEQUATE) Anisocytosis Slight Prothrombin Time 14.4 SEC (11.7-14.0) Prothromb Time International Ratio 1.2 (0.8-1.1) Activated Partial Thromboplast Time 31 SEC (24-38) Sodium Level 141 mmol/L (136-145) Potassium Level 2.8 mmol/L (3.5-5.1) Chloride Level 101 mmol/L (98-107) Carbon Dioxide Level 27 mmol/L (21-32) Anion Gap 13 (6-14) Blood Urea Nitrogen 29 mg/dL (7-20) Creatinine 3.6 mg/dL (0.6-1.0) Estimated GFR (Cockcroft-Gault) 12.4 BUN/Creatinine Ratio 8 (6-20) Glucose Level 129 mg/dL (70-99) Lactic Acid Level 1.0 mmol/L (0.4-2.0) Calcium Level 7.8 mg/dL (8.5-10.1) Magnesium Level 1.9 mg/dL (1.8-2.4) Total Bilirubin 0.7 mg/dL (0.2-1.0) Aspartate Amino Transf (AST/SGOT) 58 U/L (15-37) Alanine Aminotransferase (ALT/SGPT) 52 U/L (14-59) Alkaline Phosphatase 72 U/L (46-116) Troponin I Quantitative 0.126 ng/mL (0.000-0.055) Total Protein 6.3 g/dL (6.4-8.2) Albumin 2.2 g/dL (3.4-5.0) Albumin/Globulin Ratio 0.5 (1.0-1.7) Procalcitonin 0.72 ng/mL (0.00-0.10) Hepatitis B Surface Antigen Nonreactive (Nonreactive) Hepatitis B Surface Antibody Reactive O2 Saturation 88 % (92-99) Arterial Blood pH 7.47 (7.35-7.45) Arterial Blood pCO2 at Patient Temp 33 mmHg (35-46) Arterial Blood pO2 at Patient Temp 54 mmHg (65-108) Arterial Blood HCO3 23 mmol/L (21-28) Arterial Blood Base Excess 0 mmol/L (-3-3) FiO2 36 Clostridium difficile Toxin B Gene Negative (Negative) Test 01/07/19 13:45 Sodium Level 138 mmol/L (136-145) Potassium Level 3.2 mmol/L (3.5-5.1) Chloride Level 100 mmol/L (98-107) Carbon Dioxide Level 25 mmol/L (21-32) Anion Gap 13 (6-14) Blood Urea Nitrogen 27 mg/dL (7-20) Creatinine 3.8 mg/dL (0.6-1.0) Estimated GFR (Cockcroft-Gault) 11.6 Glucose Level 192 mg/dL (70-99) Calcium Level 7.8 mg/dL (8.5-10.1) Laboratory Tests Test 01/07/19 13:45 Sodium Level 138 mmol/L (136-145) Potassium Level 3.2 mmol/L (3.5-5.1) Chloride Level 100 mmol/L (98-107) Carbon Dioxide Level 25 mmol/L (21-32) Anion Gap 13 (6-14) Blood Urea Nitrogen 27 mg/dL (7-20) Creatinine 3.8 mg/dL (0.6-1.0) Estimated GFR (Cockcroft-Gault) 11.6 Glucose Level 192 mg/dL (70-99) Calcium Level 7.8 mg/dL (8.5-10.1) Medications Active Scripts Medications Dose Route/Sig Max Daily Dose Days Date Category Lasix (Furosemide) 20 Mg Tablet 1 Tab PO BID 01/03/19 Reported Nephro-Allison Tablet (Folic Acid/Vitamin B Comp W-C) 0.8 Mg Tablet 1 Tab PO HS 08/17/18 Reported Mirtazapine 15 Mg Tablet 1 Tab PO QHS 08/17/18 Reported Levothyroxine Sodium 175 Mcg Tablet 1 Tab PO DAILY 08/17/18 Reported Ferrous Sulfate 325 Mg Tablet 1 Tab PO TID PRN 08/17/18 Reported Amlodipine Besylate 5 Mg Tablet 5 Mg PO BID PRN 08/17/18 Reported Metoprolol Succinate ( Xl ) (Metoprolol Succinate) 25 Mg Tab.er.24h 25 Mg PO DAILY 30 06/28/18 Rx Clopidogrel (Clopidogrel Bisulfate) 75 Mg Tablet 75 Mg PO DAILYWBKFT 30 06/28/18 Rx Acetaminophen 500 Mg Tablet 1 Tab PO PRN Q6HRS PRN 06/19/18 Reported Zoloft (Sertraline Hcl) 50 Mg Tablet 1 Tab PO HS 06/19/18 Reported Levetiracetam 500 Mg Tablet 1 Tab PO HS 06/19/18 Reported Levetiracetam 500 Mg Tablet 250 Mg PO DAILY 06/19/18 Reported Vitamin D3 (Cholecalciferol (Vitamin D3)) 1,000 Unit Tablet 1 Tab PO QFR 11/25/17 Reported Atorvastatin Calcium 80 Mg Tablet 1 Tab PO HS 11/25/17 Reported Aspirin 81 Mg Tab.chew 1 Tab PO DAILY 11/24/17 Reported Amiodarone Hcl 200 Mg Tablet 1 Tab PO DAILY 11/24/17 Reported Impression . IMPRESSION: 1. Acute on chronic hypoxemic respiratory failure. 2. Abnormal x-ray compatible with bilateral interstitial edema. 3. Bilateral pleural effusions, right greater than left. 4. Recent bronchoscopy status post removal of mucus plug in the left upper lobe. Current chest x-ray is greatly improved. 5. End-stage renal disease, on hemodialysis. 6. Protein malnutrition. 7. Generalized weakness. 8. Hypokalemia. 9. Leukocytosis. 10. Peripheral vascular disease. 11. History of hypothyroidism, hypertension, depression and anxiety. 12. History of seizures. Note [facility] Accession Number: [id number] TESTS RESULT FLAG UNITS REF RANGE LAB Clinician Provided Cytology Information No. of containers..01 Other (Miscellaneous) Source: DAVE BAL DIAGNOSIS: 02 DAVE BAL NEGATIVE FOR MALIGNANT CELLS. SCANT CELLULARITY. NORMAL BRONCHIAL CELLS AND MACROPHAGES ARE PRESENT. PULMONARY MACROPHAGES (DUST CELLS) ARE PRESENT. Signed out by: 02 BRONCH REVEALED MUCUS PLUGGING DAVE BAL FROM 01/04 SPEC #: [id number] BJ: 01/04/19-1235 STATUS: COMP REQ #: [id number] RECD: 01/04/19-[address]: AV BASSETT MD SOURCE: BRONCH [place] ENTR: 01/04/19-[address]: HUI DOZIER MD SPDESC: LT UPP NISHI CUNNINGHAM MD, SABATO MD ORDERED: BRONCH GS COMMENTS: BAL, DAVE Procedure Result BRONCHIAL GRAM STAIN Final WBCS FEW RBCS MODERATE ORGANISMS NONE SEEN Plan . MORE SOA TODAY WAS DOING BETTER EARLIER THIS AM WILL PROCEED WITH BEDSIDE THORACENTISS REVIEWED R/B/A WITH WHOM CONSENTED 1. H hemodialysis.PER NEPHRO 2. Repeat chest x-ray 3. Continue empiric antibiotics. 4. Follow up on previous bronchoalveolar lavage cultures. CITLALLI AGEE MD Jan 07, 2019 15:19
--- NOTE | 2019-01-07 15:37 | OP ---
DATE OF SURGERY: 01/07/2019 ATTENDING PHYSICIAN: Andrzej Oviedo MD PROCEDURE: Thoracentesis. INDICATIONS: The patient with recurrent pleural effusion, severely short of breath, undergoing a thoracentesis. Risks and benefits were reviewed with the patient and whom consented. DESCRIPTION OF PROCEDURE: A timeout was performed prior to initiating the procedure. The patient was set up at the edge of the bed. She was given 0.5 mg of IV Ativan to relieve some of the anxiety and labored breathing. I prepped her in sterile fashion. The left mid axillary area was percussed dullness. The intercostal space was anesthetized with lidocaine. I was able to obtain free flowing fluid with the needle utilized to anesthetize the intercostal space and entered the subpleural space. The needle was removed. A catheter over needle was inserted into the pleural space. There was free flowing straw-colored fluid. The needle was removed. The catheter was attached to a vacuum bottle and a total of 450 mL of fluid was removed. The patient tolerated procedure well with no immediate complications. IMPRESSION: Recurrent transudative effusion. PLAN: Continue current care. Fluid analysis was not obtained, this has been done in the past. CITLALLI AGEE MD DR: LUZ MARIA/gatito JOB#: [id number] / [id number]
--- NOTE | 2019-01-07 16:33 | RAD ---
PORTABLE CHEST 1V History: Post thoracentesis COMPARISON: January 05, 2019 FINDINGS: Substantial decrease in size of left pleural effusion without visible residual. Small right pleural effusion is stable. No definite pneumothorax is seen. Worsening of mixed interstitial and airspace infiltrates in both lungs since the previous exam. IMPRESSION: 1. Decrease in left pleural effusion without visible residual. 2. Worsening of mixed interstitial and airspace infiltrate/edema in both lungs. 3. Persistent right pleural effusion. 4. No definite pneumothorax. Electronically signed by: Doc Wilcox MD (01/07/2019 4:30 PM) [facility]
--- NOTE | 2019-01-07 16:48 | PDOC ---
PROGRESS NOTES Subjective Subjective Patient seen and examined She is feeling significantly better today. Objective Objective Vital Signs Date Time Temp Pulse Resp B/P (MAP) Pulse Ox O2 Delivery O2 Flow Rate FiO2 01/07/19 16:13 92 Venturi Mask 01/07/19 15:11 97.8 73 24 180/67 (104) 5.0 97.8 Intake and Output 01/07/19 06:59 Intake Total 800 ml Output Total 0 ml Balance 800 ml Intake Oral 800 ml Output Urine Total 0 ml # Voids 1 # Bowel Movements 1 Physical Exam Abdomen: Normal bowel sounds Heart: Regular rate General: mild distress Lungs: Other (decreased breath sounds) Assessment Assessment Problems Medical Problems: (1) Acute respiratory failure with hypoxia Status: Acute (2) ALEXEY (acute kidney injury) Status: Acute (3) Hypokalemia Status: Acute 1. Acute respiratory failure. Multi-factorial. Continuing present premedications. ID following. Improved today. 2. Acute on chronic heart failure. Fluid status as per the renal service. We will check for recent echocardiogram. 3. End-stage renal disease. Patient seen during hemodialysis. Followed by renal. 4. History of coronary disease with previous bypass surgery. Continuing present treatment. 5. History of a pacemaker. We'll check on manufacturers and interrogate as needed. 6. Hypertension. Reasonably controlled. Comment Review of Relevant I have reviewed the following items jose (where applicable) has been applied. Labs Laboratory Tests Test 01/05/19 16:50 01/05/19 17:16 01/05/19 23:30 01/06/19 00:35 White Blood Count 12.1 x10^3/uL (4.0-11.0) Red Blood Count 3.84 x10^6/uL (3.50-5.40) Hemoglobin 11.3 g/dL (12.0-15.5) Hematocrit 34.5 % (36.0-47.0) Mean Corpuscular Volume 90 fL (79-100) Mean Corpuscular Hemoglobin 30 pg (25-35) Mean Corpuscular Hemoglobin Concent 33 g/dL (31-37) Red Cell Distribution Width 19.2 % (11.5-14.5) Platelet Count 210 x10^3/uL (140-400) Neutrophils (%) (Auto) 91 % (31-73) Lymphocytes (%) (Auto) 2 % (24-48) Monocytes (%) (Auto) 7 % (0-9) Eosinophils (%) (Auto) 0 % (0-3) Basophils (%) (Auto) 0 % (0-3) Neutrophils # (Auto) 11.0 x10^3/uL (1.8-7.7) Lymphocytes # (Auto) 0.3 x10^3/uL (1.0-4.8) Monocytes # (Auto) 0.8 x10^3/uL (0.0-1.1) Eosinophils # (Auto) 0.0 x10^3/uL (0.0-0.7) Basophils # (Auto) 0.0 x10^3/uL (0.0-0.2) Segmented Neutrophils % 92 % (35-66) Lymphocytes % 2 % (24-48) Monocytes % 6 % (0-10) Platelet Estimate Adequate (ADEQUATE) Anisocytosis Slight Prothrombin Time 14.4 SEC (11.7-14.0) Prothromb Time International Ratio 1.2 (0.8-1.1) Activated Partial Thromboplast Time 31 SEC (24-38) Sodium Level 141 mmol/L (136-145) Potassium Level 2.8 mmol/L (3.5-5.1) Chloride Level 101 mmol/L (98-107) Carbon Dioxide Level 27 mmol/L (21-32) Anion Gap 13 (6-14) Blood Urea Nitrogen 29 mg/dL (7-20) Creatinine 3.6 mg/dL (0.6-1.0) Estimated GFR (Cockcroft-Gault) 12.4 BUN/Creatinine Ratio 8 (6-20) Glucose Level 129 mg/dL (70-99) Lactic Acid Level 1.0 mmol/L (0.4-2.0) Calcium Level 7.8 mg/dL (8.5-10.1) Magnesium Level 1.9 mg/dL (1.8-2.4) Total Bilirubin 0.7 mg/dL (0.2-1.0) Aspartate Amino Transf (AST/SGOT) 58 U/L (15-37) Alanine Aminotransferase (ALT/SGPT) 52 U/L (14-59) Alkaline Phosphatase 72 U/L (46-116) Troponin I Quantitative 0.126 ng/mL (0.000-0.055) Total Protein 6.3 g/dL (6.4-8.2) Albumin 2.2 g/dL (3.4-5.0) Albumin/Globulin Ratio 0.5 (1.0-1.7) Procalcitonin 0.72 ng/mL (0.00-0.10) Hepatitis B Surface Antigen Nonreactive (Nonreactive) Hepatitis B Surface Antibody Reactive O2 Saturation 88 % (92-99) Arterial Blood pH 7.47 (7.35-7.45) Arterial Blood pCO2 at Patient Temp 33 mmHg (35-46) Arterial Blood pO2 at Patient Temp 54 mmHg (65-108) Arterial Blood HCO3 23 mmol/L (21-28) Arterial Blood Base Excess 0 mmol/L (-3-3) FiO2 36 Clostridium difficile Toxin B Gene Negative (Negative) Test 01/07/19 13:45 Sodium Level 138 mmol/L (136-145) Potassium Level 3.2 mmol/L (3.5-5.1) Chloride Level 100 mmol/L (98-107) Carbon Dioxide Level 25 mmol/L (21-32) Anion Gap 13 (6-14) Blood Urea Nitrogen 27 mg/dL (7-20) Creatinine 3.8 mg/dL (0.6-1.0) Estimated GFR (Cockcroft-Gault) 11.6 Glucose Level 192 mg/dL (70-99) Calcium Level 7.8 mg/dL (8.5-10.1) Laboratory Tests Test 01/07/19 13:45 Sodium Level 138 mmol/L (136-145) Potassium Level 3.2 mmol/L (3.5-5.1) Chloride Level 100 mmol/L (98-107) Carbon Dioxide Level 25 mmol/L (21-32) Anion Gap 13 (6-14) Blood Urea Nitrogen 27 mg/dL (7-20) Creatinine 3.8 mg/dL (0.6-1.0) Estimated GFR (Cockcroft-Gault) 11.6 Glucose Level 192 mg/dL (70-99) Calcium Level 7.8 mg/dL (8.5-10.1) Medications Current Medications Albuterol/ Ipratropium (Duoneb) 3 ml 1X STAT NEB Last administered on 01/05/19at 17:04; Start 01/05/19 at 17:03; Stop 01/05/19 at 17:04; Status DC Methylprednisolone Sodium Succinate (SOLU-Medrol 125MG VIAL) 125 mg 1X ONCE IV Last administered on 01/05/19at 18:25; Start 01/05/19 at 17:30; Stop 01/05/19 at 17:31; Status DC Albuterol Sulfate (Ventolin Neb Soln) 2.5 mg PRN Q4HRS PRN NEB SHORTNESS OF BREATH; Start 01/05/19 at 17:15; Stop 01/05/19 at 18:17; Status DC Vancomycin HCl 1 gm/Sodium Chloride 500 ml @ 250 mls/hr 1X ONCE IV ; Start 01/05/19 at 17:30; Stop 01/05/19 at 19:29; Status UNV Piperacillin Sod/ Tazobactam Sod 3.375 gm/Sodium Chloride 50 ml @ 100 mls/hr 1X ONCE IV ; Start 01/05/19 at 17:30; Stop 01/05/19 at 17:59; Status UNV Vancomycin HCl 250 ml @ 250 mls/hr 1X ONCE IV Last administered on 01/05/19at 20:20; Start 01/05/19 at 18:00; Stop 01/05/19 at 18:59; Status DC Piperacillin Sod/ Tazobactam Sod 3.375 gm/Sodium Chloride 50 ml @ 100 mls/hr 1X ONCE IV Last administered on 01/05/19at 18:26; Start 01/05/19 at 17:45; Stop 01/05/19 at 18:14; Status DC Ondansetron HCl (Zofran) 4 mg PRN Q8HRS PRN IV NAUSEA/VOMITING; Start 01/05/19 at 18:00; Stop 01/06/19 at 17:59; Status DC Morphine Sulfate (Morphine Sulfate) 2 mg PRN Q2HR PRN IV PAIN; Start 01/05/19 at 18:00; Stop 01/06/19 at 17:59; Status DC Potassium Chloride (Klor-Con) 60 meq 1X ONCE PO Last administered on 01/05/19at 18:25; Start 01/05/19 at 18:00; Stop 01/05/19 at 18:01; Status DC Acetaminophen (Tylenol) 500 mg PRN Q6HRS PRN PO PAIN; Start 01/05/19 at 18:00 Amiodarone HCl (Cordarone) 200 mg DAILY PO Last administered on 01/07/19 08:58; Start 01/06/19 at 09:00 Amlodipine Besylate (Norvasc) 5 mg BID PO Last administered on 01/07/19 08:58; Start 01/05/19 at 21:00 Aspirin (Children'S Aspirin) 81 mg DAILY PO Last administered on 01/07/19 08:58; Start 01/06/19 at 09:00 Ergocalciferol (Vitamin D2) 50,000 unit WEEKLY PO ; Start 01/19/19 at 09:00 Clopidogrel Bisulfate (Plavix) 75 mg DAILYWBKFT PO Last administered on 01/07 08:58; Start 01/06/19 at 08:00 Ferrous Sulfate (Feosol) 325 mg TIDWMEALS PO Last administered on 01/07/19 12:34; Start 01/06/19 at 08:00 Vitamin B Complex/ Vitamin C (Katie-Allison) 1 tab HS PO Last administered on 01/06/19 21:03; Start 01/05/19 at 21:00 Furosemide (Lasix) 20 mg BID PO Last administered on 01/07/19 08:58; Start 01/05/19 at 21:00 Levetiracetam (Keppra) 500 mg HS PO Last administered on 01/06/19 21:03; Start 01/05/19 at 21:00 Levetiracetam (Keppra) 250 mg DAILY PO Last administered on 01/07/19 08:58; Start 01/06/19 at 09:00 Metoprolol Succinate (Toprol Xl) 25 mg DAILY PO Last administered on 01/07/19 08:58; Start 01/06/19 at 09:00 Mirtazapine (Remeron) 15 mg QHS PO Last administered on 01/06/19 21:03; Start 01/05/19 at 21:00 Sertraline HCl (Zoloft) 50 mg HS PO Last administered on 01/06/19 21:03; Start 01/05/19 at 21:00 Atorvastatin Calcium (Lipitor) 80 mg QHS PO Last administered on 01/06/19 21:03; Start 01/05/19 at 21:00 Albuterol Sulfate (Ventolin Neb Soln) 2.5 mg Q4HRS NEB Last administered on 01/07/19at 16:13; Start 01/05/19 at 20:00 Hydralazine HCl (Apresoline Inj) 10 mg PRN Q4HRS PRN IVP ELEVATED BP, SEE COMMENTS Last administered on 01/07/19at 10:57; Start 01/05/19 at 21:15; Stop 01/07/19 at 12:57; Status DC Heparin Sodium (Porcine) (Heparin Sodium) 5,000 unit Q8HRS SQ Last administered on 01/07/19at 14:29; Start 01/05/19 at 22:00 Pantoprazole Sodium (Protonix) 40 mg DAILYAC PO Last administered on 01/06/19at 08:07; Start 01/06/19 at 07:30; Stop 01/06/19 at 11:25; Status DC Pharmacy Consult (C.diff Med Screen By Rx) 1 each 1X ONCE MC Last administered on 01/06/19at 02:17; Start 01/05/19 at 23:00; Stop 01/05/19 at 23:01; Status DC Vancomycin HCl (Vanco Per Pharmacy) 1 each PRN DAILY PRN MC SEE COMMENTS Last administered on 01/07/19at 12:55; Start 01/06/19 at 10:30 Piperacillin Sod/ Tazobactam Sod (Zosyn Per Pharmacy) 1 each PRN DAILY PRN MC SEE COMMENTS; Start 01/06/19 at 10:30 Piperacillin Sod/ Tazobactam Sod 2.25 gm/Sodium Chloride 50 ml @ 100 mls/hr Q8HRS IV Last administered on 01/07/19at 14:29; Start 01/06/19 at 11:00 Vancomycin HCl (Vancomycin Random Level) 1 each 1X ONCE MC Last administered on 01/07/19at 14:14; Start 01/07/19 at 05:00; Stop 01/07/19 at 05:01; Status DC Lactobacillus Rhamnosus (Culturelle) 1 cap BID PO Last administered on 01/07/19at 08:58; Start 01/06/19 at 21:00 Sodium Chloride 1,000 ml @ 1,000 mls/hr Q1H PRN IV hypotension; Start 01/06/19 at 10:00; Stop 01/06/19 at 15:59; Status DC Sodium Chloride 1,000 ml @ 400 mls/hr Q2H30M PRN IV PATENCY; Start 01/06/19 at 10:00; Stop 01/06/19 at 21:59; Status DC Info (PHARMACY MONITORING -- do not chart) 1 each PRN DAILY PRN MC SEE COMM ENTS; Start 01/06/19 at 13:00; Status UNV Info (PHARMACY MONITORING -- do not chart) 1 each PRN DAILY PRN MC SEE COMMENTS; Start 01/06/19 at 13:00 Potassium Chloride (Klor-Con) 20 meq 1X ONCE PO ; Start 01/07/19 at 14:30; Stop 01/07/19 at 14:31; Status DC Vancomycin HCl (Vancomycin Random Level) 1 each 1X ONCE MC ; Start 01/08/19 at 05:00; Stop 01/08/19 at 05:01 Hydralazine HCl (Apresoline Inj) 20 mg PRN Q4HRS PRN IVP ELEVATED BP, SEE COMMENTS Last administered on 01/07/19at 14:29; Start 01/07/19 at 13:00 Lorazepam (Ativan Inj) 1 mg 1X ONCE IV Last administered on 01/07/19at 15:15; Start 01/07/19 at 15:00; Stop 01/07/19 at 15:01; Status DC Active Scripts Active Metoprolol Succinate ( Xl ) (Metoprolol Succinate) 25 Mg Tab.er.24h 25 Mg PO DAILY 30 Days Clopidogrel (Clopidogrel Bisulfate) 75 Mg Tablet 75 Mg PO DAILYWBKFT 30 Days Reported Lasix (Furosemide) 20 Mg Tablet 1 Tab PO BID Nephro-Allison Tablet (Folic Acid/Vitamin B Comp W-C) 0.8 Mg Tablet 1 Tab PO HS Mirtazapine 15 Mg Tablet 1 Tab PO QHS Levothyroxine Sodium 175 Mcg Tablet 1 Tab PO DAILY Ferrous Sulfate 325 Mg Tablet 1 Tab PO TID PRN Amlodipine Besylate 5 Mg Tablet 5 Mg PO BID PRN Acetaminophen 500 Mg Tablet 1 Tab PO PRN Q6HRS PRN Zoloft (Sertraline Hcl) 50 Mg Tablet 1 Tab PO HS Levetiracetam 500 Mg Tablet 1 Tab PO HS Levetiracetam 500 Mg Tablet 250 Mg PO DAILY Vitamin D3 (Cholecalciferol (Vitamin D3)) 1,000 Unit Tablet 1 Tab PO QFR Atorvastatin Calcium 80 Mg Tablet 1 Tab PO HS Aspirin 81 Mg Tab.chew 1 Tab PO DAILY Amiodarone Hcl 200 Mg Tablet 1 Tab PO DAILY Vitals/I & O Vital Sign - Last 24 Hours 01/06/19 01/06/19 01/06/19 01/06/19 19:30 20:00 20:16 21:03 Temp 98.1 98.1 Pulse 83 83 Resp 26 B/P (MAP) 158/48 (84) 158/48 Pulse Ox 88 90 O2 Delivery Nasal Cannula Nasal Cannula Nasal Cannula O2 Flow Rate 5.0 5.0 6.0 01/06/19 01/07/19 01/07/19 01/07/19 23:00 03:00 03:44 07:21 Temp 98.0 98.2 98.2 98.0 98.2 98.2 Pulse 83 78 76 Resp 24 24 24 B/P (MAP) /69 148/66 (93) 180/82 (114) Pulse Ox 91 90 92 O2 Delivery Nasal Cannula Nasal Cannula Nasal Cannula Nasal Cannula O2 Flow Rate 6.0 5.0 6.0 5.0 01/07/19 01/07/19 01/07/19 01/07/19 08:00 08:30 08:58 08:58 Pulse 76 76 B/P (MAP) 180/82 180/82 Pulse Ox 88 O2 Delivery Nasal Cannula Nasal Cannula O2 Flow Rate 6.0 6.0 01/07/19 01/07/19 01/07/19 01/07/19 08:58 10:40 10:57 12:21 Temp 98.1 98.1 Pulse 76 70 70 Resp 24 B/P (MAP) 180/82 182/75 (110) 182/75 Pulse Ox 92 95 O2 Delivery Nasal Cannula Nasal Cannula O2 Flow Rate 5.0 8.0 01/07/19 01/07/19 01/07/19 14:29 15:11 16:13 Temp 97.8 97.8 Pulse 70 73 Resp 24 B/P (MAP) 167/73 180/67 (104) Pulse Ox 86 92 O2 Delivery Nasal Cannula Venturi Mask O2 Flow Rate 5.0 Intake and Output 0 01/06/19 01/06/19 01/07/19 14:59 22:59 06:59 Intake Total 600 ml 200 ml Output Total 0 ml 0 ml Balance 600 ml 200 ml MCSWEYN,RADHA J MD Jan 07, 2019 16:48
[2019-01-07 19:34] VITALS: BP 143/66
[2019-01-07] MEDS: ATORVASTATIN CALCIUM 40 MG TABLET. PO SCH (21:06)
[2019-01-07] MEDS: SERTRALINE 50 MG TABLET. PO SCH (21:06)
[2019-01-07] MEDS: FOLIC/VIT B COMP W-C (RENAL) TABLET. PO SCH (21:06)
[2019-01-07] MEDS: levETIRAcetam 500 MG TABLET PO SCH (21:06)
[2019-01-07] MEDS: MIRTAZAPINE 15 MG TABLET PO SCH (21:06)
[2019-01-07 22:31] VITALS: BP 115/52
[2019-01-08] MEDS: ACETAMINOPHEN 500 MG TABLET PO PRN ×2 (00:52→14:13)
[2019-01-08 03:36] VITALS: BP 159/99
[2019-01-08] MEDS: ALBUTEROL SULFATE 2.5 MG/3 ML NEBU. NEB SCH ×5 (04:00→19:16)
--- NOTE | 2019-01-08 04:23 | EKG ---
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
[2019-01-08] MEDS ORDERED: VANCOMYCIN RANDOM LEVEL. MC ONE (05:00)
[2019-01-08] MEDS: HEPARIN for SUB-Q USE 5,000 UNIT/ML VIAL. SQ SCH ×3 (05:31→21:42)
[2019-01-08] MEDS: PIPERACILLIN/TAZOBACTAM 2.25 GM in IV NORMAL SALINE 50ML 50 ML IV SCH (05:31)
[2019-01-08 05:46] LABS: BASO # 0.1 x10^3/uL (0.0-0.2); BASO % 1 % (0-3); EOS % 0 % (0-3); HEMATOCRIT 31.8 % (36.0-47.0); HEMOGLOBIN 10.4 g/dL (12.0-15.5); LYMPH # 0.6 x10^3/uL (1.0-4.8); LYMPH % 4 % (24-48); MEAN CORPUSCULAR HEMOGLOBIN 30 pg (25-35); MEAN CORPUSCULAR HGB CONC 33 g/dL (31-37); MEAN CORPUSCULAR VOLUME 91 fL (79-100); MONO # 0.7 x10^3/uL (0.0-1.1); MONO % 5 % (0-9); NEUT # 11.9 x10^3/uL (1.8-7.7); NEUT % 90 % (31-73); PLATELET COUNT 152 x10^3/uL (140-400); RED BLOOD COUNT 3.52 x10^6/uL (3.50-5.40); RED CELL DISTRIBUTION WIDTH 19.5 % (11.5-14.5); WHITE BLOOD COUNT 13.3 x10^3/uL (4.0-11.0)
[2019-01-08] MEDS ORDERED: IV NORMAL SALINE 1000ML BAG 1,000 ML IV PRN ×2 (06:30)
[2019-01-08 06:31] LABS: ALBUMIN 1.7 g/dL (3.4-5.0); ALBUMIN/GLOBULIN RATIO 0.4 (1.0-1.7); CREATININE 4.9 mg/dL (0.6-1.0); GFR 8.7; POTASSIUM 3.9 mmol/L (3.5-5.1); TOTAL BILIRUBIN 0.7 mg/dL (0.2-1.0); TOTAL PROTEIN 5.8 g/dL (6.4-8.2)
--- NOTE | 2019-01-08 08:25 | PDOC ---
Infectious Disease Note Subjective Subjective feeling ok, run down, weak, diarrhea ROS ROS no n/v/fever Vital Sign Vital Signs Vital Signs Date Time Temp Pulse Resp B/P (MAP) Pulse Ox O2 Delivery O2 Flow Rate FiO2 01/08/19 04:25 94 Venturi Mask 12.0 01/08/19 03:36 98.7 69 24 159/99 (119) 98.7 Physical Exam PHYSICAL EXAM GENERAL: seen in HD, HEENT: Left eye blindness. Oral cavity dry LUNGS: Diminished aeration in bases, fine crackles and soft wheezes HEART: S1 and S2. Pacemaker ABDOMEN: Soft. No guarding. Bowel sounds present. EXTREMITIES: No gross edema or cyanosis. RUE-AV fistula - clean SKIN: Warm to touch. No signs of rash. NEUROLOGIC: Alert, responding appropriately RIJ/HDC without signs of any complications. Labs Lab Laboratory Tests Test 01/07/19 13:45 01/08/19 04:50 Sodium Level 138 mmol/L (136-145) 139 mmol/L (136-145) Potassium Level 3.2 mmol/L (3.5-5.1) 3.9 mmol/L (3.5-5.1) Chloride Level 100 mmol/L (98-107) 102 mmol/L (98-107) Carbon Dioxide Level 25 mmol/L (21-32) 25 mmol/L (21-32) Anion Gap 13 (6-14) 12 (6-14) Blood Urea Nitrogen 27 mg/dL (7-20) 37 mg/dL (7-20) Creatinine 3.8 mg/dL (0.6-1.0) 4.9 mg/dL (0.6-1.0) Estimated GFR (Cockcroft-Gault) 11.6 8.7 Glucose Level 192 mg/dL (70-99) 94 mg/dL (70-99) Calcium Level 7.8 mg/dL (8.5-10.1) 8.0 mg/dL (8.5-10.1) White Blood Count 13.3 x10^3/uL (4.0-11.0) Red Blood Count 3.52 x10^6/uL (3.50-5.40) Hemoglobin 10.4 g/dL (12.0-15.5) Hematocrit 31.8 % (36.0-47.0) Mean Corpuscular Volume 91 fL (79-100) Mean Corpuscular Hemoglobin 30 pg (25-35) Mean Corpuscular Hemoglobin Concent 33 g/dL (31-37) Red Cell Distribution Width 19.5 % (11.5-14.5) Platelet Count 152 x10^3/uL (140-400) Neutrophils (%) (Auto) 90 % (31-73) Lymphocytes (%) (Auto) 4 % (24-48) Monocytes (%) (Auto) 5 % (0-9) Eosinophils (%) (Auto) 0 % (0-3) Basophils (%) (Auto) 1 % (0-3) Neutrophils # (Auto) 11.9 x10^3/uL (1.8-7.7) Lymphocytes # (Auto) 0.6 x10^3/uL (1.0-4.8) Monocytes # (Auto) 0.7 x10^3/uL (0.0-1.1) Eosinophils # (Auto) 0.0 x10^3/uL (0.0-0.7) Basophils # (Auto) 0.1 x10^3/uL (0.0-0.2) BUN/Creatinine Ratio 8 (6-20) Total Bilirubin 0.7 mg/dL (0.2-1.0) Aspartate Amino Transf (AST/SGOT) 46 U/L (15-37) Alanine Aminotransferase (ALT/SGPT) 58 U/L (14-59) Alkaline Phosphatase 62 U/L (46-116) Total Protein 5.8 g/dL (6.4-8.2) Albumin 1.7 g/dL (3.4-5.0) Albumin/Globulin Ratio 0.4 (1.0-1.7) Random Vancomycin Level 16.4 mcg/mL Objective Assessment Bilateral pleural effusions with questionable pneumonia Leukocytosis Acute respiratory failure, off BiPAP Recent bronch, 01/04. No organisms on gram stain. culture: yeast CHF ESRD on HD via HD catheter Seizure disorder Hypertension Diarrhea, C. diff neg 01/06 Plan Plan of Care change vanc and Zosyn to po augmentin Steroids f/u cultures am labs Maintain aspiration precautions D/w nursing overall prognosis poor, need to have palliative care meeting KRISTIN CATHERINE MD Jan 08, 2019 08:25
[2019-01-08] MEDS ORDERED: DIALYSIS PATIENT. MC PRN ×2 (08:30)
[2019-01-08] MEDS ORDERED: ONDANSETRON PF 4 MG/2 ML VIAL. IV PRN (08:30)
[2019-01-08] MEDS: VANCOMYCIN PER PHARMACY MC PRN (09:12)
--- NOTE | 2019-01-08 09:17 | NUR ---
Pharmacy Vancomycin Dosing Note S: Consulted to monitor and dose vancomycin started 01/05/19. O: AMINTALURDES Lindsey is a 73 year old F with Pneumonia Other Antibiotics: Zosyn LABS: Last BUN: 37 Last Creatinine: 4.9 Creatinine Clearance: Dialysis (MWF) Last WBC: 13.3 Last Procalcitonin: 0.72 (dialysis patient) Tmax (past 24 hours): 98 Microbiology: Bronch wash: No organisms seen (last admit 01/04/19) I/O: 1160/100 Drug Levels: Last Random level: 16.4 (Est post-HD level of 12.3) on 01/08/19 at 0450 Last dose given 01/05/19 at 2020 Vancomycin Dosing: Dosing Weight: Actual Target Trough: 15-20 A: Based on: level P: 1. Begin Vancomycin 500 mg IV AFTER DIALYSIS 2. Follow up Random level in 1 week if needed 3. Pharmacy will continue to monitor, follow and adjust therapy as needed. Megan Hines RPH, 01/08/19 [id number]
--- NOTE | 2019-01-08 09:54 | PDOC ---
PROGRESS NOTES Chief Complaint Chief Complaint Acute hypoxic respi filure on NIPPV Bilateral pleural effusions with questionable pneumonia R > L Leukocytosis Recent bronch, 01/04. No organisms on gram stain. culture: yeast CHF, Hx CAD,. CABG, pacer ESRD on HD via HD catheter AOCD Seizure disorder Hypertension Diarrhea, C. diff neg 01/06 GEn weakenss - SNU? History of hypothyroidism, hypertension, depression and anxiety. History of Present Illness History of Present Illness Out having HD Apparently improving breathing [place] - off BIPAP Unsure how is the weakness, PT not on board FULL CODE LAbs reviewed On vanc zosyn per ID ? pna NO c diff currently ( hx c diff) Bronch 01.04 PLAn: Add pT ot for dc planning HD per renal VAnx zosyn per ID Planned for pacer and echo check per cards notes BIPAP prn per pulmo Vitals Vitals Vital Signs Date Time Temp Pulse Resp B/P (MAP) Pulse Ox O2 Delivery O2 Flow Rate FiO2 01/08/19 04:25 94 Venturi Mask 12.0 01/08/19 03:36 98.7 69 24 159/99 (119) 98.7 Physical Exam Physical Exam GENERAL: Popped up in bed, alert, relaxed appearance, watching TV HEENT: Left eye blindness. Oral cavity dry LUNGS: Diminished aeration in bases, fine crackles and soft wheezes HEART: S1 and S2. Pacemaker ABDOMEN: Soft. No guarding. Bowel sounds present. EXTREMITIES: No gross edema or cyanosis. RUE-AV fistula - clean SKIN: Warm to touch. No signs of rash. NEUROLOGIC: Alert, responding appropriately RIJ/HDC without signs of any complications. General: Alert, mild distress Heart: Regular rate, Normal S1, Normal S2 Lungs: Crackles Abdomen: Normal bowel sounds, No tenderness, No hepatosplenomegaly Extremities: No cyanosis, Normal pulses Skin: No significant lesion Labs LABS Laboratory Tests Test 01/07/19 13:45 01/08/19 04:50 Sodium Level 138 mmol/L (136-145) 139 mmol/L (136-145) Potassium Level 3.2 mmol/L (3.5-5.1) 3.9 mmol/L (3.5-5.1) Chloride Level 100 mmol/L (98-107) 102 mmol/L (98-107) Carbon Dioxide Level 25 mmol/L (21-32) 25 mmol/L (21-32) Anion Gap 13 (6-14) 12 (6-14) Blood Urea Nitrogen 27 mg/dL (7-20) 37 mg/dL (7-20) Creatinine 3.8 mg/dL (0.6-1.0) 4.9 mg/dL (0.6-1.0) Estimated GFR (Cockcroft-Gault) 11.6 8.7 Glucose Level 192 mg/dL (70-99) 94 mg/dL (70-99) Calcium Level 7.8 mg/dL (8.5-10.1) 8.0 mg/dL (8.5-10.1) White Blood Count 13.3 x10^3/uL (4.0-11.0) Red Blood Count 3.52 x10^6/uL (3.50-5.40) Hemoglobin 10.4 g/dL (12.0-15.5) Hematocrit 31.8 % (36.0-47.0) Mean Corpuscular Volume 91 fL (79-100) Mean Corpuscular Hemoglobin 30 pg (25-35) Mean Corpuscular Hemoglobin Concent 33 g/dL (31-37) Red Cell Distribution Width 19.5 % (11.5-14.5) Platelet Count 152 x10^3/uL (140-400) Neutrophils (%) (Auto) 90 % (31-73) Lymphocytes (%) (Auto) 4 % (24-48) Monocytes (%) (Auto) 5 % (0-9) Eosinophils (%) (Auto) 0 % (0-3) Basophils (%) (Auto) 1 % (0-3) Neutrophils # (Auto) 11.9 x10^3/uL (1.8-7.7) Lymphocytes # (Auto) 0.6 x10^3/uL (1.0-4.8) Monocytes # (Auto) 0.7 x10^3/uL (0.0-1.1) Eosinophils # (Auto) 0.0 x10^3/uL (0.0-0.7) Basophils # (Auto) 0.1 x10^3/uL (0.0-0.2) BUN/Creatinine Ratio 8 (6-20) Total Bilirubin 0.7 mg/dL (0.2-1.0) Aspartate Amino Transf (AST/SGOT) 46 U/L (15-37) Alanine Aminotransferase (ALT/SGPT) 58 U/L (14-59) Alkaline Phosphatase 62 U/L (46-116) Total Protein 5.8 g/dL (6.4-8.2) Albumin 1.7 g/dL (3.4-5.0) Albumin/Globulin Ratio 0.4 (1.0-1.7) Random Vancomycin Level 16.4 mcg/mL Review of Systems Review of Systems weak, no cp, no inc in soa, no nv,.d,. abd pain Assessment and Plan Assessmemt and Plan Problems Medical Problems: (1) Acute respiratory failure with hypoxia Status: Acute (2) ALEXEY (acute kidney injury) Status: Acute (3) Hypokalemia Status: Acute Comment Review of Relevant I have reviewed the following items jose (where applicable) has been applied. Labs Laboratory Tests Test 01/07/19 13:45 01/08/19 04:50 Sodium Level 138 mmol/L (136-145) 139 mmol/L (136-145) Potassium Level 3.2 mmol/L (3.5-5.1) 3.9 mmol/L (3.5-5.1) Chloride Level 100 mmol/L (98-107) 102 mmol/L (98-107) Carbon Dioxide Level 25 mmol/L (21-32) 25 mmol/L (21-32) Anion Gap 13 (6-14) 12 (6-14) Blood Urea Nitrogen 27 mg/dL (7-20) 37 mg/dL (7-20) Creatinine 3.8 mg/dL (0.6-1.0) 4.9 mg/dL (0.6-1.0) Estimated GFR (Cockcroft-Gault) 11.6 8.7 Glucose Level 192 mg/dL (70-99) 94 mg/dL (70-99) Calcium Level 7.8 mg/dL (8.5-10.1) 8.0 mg/dL (8.5-10.1) White Blood Count 13.3 x10^3/uL (4.0-11.0) Red Blood Count 3.52 x10^6/uL (3.50-5.40) Hemoglobin 10.4 g/dL (12.0-15.5) Hematocrit 31.8 % (36.0-47.0) Mean Corpuscular Volume 91 fL (79-100) Mean Corpuscular Hemoglobin 30 pg (25-35) Mean Corpuscular Hemoglobin Concent 33 g/dL (31-37) Red Cell Distribution Width 19.5 % (11.5-14.5) Platelet Count 152 x10^3/uL (140-400) Neutrophils (%) (Auto) 90 % (31-73) Lymphocytes (%) (Auto) 4 % (24-48) Monocytes (%) (Auto) 5 % (0-9) Eosinophils (%) (Auto) 0 % (0-3) Basophils (%) (Auto) 1 % (0-3) Neutrophils # (Auto) 11.9 x10^3/uL (1.8-7.7) Lymphocytes # (Auto) 0.6 x10^3/uL (1.0-4.8) Monocytes # (Auto) 0.7 x10^3/uL (0.0-1.1) Eosinophils # (Auto) 0.0 x10^3/uL (0.0-0.7) Basophils # (Auto) 0.1 x10^3/uL (0.0-0.2) BUN/Creatinine Ratio 8 (6-20) Total Bilirubin 0.7 mg/dL (0.2-1.0) Aspartate Amino Transf (AST/SGOT) 46 U/L (15-37) Alanine Aminotransferase (ALT/SGPT) 58 U/L (14-59) Alkaline Phosphatase 62 U/L (46-116) Total Protein 5.8 g/dL (6.4-8.2) Albumin 1.7 g/dL (3.4-5.0) Albumin/Globulin Ratio 0.4 (1.0-1.7) Random Vancomycin Level 16.4 mcg/mL Laboratory Tests Test 01/07/19 13:45 01/08/19 04:50 Sodium Level 138 mmol/L (136-145) 139 mmol/L (136-145) Potassium Level 3.2 mmol/L (3.5-5.1) 3.9 mmol/L (3.5-5.1) Chloride Level 100 mmol/L (98-107) 102 mmol/L (98-107) Carbon Dioxide Level 25 mmol/L (21-32) 25 mmol/L (21-32) Anion Gap 13 (6-14) 12 (6-14) Blood Urea Nitrogen 27 mg/dL (7-20) 37 mg/dL (7-20) Creatinine 3.8 mg/dL (0.6-1.0) 4.9 mg/dL (0.6-1.0) Estimated GFR (Cockcroft-Gault) 11.6 8.7 Glucose Level 192 mg/dL (70-99) 94 mg/dL (70-99) Calcium Level 7.8 mg/dL (8.5-10.1) 8.0 mg/dL (8.5-10.1) White Blood Count 13.3 x10^3/uL (4.0-11.0) Red Blood Count 3.52 x10^6/uL (3.50-5.40) Hemoglobin 10.4 g/dL (12.0-15.5) Hematocrit 31.8 % (36.0-47.0) Mean Corpuscular Volume 91 fL (79-100) Mean Corpuscular Hemoglobin 30 pg (25-35) Mean Corpuscular Hemoglobin Concent 33 g/dL (31-37) Red Cell Distribution Width 19.5 % (11.5-14.5) Platelet Count 152 x10^3/uL (140-400) Neutrophils (%) (Auto) 90 % (31-73) Lymphocytes (%) (Auto) 4 % (24-48) Monocytes (%) (Auto) 5 % (0-9) Eosinophils (%) (Auto) 0 % (0-3) Basophils (%) (Auto) 1 % (0-3) Neutrophils # (Auto) 11.9 x10^3/uL (1.8-7.7) Lymphocytes # (Auto) 0.6 x10^3/uL (1.0-4.8) Monocytes # (Auto) 0.7 x10^3/uL (0.0-1.1) Eosinophils # (Auto) 0.0 x10^3/uL (0.0-0.7) Basophils # (Auto) 0.1 x10^3/uL (0.0-0.2) BUN/Creatinine Ratio 8 (6-20) Total Bilirubin 0.7 mg/dL (0.2-1.0) Aspartate Amino Transf (AST/SGOT) 46 U/L (15-37) Alanine Aminotransferase (ALT/SGPT) 58 U/L (14-59) Alkaline Phosphatase 62 U/L (46-116) Total Protein 5.8 g/dL (6.4-8.2) Albumin 1.7 g/dL (3.4-5.0) Albumin/Globulin Ratio 0.4 (1.0-1.7) Random Vancomycin Level 16.4 mcg/mL Medications Current Medications Albuterol/ Ipratropium (Duoneb) 3 ml 1X STAT NEB Last administered on at 17:04; Start 01/05/19 at 17:03; Stop 01/05/19 at 17:04; Status DC Methylprednisolone Sodium Succinate (SOLU-Medrol 125MG VIAL) 125 mg 1X ONCE IV Last administered on 01/05/19at 18:25; Start 01/05/19 at 17:30; Stop 01/05/19 at 17:31; Status DC Albuterol Sulfate (Ventolin Neb Soln) 2.5 mg PRN Q4HRS PRN NEB SHORTNESS OF BREATH; Start 01/05/19 at 17:15; Stop 01/05/19 at 18:17; Status DC Vancomycin HCl 1 gm/Sodium Chloride 500 ml @ 250 mls/hr 1X ONCE IV ; Start 01/05/19 at 17:30; Stop 01/05/19 at 19:29; Status UNV Piperacillin Sod/ Tazobactam Sod 3.375 gm/Sodium Chloride 50 ml @ 100 mls/hr 1X ONCE IV ; Start 01/05/19 at 17:30; Stop 01/05/19 at 17:59; Status UNV Vancomycin HCl 250 ml @ 250 mls/hr 1X ONCE IV Last administered on 01/05/19at 20:20; Start 01/05/19 at 18:00; Stop 01/05/19 at 18:59; Status DC Piperacillin Sod/ Tazobactam Sod 3.375 gm/Sodium Chloride 50 ml @ 100 mls/hr 1X ONCE IV Last administered on 01/05/19at 18:26; Start 01/05/19 at 17:45; Stop 01/05/19 at 18:14; Status DC Ondansetron HCl (Zofran) 4 mg PRN Q8HRS PRN IV NAUSEA/VOMITING; Start 01/05/19 at 18:00; Stop 01/06/19 at 17:59; Status DC Morphine Sulfate (Morphine Sulfate) 2 mg PRN Q2HR PRN IV PAIN; Start 01/05/19 at 18:00; Stop 01/06/19 at 17:59; Status DC Potassium Chloride (Klor-Con) 60 meq 1X ONCE PO Last administered on 01/05/19 18:25; Start 01/05/19 at 18:00; Stop 01/05/19 at 18:01; Status DC Acetaminophen (Tylenol) 500 mg PRN Q6HRS PRN PO PAIN Last administered on 01/08/19 00:52; Start 01/05/19 at 18:00 Amiodarone HCl (Cordarone) 200 mg DAILY PO Last administered on 01/07/19 08:58; Start 01/06/19 at 09:00 Amlodipine Besylate (Norvasc) 5 mg BID PO Last administered on 01/07/19 21:14; Start 01/05/19 at 21:00 Aspirin (Children'S Aspirin) 81 mg DAILY PO Last administered on 01/07/19 08:58; Start 01/06/19 at 09:00 Ergocalciferol (Vitamin D2) 50,000 unit WEEKLY PO ; Start 01/19/19 at 09:00 Clopidogrel Bisulfate (Plavix) 75 mg DAILYWBKFT PO Last administered on 01/07/19 08:58; Start 01/06/19 at 08:00 Ferrous Sulfate (Feosol) 325 mg TIDWMEALS PO Last administered on 01/07/19 17:30; Start 01/06/19 at 08:00 Vitamin B Complex/ Vitamin C (Katie-Allison) 1 tab HS PO Last administered on 01/07/19 21:14; Start 01/05/19 at 21:00 Furosemide (Lasix) 20 mg BID PO Last administered on 01/07/19 21:14; Start 01/05/19 at 21:00 Levetiracetam (Keppra) 500 mg HS PO Last administered on 01/07/19 21:14; Start 01/05/19 at 21:00 Levetiracetam (Keppra) 250 mg DAILY PO Last administered on 01/07/19 08:58; Start 01/06/19 at 09:00 Metoprolol Succinate (Toprol Xl) 25 mg DAILY PO Last administered on 01/07/19 08:58; Start 01/06/19 at 09:00 Mirtazapine (Remeron) 15 mg QHS PO Last administered on 01/07/19 21:14; Start 01/05/19 at 21:00 Sertraline HCl (Zoloft) 50 mg HS PO Last administered on 01/07/19 21:14; Start 01/05/19 at 21:00 Atorvastatin Calcium (Lipitor) 80 mg QHS PO Last administered on 01/07/19 21:14; Start 01/05/19 at 21:00 Albuterol Sulfate (Ventolin Neb Soln) 2.5 mg Q4HRS NEB Last administered on 01/08/19 04:25; Start 01/05/19 at 20:00 Hydralazine HCl (Apresoline Inj) 10 mg PRN Q4HRS PRN IVP ELEVATED BP, SEE COMMENTS Last administered on 01/07/19at 10:57; Start 01/05/19 at 21:15; Stop 01/07/19 at 12:57; Status DC Heparin Sodium (Porcine) (Heparin Sodium) 5,000 unit Q8HRS SQ Last administered on 01/08/19 05:31; Start 01/05/19 at 22:00 Pantoprazole Sodium (Protonix) 40 mg DAILYAC PO Last administered on 01/06/19 08:07; Start 01/06/19 at 07:30; Stop 01/06/19 at 11:25; Status DC Pharmacy Consult (C.diff Med Screen By Rx) 1 each 1X ONCE MC Last administered on 01/06/19at 02:17; Start 01/05/19 at 23:00; Stop 01/05/19 at 23:01; Status DC Vancomycin HCl (Vanco Per Pharmacy) 1 each PRN DAILY PRN MC SEE COMMENTS Last administered on 01/08/19 09:17; Start 01/06/19 at 10:30 Piperacillin Sod/ Tazobactam Sod (Zosyn Per Pharmacy) 1 each PRN DAILY PRN MC SEE COMMENTS; Start 01/06/19 at 10:30 Piperacillin Sod/ Tazobactam Sod 2.25 gm/Sodium Chloride 50 ml @ 100 mls/hr Q8HRS IV Last administered on 01/08/19at 05:31; Start 01/06/19 at 11:00 Vancomycin HCl (Vancomycin Random Level) 1 each 1X ONCE MC Last administered on 01/07/19at 14:14; Start 01/07/19 at 05:00; Stop 01/07/19 at 05:01; Status DC Lactobacillus Rhamnosus (Culturelle) 1 cap BID PO Last administered on 01/07/19at 21:14; Start 01/06/19 at 21:00 Sodium Chloride 1,000 ml @ 1,000 mls/hr Q1H PRN IV hypotension; Start 01/06/19 at 10:00; Stop 01/06/19 at 15:59; Status DC Sodium Chloride 1,000 ml @ 400 mls/hr Q2H30M PRN IV PATENCY; Start 01/06/19 at 10:00; Stop 01/06/19 at 21:59; Status DC Info (PHARMACY MONITORING -- do not chart) 1 each PRN DAILY PRN MC SEE COMMENTS; Start 01/06/19 at 13:00; Status UNV Info (PHARMACY MONITORING -- do not chart) 1 each PRN DAILY PRN MC SEE COMMENTS; Start 01/06/19 at 13:00 Potassium Chloride (Klor-Con) 20 meq 1X ONCE PO Last administered on 01/07/19at 17:30; Start 01/07/19 at 14:30; Stop 01/07/19 at 14:31; Status DC Vancomycin HCl (Vancomycin Random Level) 1 each 1X ONCE MC Last administered on 01/08/19at 06:28; Start 01/08/19 at 05:00; Stop 01/08/19 at 05:01; Status DC Hydralazine HCl (Apresoline Inj) 20 mg PRN Q4HRS PRN IVP ELEVATED BP, SEE COMMENTS Last administered on 01/07/19at 14:29; Start 01/07/19 at 13:00 Lorazepam (Ativan Inj) 1 mg 1X ONCE IV Last administered on 01/07/19at 15:15; Start 01/07/19 at 15:00; Stop 01/07/19 at 15:01; Status DC Ondansetron HCl (Zofran) 4 mg PRN Q6HRS PRN IV NAUSEA/VOMITING; Start 01/08/19 at 08:30 Sodium Chloride 1,000 ml @ 1,000 mls/hr Q1H PRN IV hypotension; Start 01/08/19 at 06:30; Stop 01/08/19 at 12:29 Sodium Chloride 1,000 ml @ 400 mls/hr Q2H30M PRN IV PATENCY; Start 01/08/19 at 06:30; Stop 01/08/19 at 18:29 Info (PHARMACY MONITORING -- do not chart) 1 each PRN DAILY PRN MC SEE COMMENTS; Start 01/08/19 at 08:30; Status UNV Info (PHARMACY MONITORING -- do not chart) 1 each PRN DAILY PRN MC SEE COMMENTS; Start 01/08/19 at 08:30; Status UNV Vancomycin HCl 500 mg/Sodium Chloride 100 ml @ 100 mls/hr QMWF IV ; Start 01/08/19 at 16:00 Active Scripts Active Metoprolol Succinate ( Xl ) (Metoprolol Succinate) 25 Mg Tab.er.24h 25 Mg PO DAILY 30 Days Clopidogrel (Clopidogrel Bisulfate) 75 Mg Tablet 75 Mg PO DAILYWBKFT 30 Days Reported Lasix (Furosemide) 20 Mg Tablet 1 Tab PO BID Nephro-Allison Tablet (Folic Acid/Vitamin B Comp W-C) 0.8 Mg Tablet 1 Tab PO HS Mirtazapine 15 Mg Tablet 1 Tab PO QHS Levothyroxine Sodium 175 Mcg Tablet 1 Tab PO DAILY Ferrous Sulfate 325 Mg Tablet 1 Tab PO TID PRN Amlodipine Besylate 5 Mg Tablet 5 Mg PO BID PRN Acetaminophen 500 Mg Tablet 1 Tab PO PRN Q6HRS PRN Zoloft (Sertraline Hcl) 50 Mg Tablet 1 Tab PO HS Levetiracetam 500 Mg Tablet 1 Tab PO HS Levetiracetam 500 Mg Tablet 250 Mg PO DAILY Vitamin D3 (Cholecalciferol (Vitamin D3)) 1,000 Unit Tablet 1 Tab PO QFR Atorvastatin Calcium 80 Mg Tablet 1 Tab PO HS Aspirin 81 Mg Tab.chew 1 Tab PO DAILY Amiodarone Hcl 200 Mg Tablet 1 Tab PO DAILY Vitals/I & O Vital Sign - Last 24 Hours 01/07/19 01/07/19 01/07/19 01/07/19 10:40 10:57 12:21 14:29 Temp 98.1 98.1 Pulse 70 70 70 Resp 24 B/P (MAP) 182/75 (110) 182/75 167/73 Pulse Ox 92 95 O2 Delivery Nasal Cannula Nasal Cannula O2 Flow Rate 5.0 8.0 01/07/19 01/07/19 01/07/19 01/07/19 15:11 16:13 19:34 19:53 Temp 97.8 97.7 97.8 97.7 Pulse 73 75 Resp 24 24 B/P (MAP) 180/67 (104) 143/66 (91) Pulse Ox 86 92 96 O2 Delivery Nasal Cannula Venturi Mask Venturi Mask Nasal Cannula O2 Flow Rate 5.0 15.0 15.0 01/07/19 01/07/19 01/07/19 01/08/19 20:04 21:14 22:31 03:36 Temp 97.6 98.7 97.6 98.7 Pulse 75 79 69 Resp 24 B/P (MAP) 143/66 115/52 (73) 159/99 (119) Pulse Ox 92 94 93 O2 Delivery Venturi Mask Venturi Mask Venturi Mask O2 Flow Rate 12.0 15.0 01/08/19 04:25 Pulse Ox 94 O2 Delivery Venturi Mask O2 Flow Rate 12.0 Intake and Output 01/07/19 01/07/19 01/08/19 14:59 22:59 06:59 Intake Total 480 ml 240 ml 440 ml Output Total 100 ml Balance 380 ml 240 ml 440 ml AV BASSETT MD Jan 08, 2019 09:54
--- NOTE | 2019-01-08 11:53 | PDOC ---
PULMONARY PROGRESS NOTES Subjective PT SEEN IN HD [facility] [place] WANTS TO GO HOME Vitals Vital Signs Date Time Temp Pulse Resp B/P (MAP) Pulse Ox O2 Delivery O2 Flow Rate FiO2 01/08/19 04:25 94 Venturi Mask 12.0 01/08/19 03:36 98.7 69 24 159/99 (119) 98.7 ROS: No Nausea, No Chest Pain, No Abdominal Pain, No Increase Cough General: Alert, No acute distress HEENT: Other (POS JVD) Lungs: Crackles Cardiovascular: S1, S2 Abdomen: Soft, Non-tender Neuro Exam: Alert Extremities: No Edema Skin: Warm Labs Laboratory Tests Test 01/07/19 13:45 01/08/19 04:50 Sodium Level 138 mmol/L (136-145) 139 mmol/L (136-145) Potassium Level 3.2 mmol/L (3.5-5.1) 3.9 mmol/L (3.5-5.1) Chloride Level 100 mmol/L (98-107) 102 mmol/L (98-107) Carbon Dioxide Level 25 mmol/L (21-32) 25 mmol/L (21-32) Anion Gap 13 (6-14) 12 (6-14) Blood Urea Nitrogen 27 mg/dL (7-20) 37 mg/dL (7-20) Creatinine 3.8 mg/dL (0.6-1.0) 4.9 mg/dL (0.6-1.0) Estimated GFR (Cockcroft-Gault) 11.6 8.7 Glucose Level 192 mg/dL (70-99) 94 mg/dL (70-99) Calcium Level 7.8 mg/dL (8.5-10.1) 8.0 mg/dL (8.5-10.1) White Blood Count 13.3 x10^3/uL (4.0-11.0) Red Blood Count 3.52 x10^6/uL (3.50-5.40) Hemoglobin 10.4 g/dL (12.0-15.5) Hematocrit 31.8 % (36.0-47.0) Mean Corpuscular Volume 91 fL (79-100) Mean Corpuscular Hemoglobin 30 pg (25-35) Mean Corpuscular Hemoglobin Concent 33 g/dL (31-37) Red Cell Distribution Width 19.5 % (11.5-14.5) Platelet Count 152 x10^3/uL (140-400) Neutrophils (%) (Auto) 90 % (31-73) Lymphocytes (%) (Auto) 4 % (24-48) Monocytes (%) (Auto) 5 % (0-9) Eosinophils (%) (Auto) 0 % (0-3) Basophils (%) (Auto) 1 % (0-3) Neutrophils # (Auto) 11.9 x10^3/uL (1.8-7.7) Lymphocytes # (Auto) 0.6 x10^3/uL (1.0-4.8) Monocytes # (Auto) 0.7 x10^3/uL (0.0-1.1) Eosinophils # (Auto) 0.0 x10^3/uL (0.0-0.7) Basophils # (Auto) 0.1 x10^3/uL (0.0-0.2) BUN/Creatinine Ratio 8 (6-20) Total Bilirubin 0.7 mg/dL (0.2-1.0) Aspartate Amino Transf (AST/SGOT) 46 U/L (15-37) Alanine Aminotransferase (ALT/SGPT) 58 U/L (14-59) Alkaline Phosphatase 62 U/L (46-116) Total Protein 5.8 g/dL (6.4-8.2) Albumin 1.7 g/dL (3.4-5.0) Albumin/Globulin Ratio 0.4 (1.0-1.7) Random Vancomycin Level 16.4 mcg/mL Laboratory Tests Test 01/07/19 13:45 01/08/19 04:50 Sodium Level 138 mmol/L (136-145) 139 mmol/L (136-145) Potassium Level 3.2 mmol/L (3.5-5.1) 3.9 mmol/L (3.5-5.1) Chloride Level 100 mmol/L (98-107) 102 mmol/L (98-107) Carbon Dioxide Level 25 mmol/L (21-32) 25 mmol/L (21-32) Anion Gap 13 (6-14) 12 (6-14) Blood Urea Nitrogen 27 mg/dL (7-20) 37 mg/dL (7-20) Creatinine 3.8 mg/dL (0.6-1.0) 4.9 mg/dL (0.6-1.0) Estimated GFR (Cockcroft-Gault) 11.6 8.7 Glucose Level 192 mg/dL (70-99) 94 mg/dL (70-99) Calcium Level 7.8 mg/dL (8.5-10.1) 8.0 mg/dL (8.5-10.1) White Blood Count 13.3 x10^3/uL (4.0-11.0) Red Blood Count 3.52 x10^6/uL (3.50-5.40) Hemoglobin 10.4 g/dL (12.0-15.5) Hematocrit 31.8 % (36.0-47.0) Mean Corpuscular Volume 91 fL (79-100) Mean Corpuscular Hemoglobin 30 pg (25-35) Mean Corpuscular Hemoglobin Concent 33 g/dL (31-37) Red Cell Distribution Width 19.5 % (11.5-14.5) Platelet Count 152 x10^3/uL (140-400) Neutrophils (%) (Auto) 90 % (31-73) Lymphocytes (%) (Auto) 4 % (24-48) Monocytes (%) (Auto) 5 % (0-9) Eosinophils (%) (Auto) 0 % (0-3) Basophils (%) (Auto) 1 % (0-3) Neutrophils # (Auto) 11.9 x10^3/uL (1.8-7.7) Lymphocytes # (Auto) 0.6 x10^3/uL (1.0-4.8) Monocytes # (Auto) 0.7 x10^3/uL (0.0-1.1) Eosinophils # (Auto) 0.0 x10^3/uL (0.0-0.7) Basophils # (Auto) 0.1 x10^3/uL (0.0-0.2) BUN/Creatinine Ratio 8 (6-20) Total Bilirubin 0.7 mg/dL (0.2-1.0) Aspartate Amino Transf (AST/SGOT) 46 U/L (15-37) Alanine Aminotransferase (ALT/SGPT) 58 U/L (14-59) Alkaline Phosphatase 62 U/L (46-116) Total Protein 5.8 g/dL (6.4-8.2) Albumin 1.7 g/dL (3.4-5.0) Albumin/Globulin Ratio 0.4 (1.0-1.7) Random Vancomycin Level 16.4 mcg/mL Medications Active Scripts Medications Dose Route/Sig Max Daily Dose Days Date Category Lasix (Furosemide) 20 Mg Tablet 1 Tab PO BID 01/03/19 Reported Nephro-Allison Tablet (Folic Acid/Vitamin B Comp W-C) 0.8 Mg Tablet 1 Tab PO HS 08/17/18 Reported Mirtazapine 15 Mg Tablet 1 Tab PO QHS 08/17/18 Reported Levothyroxine Sodium 175 Mcg Tablet 1 Tab PO DAILY 08/17/18 Reported Ferrous Sulfate 325 Mg Tablet 1 Tab PO TID PRN 08/17/18 Reported Amlodipine Besylate 5 Mg Tablet 5 Mg PO BID PRN 08/17/18 Reported Metoprolol Succinate ( Xl ) (Metoprolol Succinate) 25 Mg Tab.er.24h 25 Mg PO DAILY 30 06/28/18 Rx Clopidogrel (Clopidogrel Bisulfate) 75 Mg Tablet 75 Mg PO DAILYWBKFT 30 06/28/18 Rx Acetaminophen 500 Mg Tablet 1 Tab PO PRN Q6HRS PRN 06/19/18 Reported Zoloft (Sertraline Hcl) 50 Mg Tablet 1 Tab PO HS 06/19/18 Reported Levetiracetam 500 Mg Tablet 1 Tab PO HS 06/19/18 Reported Levetiracetam 500 Mg Tablet 250 Mg PO DAILY 06/19/18 Reported Vitamin D3 (Cholecalciferol (Vitamin D3)) 1,000 Unit Tablet 1 Tab PO QFR 11/25/17 Reported Atorvastatin Calcium 80 Mg Tablet 1 Tab PO HS 11/25/17 Reported Aspirin 81 Mg Tab.chew 1 Tab PO DAILY 11/24/17 Reported Amiodarone Hcl 200 Mg Tablet 1 Tab PO DAILY 11/24/17 Reported Impression . IMPRESSION: 1. Acute on chronic hypoxemic respiratory failure. 2. Abnormal x-ray compatible with bilateral interstitial edema. 3. Bilateral pleural effusions, right greater than left. 4. Recent bronchoscopy status post removal of mucus plug in the left upper lobe. Current chest x-ray is greatly improved. 5. End-stage renal disease, on hemodialysis. 6. Protein malnutrition. 7. Generalized weakness. 8. Hypokalemia. 9. Leukocytosis. 10. Peripheral vascular disease. 11. History of hypothyroidism, hypertension, depression and anxiety. 12. History of seizures. 13. S/P THORACENTESIS 01/07 FROM LAST ADMISSION Note [facility] Accession Number: [id number] TESTS RESULT FLAG UNITS REF RANGE LAB Clinician Provided Cytology Information No. of containers..01 Other (Miscellaneous) Source: DAVE BAL DIAGNOSIS: DAVE BAL NEGATIVE FOR MALIGNANT CELLS. SCANT CELLULARITY. NORMAL BRONCHIAL CELLS AND MACROPHAGES ARE PRESENT. PULMONARY MACROPHAGES (DUST CELLS) ARE PRESENT. Signed out by: BRONCH REVEALED MUCUS PLUGGING DAVE BAL FROM 01/04 SPEC #: [id number] BJ: 01/04/19123 STATUS: COMP REQ #: [id number] RECD: 01/04/[address]: AV BASSETT MD SOURCE: BRONCH [facility] ENTR: 01/04/[address] [facility] [address]: HUI DOZIER MD SPDESC: [facility] NISHI BENITEZ MD, SABATO MD ORDERED: BRONCH COMMENTS: BAL, DAVE Procedure Result BRONCHIAL GRAM STAIN Final WBCS FEW RBCS MODERATE ORGANISMS NONE SEEN Plan . BETTER TODAY WILL REPEAT CXR ANNTIBX PER ID CYNDIE,SABATO MD Jan 08, 2019 11:53
[2019-01-08] MEDS: FERROUS SULFATE 325 MG TABLET. PO SCH ×3 (12:00→17:07)
[2019-01-08] MEDS: FUROSEMIDE 20 MG TABLET PO SCH ×2 (12:13→17:07)
[2019-01-08] MEDS: LACTOBACILLUS RHAMNOSUS GG 1 CAPSULE. PO SCH ×2 (12:13→21:43)
[2019-01-08] MEDS: ASPIRIN CHEWABLE 81 MG TABLET. PO SCH (12:13)
[2019-01-08] MEDS: CLOPIDOGREL BISULFATE 75 MG TABLET PO SCH (12:13)
[2019-01-08] MEDS: amLODIPine BESYLATE 5 MG TABLET PO SCH ×2 (12:14→21:44)
[2019-01-08] MEDS: levETIRAcetam 250 MG TABLET PO SCH (12:14)
[2019-01-08] MEDS: AMOXICILLIN/K CLAV 500/125MG TABLET. PO SCH (12:14)
[2019-01-08] MEDS: METOPROLOL SUCC 24HR ER 25 MG TAB.ER.24H. PO SCH (12:16)
[2019-01-08] MEDS: AMIODARONE HCL 200 MG TABLET. PO SCH (12:22)
--- NOTE | 2019-01-08 12:25 | NUR ---
Patient in dialysis from 0700 until 1215. Gave morning meds to patient now. 0800 breathing treatment not given since patient off floor. iron pill 0800 dose given so 1200 dose held.
--- NOTE | 2019-01-08 13:54 | PDOC ---
SUBJECTIVE ROS Breathing better, On O2 by NC , wants to home, OBJECTIVE Vital Signs Vital Signs Date Time Temp Pulse Resp B/P (MAP) Pulse Ox O2 Delivery O2 Flow Rate FiO2 01/08/19 12:42 97 Nasal Cannula 8.0 01/08/19 12:22 73 190/80 01/08/19 03:36 98.7 24 98.7 I & 0 Intake and Output 01/08/19 07:00 Intake Total 1160 ml Output Total 100 ml Balance 1060 ml Intake Oral 1160 ml Output Urine Total 100 ml # Bowel Movements 2 PHYSICAL EXAM Physical Exam GENERAL: NAD HEENT: Left eye blindness, On O2 by NC Neck Supple LUNGS: Diminished aeration in bases, fine crackles. HEART: S1 and S2. ABDOMEN: Soft. No guarding. Bowel sounds present. EXTREMITIES: No gross edema or cyanosis, has AVG Rt arm SKIN: Warm to touch. No signs of rash. NEUROLOGIC: Grossly Normal LINES: RIJ/HDC without signs of any complications - No Klein DIAGNOSIS/ASSESSMENT Assessment & Plan ESRD - On HD MWF at [facility] under Dr. Johnson Dialysis today as ordered, Tolerated well Used AVG Placed by Dr Sy(Vascular) recommended to be used right away Hypokalemia-Stable On PO KCL at home Anemia- Hgb stable, No indication of REENA currently Bilateral pleural effusions with questionable pneumonia. Acute respiratory failure, now on a BiPAP. Recent history of complete left upper lobe atelectasis, status post bronchoscopy on 01/04/2019. Cultures are still pending. Congestive heart failure. Hx of Seizure disorder. COMMENT/RELEVANT DATA Meds Current Medications Medications (Trade) Dose Ordered Sig/Dez Start Time Stop Time Status Last Admin Dose Admin Acetaminophen (Tylenol) 500 mg PRN Q6HRS PRN 01/05/19 18:00 01/08/19 00:52 500 MG Albuterol Sulfate (Ventolin Neb Soln) 2.5 mg Q4HRS 01/05/19 20:00 01/08/19 12:42 2.5 MG Albuterol/ Ipratropium (Duoneb) 3 ml 1X STAT 01/05/19 17:03 01/05/19 17:04 DC 01/05/19 17:04 3 ML Amiodarone HCl (Cordarone) 200 mg DAILY 01/06/19 09:00 01/08/19 12:22 200 MG Amlodipine Besylate (Norvasc) 5 mg BID 01/05/19 21:00 01/08/19 12:22 5 MG Amoxicillin/ Clavulanate Potassium (Augmentin 500/ 125mg) 1 tab DAILY 01/08/19 12:00 01/08/19 12:22 1 TAB Aspirin (Children'S Aspirin) 81 mg DAILY 01/06/19 09:00 01/08/19 12:22 81 MG Atorvastatin Calcium (Lipitor) 80 mg QHS 01/05/19 21:00 01/07/19 21:14 80 MG Clopidogrel Bisulfate (Plavix) 75 mg DAILYWBKFT 01/06/19 08:00 01/08/19 12:22 75 MG Ergocalciferol (Vitamin D2) 50,000 unit WEEKLY 01/19/19 09:00 Ferrous Sulfate (Feosol) 325 mg TIDWMEALS 01/06/19 08:00 01/08/19 12:22 325 MG Furosemide (Lasix) 20 mg [id number] 01/08/19 16:00 Heparin Sodium (Porcine) (Heparin Sodium) 5,000 unit Q8HRS 01/05/19 22:00 01/08/19 05:31 5,000 UNIT Hydralazine HCl (Apresoline Inj) 20 mg PRN Q4HRS PRN 01/07/19 13:00 01/07/19 14:29 20 MG Info (PHARMACY MONITORING -- do not chart) 1 each PRN DAILY PRN 01/08/19 08:30 UNV Lactobacillus Rhamnosus (Culturelle) 1 cap BID 01/06/19 21:00 01/08/19 12:22 1 CAP Levetiracetam (Keppra) 250 mg DAILY 01/06/19 09:00 01/08/19 12:22 250 MG Lorazepam (Ativan Inj) 1 mg 1X ONCE 01/07/19 15:00 01/07/19 15:01 DC 01/07/19 15:15 0.5 MG Methylprednisolone Sodium Succinate (SOLU-Medrol 125MG VIAL) 125 mg 1X ONCE 01/05/19 17:30 01/05/19 17:31 DC 01/05/19 18:25 125 MG Metoprolol Succinate (Toprol Xl) 25 mg DAILY 01/06/19 09:00 01/08/19 12:22 25 MG Mirtazapine (Remeron) 15 mg QHS 01/05/19 21:00 01/07/19 21:14 15 MG Morphine Sulfate (Morphine Sulfate) 2 mg PRN Q2HR PRN 01/05/19 18:00 01/06/19 17:59 DC Ondansetron HCl (Zofran) 4 mg PRN Q6HRS PRN 01/08/19 08:30 Pantoprazole Sodium (Protonix) 40 mg DAILYAC 01/06/19 07:30 01/06/19 11:25 DC 01/06/19 08:07 40 MG Pharmacy Consult (C.diff Med Screen By Rx) 1 each 1X ONCE 01/05/19 23:00 01/05/19 23:01 DC 01/06/19 02:17 1 EACH Piperacillin Sod/ Tazobactam Sod (Zosyn Per Pharmacy) 1 each PRN DAILY PRN 01/06/19 10:30 Piperacillin Sod/ Tazobactam Sod 2.25 gm/Sodium Chloride 50 ml @ 100 mls/hr Q8HRS 01/06/19 11:00 01/08/19 10:14 DC 01/08/19 05:31 100 MLS/HR Piperacillin Sod/ Tazobactam Sod 3.375 gm/Sodium Chloride 50 ml @ 100 mls/hr 1X ONCE 01/05/19 17:45 01/05/19 18:14 DC 01/05/19 18:26 100 MLS/HR Potassium Chloride (Klor-Con) 20 meq 1X ONCE 01/07/19 14:30 01/07/19 14:31 DC 01/07/19 17:30 20 MEQ Sertraline HCl (Zoloft) 50 mg HS 01/05/19 21:00 01/07/19 21:14 50 MG Sodium Chloride 1,000 ml @ 400 mls/hr Q2H30M PRN 01/08/19 06:30 01/08/19 18:29 Vancomycin HCl (Vanco Per Pharmacy) 1 each PRN DAILY PRN 01/06/19 10:30 01/08/19 10:14 DC 01/08/19 09:17 1 EACH Vancomycin HCl (Vancomycin Random Level) 1 each 1X ONCE 01/08/19 05:00 01/08/19 05:01 DC 01/08/19 06:28 1 EACH Vancomycin HCl 500 mg/Sodium Chloride 100 ml @ 100 mls/hr QMWF 01/08/19 16:00 01/08/19 10:14 DC Vancomycin HCl 1 gm/Sodium Chloride 500 ml @ 250 mls/hr 1X ONCE 01/05/19 17:30 01/05/19 19:29 UNV Vitamin B Complex/ Vitamin C (Katie-Allison) 1 tab HS 01/05/19 21:00 01/07/19 21:14 1 TAB Lab Laboratory Tests Test 01/08/19 04:50 White Blood Count 13.3 x10^3/uL (4.0-11.0) Red Blood Count 3.52 x10^6/uL (3.50-5.40) Hemoglobin 10.4 g/dL (12.0-15.5) Hematocrit 31.8 % (36.0-47.0) Mean Corpuscular Volume 91 fL (79-100) Mean Corpuscular Hemoglobin 30 pg (25-35) Mean Corpuscular Hemoglobin Concent 33 g/dL (31-37) Red Cell Distribution Width 19.5 % (11.5-14.5) Platelet Count 152 x10^3/uL (140-400) Neutrophils (%) (Auto) 90 % (31-73) Lymphocytes (%) (Auto) 4 % (24-48) Monocytes (%) (Auto) 5 % (0-9) Eosinophils (%) (Auto) 0 % (0-3) Basophils (%) (Auto) 1 % (0-3) Neutrophils # (Auto) 11.9 x10^3/uL (1.8-7.7) Lymphocytes # (Auto) 0.6 x10^3/uL (1.0-4.8) Monocytes # (Auto) 0.7 x10^3/uL (0.0-1.1) Eosinophils # (Auto) 0.0 x10^3/uL (0.0-0.7) Basophils # (Auto) 0.1 x10^3/uL (0.0-0.2) Sodium Level 139 mmol/L (136-145) Potassium Level 3.9 mmol/L (3.5-5.1) Chloride Level 102 mmol/L (98-107) Carbon Dioxide Level 25 mmol/L (21-32) Anion Gap 12 (6-14) Blood Urea Nitrogen 37 mg/dL (7-20) Creatinine 4.9 mg/dL (0.6-1.0) Estimated GFR (Cockcroft-Gault) 8.7 BUN/Creatinine Ratio 8 (6-20) Glucose Level 94 mg/dL (70-99) Calcium Level 8.0 mg/dL (8.5-10.1) Total Bilirubin 0.7 mg/dL (0.2-1.0) Aspartate Amino Transf (AST/SGOT) 46 U/L (15-37) Alanine Aminotransferase (ALT/SGPT) 58 U/L (14-59) Alkaline Phosphatase 62 U/L (46-116) Total Protein 5.8 g/dL (6.4-8.2) Albumin 1.7 g/dL (3.4-5.0) Albumin/Globulin Ratio 0.4 (1.0-1.7) Random Vancomycin Level 16.4 mcg/mL Results All relevant outside records, renal labs, imaging studies, telemetry/EKG's were reviewed. JAZLYN CUNHA MD Jan 08, 2019 13:54
--- NOTE | 2019-01-08 13:58 | PDOC ---
PROGRESS NOTES Subjective Subjective Patient seen and examined Objective Objective Vital Signs Date Time Temp Pulse Resp B/P (MAP) Pulse Ox O2 Delivery O2 Flow Rate FiO2 01/08/19 12:42 97 Nasal Cannula 8.0 01/08/19 12:22 73 190/80 01/08/19 03:36 98.7 24 98.7 Intake and Output 01/08/19 07:00 Intake Total 1160 ml Output Total 100 ml Balance 1060 ml Intake Oral 1160 ml Output Urine Total 100 ml # Bowel Movements 2 Physical Exam Abdomen: Normal bowel sounds Heart: Regular rate General: mild distress Lungs: Other (mildly decreased breath sounds) Assessment Assessment Problems Medical Problems: (1) Acute respiratory failure with hypoxia Status: Acute (2) ALEXEY (acute kidney injury) Status: Acute (3) Hypokalemia Status: Acute 1. Acute respiratory failure. Multi-factorial. Continuing present premedications. ID following. Improved today. 2. Acute on chronic heart failure. Fluid status as per the renal service. ECHO 3. End-stage renal disease. Patient seen during hemodialysis. Followed by renal. 4. History of coronary disease with previous bypass surgery. Continuing present treatment. 5. History of a pacemaker. We'll check on manufacturers and interrogate as needed. 6. Hypertension. Reasonably controlled. Comment Review of Relevant I have reviewed the following items jose (where applicable) has been applied. Labs Laboratory Tests Test 01/07/19 13:45 01/08/19 04:50 Sodium Level 138 mmol/L (136-145) 139 mmol/L (136-145) Potassium Level 3.2 mmol/L (3.5-5.1) 3.9 mmol/L (3.5-5.1) Chloride Level 100 mmol/L (98-107) 102 mmol/L (98-107) Carbon Dioxide Level 25 mmol/L (21-32) 25 mmol/L (21-32) Anion Gap 13 (6-14) 12 (6-14) Blood Urea Nitrogen 27 mg/dL (7-20) 37 mg/dL (7-20) Creatinine 3.8 mg/dL (0.6-1.0) 4.9 mg/dL (0.6-1.0) Estimated GFR (Cockcroft-Gault) 11.6 8.7 Glucose Level 192 mg/dL (70-99) 94 mg/dL (70-99) Calcium Level 7.8 mg/dL (8.5-10.1) 8.0 mg/dL (8.5-10.1) White Blood Count 13.3 x10^3/uL (4.0-11.0) Red Blood Count 3.52 x10^6/uL (3.50-5.40) Hemoglobin 10.4 g/dL (12.0-15.5) Hematocrit 31.8 % (36.0-47.0) Mean Corpuscular Volume 91 fL (79-100) Mean Corpuscular Hemoglobin 30 pg (25-35) Mean Corpuscular Hemoglobin Concent 33 g/dL (31-37) Red Cell Distribution Width 19.5 % (11.5-14.5) Platelet Count 152 x10^3/uL (140-400) Neutrophils (%) (Auto) 90 % (31-73) Lymphocytes (%) (Auto) 4 % (24-48) Monocytes (%) (Auto) 5 % (0-9) Eosinophils (%) (Auto) 0 % (0-3) Basophils (%) (Auto) 1 % (0-3) Neutrophils # (Auto) 11.9 x10^3/uL (1.8-7.7) Lymphocytes # (Auto) 0.6 x10^3/uL (1.0-4.8) Monocytes # (Auto) 0.7 x10^3/uL (0.0-1.1) Eosinophils # (Auto) 0.0 x10^3/uL (0.0-0.7) Basophils # (Auto) 0.1 x10^3/uL (0.0-0.2) BUN/Creatinine Ratio 8 (6-20) Total Bilirubin 0.7 mg/dL (0.2-1.0) Aspartate Amino Transf (AST/SGOT) 46 U/L (15-37) Alanine Aminotransferase (ALT/SGPT) 58 U/L (14-59) Alkaline Phosphatase 62 U/L (46-116) Total Protein 5.8 g/dL (6.4-8.2) Albumin 1.7 g/dL (3.4-5.0) Albumin/Globulin Ratio 0.4 (1.0-1.7) Random Vancomycin Level 16.4 mcg/mL Laboratory Tests Test 01/08/19 04:50 White Blood Count 13.3 x10^3/uL (4.0-11.0) Red Blood Count 3.52 x10^6/uL (3.50-5.40) Hemoglobin 10.4 g/dL (12.0-15.5) Hematocrit 31.8 % (36.0-47.0) Mean Corpuscular Volume 91 fL (79-100) Mean Corpuscular Hemoglobin 30 pg (25-35) Mean Corpuscular Hemoglobin Concent 33 g/dL (31-37) Red Cell Distribution Width 19.5 % (11.5-14.5) Platelet Count 152 x10^3/uL (140-400) Neutrophils (%) (Auto) 90 % (31-73) Lymphocytes (%) (Auto) 4 % (24-48) Monocytes (%) (Auto) 5 % (0-9) Eosinophils (%) (Auto) 0 % (0-3) Basophils (%) (Auto) 1 % (0-3) Neutrophils # (Auto) 11.9 x10^3/uL (1.8-7.7) Lymphocytes # (Auto) 0.6 x10^3/uL (1.0-4.8) Monocytes # (Auto) 0.7 x10^3/uL (0.0-1.1) Eosinophils # (Auto) 0.0 x10^3/uL (0.0-0.7) Basophils # (Auto) 0.1 x10^3/uL (0.0-0.2) Sodium Level 139 mmol/L (136-145) Potassium Level 3.9 mmol/L (3.5-5.1) Chloride Level 102 mmol/L (98-107) Carbon Dioxide Level 25 mmol/L (21-32) Anion Gap 12 (6-14) Blood Urea Nitrogen 37 mg/dL (7-20) Creatinine 4.9 mg/dL (0.6-1.0) Estimated GFR (Cockcroft-Gault) 8.7 BUN/Creatinine Ratio 8 (6-20) Glucose Level 94 mg/dL (70-99) Calcium Level 8.0 mg/dL (8.5-10.1) Total Bilirubin 0.7 mg/dL (0.2-1.0) Aspartate Amino Transf (AST/SGOT) 46 U/L (15-37) Alanine Aminotransferase (ALT/SGPT) 58 U/L (14-59) Alkaline Phosphatase 62 U/L (46-116) Total Protein 5.8 g/dL (6.4-8.2) Albumin 1.7 g/dL (3.4-5.0) Albumin/Globulin Ratio 0.4 (1.0-1.7) Random Vancomycin Level 16.4 mcg/mL Medications Current Medications Albuterol/ Ipratropium (Duoneb) 3 ml 1X STAT NEB Last administered on 01/05/19at 17:04; Start 01/05/19 at 17:03; Stop 01/05/19 at 17:04; Status DC Methylprednisolone Sodium Succinate (SOLU-Medrol 125MG VIAL) 125 mg 1X ONCE IV Last administered on 01/05/19at 18:25; Start 01/05/19 at 17:30; Stop 01/05/19 at 17:31; Status DC Albuterol Sulfate (Ventolin Neb Soln) 2.5 mg PRN Q4HRS PRN NEB SHORTNESS OF BREATH; Start 01/05/19 at 17:15; Stop 01/05/19 at 18:17; Status DC Vancomycin HCl 1 gm/Sodium Chloride 500 ml @ 250 mls/hr 1X ONCE IV ; Start 01/05/19 at 17:30; Stop 01/05/19 at 19:29; Status UNV Piperacillin Sod/ Tazobactam Sod 3.375 gm/Sodium Chloride 50 ml @ 100 mls/hr 1X ONCE IV ; Start 01/05/19 at 17:30; Stop 01/05/19 at 17:59; Status UNV Vancomycin HCl 250 ml @ 250 mls/hr 1X ONCE IV Last administered on 01/05/19at 20:20; Start 01/05/19 at 18:00; Stop 01/05/19 at 18:59; Status DC Piperacillin Sod/ Tazobactam Sod 3.375 gm/Sodium Chloride 50 ml @ 100 mls/hr 1X ONCE IV Last administered on 01/05/19at 18:26; Start 01/05/19 at 17:45; Stop 01/05/19 at 18:14; Status DC Ondansetron HCl (Zofran) 4 mg PRN Q8HRS PRN IV NAUSEA/VOMITING; Start 01/05/19 at 18:00; Stop 01/06/19 at 17:59; Status DC Morphine Sulfate (Morphine Sulfate) 2 mg PRN Q2HR PRN IV PAIN; Start 01/05/19 at 18:00; Stop 01/06/19 at 17:59; Status DC Potassium Chloride (Klor-Con) 60 meq 1X ONCE PO Last administered on 01/05/19at 18:25; Start 01/05/19 at 18:00; Stop 01/05/19 at 18:01; Status DC Acetaminophen (Tylenol) 500 mg PRN Q6HRS PRN PO PAIN Last administered on 01/08/19 00:52; Start 01/05/19 at 18:00 Amiodarone HCl (Cordarone) 200 mg DAILY PO Last administered on 01/08/19 12:22; Start 01/06/19 at 09:00 Amlodipine Besylate (Norvasc) 5 mg BID PO Last administered on 01/08/19 12:22; Start 01/05/19 at 21:00 Aspirin (Children'S Aspirin) 81 mg DAILY PO Last administered on 01/08/19 12:22; Start 01/06/19 at 09:00 Ergocalciferol (Vitamin D2) 50,000 unit WEEKLY PO ; Start 01/19/19 at 09:00 Clopidogrel Bisulfate (Plavix) 75 mg DAILYWBKFT PO Last administered on 01/08/19 12:22; Start 01/06/19 at 08:00 Ferrous Sulfate (Feosol) 325 mg TIDWMEALS PO Last administered on 01/08/19 12:22; Start 01/06/19 at 08:00 Vitamin B Complex/ Vitamin C (Katie-Allison) 1 tab HS PO Last administered on 01/07/19 21:14; Start 01/05/19 at 21:00 Furosemide (Lasix) 20 mg BID PO Last administered on 01/08/19 12:22; Start 01/05/19 at 21:00; Stop 01/08/19 at 13:08; Status DC Levetiracetam (Keppra) 500 mg HS PO Last administered on 01/07/19 21:14; Start 01/05/19 at 21:00 Levetiracetam (Keppra) 250 mg DAILY PO Last administered on 01/08/19 12:22; Start 01/06/19 at 09:00 Metoprolol Succinate (Toprol Xl) 25 mg DAILY PO Last administered on 01/08/19 12:22; Start 01/06/19 at 09:00 Mirtazapine (Remeron) 15 mg QHS PO Last administered on 01/07/19 21:14; Start 01/05/19 at 21:00 Sertraline HCl (Zoloft) 50 mg HS PO Last administered on 01/07/19 21:14; Start 01/05/19 at 21:00 Atorvastatin Calcium (Lipitor) 80 mg QHS PO Last administered on 01/07/19 21:14; Start 01/05/19 at 21:00 Albuterol Sulfate (Ventolin Neb Soln) 2.5 mg Q4HRS NEB Last administered on 01/08/19 12:42; Start 01/05/19 at 20:00 Hydralazine HCl (Apresoline Inj) 10 mg PRN Q4HRS PRN IVP ELEVATED BP, SEE COMMENTS Last administered on 01/07/19 10:57; Start 01/05/19 at 21:15; Stop 01/07/19 at 12:57; Status DC Heparin Sodium (Porcine) (Heparin Sodium) 5,000 unit Q8HRS SQ Last administered on 01/08/19 05:31; Start 01/05/19 at 22:00 Pantoprazole Sodium (Protonix) 40 mg DAILYAC PO Last administered on 01/06/19 08:07; Start 01/06/19 at 07:30; Stop 01/06/19 at 11:25; Status DC Pharmacy Consult (C.diff Med Screen By Rx) 1 each 1X ONCE MC Last administered on 01/06/19 02:17; Start 01/05/19 at 23:00; Stop 01/05/19 at 23:01; Status DC Vancomycin HCl (Vanco Per Pharmacy) 1 each PRN DAILY PRN MC SEE COMMENTS Last administered on 01/08/19 09:17; Start 01/06/19 at 10:30; Stop 01/08/19 at 10:14; Status DC Piperacillin Sod/ Tazobactam Sod (Zosyn Per Pharmacy) 1 each PRN DAILY PRN MC SEE COMMENTS; Start 01/06/19 at 10:30 Piperacillin Sod/ Tazobactam Sod 2.25 gm/Sodium Chloride 50 ml @ 100 mls/hr Q8HRS IV Last administered on 01/08/19at 05:31; Start 01/06/19 at 11:00; Stop 01/08/19 at 10:14; Status DC Vancomycin HCl (Vancomycin Random Level) 1 each 1X ONCE MC Last administered on 01/07/19at 14:14; Start 01/07/19 at 05:00; Stop 01/07/19 at 05:01; Status DC Lactobacillus Rhamnosus (Culturelle) 1 cap BID PO Last administered on 01/08/19at 12:22; Start 01/06/19 at 21:00 Sodium Chloride 1,000 ml @ 1,000 mls/hr Q1H PRN IV hypotension; Start 01/06/19 at 10:00; Stop 01/06/19 at 15:59; Status DC Sodium Chloride 1,000 ml @ 400 mls/hr Q2H30M PRN IV PATENCY; Start 01/06/19 at 10:00; Stop 01/06/19 at 21:59; Status DC Info (PHARMACY MONITORING -- do not chart) 1 each PRN DAILY PRN MC SEE COMMENTS; Start 01/06/19 at 13:00; Status UNV Info (PHARMACY MONITORING -- do not chart) 1 each PRN DAILY PRN MC SEE COMMENTS; Start 01/06/19 at 13:00 Potassium Chloride (Klor-Con) 20 meq 1X ONCE PO Last administered on 01/07/19at 17:30; Start 01/07/19 at 14:30; Stop 01/07/19 at 14:31; Status DC Vancomycin HCl (Vancomycin Random Level) 1 each 1X ONCE MC Last administered on 01/08/19at 06:28; Start 01/08/19 at 05:00; Stop 01/08/19 at 05:01; Status DC Hydralazine HCl (Apresoline Inj) 20 mg PRN Q4HRS PRN IVP ELEVATED BP, SEE COMMENTS Last administered on 01/07/19at 14:29; Start 01/07/19 at 13:00 Lorazepam (Ativan Inj) 1 mg 1X ONCE IV Last administered on 01/07/19at 15:15; Start 01/07/19 at 15:00; Stop 01/07/19 at 15:01; Status DC Ondansetron HCl (Zofran) 4 mg PRN Q6HRS PRN IV NAUSEA/VOMITING; Start 01/08/19 at 08:30 Sodium Chloride 1,000 ml @ 1,000 mls/hr Q1H PRN IV hypotension; Start 01/08/19 at 06:30; Stop 01/08/19 at 12:29; Status DC Sodium Chloride 1,000 ml @ 400 mls/hr Q2H30M PRN IV PATENCY; Start 01/08/19 at 06:30; Stop 01/08/19 at 18:29 Info (PHARMACY MONITORING -- do not chart) 1 each PRN DAILY PRN MC SEE COMMENTS; Start 01/08/19 at 08:30; Status UNV Info (PHARMACY MONITORING -- do not chart) 1 each PRN DAILY PRN MC SEE COMMENTS; Start 01/08/19 at 08:30; Status UNV Vancomycin HCl 500 mg/Sodium Chloride 100 ml @ 100 mls/hr QMWF IV ; Start 01/08/19 at 16:00; Stop 01/08/19 at 10:14; Status DC Amoxicillin/ Clavulanate Potassium (Augmentin 500/ 125mg) 1 tab DAILY PO Last administered on 01/08/19at 12:22; Start 01/08/19 at 12:00 Furosemide (Lasix) 20 mg [id number] PO ; Start 01/08/19 at 16:00 Active Scripts Active Metoprolol Succinate ( Xl ) (Metoprolol Succinate) 25 Mg Tab.er.24h 25 Mg PO DAILY 30 Days Clopidogrel (Clopidogrel Bisulfate) 75 Mg Tablet 75 Mg PO DAILYWBKFT 30 Days Reported Lasix (Furosemide) 20 Mg Tablet 1 Tab PO BID Nephro-Allison Tablet (Folic Acid/Vitamin B Comp W-C) 0.8 Mg Tablet 1 Tab PO HS Mirtazapine 15 Mg Tablet 1 Tab PO QHS Levothyroxine Sodium 175 Mcg Tablet 1 Tab PO DAILY Ferrous Sulfate 325 Mg Tablet 1 Tab PO TID PRN Amlodipine Besylate 5 Mg Tablet 5 Mg PO BID PRN Acetaminophen 500 Mg Tablet 1 Tab PO PRN Q6HRS PRN Zoloft (Sertraline Hcl) 50 Mg Tablet 1 Tab PO HS Levetiracetam 500 Mg Tablet 1 Tab PO HS Levetiracetam 500 Mg Tablet 250 Mg PO DAILY Vitamin D3 (Cholecalciferol (Vitamin D3)) 1,000 Unit Tablet 1 Tab PO QFR Atorvastatin Calcium 80 Mg Tablet 1 Tab PO HS Aspirin 81 Mg Tab.chew 1 Tab PO DAILY Amiodarone Hcl 200 Mg Tablet 1 Tab PO DAILY Vitals/I & O Vital Sign - Last 24 Hours 01/07/19 01/07/19 01/07/19 01/07/19 14:29 15:11 16:13 19:34 Temp 97.8 97.7 97.8 97.7 Pulse 70 73 75 Resp 24 24 B/P (MAP) 167/73 180/67 (104) 143/66 (91) Pulse Ox 86 92 96 O2 Delivery Nasal Cannula Venturi Mask Venturi Mask O2 Flow Rate 5.0 15.0 01/07/19 01/07/19 01/07/19 01/07/19 19:53 20:04 21:14 22:31 Temp 97.6 97.6 Pulse 75 79 Resp 22 B/P (MAP) 143/66 115/52 (73) Pulse Ox 92 94 O2 Delivery Nasal Cannula Venturi Mask Venturi Mask O2 Flow Rate 15.0 12.0 01/08/19 01/08/19 01/08/19 01/08/19 03:36 04:25 08:00 12:22 Temp 98.7 98.7 Pulse 69 73 Resp 24 B/P (MAP) 159/99 (119) 190/80 Pulse Ox 93 94 O2 Delivery Venturi Mask Venturi Mask Nasal Cannula O2 Flow Rate 15.0 12.0 8.0 01/08/19 01/08/19 01/08/19 12:22 12:22 12:42 Pulse 73 73 B/P (MAP) 190/80 190/80 Pulse Ox 97 O2 Delivery Nasal Cannula O2 Flow Rate 8.0 Intake and Output 01/07/19 01/07/19 01/08/19 15:00 23:00 07:00 Intake Total 480 ml 240 ml 440 ml Output Total 100 ml Balance 380 ml 240 ml 440 ml RADHA FUENTES MD Jan 08, 2019 13:58
[2019-01-08 14:44] VITALS: BP 153/67
[2019-01-08] MEDS ORDERED: VANCOMYCIN 500 MG in IV NORMAL SALINE 100ML 100 ML IV SCH (16:00)
[2019-01-08 19:07] VITALS: BP 160/58
[2019-01-08] MEDS: levETIRAcetam 500 MG TABLET PO SCH (21:43)
[2019-01-08] MEDS: SERTRALINE 50 MG TABLET. PO SCH (21:43)
[2019-01-08] MEDS: FOLIC/VIT B COMP W-C (RENAL) TABLET. PO SCH (21:43)
[2019-01-08] MEDS: ATORVASTATIN CALCIUM 40 MG TABLET. PO SCH (21:43)
[2019-01-08] MEDS: MIRTAZAPINE 15 MG TABLET PO SCH (21:43)
[2019-01-08 23:29] VITALS: BP 171/51
[2019-01-09] MEDS: hydrALAZINE 20 MG/ML VIAL. IVP PRN ×2 (00:15→04:19)
[2019-01-09 03:59] VITALS: BP 177/74
[2019-01-09] MEDS: ALBUTEROL SULFATE 2.5 MG/3 ML NEBU. NEB SCH ×5 (04:00→16:50)
[2019-01-09] MEDS: HEPARIN for SUB-Q USE 5,000 UNIT/ML VIAL. SQ SCH ×2 (05:58→14:00)
[2019-01-09 07:00] VITALS: BP 188/95
--- NOTE | 2019-01-09 07:28 | PDOC ---
Infectious Disease Note Subjective Subjective feeling fine says, ready to go home , not interested in rehab ROS ROS no n/v/sob/fever Vital Sign Vital Signs Vital Signs Date Time Temp Pulse Resp B/P (MAP) Pulse Ox O2 Delivery O2 Flow Rate FiO2 01/09/19 04:19 78 177/74 01/09/19 03:59 98.3 18 98 Nasal Cannula 4.0 98.3 Physical Exam PHYSICAL EXAM GENERAL: comfortable in room HEENT: Left eye blindness. Oral cavity dry LUNGS: Diminished aeration in bases, fine crackles and soft wheezes HEART: S1 and S2. Pacemaker ABDOMEN: Soft. No guarding. Bowel sounds present. EXTREMITIES: No gross edema or cyanosis. RUE-AV fistula - clean SKIN: Warm to touch. No signs of rash. NEUROLOGIC: Alert, responding appropriately RIJ/HDC without signs of any complications. Objective Assessment Bilateral pleural effusions with questionable pneumonia Leukocytosis Acute respiratory failure, off BiPAP Recent bronch, 01/04. No organisms on gram stain. culture: yeast CHF ESRD on HD via HD catheter Seizure disorder Hypertension Diarrhea, C. diff neg 01/06 Plan Plan of Care po augmentin Steroids f/u cultures am labs Maintain aspiration precautions D/w nursing d/w , DNR/DNI discussed, he will think about it , will have Pat also d/w them, pt is admitted to hospital every month overall prognosis poor, need to have palliative care meeting KRISTIN CATHERINE MD Jan 09, 2019 07:28
--- NOTE | 2019-01-09 08:28 | RAD ---
Chest radiograph 01/09/2019 5:00 AM INDICATION: Pleural effusion COMPARISON: 01/07/2019 TECHNIQUE: Portable upright frontal view of the chest is provided. FINDINGS: The cardiomediastinal silhouette is similar in appearance. Right chest wall double lumen catheter is in similar position. Median sternotomy changes are present. Left chest wall cardiac device is in similar position obscures portion of the left upper lobe. Atherosclerotic changes of the thoracic aorta are present. Small to moderate right pleural effusion with adjacent compressive atelectasis versus infiltrate. Trace left pleural effusion, stable. Mild to moderate pulmonary vascular congestion appears similar with diffuse interstitial changes. Biapical pleural-parenchymal scarring is identified. No definite pneumothorax. IMPRESSION: Aeration of lungs appears similar to the prior examination. Electronically signed by: Leatha Scanlon MD (01/09/2019 8:25 AM) [facility]
[2019-01-09] MEDS: FERROUS SULFATE 325 MG TABLET. PO SCH ×3 (08:42→17:00)
[2019-01-09] MEDS: METOPROLOL SUCC 24HR ER 25 MG TAB.ER.24H. PO SCH (08:43)
[2019-01-09] MEDS: CLOPIDOGREL BISULFATE 75 MG TABLET PO SCH (08:43)
[2019-01-09] MEDS: levETIRAcetam 250 MG TABLET PO SCH (08:43)
[2019-01-09] MEDS: LACTOBACILLUS RHAMNOSUS GG 1 CAPSULE. PO SCH (08:43)
[2019-01-09] MEDS: AMOXICILLIN/K CLAV 500/125MG TABLET. PO SCH (08:43)
[2019-01-09] MEDS: AMIODARONE HCL 200 MG TABLET. PO SCH (08:44)
[2019-01-09] MEDS: FUROSEMIDE 20 MG TABLET PO SCH ×2 (08:44→16:00)
[2019-01-09] MEDS: ASPIRIN CHEWABLE 81 MG TABLET. PO SCH (08:45)
[2019-01-09] MEDS: amLODIPine BESYLATE 5 MG TABLET PO SCH (08:47)
[2019-01-09] MEDS ORDERED: LABETALOL 20 MG/4 ML DISP.SYRIN. IVP PRN (09:00)
[2019-01-09 11:00] VITALS: BP 144/75
--- NOTE | 2019-01-09 11:46 | PDOC ---
SUBJECTIVE ROS Breathing better, On O2 by NC OBJECTIVE Vital Signs Vital Signs Date Time Temp Pulse Resp B/P (MAP) Pulse Ox O2 Delivery O2 Flow Rate FiO2 01/09/19 08:47 77 188/95 01/09/19 08:37 99 Nasal Cannula 4.0 01/09/19 07:00 97.8 18 97.8 I & 0 Intake and Output 01/09/19 06:59 Intake Total 840 ml Output Total 425 ml Balance 415 ml Intake Oral 840 ml Output Urine Total 425 ml # Voids 1 # Bowel Movements 3 PHYSICAL EXAM Physical Exam GENERAL: NAD HEENT: Left eye blindness, On O2 by NC Neck Supple LUNGS: Diminished aeration in bases, fine crackles. HEART: S1 and S2. ABDOMEN: Soft. No guarding. Bowel sounds present. EXTREMITIES: No gross edema or cyanosis, has AVG Rt arm SKIN: Warm to touch. No signs of rash. NEUROLOGIC: Grossly Normal LINES: RIJ/HDC without signs of any complications - No Klein DIAGNOSIS/ASSESSMENT Assessment & Plan ESRD - On HD MWF at [facility] under Dr. Johnson AVG Placed by Dr Sy(Vascular) recommended to be used right away No indication for HD today Hypokalemia-Stable On PO KCL at home Anemia- Hgb stable, No indication of REENA currently Bilateral pleural effusions with questionable pneumonia. Recent bronch, 01/04. No organisms on gram stain. culture: yeast Acute respiratory failure off BiPAP. Recent history of complete left upper lobe atelectasis, status post bronchoscopy on 01/04/2019. Cultures are still pending. Congestive heart failure. Hx of Seizure disorder. COMMENT/RELEVANT DATA Meds Current Medications Medications (Trade) Dose Ordered Sig/Dez Start Time Stop Time Status Last Admin Dose Admin Acetaminophen (Tylenol) 500 mg PRN Q6HRS PRN 01/05/19 18:00 01/08/19 14:13 500 MG Albuterol Sulfate (Ventolin Neb Soln) 2.5 mg Q4HRS 01/05/19 20:00 01/09/19 08:34 2.5 MG Albuterol/ Ipratropium (Duoneb) 3 ml 1X STAT 01/05/19 17:03 01/05/19 17:04 DC 01/05/19 17:04 3 ML Amiodarone HCl (Cordarone) 200 mg DAILY 01/06/19 09:00 9/3/19 08:47 200 MG Amlodipine Besylate (Norvasc) 5 mg BID 01/05/19 21:00 01/09/19 08:47 5 MG Amoxicillin/ Clavulanate Potassium (Augmentin 500/ 125mg) 1 tab DAILY 01/08/19 12:00 01/09/19 08:47 1 TAB Aspirin (Children'S Aspirin) 81 mg DAILY 01/06/19 09:00 01/09/19 08:47 81 MG Atorvastatin Calcium (Lipitor) 80 mg QHS 01/05/19 21:00 01/08/19 21:44 80 MG Clopidogrel Bisulfate (Plavix) 75 mg DAILYWBKFT 01/06/19 08:00 01/09/19 08:47 75 MG Ergocalciferol (Vitamin D2) 50,000 unit WEEKLY 01/19/19 09:00 Ferrous Sulfate (Feosol) 325 mg TIDWMEALS 01/06/19 08:00 01/09/19 08:47 325 MG Furosemide (Lasix) 20 mg BID94 01/08/19 16:00 01/09/19 08:47 20 MG Heparin Sodium (Porcine) (Heparin Sodium) 5,000 unit Q8HRS 01/05/19 22:00 01/09/19 05:58 5,000 UNIT Hydralazine HCl (Apresoline Inj) 20 mg PRN Q4HRS PRN 01/07/19 13:00 01/09/19 04:19 20 MG Info (PHARMACY MONITORING -- do not chart) 1 each PRN DAILY PRN 01/08/19 08:30 UNV Labetalol HCl (Normodyne Iv Push) 10 mg PRN Q2HR PRN 01/09/19 09:00 Lactobacillus Rhamnosus (Culturelle) 1 cap BID 01/06/19 21:00 01/09/19 08:47 1 CAP Levetiracetam (Keppra) 250 mg DAILY 01/06/19 09:00 01/09/19 08:47 250 MG Lorazepam (Ativan Inj) 1 mg 1X ONCE 01/07/19 15:00 01/07/19 15:01 DC 01/07/19 15:15 0.5 MG Methylprednisolone Sodium Succinate (SOLU-Medrol 125MG VIAL) 125 mg 1X ONCE 01/05/19 17:30 01/05/19 17:31 DC 01/05/19 18:25 125 MG Metoprolol Succinate (Toprol Xl) 25 mg DAILY 01/06/19 09:00 01/09/19 08:47 25 MG Mirtazapine (Remeron) 15 mg QHS 01/05/19 21:00 01/08/19 21:44 15 MG Morphine Sulfate (Morphine Sulfate) 2 mg PRN Q2HR PRN 01/05/19 18:00 01/06/19 17:59 DC Ondansetron HCl (Zofran) 4 mg PRN Q6HRS PRN 01/08/19 08:30 Pantoprazole Sodium (Protonix) 40 mg DAILYAC 01/06/19 07:30 01/06/19 11:25 DC 01/06/19 08:07 40 MG Pharmacy Consult (Анна Med Screen By Rx) 1 each 1X ONCE 01/05/19 23:00 01/05/19 23:01 DC 01/06/19 02:17 1 EACH Piperacillin Sod/ Tazobactam Sod (Zosyn Per Pharmacy) 1 each PRN DAILY PRN 01/06/19 10:30 Piperacillin Sod/ Tazobactam Sod 2.25 gm/Sodium Chloride 50 ml @ 100 mls/hr Q8HRS 01/06/19 11:00 01/08/19 10:14 DC 01/08/19 05:31 100 MLS/HR Piperacillin Sod/ Tazobactam Sod 3.375 gm/Sodium Chloride 50 ml @ 100 mls/hr 1X ONCE 01/05/19 17:45 01/05/19 18:14 DC 01/05/19 18:26 100 MLS/HR Potassium Chloride (Klor-Con) 20 meq 1X ONCE 01/07/19 14:30 01/07/19 14:31 DC 01/07/19 17:30 20 MEQ Sertraline HCl (Zoloft) 50 mg HS 01/05/19 21:00 01/08/19 21:44 50 MG Sodium Chloride 1,000 ml @ 400 mls/hr Q2H30M PRN 01/08/19 06:30 01/08/19 18:29 DC Vancomycin HCl (Vanco Per Pharmacy) 1 each PRN DAILY PRN 01/06/19 10:30 01/08/19 10:14 DC 01/08/19 09:17 1 EACH Vancomycin HCl (Vancomycin Random Level) 1 each 1X ONCE 01/08/19 05:00 01/08/19 05:01 DC 01/08/19 06:28 1 EACH Vancomycin HCl 500 mg/Sodium Chloride 100 ml @ 100 mls/hr QMWF 01/08/19 16:00 01/08/19 10:14 DC Vancomycin HCl 1 gm/Sodium Chloride 500 ml @ 250 mls/hr 1X ONCE 01/05/19 17:30 01/05/19 19:29 UNV Vitamin B Complex/ Vitamin C (Katie-Allison) 1 tab HS 01/05/19 21:00 01/08/19 21:44 1 TAB Results All relevant outside records, renal labs, imaging studies, telemetry/EKG's were reviewed. JAZLYN CUNHA MD Jan 09, 2019 11:46
--- NOTE | 2019-01-09 12:47 | NUR ---
SS following for discharge planning. SS reviewed pt chart. Pt is from home with spouse and is currently requiring oxygen. Pt has home oxygen and is currently at baseline. PT recommending home with home healthcare. Nurse navigator to meet with pt to discuss home healthcare options. SS will continue to follow for discharge planning.
--- NOTE | 2019-01-09 12:52 | PDOC ---
PULMONARY PROGRESS NOTES Subjective NO SOA WANTS TO GO HOME Vitals Vital Signs Date Time Temp Pulse Resp B/P (MAP) Pulse Ox O2 Delivery O2 Flow Rate FiO2 01/09/19 12:28 93 Room Air 01/09/19 12:21 4.0 01/09/19 11:00 97.7 69 18 144/75 (98) 97.7 ROS: No Nausea, No Chest Pain, No Abdominal Pain, No Increase Cough General: Alert, No acute distress HEENT: Other (POS JVD) Lungs: Crackles (bases) Cardiovascular: S1, S2 Abdomen: Soft, Non-tender Neuro Exam: Alert Extremities: No Edema Skin: Warm Labs Laboratory Tests Test 01/07/19 13:45 01/08/19 04:50 Sodium Level 138 mmol/L (136-145) 139 mmol/L (136-145) Potassium Level 3.2 mmol/L (3.5-5.1) 3.9 mmol/L (3.5-5.1) Chloride Level 100 mmol/L (98-107) 102 mmol/L (98-107) Carbon Dioxide Level 25 mmol/L (21-32) 25 mmol/L (21-32) Anion Gap 13 (6-14) 12 (6-14) Blood Urea Nitrogen 27 mg/dL (7-20) 37 mg/dL (7-20) Creatinine 3.8 mg/dL (0.6-1.0) 4.9 mg/dL (0.6-1.0) Estimated GFR (Cockcroft-Gault) 11.6 8.7 Glucose Level 192 mg/dL (70-99) 94 mg/dL (70-99) Calcium Level 7.8 mg/dL (8.5-10.1) 8.0 mg/dL (8.5-10.1) White Blood Count 13.3 x10^3/uL (4.0-11.0) Red Blood Count 3.52 x10^6/uL (3.50-5.40) Hemoglobin 10.4 g/dL (12.0-15.5) Hematocrit 31.8 % (36.0-47.0) Mean Corpuscular Volume 91 fL (79-100) Mean Corpuscular Hemoglobin 30 pg (25-35) Mean Corpuscular Hemoglobin Concent 33 g/dL (31-37) Red Cell Distribution Width 19.5 % (11.5-14.5) Platelet Count 152 x10^3/uL (140-400) Neutrophils (%) (Auto) 90 % (31-73) Lymphocytes (%) (Auto) 4 % (24-48) Monocytes (%) (Auto) 5 % (0-9) Eosinophils (%) (Auto) 0 % (0-3) Basophils (%) (Auto) 1 % (0-3) Neutrophils # (Auto) 11.9 x10^3/uL (1.8-7.7) Lymphocytes # (Auto) 0.6 x10^3/uL (1.0-4.8) Monocytes # (Auto) 0.7 x10^3/uL (0.0-1.1) Eosinophils # (Auto) 0.0 x10^3/uL (0.0-0.7) Basophils # (Auto) 0.1 x10^3/uL (0.0-0.2) BUN/Creatinine Ratio 8 (6-20) Total Bilirubin 0.7 mg/dL (0.2-1.0) Aspartate Amino Transf (AST/SGOT) 46 U/L (15-37) Alanine Aminotransferase (ALT/SGPT) 58 U/L (14-59) Alkaline Phosphatase 62 U/L (46-116) Total Protein 5.8 g/dL (6.4-8.2) Albumin 1.7 g/dL (3.4-5.0) Albumin/Globulin Ratio 0.4 (1.0-1.7) Random Vancomycin Level 16.4 mcg/mL Medications Active Scripts Medications Dose Route/Sig Max Daily Dose Days Date Category Lasix (Furosemide) 20 Mg Tablet 1 Tab PO BID 01/03/19 Reported Nephro-Alilson Tablet (Folic Acid/Vitamin B Comp W-C) 0.8 Mg Tablet 1 Tab PO HS 08/17/18 Reported Mirtazapine 15 Mg Tablet 1 Tab PO QHS 08/17/18 Reported Levothyroxine Sodium 175 Mcg Tablet 1 Tab PO DAILY 08/17/18 Reported Ferrous Sulfate 325 Mg Tablet 1 Tab PO TID PRN 08/17/18 Reported Amlodipine Besylate 5 Mg Tablet 5 Mg PO BID PRN 08/17/18 Reported Metoprolol Succinate ( Xl ) (Metoprolol Succinate) 25 Mg Tab.er.24h 25 Mg PO DAILY 30 06/28/18 Rx Clopidogrel (Clopidogrel Bisulfate) 75 Mg Tablet 75 Mg PO DAILYWBKFT 30 06/28/18 Rx Acetaminophen 500 Mg Tablet 1 Tab PO PRN Q6HRS PRN 06/19/18 Reported Zoloft (Sertraline Hcl) 50 Mg Tablet 1 Tab PO HS 06/19/18 Reported Levetiracetam 500 Mg Tablet 1 Tab PO HS 06/19/18 Reported Levetiracetam 500 Mg Tablet 250 Mg PO DAILY 06/19/18 Reported Vitamin D3 (Cholecalciferol (Vitamin D3)) 1,000 Unit Tablet 1 Tab PO QFR 11/25/17 Reported Atorvastatin Calcium 80 Mg Tablet 1 Tab PO HS 11/25/17 Reported Aspirin 81 Mg Tab.chew 1 Tab PO DAILY 11/24/17 Reported Amiodarone Hcl 200 Mg Tablet 1 Tab PO DAILY 11/24/17 Reported Impression . IMPRESSION: 1. Acute on chronic hypoxemic respiratory failure. 2. Abnormal x-ray compatible with bilateral interstitial edema. 3. Bilateral pleural effusions, right greater than left. 4. Recent bronchoscopy status post removal of mucus plug in the left upper lobe. Current chest x-ray is greatly improved. 5. End-stage renal disease, on hemodialysis. 6. Protein malnutrition. 7. Generalized weakness. 8. Hypokalemia. 9. Leukocytosis. 10. Peripheral vascular disease. 11. History of hypothyroidism, hypertension, depression and anxiety. 12. History of seizures. 13. S/P THORACENTESIS 01/07 FROM LAST ADMISSION Note [facility] Accession Number: [id number] TESTS RESULT FLAG UNITS REF RANGE LAB Clinician Provided Cytology Information No. of containers..01 Other (Miscellaneous) Source: DAVE BAL DIAGNOSIS: DAVE BAL NEGATIVE FOR MALIGNANT CELLS. SCANT CELLULARITY. NORMAL BRONCHIAL CELLS AND MACROPHAGES ARE PRESENT. PULMONARY MACROPHAGES (DUST CELLS) ARE PRESENT. Signed out by: 02 BRONCH REVEALED MUCUS PLUGGING DAVE BAL FROM 01/04 SPEC #: [id number] BJ: 01/04/19-1235 STATUS: COMP REQ #: [id number] RECD: 01/04/[address]: AV BASSETT MD SOURCE: BRONCH WA ENTR: 01/04/[address]: HUI DOZIER MD SPDESC: LT UPP LOB NISHI BENITEZ MD, SABATO MD ORDERED: BRONCH GS COMMENTS: BAL, DAVE Procedure Result BRONCHIAL GRAM STAIN Final WBCS FEW RBCS MODERATE ORGANISMS NONE SEEN Plan . BETTER REPEAT CXR 01/09 NO MAJOR CHANGE/ CHF CLINICALLY COMPENSATED NEEDS HD WITH UF OP ANNTIBX PER ID/ DOUBT PNEUMONIA OK WITH DC HOME PT USES 4 LITRES O2 AT HOME D/W BARBER MCWILLIAMS MD Jan 09, 2019 12:52
[2019-01-09] MEDS ORDERED: ALBU2.5V8 NEB (14:36)
[2019-01-09] MEDS ORDERED: IPRA3AMP29 NEB (14:37)
--- NOTE | 2019-01-09 14:38 | SNU/HH DC ---
DISCHARGE WITH HOME HEALTH DISCHARGE INFORMATION: Discharge Date: Jan 09, 2019 Final Diagnosis: Problems Medical Problems: (1) Acute respiratory failure with hypoxia Status: Acute (2) ALEXEY (acute kidney injury) Status: Acute (3) Dyslipidemia Status: Chronic (4) ESRD on hemodialysis Status: Chronic (5) HTN (hypertension) Status: Chronic (6) Hypokalemia Status: Acute (7) Pleural effusion, bilateral Status: Acute Condition on Discharge: Stable CODE STATUS: Code Status: Full HOME HEALTH: Face to Face: I certify this patient is under my care and that I, or a nurse practitioner or physician's business support assistant working with me, had a face to face encounter that meets the physician face to face encounter requirements with this patient on []. Medical Complications: CHF, COPD RN For Eval/Treatment: Yes Physical Therapy For: Evalulation/Treatment Occupational Therapy For: Evaluation/Treatment Home Health Aide For: Self-care WEIGHT CALCULATOR For: Community Resources Pt Meets Homebound Status: Unsteady balance w/ amb, POST DISCHARGE ORDERS: Activity Instructions for Disc: No restrictions, Activity as tolerated Weight Bearing Status after Di: As tolerated DIET AFTER DISCHARGE: Renal CHECKS AFTER DISCHARGE: Checks after discharge: Check blood press - daily, Check your Temp as needed, Weigh Yourself Daily FOLLOW-UP: PCP to follow Home Health: Very frail respiratory status, we recommended SNU but she refused Needed BiPAP in the hospital hence watch out for these TREATMENT/EQUIPMENT ORDERS: Adaptive Equipment Issued: None, Front wheeled walker Discharge Respiratory Equipmen: Oxygen CERTIFICATION STATEMENT: Certification Statement: Certification Statement: Based on the above finding, I certify that this patient is confined to the home and needs intermittent chcf care, physical therapy and/or speech therapy, or continues to need occupational therapy.~ This patient is under my care, and I have initiated the establishment of the plan of care.~ This patient will be followed by myself or a community physician who will periodically review the plan of care. Home Meds Active Scripts Ipratropium/Albuterol Sulfate (DUONEB 0.5-3(2.5) MG/3 ML) 3 Ml Ampul.neb, 3 ML NEB QID for soa, #120 EACH Prov:AV BASSETT MD 01/09/19 Albuterol Sulfate (Proair Hfa) 8.5 Gm Hfa.aer.ad, 2.5 MG NEB Q4HRS for soa, #120 INHALER Prov:AV BASSETT MD 01/09/19 Metoprolol Succinate (METOPROLOL SUCCINATE ( XL )) 25 Mg Tab.er.24h, 25 MG PO DAILY for antihypertensive for 30 Days, #30 TAB.SR Prov:ALEX DIAZ MD 06/28/18 Clopidogrel Bisulfate (CLOPIDOGREL) 75 Mg Tablet, 75 MG PO DAILYWBKFT for antiplatelet for 30 Days, #30 TAB Prov:ALEX DIAZ MD 06/28/18 Reported Medications Furosemide (LASIX) 20 Mg Tablet, 1 TAB PO BID for chf, #90 TAB 1 Refill 01/03/19 Folic Acid/Vitamin B Comp W-C (NEPHRO-FABIÁN TABLET) 0.8 Mg Tablet, 1 TAB PO HS for supplement, #30 TAB 5 Refills 08/17/18 Mirtazapine (MIRTAZAPINE) 15 Mg Tablet, 1 TAB PO QHS for depression, #30 TAB 3 Refills 08/17/18 Levothyroxine Sodium (LEVOTHYROXINE SODIUM) 175 Mcg Tablet, 1 TAB PO DAILY for thyroid, #30 TAB 5 Refills 08/17/18 Ferrous Sulfate (FERROUS SULFATE) 325 Mg Tablet, 1 TAB PO TID PRN for supplement, #60 TAB 3 Refills 08/17/18 Amlodipine Besylate (AMLODIPINE BESYLATE) 5 Mg Tablet, 5 MG PO BID PRN for HYPERTENSION, SEE COMMENTS, TAB 08/17/18 Acetaminophen (ACETAMINOPHEN) 500 Mg Tablet, 1 TAB PO PRN Q6HRS PRN for PAIN, #60 TAB 06/19/18 Sertraline Hcl (ZOLOFT) 50 Mg Tablet, 1 TAB PO HS for SLEEP, #30 TAB 2 Refills 06/19/18 Levetiracetam (LEVETIRACETAM) 500 Mg Tablet, 1 TAB PO HS for ANTIEPILEPTIC, #180 TAB 3 Refills 06/19/18 Levetiracetam (LEVETIRACETAM) 500 Mg Tablet, 250 MG PO DAILY for ANTIEPILEPTIC, #180 TAB 3 Refills 06/19/18 Cholecalciferol (Vitamin D3) (VITAMIN D3) 1,000 Unit Tablet, 1 TAB PO QFR for SUPPLEMENT, #30 TAB 5 Refills 11/25/17 Atorvastatin Calcium (ATORVASTATIN CALCIUM) 80 Mg Tablet, 1 TAB PO HS, #30 TAB 5 Refills 11/25/17 Aspirin (ASPIRIN) 81 Mg Tab.chew, 1 TAB PO DAILY, #30 TAB 3 Refills 11/24/17 Amiodarone Hcl (AMIODARONE HCL) 200 Mg Tablet, 1 TAB PO DAILY, #90 TAB 1 Refill 11/24/17 AV BASSETT MD Jan 09, 2019 14:38
--- NOTE | 2019-01-09 14:42 | PDOC3 ---
Discharge Summary Visit Information Date of Admission: Jan 05, 2019 Date of Discharge: Jan 09, 2019 Admitting Diagnosis Comment: Acute hypoxic respi filure on NIPPV Bilateral pleural effusions with questionable pneumonia R > L Leukocytosis Recent bronch, 01/04. No organisms on gram stain. culture: yeast CHF, Hx CAD,. CABG, pacer ESRD on HD via HD catheter AOCD Seizure disorder Hypertension Diarrhea, C. diff neg 01/06 GEn weakenss - SNU? History of hypothyroidism, hypertension, depression and anxiety. Final Diagnosis Problems Medical Problems: (1) Acute respiratory failure with hypoxia Status: Acute (2) ALEXEY (acute kidney injury) Status: Acute (3) Dyslipidemia Status: Chronic (4) ESRD on hemodialysis Status: Chronic (5) HTN (hypertension) Status: Chronic (6) Hypokalemia Status: Acute (7) Pleural effusion, bilateral Status: Acute Brief Hospital Course Allergies Allergies Coded Allergies Type Severity Reaction Last Updated Verified codeine Allergy Intermediate 01/04/19 Yes Vital Signs Vital Signs Date Time Temp Pulse Resp B/P (MAP) Pulse Ox O2 Delivery O2 Flow Rate FiO2 01/09/19 12:28 93 Room Air 01/09/19 12:21 4.0 01/09/19 11:00 97.7 69 18 144/75 (98) 97.7 Lab Results Laboratory Tests Test 01/08/19 04:50 White Blood Count 13.3 x10^3/uL (4.0-11.0) Red Blood Count 3.52 x10^6/uL (3.50-5.40) Hemoglobin 10.4 g/dL (12.0-15.5) Hematocrit 31.8 % (36.0-47.0) Mean Corpuscular Volume 91 fL (79-100) Mean Corpuscular Hemoglobin 30 pg (25-35) Mean Corpuscular Hemoglobin Concent 33 g/dL (31-37) Red Cell Distribution Width 19.5 % (11.5-14.5) Platelet Count 152 x10^3/uL (140-400) Neutrophils (%) (Auto) 90 % (31-73) Lymphocytes (%) (Auto) 4 % (24-48) Monocytes (%) (Auto) 5 % (0-9) Eosinophils (%) (Auto) 0 % (0-3) Basophils (%) (Auto) 1 % (0-3) Neutrophils # (Auto) 11.9 x10^3/uL (1.8-7.7) Lymphocytes # (Auto) 0.6 x10^3/uL (1.0-4.8) Monocytes # (Auto) 0.7 x10^3/uL (0.0-1.1) Eosinophils # (Auto) 0.0 x10^3/uL (0.0-0.7) Basophils # (Auto) 0.1 x10^3/uL (0.0-0.2) Sodium Level 139 mmol/L (136-145) Potassium Level 3.9 mmol/L (3.5-5.1) Chloride Level 102 mmol/L (98-107) Carbon Dioxide Level 25 mmol/L (21-32) Anion Gap 12 (6-14) Blood Urea Nitrogen 37 mg/dL (7-20) Creatinine 4.9 mg/dL (0.6-1.0) Estimated GFR (Cockcroft-Gault) 8.7 BUN/Creatinine Ratio 8 (6-20) Glucose Level 94 mg/dL (70-99) Calcium Level 8.0 mg/dL (8.5-10.1) Total Bilirubin 0.7 mg/dL (0.2-1.0) Aspartate Amino Transf (AST/SGOT) 46 U/L (15-37) Alanine Aminotransferase (ALT/SGPT) 58 U/L (14-59) Alkaline Phosphatase 62 U/L (46-116) Total Protein 5.8 g/dL (6.4-8.2) Albumin 1.7 g/dL (3.4-5.0) Albumin/Globulin Ratio 0.4 (1.0-1.7) Random Vancomycin Level 16.4 mcg/mL Brief Hospital Course Ms. Kearney is a 73 old very frail female who lives at home with , before had home health but now refusing home health or skilled, but after heavy education agreeable to home health. She spent around 5 days with us, very frail respiratory status she has bilateral pleural effusions right greater than left but mild to moderate in size not needing any surgical intervention. Needed NIPPV. history of COPD CHF. We were not diuresing with lasix She is on antidepressants along with other cardiac meds. Whatever we were doing seems to be doing well. She was not even on steroids. She was getting dialyzed may be fluid off. not on any abx here but has augmentin at home to consume She will go home today with home health after my heavy education counseling and we did not really change her meds which is giving her BiPAP, TLC and breathing treatments. Hence I have written some Rx of nebulizer, nebulizer machine and Nebules. Discussed with who was at present. Agreeable to home health. Full code High chance of readmission. I wrote on my notes to home health nurse, she might need trilogy at home if she fails O2 at home. She already has an oxygen tank at home. Does not need any refills of her medications Consults performed cardiology, pulmonary, renal Procedures performed dialysis to get fluid off Discharge Information Condition at Discharge: Improved, Stable Disposition/Orders: D/C to Home w/ HH Scheduled Albuterol Sulfate (Proair Hfa) 8.5 Gm Hfa.aer.ad, 2.5 MG NEB Q4HRS for soa, #120 Prescribed by: AV BASSETT on 01/09/19 1436 Amiodarone Hcl (Amiodarone Hcl) 200 Mg Tablet, 1 TAB PO DAILY, #90 Ref 1 (Reported) Entered as Reported by: Ivon Houser on 11/24/17 2354 Last Action: Continued on 01/05/191754 by CAROLE BECK MD Aspirin (Aspirin) 81 Mg Tab.chew, 1 TAB PO DAILY, #30 Ref 3 (Reported) Entered as Reported by: Ivon Houser on 11/24/17 2359 Last Action: Continued on 01/05/191754 by CAROLE BECK MD Atorvastatin Calcium (Atorvastatin Calcium) 80 Mg Tablet, 1 TAB PO HS, #30 Ref 5 (Reported) Entered as Reported by: Ivon Houser on 11/25/17 0000 Last Action: Converted on 01/05/191754 by CAROLE BECK MD Cholecalciferol (Vitamin D3) (Vitamin D3) 1,000 Unit Tablet, 1 TAB PO QFR for SUPPLEMENT, #30 Ref 5 (Reported) Entered as Reported by: Ivon Houser on 11/25/17 0000 Last Action: Continued on 01/05/191754 by CAROLE BECK MD Clopidogrel Bisulfate (Clopidogrel) 75 Mg Tablet, 75 MG PO DAILYWBKFT for antiplatelet for 30 Days, #30 Prescribed by: ALEX DIAZ MD on 06/28/18 153 Last Action: Continued on 01/05/191754 by CAROLE BECK MD Folic Acid/Vitamin B Comp W-C (Nephro-Allison Tablet) 0.8 Mg Tablet, 1 TAB PO HS for supplement, #30 Ref 5 (Reported) Entered as Reported by: TRISTAN VASQUEZ on 08/17/18 0823 Last Action: Continued on 01/05/191754 by CAROLE BECK MD Furosemide (Lasix) 20 Mg Tablet, 1 TAB PO BID for chf, #90 Ref 1 (Reported) Entered as Reported by: MICHELLE RAWLS on 01/03/19 112 Last Action: Continued on 01/05/191754 by CAROLE BECK MD Ipratropium/Albuterol Sulfate (Duoneb 0.5-3(2.5) Mg/3 Ml) 3 Ml Ampul.neb, 3 ML NEB QID for soa, #120 Prescribed by: AV BASSETT on 01/09/19 1437 Levetiracetam (Levetiracetam) 500 Mg Tablet, 250 MG PO DAILY for ANTIEPILEPTIC, #180 Ref 3 (Reported) Entered as Reported by: CAROL ZIEGLER on 06/19/181103 Last Action: Continued on 01/05/191754 by CAROLE BECK MD Levetiracetam (Levetiracetam) 500 Mg Tablet, 1 TAB PO HS for ANTIEPILEPTIC, #180 Ref 3 (Reported) Entered as Reported by: CAROL ZIEGLER on 06/19/181103 Last Action: Continued on 01/05/191754 by CAROLE BECK MD Levothyroxine Sodium (Levothyroxine Sodium) 175 Mcg Tablet, 1 TAB PO DAILY for thyroid, #30 Ref 5 (Reported) Entered as Reported by: TRISTAN VASQUEZ on 08/17/18 08 Metoprolol Succinate (Metoprolol Succinate ( Xl )) 25 Mg Tab.er.24h, 25 MG PO DAILY for antihypertensive for 30 Days, #30 Prescribed by: ALEX DIAZ MD on 06/28/18 153 Last Action: Continued on 01/05/191754 by CAROLE BECK MD Mirtazapine (Mirtazapine) 15 Mg Tablet, 1 TAB PO QHS for depression, #30 Ref 3 (Reported) Entered as Reported by: TRISTAN VASQUEZ on 08/17/18818 Last Action: Continued on 01/05/191754 by CAROLE BECK MD Sertraline Hcl (Zoloft) 50 Mg Tablet, 1 TAB PO HS for SLEEP, #30 Ref 2 (Reported) Entered as Reported by: CAROL ZIEGLER on 06/19/181103 Last Action: Continued on 01/05/191754 by CAROLE BECK MD Scheduled PRN Acetaminophen (Acetaminophen) 500 Mg Tablet, 1 TAB PO PRN Q6HRS PRN for PAIN, #60 (Reported) Entered as Reported by: CAROL ZIEGLER on 06/19/181103 Last Action: Continued on 01/05/191754 by CAROLE BECK MD Amlodipine Besylate (Amlodipine Besylate) 5 Mg Tablet, 5 MG PO BID PRN for HYPERTENSION, SEE COMMENTS, (Reported) Entered as Reported by: TRISTAN VASQUEZ on 08/17/18799 Last Action: Continued on 01/05/191754 by CAROLE BECK MD Ferrous Sulfate (Ferrous Sulfate) 325 Mg Tablet, 1 TAB PO TID PRN for supplement, #60 Ref 3 (Reported) Entered as Reported by: TRISTAN VASQUEZ on 08/17/18805 Last Action: Continued on 01/05/191754 by MD SERJIO RICO CHERRIE Y MD Jan 09, 2019 14:42
[2019-01-09 15:00] VITALS: BP 160/67
--- NOTE | 2019-01-09 15:38 | NUR ---
Wound care: Patient seen per wound care consult. See wound assessment. Patient has skin tear to left forearm. Wound cleansed and assessed. Recommendations for Xeroform gauze and foam dressing. Dressing applied. No other wounds noted upon complete head to toe assessment. Dressing change instructions left in room. Will follow patient regarding wound care. Bed lowered and call light in reach.
--- NOTE | 2019-01-09 15:56 | PDOC ---
CARDIO Progress Notes Date and Time Date of Service 01/09/19 Time of Evaluation 1535 Subjective Subjective: No Chest Pain, Other (SOA better ) Vitals Vitals Vital Signs Date Time Temp Pulse Resp B/P (MAP) Pulse Ox O2 Delivery O2 Flow Rate FiO2 01/09/19 12:28 93 Room Air 01/09/19 12:21 4.0 01/09/19 11:00 97.7 69 18 144/75 (98) 97.7 Weight Weight [ ] Input and Output Intake and Output Intake and Output 01/09/19 06:59 Intake Total 840 ml Output Total 425 ml Balance 415 ml Intake Oral 840 ml Output Urine Total 425 ml # Voids 1 # Bowel Movements 3 Physical Exam HEENT: Neck Supple W Full Motion Chest: Symmetric LUNGS: Clear to Auscultation Heart: S1S2, RRR Abdomen: Soft N/T Extremities: No Edema Neurology: alert, oriented, follow commands Assessment Assessment 1. Acute respiratory failure secondary COPD, CHF, recurrent pleural effusion with continued tobaccoism. SOA better 2. Acute on chronic diastolic CHF: uncontrolled BP contributing to CHF 3. ESRD on HD 5. CAD with remote history of CABG. S/P PCI/TANO to the SVG to OM1 on 06/2018, clinically stable. no CP, EKG SR without acute changes 6. PAFIB; maintaining SR 7. Accelerated HTN: BP better 8. HLP; statin 9. SSS s/p PPM; ([facility]). Recent interrogation revealed normal functioning device with <1% AFIB burden Recommendations Fluid off-loading via HD. Secondary prevention including DAPT with ASA and Plavix Continue amiodarone and BP regimen. ASA for stroke prevention with noted past history of bleeding and anemia Smoking cessation MEHRDAD JOHNSON APRN Jan 09, 2019 15:56
--- NOTE | 2019-01-09 16:10 | NUR ---
SS following up with discharge planning. Discharge orders received for home healthcare. Nurse navigator met with pt to discuss home healthcare options and pt reported that she will go home with [facility] ([facility]) [facility] Healthcare, ; fax [phone]. SS phoned and faxed discharge orders and referral to [facility]. Kathi reported that they cannot start pt until next week. Discussed with pt. Pt reported wanting no other home healthcare at this time and stated that she will wait until next week to begin services.
--- NOTE | 2019-01-09 16:45 | PDOC2 ---
PALLIATIVE CARE Palliative Care Note Palliative Care Consult requested by Dr. Fuchs to address goals of care. Patient known to PC from previous admission. Medical Assessment per medical record; Heart Failure; ESRD--dialysis; Respiratory Failure; P/C malnutrition, hx. seizure disorder; Hx. CVA; blind L eye. Spoke with patient and Chuy. Reviewed above medical condition. Patient has been discharged--anxious to go home. Discussed Code Status; Patient requests DNR/DNI. Outside the hospital DNR/DNI form signed. Patient and understand the severity of her illness. They request HH when discharged. They understand Hospice would be of benefit eventually. No ready for Hospice now. Plan; DNR/DNI Continue with plans for HH OLU MASON Jan 09, 2019 16:45
--- NOTE | 2019-01-09 17:24 | NUR ---
Discharge Note: LURDES LEMOS [address] Discharge instructions and discharge home medications reviewed with Patient and a copy given. All questions have been answered and understanding verbalized. The following instructions and handouts were given: follow up as needed, has Dr. Perry's contact info, dialysis, medications, dressings and changes, home health to start next week per family. Discontinued lines and drains: Mid-line removed, dialysis port in place. Patient discharged to by wheelchair to , [facility], private vehicle with the patient's home O2 in the car and used for transport.
[2019-01-19] MEDS ORDERED: ERGOCALCIFEROL (VITAMIN D2) 50,000 UNIT CAPSULE. PO SCH (09:00)
== END 2019-01-09 17:15 | disposition home or self-care (01) | DRG 682 ==
LOC: ER 16:20 → 2 SOUTH 18:02
PROVIDERS: ADMIT Family Medicine; ATTEND Family Medicine
PROC: 5A09357 Assistance with Respiratory Ventilation, Less than 24 Consecutive Hours, Continuous Positive Airway Pressure (ICD-10-PCS; principal; 2019-01-05)
PROC: 5A1D70Z Performance of Urinary Filtration, Intermittent, Less than 6 Hours Per Day (ICD-10-PCS; 2019-01-06)
PROC: 0W9B3ZZ Drainage of Left Pleural Cavity, Percutaneous Approach (ICD-10-PCS; 2019-01-07)
PROC: 5A1D70Z Performance of Urinary Filtration, Intermittent, Less than 6 Hours Per Day (ICD-10-PCS; 2019-01-08)
PROC: 4B02XSZ Measurement of Cardiac Pacemaker, External Approach (ICD-10-PCS; 2019-01-09)
DX: N17.9 Acute kidney failure, unspecified (principal); J96.21 Acute and chronic respiratory failure with hypoxia; I50.33 Acute on chronic diastolic (congestive) heart failure; J18.9 Pneumonia, unspecified organism; S22.32XA Fracture of one rib, left side, initial encounter for closed fracture; E46 Unspecified protein-calorie malnutrition; I13.2 Hypertensive heart and chronic kidney disease with heart failure and with stage 5 chronic kidney disease, or end stage renal disease; J44.0 Chronic obstructive pulmonary disease with (acute) lower respiratory infection; J98.11 Atelectasis; Z68.1 Body mass index [BMI] 19.9 or less, adult; J91.8 Pleural effusion in other conditions classified elsewhere; D63.8 Anemia in other chronic diseases classified elsewhere; N18.6 End stage renal disease; E03.9 Hypothyroidism, unspecified; E78.5 Hyperlipidemia, unspecified; E87.6 Hypokalemia; F17.210 Nicotine dependence, cigarettes, uncomplicated; F32.9 Major depressive disorder, single episode, unspecified; G40.909 Epilepsy, unspecified, not intractable, without status epilepticus; F41.9 Anxiety disorder, unspecified; H54.62 Unqualified visual loss, left eye, normal vision right eye; I25.10 Atherosclerotic heart disease of native coronary artery without angina pectoris; I48.0 Paroxysmal atrial fibrillation; I49.5 Sick sinus syndrome; I73.9 Peripheral vascular disease, unspecified; K21.9 Gastro-esophageal reflux disease without esophagitis; M81.0 Age-related osteoporosis without current pathological fracture; E21.3 Hyperparathyroidism, unspecified; I25.2 Old myocardial infarction; Z79.82 Long term (current) use of aspirin; Z79.899 Other long term (current) drug therapy; Z82.49 Family history of ischemic heart disease and other diseases of the circulatory system; Z82.5 Family history of asthma and other chronic lower respiratory diseases; Z86.73 Personal history of transient ischemic attack (TIA), and cerebral infarction without residual deficits; Z90.710 Acquired absence of both cervix and uterus; Z95.1 Presence of aortocoronary bypass graft; Z98.61 Coronary angioplasty status; Z99.81 Dependence on supplemental oxygen; Z87.01 Personal history of pneumonia (recurrent); Z88.8 Allergy status to other drugs, medicaments and biological substances; Z99.2 Dependence on renal dialysis
CPT/HCPCS: 31622; 36415; 36600; 71045; 80048; 80053; 80202; 82805; 83605; 83735; 84145; 84484; 85007; 85025; 85610; 85730; 86706; 87340; 87493; 93005; 94640; 94660; 94760; 96365; 96375; 99406; J0360; J1644; J2060; J2543; J2930; J3370; J7613; J7620; 97110; 97530; 99285-25; G0378

== ENCOUNTER 2019-03-02 06:47 | Outpatient (CLI) | payer MEDICARE ==
[2019-03-02] VITALS (7 sets, daily range): BP systolic 168–191; BP diastolic 50–76
[~2019-03-02] VITALS: Ht 152.4 cm; Wt 38.1 kg
[~2019-03-02 06:47] MED LIST changes: +ALBU2.5V8 NEB; +AMLO5TAB4 PO; +IPRA3AMP29 NEB; +MEGE625O3 PO; +OMEP40CA45 PO; -OMEP40CA5 PO
[2019-03-02 08:19] LABS: BASO % 1 % (0-3); EOS # 0.1 x10^3/uL (0.0-0.7); EOS % 2 % (0-3); HEMOGLOBIN 11.3 g/dL (12.0-15.5); LYMPH # 0.9 x10^3/uL (1.0-4.8); LYMPH % 10 % (24-48); MEAN CORPUSCULAR HEMOGLOBIN 31 pg (25-35); MEAN CORPUSCULAR HGB CONC 33 g/dL (31-37); MEAN CORPUSCULAR VOLUME 92 fL (79-100); MONO # 0.9 x10^3/uL (0.0-1.1); MONO % 10 % (0-9); NEUT # 6.5 x10^3/uL (1.8-7.7); NEUT % 77 % (31-73); PLATELET COUNT 215 x10^3/uL (140-400); RED CELL DISTRIBUTION WIDTH 16.3 % (11.5-14.5); WHITE BLOOD COUNT 8.4 x10^3/uL (4.0-11.0)
[2019-03-02 08:35] LABS: PROTHROMBIN TIME PATIENT 14.3 SEC (11.7-14.0)
--- NOTE | 2019-03-02 09:56 | NUR ---
Discharge Note: LURDES LEMOS Discharge instructions and discharge home medications reviewed with Patient and a copy given. All questions have been answered and understanding verbalized. The following instructions and handouts were given: thoracentesis Discontinued lines and drains: no lines to remove. Patient discharged to Home or Self Care withSpousevia Wheelchair
--- NOTE | 2019-03-02 11:23 | RAD ---
Ultrasound-guided right-sided thoracentesis 03/02/2019 9:19 AM Indication: PLEURAL EFFUSION Procedure: Informed consent was obtained. A timeout procedure was performed. Sonographic evaluation of the right chest was performed demonstrating moderate pleural effusion. The right posterior chest was prepped and draped in sterile fashion. 1% lidocaine without epinephrine was administered for local anesthesia. Real-time ultrasonographic guidance was used in passing a 5 [place] Corteraeh catheter into the right pleural space. 0.5 L of serosanguineous pleural fluid was removed. Samples of fluid were sent to the lab for further evaluation per ordering physician request. The catheter was removed and pressure held to achieve hemostasis. A sterile dressing was applied. No immediate complications were identified. The patient tolerated the procedure well. Impression: Right sided ultrasound-guided thoracentesis
--- NOTE | 2019-03-02 17:20 | RAD ---
EXAM: CHEST ONE VIEW. HISTORY: Status post thoracentesis. COMPARISON: 01/19/2019. FINDINGS: A frontal view of the chest is obtained. Median sternotomy changes are noted. A left-sided pacemaker has its leads in the right atrium and right ventricle. There are small bilateral pleural effusions. Bilateral interstitial infiltrates indicate mild pulmonary edema. Hyperinflation is consistent with chronic obstructive pulmonary disease. There is no pneumothorax. The heart is moderately enlarged. There are atherosclerotic calcifications of the aorta. Changes of internal fixation of a left proximal humeral fracture noted. IMPRESSION: 1. Mild pulmonary edema. Small bilateral pleural effusions. Moderate cardiomegaly. Electronically signed by: Angelica Valentin MD (03/02/2019 5:17 PM) [facility] [place]
== END 2019-03-02 09:45 | disposition home or self-care (01) ==
LOC: INTRAD 06:47
PROVIDERS: ATTEND Internal Medicine Pulmonary Disease
DX: J90 Pleural effusion, not elsewhere classified (principal); Z79.01 Long term (current) use of anticoagulants
CPT/HCPCS: 32555; 36415; 71045; 85025; 85610; 85730